=== PATIENT | female | born 1985 | race Caucasian/White ===

== ENCOUNTER 2022-06-21 01:52 | Emergency (ER) | payer SELFPAY ==
--- NOTE | 2022-06-21 02:05 | EDPHYS ---
Physician Documentation [facility] Name: Teodora Mas Age: 36 yrs Sex: Female : 1985 Arrival Date: 06/21/2022 Time: 01:54 Bed 5 Private MD: AMY Physician Fam Jensen HPI: 06/21 03:15 This 36 yrs old Female presents to ER via Stretcher with complaints of Fall Injury - kdr left lower leg deformity. 03:15 [place] and [place]. Her leg may have gotten kdr caught as she went down. She had acute onset of pain in her right knee. She was not able to bear weight afterwards. She is otherwise without other injury. Patient has a protein S deficiency which requires her to take Eliquis on a regular basis. She has a history of multiple blood clots in her lungs and elsewhere. She has had multiple surgeries for removal of those clots.. Onset: The symptoms/episode began/occurred suddenly, just prior to arrival. Severity of symptoms: At their worst the symptoms were severe incapacitating in the emergency department the symptoms are unchanged. The patient has not experienced similar symptoms in the past. The patient has not recently seen a physician. Historical: - Allergies: 04:08 No Known Allergies; as6 - Home Meds: 01:59 Eliquis oral [Active]; aa9 - PMHx: 04:08 Myocardial infarction; protein s deficiency; as6 - Social history:: Smoking status: Patient reports the use of cigarette tobacco products, smokes one-half pack cigarettes per day. - Immunization history: Last tetanus immunization: unknown. ROS: 03:15 Constitutional: Negative for fever, chills, and weight loss, Eyes: Negative for injury, kdr pain, redness, and discharge, Neck: Negative for injury, pain, and swelling, Cardiovascular: Negative for chest pain, palpitations, and edema, Respiratory: Negative for shortness of breath, cough, wheezing, and pleuritic chest pain, Abdomen/GI: Negative for abdominal pain, nausea, vomiting, diarrhea, and constipation, Back: Negative for injury and pain, : Negative for injury, bleeding, discharge, and swelling, Skin: Negative for injury, rash, and discoloration, Neuro: Negative for headache, weakness, numbness, tingling, and seizure activity. Psych: Negative for depression, anxiety, suicide ideation, homicidal ideation, and hallucinations, Allergy/Immunology: Negative for hives, rash, and allergies, Endocrine: Negative for neck swelling, polydipsia, polyuria, polyphagia, and marked weight changes, Hematologic/Lymphatic: Negative for swollen nodes, abnormal bleeding, and unusual bruising. 03:15 MS/extremity: Positive for injury or acute deformity, decreased range of motion, deformity, pain, swelling, tenderness, warmth, of the lateral aspect of right knee, lateral aspect of right calf, posterior aspect of right knee, right calf, medial aspect of right knee, medial aspect of right calf, right knee and right rosario, Negative for puncture. Exam: 03:15 Constitutional: This is a well developed, well nourished patient who is awake, alert, kdr and in no acute distress. Head/Face: Normocephalic, atraumatic. Eyes: Pupils equal round and reactive to light, extra-ocular motions intact. Lids and lashes normal. Conjunctiva and sclera are non-icteric and not injected. Cornea within normal limits. Periorbital areas with no swelling, redness, or edema. Neck: Trachea midline, no thyromegaly or masses palpated, and no cervical lymphadenopathy. Supple, full range of motion without nuchal rigidity, or vertebral point tenderness. No Meningismus. Chest/axilla: Normal chest wall appearance and motion. Nontender with no deformity. No lesions are appreciated. Cardiovascular: Regular rate and rhythm with a normal S1 and S2. No gallops, murmurs, or rubs. Normal PMI, no JVD. No pulse deficits. Respiratory: Lungs have equal breath sounds bilaterally, clear to auscultation and percussion. No rales, rhonchi or wheezes noted. No increased work of breathing, no retractions or nasal flaring. Abdomen/GI: Soft, non-tender, with normal bowel sounds. No distension or tympany. No guarding or rebound. No evidence of tenderness throughout. Back: No spinal tenderness. No costovertebral tenderness. Full range of motion. Skin: Warm, dry with normal turgor. Normal color with no rashes, no lesions, and no evidence of cellulitis. Neuro: Awake and alert, GCS 15, oriented to person, place, time, and situation. Cranial nerves II-XII grossly intact. Motor strength 5/5 in all extremities. Sensory grossly intact. Cerebellar exam normal. Normal gait. Psych: Awake, alert, with orientation to person, place and time. Behavior, mood, and affect are within normal limits. 03:15 Musculoskeletal/extremity: Extremities: all appear grossly normal, with no appreciated pain with palpation, ROM: limited active range of motion, limited passive range of motion, in the right leg, Circulation is intact in all extremities. Sensation intact. Weight bearing: is unable to bear weight. Vital Signs: 01:56 BP 137 / 97; Pulse 92; Resp 20 S; Pulse Ox 100% on R/A; Pain 10/10; aa9 02:40 BP 124 / 79; Pulse 96; Resp 13 S; Pulse Ox 99% on R/A; as6 03:33 BP 129 / 79; Pulse 106; Resp 20; Temp 98.7; Pulse Ox 100% on R/A; Weight 79.38 kg; jj7 Height 5 ft. 5 in. (165.10 cm); 04:03 BP 117 / 72; Pulse 103; Resp 18 S; Pulse Ox 100% on 2 lpm NC; as6 04:32 BP 112 / 89; Pulse 97; Resp 18; Pulse Ox 100% on R/A; as6 09:19 BP 117 / 76; Pulse 86; Resp 16; Pulse Ox 100% on R/A; vg1 03:33 Body Mass Index 29.12 (79.38 kg, 165.10 cm) j7 Carmine Coma Score: 02:08 Eye Response: spontaneous(4). Verbal Response: oriented(5). Motor Response: obeys as6 commands(6). Total: 15. Trauma Score (Adult): 02:08 Eye Response: spontaneous(1); Verbal Response: oriented(1); Motor Response: obeys as6 commands(2); Systolic BP: > 89 mm Hg(4); Respiratory Rate: 10 to 29 per min(4); [place] Score: 15; Trauma Score: 12 Procedures: 03:15 Splinting: Splint applied to right leg using Orthoglass splint, applied by myself. kdr Examined by me, post splint application: neurovascular intact, 2+ distal pulses palpable, brisk capillary refill noted, Patient tolerated well. MDM: 02:05 Patient medically screened. kdr 05:11 Data reviewed: vital signs, nurses notes, lab test result(s), radiologic studies. kdr Counseling: I had a detailed discussion with the patient and/or guardian regarding: the historical points, exam findings, and any diagnostic results supporting the discharge/admit diagnosis, lab results, radiology results, the need to transfer to another facility. 06/21 01:56 Order name: CBC with Diff kdr 06/21 01:56 Order name: Chem 7 kdr 06/21 01:56 Order name: PT-INR kdr 06/21 01:56 Order name: Femur Right XRAY kdr 06/21 01:56 Order name: Tib Fib Right XRAY kdr 06/21 01:59 Order name: SARS RAPID mw2 06/21 01:56 Order name: Knee Right 3 View XRAY kdr 06/21 04:25 Order name: Knee Right Wo Cont EDMS 06/21 01:56 Order name: Splint - Long Leg: Posterior w/ Stirrup; Complete Time: 04:06 kdr Administered Medications: 02:15 Drug: Dilaudid (HYDROmorphone) 2 mg Route: IVP; Site: right antecubital; jj7 08:26 Follow up: Response: Pain is unchanged, physician notified ap3 02:23 Drug: Zofran (Ondansetron) 4 mg Route: IVP; Site: right antecubital; jj7 08:26 Follow up: Response: No adverse reaction ap3 03:20 Drug: Dilaudid (HYDROmorphone) 1 mg Route: IVP; Site: right antecubital; as6 08:26 Follow up: Response: Pain is unchanged, physician notified ap3 03:45 Drug: Midazolam 4 mg Route: IVP; Site: right antecubital; as6 08:26 Follow up: Response: Pain is unchanged, physician notified ap3 06:17 Drug: Dilaudid (HYDROmorphone) 1 mg Route: IVP; Site: right antecubital; as6 08:26 Follow up: Response: Pain is unchanged, physician notified ap3 07:45 Drug: Dilaudid (HYDROmorphone) 1 mg Route: IVP; Site: right antecubital; ap3 08:52 Drug: Dilaudid (HYDROmorphone) 1 mg Route: IVP; Site: right antecubital; vg1 Disposition Summary: 06/21/22 02:05 Transfer Ordered Reason: Higher level of care kdr Condition: Fair kdr Problem: new kdr Symptoms: have improved kdr Transfer Location: Other Acute Care Facility(06/21/22 06:19) Accepting Physician: Dr. Castellon [facility](06/21/22 09:21) vg1 Diagnosis - Tibial plateau fracture -closed kdr Forms: - Medication Reconciliation Form kdr - SBAR form kdr Signatures: Dispatcher [employer] EDMS Rosa Rivero RN RN Jaylan Durand MD MD kdr Lois Stephen RN RN ap3 Cierra Cosme RN RN vg1 Zach Constantino RN RN as6 Jennifer Curtis RN RN aa9 Reji Rhodes RN RN jj7 Corrections: (The following items were deleted from the chart) 04:09 01:59 Allergies: Unable to obtain; aa9 as6 04:09 01:59 PMHx: Unable to Obtain; aa9 as6 04:09 01:59 PSHx: Unable to Obtain; aa9 as6 05:11 02:05 [place] kdr kdr 06:19 02:05 [facility] kdr 06:19 05:11 [facility] 06:19 Dr. Castellon, [facility] mw vg1
--- NOTE | 2022-06-21 02:05 | ER ---
Nurse's Notes [facility] Name: Teodora Mas Age: 36 yrs Sex: Female : 1985 Arrival Date: 06/21/2022 Time: 01:54 Bed 5 Private MD: Diagnosis: Tibial plateau fracture -closed Presentation: 06/21 01:56 Chief complaint: Patient states: [place] and I tripped and fell. My aa9 left lower leg is deformed and it hurts so bad. Initial Sepsis Screen: Does the patient meet any 2 criteria? No. Patient's initial sepsis screen is negative. Does the patient have a suspected source of infection? No. Patient's initial sepsis screen is negative. Risk Assessment: Do you want to hurt yourself or someone else? Patient reports no desire to harm self or others. Onset of symptoms was June 21, 2022. 01:56 Method Of Arrival: Stretcher aa9 01:56 Acuity: ANDRE 2 aa9 02:04 Care prior to arrival: None. Mechanism of Injury: Fall from standing position. Trauma as6 event details: Injury occurred in the [facility], Injury occurred: beach. 02:09 Coronavirus screen: At this time, the client does not indicate any symptoms associated as6 with coronavirus-19. Ebola Screen: No symptoms or risks identified at this time. Triage Assessment: 02:00 General: Appears distressed, uncomfortable, Behavior is anxious, crying. Pain: aa9 Complains of pain in left leg Pain currently is 10 out of 10 on a pain scale. Cardiovascular:. Musculoskeletal: Bony deformity noted of lateral aspect of left calf, left calf, medial aspect of left calf and left rosario. Trauma Activation: Alert Physician: ED Physician; Name: Kizzy; Notified At: 01:55; Arrived At: Physician: General Surgeon; Name: ; Notified At: 01:55; Arrived At: Physician: Radiology; Name: ; Notified At: 01:55; Arrived At: Physician: Respiratory; Name: ; Notified At: 01:55; Arrived At: Physician: Lab; Name: ; Notified At: 01:55; Arrived At: Historical: - Allergies: 04:08 No Known Allergies; as6 - Home Meds: 01:59 Eliquis oral [Active]; aa9 - PMHx: 04:08 Myocardial infarction; protein s deficiency; as6 - Social history:: Smoking status: Patient reports the use of cigarette tobacco products, smokes one-half pack cigarettes per day. - Immunization history: Last tetanus immunization: unknown. Screenin:01 Abuse screen: Denies threats or abuse. Denies injuries from another. Nutritional aa9 screening: No deficits noted. Tuberculosis screening: No symptoms or risk factors identified. Fall Risk None identified. Primary Survey: 02:06 NO uncontrolled hemorrhage observed. A: The client is awake and alert. The airway is as6 patent. Breathing/Chest: Spontaneous respiratory effort, equal unlabored respirations, breath sounds clear bilaterally, regular pattern, symmetrical chest rise and fall. Circulation: No external hemorrhage present. Regular and strong central pulse, skin warm/dry/normal color. Disability Pupils are equal, round, reactive to light and accommodation. Client is alert. Exposure/Environment: All clothing and personal items were removed. Forensic evidence collection is not deemed to be indicated at this time. Items placed in patient belonging bag. A warming method has been applied: A warm blanket has been provided to the patient. 04:06 Reassessment Alertness and Airway: Awake and alert. The airway is patent. Breathing: as6 Spontaneous respiratory effort, equal unlabored respirations, breath sounds clear bilaterally, regular pattern with symmetrical chest rise and fall. Circulation: No external hemorrhage noted. Regular and strong central pulse, skin warm/dry/normal color. Disability: Pupils Pupils are equal, round, reactive to light and accomodation. Alert. Secondary Survey: 02:09 HEENT: No deficits noted. Gastrointestinal: No deficits noted. : No deficits noted. as6 Musculoskeletal: Bony deformity noted of right leg Swelling present in right leg. Assessment: 02:05 General: Appears uncomfortable, Behavior is cooperative. Pain: Complains of pain in as6 left rosario and medial aspect of left calf and left calf and lateral aspect of left calf and left leg. Neuro: Level of Consciousness is awake, alert. Respiratory: Respiratory effort is even, unlabored. Musculoskeletal: Bony deformity noted of right leg Swelling present in right leg. 08:47 Reassessment: Patient appears in no apparent distress at this time. Patient and/or vg1 family updated on plan of care and expected duration. Pain level reassessed. Patient is alert, oriented x 3, equal unlabored respirations, skin warm/dry/pink. c/o Right leg pain 05/18. 08:50 Reassessment: received VO from Dr Jensen to administer Dilaudid 1 mg IVP x1. vg1 Vital Signs: 01:56 BP 137 / 97; Pulse 92; Resp 20 S; Pulse Ox 100% on R/A; Pain 10/10; aa9 02:40 BP 124 / 79; Pulse 96; Resp 13 S; Pulse Ox 99% on R/A; as6 03:33 BP 129 / 79; Pulse 106; Resp 20; Temp 98.7; Pulse Ox 100% on R/A; Weight 79.38 kg; jj7 Height 5 ft. 5 in. (165.10 cm); 04:03 BP 117 / 72; Pulse 103; Resp 18 S; Pulse Ox 100% on 2 lpm NC; as6 04:32 BP 112 / 89; Pulse 97; Resp 18; Pulse Ox 100% on R/A; as6 09:19 BP 117 / 76; Pulse 86; Resp 16; Pulse Ox 100% on R/A; vg1 03:33 Body Mass Index 29.12 (79.38 kg, 165.10 cm) jj7 Kerby Coma Score: 02:08 Eye Response: spontaneous(4). Verbal Response: oriented(5). Motor Response: obeys as6 commands(6). Total: 15. Trauma Score (Adult): 02:08 Eye Response: spontaneous(1); Verbal Response: oriented(1); Motor Response: obeys as6 commands(2); Systolic BP: > 89 mm Hg(4); Respiratory Rate: 10 to 29 per min(4); Kerby Score: 15; Trauma Score: 12 ED Course: 01:54 Patient arrived in ED. mw2 01:54 Jaylan Durand MD is Attending Physician. kdr 01:58 Triage completed. aa9 02:02 Zach Constantino, GINNY is Primary Nurse. as6 02:04 Inserted saline lock: 18 gauge in right antecubital area, using aseptic technique. as6 Blood collected. Patient maintains SpO2 saturation greater than 95% on room air. Thermoregulation: warm blanket given to patient. 02:09 Arm band placed on. as6 02:09 Placed in gown. Bed in low position. Call light in reach. Side rails up X2. Adult w/ as6 patient. Client placed on continuous cardiac and pulse oximetry monitoring. NIBP monitoring applied. Warm blanket given. 02:17 Patient transferred, IV remains in place. as6 02:35 attempted to initiate a transfer with [facility]. on hold no mw2 answer hung up at [id number]. 02:45 Femur Right XRAY In Process Unspecified. EDMS 02:45 Tib Fib Right XRAY In Process Unspecified. EDMS 02:45 Knee Right 3 View XRAY In Process Unspecified. EDMS 03:09 intiated a transfer with [facility]. Usha in the Transfer Center mw2 answered at [phone]. 03:23 Initiated a transfer with Ariel from [facility]. [facility] denied due to capacity. mw2 04:00 Babar wrap to left leg Orthoglass splint: Posterior long leg splint applied on right leg. as6 stirrup splint applied on right leg. 04:06 [facility] denied to capacity. Trying [facility]. mw2 04:25 Knee Right Wo Cont In Process Unspecified. EDMS 04:48 intiated a transfer with Nancy Rich from [facility] Transfer Center. mw2 05:[address] Durand with the Doctor from [facility]. mw2 05:12 administrative approval given by Yoselyn Louie/ patient has been accepted to [address] to the ER/ Dr. Castellon accepted the patient in transfer/report to be called to [phone]. 05:41 [facility] ETA after 6am. mw2 07:32 Attending Physician role handed off by Jaylan Durand MD jeremiah 07:32 Fam Jensen MD is Attending Physician. jeremiah 08:10 Primary Nurse role handed off by Zach Constantino RN bd 09:19 No provider procedures requiring assistance completed. Patient transferred, IV remains vg1 in place. Administered Medications: 02:15 Drug: Dilaudid (HYDROmorphone) 2 mg Route: IVP; Site: right antecubital; jj7 08:26 Follow up: Response: Pain is unchanged, physician notified ap3 02:23 Drug: Zofran (Ondansetron) 4 mg Route: IVP; Site: right antecubital; jj7 08:26 Follow up: Response: No adverse reaction ap3 03:20 Drug: Dilaudid (HYDROmorphone) 1 mg Route: IVP; Site: right antecubital; as6 08:26 Follow up: Response: Pain is unchanged, physician notified ap3 03:45 Drug: Midazolam 4 mg Route: IVP; Site: right antecubital; as6 08:26 Follow up: Response: Pain is unchanged, physician notified ap3 06:17 Drug: Dilaudid (HYDROmorphone) 1 mg Route: IVP; Site: right antecubital; as6 08:26 Follow up: Response: Pain is unchanged, physician notified ap3 07:45 Drug: Dilaudid (HYDROmorphone) 1 mg Route: IVP; Site: right antecubital; ap3 08:52 Drug: Dilaudid (HYDROmorphone) 1 mg Route: IVP; Site: right antecubital; vg1 Medication: 04:07 VIS not applicable for this client. as6 Intake: 02:08 PO: 0ml; Total: 0ml. as6 Outcome: 02:05 ER care complete, transfer ordered by . kdr 09:19 Transferred by ground EMS vg1 09:19 Condition: good 09:19 Instructed on the need for transfer. 09:20 waiting for acceptance and ground transportationPatient's length of stay extended due vg1 to 09:21 Patient left the ED. vg1 Signatures: Dispatcher [employer] EDMS Clarita Sarmiento Corey, MD MD cha Rittger, Kevin, MD MD kdr Prokisch, Amanda RN RN ap3 Mena Walters mw2 Cierra Cosme RN RN vg1 Zahc Constantino RN GINNY as6 Jennifer Curtis RN RN aa9 Reji Rhodes RN RN jj7 Corrections: (The following items were deleted from the chart) 03:42 02:35 attempted to initiate a transfer with [facility]. on hold mw2 no answer mw2 04:09 01:59 Allergies: Unable to obtain; aa9 as6 04:09 01:59 PMHx: Unable to Obtain; aa9 as6 04:09 01:59 PSHx: Unable to Obtain; aa9 as6
[2022-06-21 02:12] LABS: Protime INR 1.37
[2022-06-21 02:13] LABS: Absolute Lymphocytes (CBC) 1.9 K/uL (0.7-4.9); Hematocrit 32.6 % (36.0-45.0); Lymphocytes % 16.9 % (15.3-44.8); MCV 78.8 fL (80-100); MPV 7.2 fL (7.6-11.3); RBC Red Blood Cell Count 4.13 M/uL (3.86-4.86)
[2022-06-21] MEDS ORDERED: HYDROMORPHONE HCL 1 MG/ML INJ ONE ×5 (02:13→09:01)
[2022-06-21] MEDS ORDERED: ONDANSETRON 4 MG/2 ML VIAL ONE (02:14)
[2022-06-21 02:22] LABS: SARS-CoV-2 Antigen Rapid Res Negative (Negative)
[2022-06-21] MEDS ORDERED: MIDAZOLAM HCL 2 MG/2 ML INJ ONE (03:42)
[2022-06-21 09:49] VITALS: TEMP 98.7; O2SAT 100
[2022-06-21 10:10] VITALS: BP 117/76
--- NOTE | 2022-06-21 16:57 | RAD REPORT ---
EXAM DESCRIPTION: RAD - Tib Fib Right - 06/21/2022 2:44 am CLINICAL HISTORY: 36 years, Female, Pain COMPARISON: None FINDINGS: 2 X-ray views of the right tibia and fibula (frontal lateral views) were performed. There is a acute oblique fractures along the proximal aspect of the right tibia and fibula with no si gnificant angulation/or diastases. No gross articular or soft tissue abnormality is identified. T here are no gross intraosseous lesions. No periosteal reaction were seen. IMPRESSION: Acute oblique fractures of the proximal right tibia and fibula. Electronically signed by: Joshua Hester MD 06/21/2022 3:23 AM CDT Due to temporary technical issues with the PACS/Fluency reporting system, reports are being signed by the in house radiologists without review as a courtesy to insure prompt reporting. The interpreting radiologist is fully responsible for the content of the report.
--- NOTE | 2022-06-21 16:59 | RAD REPORT ---
EXAM DESCRIPTION: RAD - Knee Right 3 View - 06/21/2022 2:44 am CLINICAL HISTORY: 36 years, Female, PAIN COMPARISON: None FINDINGS: 2 X-ray views of the right tibia and fibula (frontal and lateral views) were performed. There is a oblique fracture along the proximal aspect of the tibia with extension into the tibial tyron teau and linear intra-articular extension/component. There are no gross intraosseous lesions. There is a small suprapatellar joint effusion. There is no periostitis. IMPRESSION: Nondisplaced proximal tibial fracture with intra-articular extension and small joint eff usion. Electronically signed by: Joshua Hester MD 06/21/2022 3:24 AM CDT Due to temporary technical issues with the PACS/Fluency reporting system, reports are being signed by the in house radiologists without review as a courtesy to insure prompt reporting. The interpreting radiologist is fully responsible for the content of the report.
--- NOTE | 2022-06-21 17:00 | RAD REPORT ---
EXAM DESCRIPTION: RAD - Femur Right - 06/21/2022 2:43 am CLINICAL HISTORY: 36 years, Female, Pain Femur Right COMPARISON: None. FINDINGS: 2 X-ray views of the right femur were performed. There is no acute fracture or dislocation. There is no focal soft tissue swelling. Limited evaluation of the knee and hip joints demonstrate no gross abnormalities. The bony pelvis is grossly normal in appearance. IMPRESSION: Unremarkable exam of the right femur. Electronically signed by: Joshua Hester MD 06/21/2022 3:22 AM CDT Due to temporary technical issues with the PACS/Fluency reporting system, reports are being signed by the in house radiologists without review as a courtesy to insure prompt reporting. The interpreting radiologist is fully responsible for the content of the report.
--- NOTE | 2022-06-21 17:03 | RAD REPORT ---
EXAM DESCRIPTION: CT - Knee Right Wo Cont - 06/21/2022 6:46 am CLINICAL HISTORY: 36 years Female FALL INJURY TECHNIQUE: Axial CT imaging of the right knee was performed without intravenous contrast. Sagittal and coronal reconstructed images were then performed. The CT study is performed according to ALARA ( as low as reasonably achievable) or ALARA/IMAGE GENTLY, with automatic adjustment of mA and/or kV acc ording to patient size. Performed on: 06/21/2022 at 4:18 AM COMPARISON: Plain x-rays of the right knee performed on 06/21/2022 at 2:23 AM FINDINGS: Bones: There is a comminuted mildly displaced, obliquely oriented fracture through the pro ximal tibial diaphysis which extends to the medial tibial plateau which is not depressed or displaced . There is also a comminuted depressed fracture through the lateral tibial plateau. There is also a c omminuted mildly displaced fracture through the proximal fibular diaphysis without definite intra-art icular extension. The distal femur is grossly intact. The patella is intact. No significant degenerat ziggy or arthritic changes are noted. No focal pathologic lytic or sclerotic bone lesions are identifie d. Bone mineralization is normal. Soft tissues: There is diffuse soft tissue swelling surrounding the proximal right lower leg with inf iltration of the superficial and deep subcutaneous fat particularly along the anteromedial aspect of the right knee. There may be strain of the medial collateral ligament. There is a moderate suprapatel lar joint effusion and there is a fat fluid level consistent with lipohemarthrosis. There is also a s mall amount of fluid posterior to the right knee There is a punctate lucency posterior to the femor al notch which may represent fat or air. This is too small to adequately characterize. IMPRESSION: 1. Comminuted mildly displaced, obliquely oriented fracture through the proximal tibia l diaphysis which extends to the medial tibial plateau which is not depressed or displaced. 2. Comminuted depressed fracture through the lateral tibial plateau. 3. Comminuted mildly displaced fracture through the proximal fibular diaphysis without definite int ra-articular extension. 4. Diffuse soft tissue swelling surrounding the proximal right lower leg with infiltration of the s uperficial and deep subcutaneous fat particularly along the anteromedial aspect of the right knee. Th ere may be strain of the medial collateral ligament. 5. Moderate suprapatellar joint effusion with a fat fluid level consistent with lipohemarthrosis. 6. Punctate lucency posterior to the femoral notch which may represent fat or air. This is too smal l to adequately characterize. Electronically signed by: Preeti Burkett DO 06/21/2022 5:42 AM CDT Due to temporary technical issues with the PACS/Fluency reporting system, reports are being signed by the in house radiologists without review as a courtesy to insure prompt reporting. The interpreting radiologist is fully responsible for the content of the report.
== END 2022-06-21 09:21 ==
LOC: ER 01:52
PROC: 2W3LX1Z Immobilization of Right Lower Extremity using Splint (ICD-10-PCS; principal; 2022-06-21)
DX: S82.141A Displaced bicondylar fracture of right tibia, initial encounter for closed fracture (principal); F17.210 Nicotine dependence, cigarettes, uncomplicated; D68.59 Other primary thrombophilia; Z79.01 Long term (current) use of anticoagulants
CPT/HCPCS: 36415; 73700; 80048; 85025; 85610; 87811; 96374; 96375; 99285; J1170; J2250; J2405

== ENCOUNTER 2022-12-01 20:23 | Emergency (ER) | payer SELFPAY ==
--- OUTSIDE RECORDS SUMMARY | 2022-12-01 20:27 | XMS REPORT | Continuity of Care Document ---
:1985 Author Organization [facility] t Address [address] [place] [address] Care Team Providers Name Role Phone Brian Britt Attending Clinician Unavailable Brian Britt Admitting Clinician Unavailable Payers Payer Name Policy Type Policy Number Effective Date Expiration Date S ource Problems This patient has no known problems. Allergies, Adverse Reactions, Alerts Allergy Allergy Status Severity Reaction(s) Onset Inactive Treating Comm ents Source Name Type Date Date Clinician cycloben [place] [facility] zaprine 06-29 Clear 00:00: [facility] tramadol [place] [facility] A 06-22 Clear 00:00: [facility] tramadol [place] [facility] A 06-21 Clear 00:00: [facility] MUSCLE [place] [facility] 06-21 Clear 00:00: [address] Medications This patient has no known medications. Procedures Procedure Date / Time Performed Performing Clinician Rolando gresham [id number] 2022-06-29 00:00:00 ANDREW TEE [facility] [id number] 2022-06-29 00:00:00 ANDREW RANDAL [facility] [id number] 2022-06-22 00:00:00 ANDREW TEE [facility] [id number] 2022-06-22 00:00:00 ANDREW [facility] [id number] 2022-06-22 00:00:00 ANDREW TEE [facility] [id number] 2022-06-22 00:00:00 ANDREW TEE [facility] Encounters Start End Encounter Admission Attending Care Care Encounter Source Date/Time Date/Time Type Type Clinicians Facility Department ID 2022-06-21 2022-07-01 Inpatient ADRIÁN Nair [facility].Earnest [id number] [facility] 11:27:00 16:44:00 Brian Cha [facility] Results Test Description Test Time Test Comments Results Result Comments Source BASIC METABOLIC PANEL 2022-06-30 09:23:00 Test Item Value Reference Range Interpretation Comme nts SODIUM (test code = NA) 140 mEq/L 134-147 N POTASSIUM (test code = K) 4.0 mEq/L 3.4-5.0 N CHLORIDE (test code = CL) 106 mEq/L 100-108 N CARBON DIOXIDE (test code = CO2) 26 mEq/l 21-33 N ANION GAP (test code = GAP) 12 0-20 N GLUCOSE (test code = GLU) 91 mg/dL 70-110 N BLOOD UREA NITROGEN (test code = 7 mg/dL 7-18 N BUN) GLOMERULAR FILTRATION RATE (test 93.6 105-110 L Units of measure = ml/min/1.73 code = GFR) m2 CREATININE (test code = CREAT) 0.7 mg/dL 0.6-1.3 N CALCIUM (test code = CA) 8.4 mg/dL 8.0-10.5 N CBC W/AUTO [id number] 07:26:00 Test Item Value Reference Range Interpretation Comments WHITE BLOOD CELL (test code = 7.8 x10 3/uL 4.5-11.0 N WBC) RED BLOOD CELL (test code = 2.92 x10 6/uL 3.54-5.02 L RBC) HEMOGLOBIN (test code = HGB) 8.0 g/dL 11.0-15.0 L HEMATOCRIT (test code = HCT) 25.6 % 33.0-45.0 L MEAN CELL VOLUME (test code = 87.7 fL 81.0-99.0 MCV) MEAN CELL HGB (test code = MCH) 27.4 pg 27.0-33.0 N MEAN CELL HGB CONCETRATION 31.3 g/dL 33.0-37.0 L (test code = MCHC) RED CELL DISTRIBUTION WIDTH CV 18.4 % 11.5-14.5 H (test code = RDW) RED CELL DISTRIBUTION WIDTH SD 53.1 fL 37.0-54.0 N (test code = RDW-SD) PLATELET COUNT (test code = 369 x10 3/uL 150-400 N PLT) MEAN PLATELET VOLUME (test code 8.8 fL 7.0-9.0 N = MPV) NEUTROPHIL % (test code = NT%) 69.2 % 56.0-77.0 N IMMATURE GRANULOCYTE % (test 1.9 % 0.0-2.0 N code = IG%) LYMPHOCYTE % (test code = LY%) 20.3 % 14.0-32.0 N MONOCYTE % (test code = MO%) 8.2 % 4.8-9.0 N EOSINOPHIL % (test code = EO%) 0.1 % 0.3-3.7 L BASOPHIL % (test code = BA%) 0.3 % 0.0-2.0 N NUCLEATED RBC % (test code = 0.0 % 0-0 N NRBC%) NEUTROPHIL # (test code = NT#) 5.40 x10 3/uL 2.0-7.6 N IMMATURE GRANULOCYTE # (test 0.15 x10 3/uL 0.00-0.03 H code = IG#) LYMPHOCYTE # (test code = LY#) 1.58 x10 3/uL 1.0-3.8 N MONOCYTE # (test code = MO#) 0.64 x10 3/uL 0.1-0.8 N EOSINOPHIL # (test code = EO#) 0.01 x10 3/uL 0.0-0.2 N BASOPHIL # (test code = BA#) 0.02 x10 3/uL 0.0-0.2 N NUCLEATED RBC # (test code = 0.00 x10 3/uL 0.0-0.1 N NRBC#) MANUAL DIFF REQUIRED (test code NO = MDIFF) THROMBOPLASTIN TIME [id number] 12:07:00 Test Item Value Reference Range Interpretation Comments THROMBOPLASTIN TIME 38.5 Seconds 25.0-39.5 Therape utic Range: PARTIAL (test code = 50.4 - 88.3 Seconds PTT) Effective 01/22/2019 THROMBOPLASTIN TIME [id number] 04:47:00 Test Item Value Reference Range Interpretation Comments THROMBOPLASTIN TIME 88.0 Seconds 25.0-39.5 H Therape utic Range: PARTIAL (test code = 50.4 - 88.3 Seconds PTT) Effective 01/22/2019 - XR FLUOROSCOPY 0-60 [id number] 00:00:00 [facility] 1985 Sex: F FAX: Brian Britt DO [phone] [place]: St: ADM FAX: Jonathan Copeland [facility] [phone] Name: MALIK SANTANA [facility] : 1985 Age/S: 36/F [address] [place] [address] Unit #: [id number] Loc: G.[address] [place] [address]Yapr: Jonathan Glover [facility] Acct: [id number] Dis Date: Status: ADM IN PHONE #: [phone] Exam Date: 06/29/2022 1026 FAX #: [phone] Reason: RIGHT PROXIMAL TIBIA FRACTURE EXAMS: CPT CODE: [id number] XR FLUOROSCOPY 0-60 MIN 54792 PROCEDURE INFORMATION: Exam: FL Fluoroscopy, Up to 1 Hour Physician Time; Radiologist Not Present For Fluoroscopy Exam date and time: 06/29/2022 7:08 AM Age: 36 years old Clinical indication: Device placement; Patient HX: Orif RT tibia; Additional info: Right proximaltibia fracture TECHNIQUE: Imaging protocol: Fluoroscopy , up to 1 hour physician or other qualifiedw[facility]umed[facility] attendant time. This radiologist did not supervise this procedure. [facility]. Report for radiation dosage reporting and documentation only. Other technique: Radiologist was not present during this procedure. COMPARISON: No relevant prior studies available. RADIATION DOSE METRICS: Fluoroscopy time (seconds): seconds= 113.4 Number of fluoro spot images: images= 19 Reference air kerma (POP): 7.16 mGy FINDINGS: Procedural imaging: Fluoroscopic assistance was provided. Radiologist was not present during the procedure. Intraoperative review of these images was performed by the operating physician. Please refer to the procedure report for further details. Notes: Fluoroscopy supervised by facility personnel. See also separate procedure report. IMPRESSION: Fluoroscopy dosage documentation. See also separate procedure notes. at 1053 Reported and signed by: Elijah Santiago M.D. CC: Brian Britt DO; Jonathan Dejesus [facility] Adalberto Technologist: RT Sharan(Cris) Trnscrd Date/Time/By: 06/29/2022 (8674) : By: [email or web address] Orig Print D/T: S: 06/29/2022 (6519) PAGE 1 Signed Report- XR TIBIA/FIBULA 2 V [id number] 00:00:00 [facility] : 1985 Sex: F FAX: Brian Britt [phone] [place]: St: [facility] FAX: Mariana AdalbertoJonathan Anjelica [facility] [phone] Name: MALIK SANTANA [facility] : 1985 Age/S: 36/F [address] [place] [address] Unit #: [id number] Loc: G.[address] [place] [address]Kbak: Jonathan Glover Anjelica [facility] Acct: [id number] Dis Date: Status: ADM IN PHONE #: [phone] Exam Date: 06/29/2022 1530 FAX #: [phone] Reason: Postop EXAMS: CPT CODE: [id number] XR TIBIA/FIBULA 2V RT [id number] PROCEDURE INFORMATION: Exam: XR Right Tibia and Fibula Exam date and time: 06/29/2022 3:08 PM Age: 36 years old Clinical indication: Other: Postop TECHNIQUE: Imaging protocol: Radiologic exam of the Right tibia and fibula. Views: 2 views. AP and Lateral Other technique: AP and cross-table lateral views of the right leg were obtained. COMPARISON: 1. DX XR TIBIA/FIBULA 2 V RT 06/21/2022 1:56AM 2. CT LOWER EXTRM W/O C RT 06/21/2022 4:16 AM FINDINGS: Limitations: Bandage material and brace material external of the patient. Bones/joints: There has been ORIF comminuted fracture of the proximal tibia utilizing medial and lateral plates and multiple screws. Alignment and position are near anatomical. Residual lucencies related to external fixation device in the mid and distal tibial diaphysis. Oblique fracture of the proximal fibular diaphysis redemonstrated in near anatomic alignment and position. Ankle joint is grossly maintained. Postoperative changes at the level of knee with joint effusion present. The visualized distal femur and patella are intact. Soft tissues: Postoperative changesin regional soft tissues with mottled gas. No unanticipated radiopaque foreign material. Notes: Further interpretation may be made by the operating physician. IMPRESSION: Post ORIF comminuted fracture p roximal tibia. at 1549 Reported and signed by: Umberto Smith M.D. CC: Brian Britt DO; Jonathan Dejesus [facility] Adalberto Technologist: RT Martha(Cris) Trnscrd Date/Time/By: 06/29/2022 (6132) : By: Jennifer Orig Print D/T: S: 06/29/2022 (6439) PAGE 1 Signed Report- XR KNEE 1 OR 2 V [id number] 00:00:00 [facility] 1985 Sex: F FAX: Brian Britt DO [phone] [place]: St: ADM FAX: Jonathan Copeland [facility] [phone] Name: MALIK SANTANA [facility] : 1985 Age/S: 36/F [address] [place] [address] Unit #: [id number] Loc: G.[address] [place] [address] Phys: Jonathan Glover [facility] Acct: [id number] Dis Date: Status: ADM IN PHONE #: [phone] Exam D ate: 06/29/2022 1530 FAX #: [phone] Reason: Postop EXAMS: CPT CODE: [id number] XR KNEE 1 OR 2 VRT [id number] PROCEDURE INFORMATION: Exam: XR Right Knee Exam date and time: 06/29/2022 3:08 PM Age: 36 years old Clinical indication: Other: Postop TECHNIQUE: Imaging protocol: Radiologic exam of the Rightknee. Views: 1 or 2 views. AP and Lateral Other technique: AP and cross-table lateral views were obtained. COMPARISON: 1. CT LOWER EXTRM W/O C RT 06/21/2022 4:16 AM 2. Current right leg radiographs FINDINGS: Bones/joints: There has been interval ORIF comminuted fracture proximal tibia utilizing medialand lateral plates and multiple screws. Alignment and position near anatomical. Residual mild irregul arity cortical surface lateral tibial plateau. The knee is otherwise grossly maintained. Associated joint effusion. Oblique fracture of the proximal fibular diaphysis partially imaged, grossly stable. Soft tissues: There are postoperative changes in regional soft tissues with mottled gas. No unanticipa anali radiopaque foreign material. Notes: Further interpretation may be made by the operating physician. IMPRESSION: Post up ORIF proximal tibial fracture. at 1551 Reported and signed by: Umberto Smith M.D. CC: Brian Britt DO; Jonathan Dejesus [facility] Adalberto Technologist: Adama Espinoza RT(R) Trnscrd Date/Time/By: 06/29/2022 (917) : By: Jennifer Orig Print D/T: S: 06/29/2022 (9709) PAGE 1 Signed ReportTHROMBOPLASTIN TIME [id number] 01:48:00 Test Item Value Reference Range Interpretation Comments THROMBOPLASTIN TIME 62.1 Seconds 25.0-39.5 H Therape utic Range: PARTIAL (test code = 50.4 - 88.3 Seconds PTT) Effective 01/22/2019 CBC W/AUTO [id number] 01:39:00 Test Item Value Reference Range Interpretation Comments WHITE BLOOD CELL (test code = 6.0 x10 3/uL 4.5-11.0 N WBC) RED BLOOD CELL (test code = 3.14 x10 6/uL 3.54-5.02 L RBC) HEMOGLOBIN (test code = HGB) 8.4 g/dL 11.0-15.0 L HEMATOCRIT (test code = HCT) 26.6 % 33.0-45.0 L MEAN CELL VOLUME (test code = 84.7 fL 81.0-99.0 N MCV) MEAN CELL HGB (test code = MCH) 26.8 pg 27.0-33.0 L MEAN CELL HGB CONCETRATION 31.6 g/dL 33.0-37.0 L (test code = MCHC) RED CELL DISTRIBUTION WIDTH CV 16.7 % 11.5-14.5 H (test code = RDW) RED CELL DISTRIBUTION WIDTH SD 46.0 fL 37.0-54.0 N (test code = RDW-SD) PLATELET COUNT (test code = 349 x10 3/uL 150-400 N PLT) MEAN PLATELET VOLUME (test code 8.9 fL 7.0-9.0 N = MPV) NEUTROPHIL % (test code = NT%) 62.7 % 56.0-77.0 N IMMATURE GRANULOCYTE % (test 1.8 % 0.0-2.0 N code = IG%) LYMPHOCYTE % (test code = LY%) 25.7 % 14.0-32.0 N MONOCYTE % (test code = MO%) 6.8 % 4.8-9.0 N EOSINOPHIL % (test code = EO%) 2.8 % 0.3-3.7 N BASOPHIL % (test code = BA%) 0.2 % 0.0-2.0 N NUCLEATED RBC % (test code = 0.0 % 0-0 N NRBC%) NEUTROPHIL # (test code = NT#) 3.77 x10 3/uL 2.0-7.6 N IMMATURE GRANULOCYTE # (test 0.11 x10 3/uL 0.00-0.03 H code = IG#) LYMPHOCYTE # (test code = LY#) 1.55 x10 3/uL 1.0-3.8 N MONOCYTE # (test code = MO#) 0.41 x10 3/uL 0.1-0.8 N EOSINOPHIL # (test code = EO#) 0.17 x10 3/uL 0.0-0.2 N BASOPHIL # (test code = BA#) 0.01 x10 3/uL 0.0-0.2 N NUCLEATED RBC # (test code = 0.00 x10 3/uL 0.0-0.1 N NRBC#) MANUAL DIFF REQUIRED (test code NO = MDIFF) COMMENTS: Daily while on HeparinTHROMBOPLASTIN TIME [id number] 18:54:00 Test Item Value Reference Range Interpretation Comments THROMBOPLASTIN TIME 80.3 Seconds 25.0-39.5 H Therape utic Range: PARTIAL (test code = 50.4 - 88.3 Seconds PTT) Effective 01/22/2019 THROMBOPLASTIN TIME [id number] 17:31:00 Test Item Value Reference Range Interpretation Comments THROMBOPLASTIN TIME 37.8 Seconds 25.0-39.5 Therape utic Range: PARTIAL (test code = 50.4 - 88.3 Seconds PTT) Effective 01/22/2019 THROMBOPLASTIN TIME [id number] 10:16:00 Test Item Value Reference Range Interpretation Comments THROMBOPLASTIN TIME 87.3 Seconds 25.0-39.5 H Therape utic Range: PARTIAL (test code = 50.4 - 88.3 Seconds PTT) Effective 01/22/2019 THROMBOPLASTIN TIME [id number] 02:16:00 Test Item Value Reference Range Interpretation Comments THROMBOPLASTIN TIME 57.9 Seconds 25.0-39.5 H Therap eutic PARTIAL (test code = Range: 50.4 - 88.3 PTT) Seconds Effective 01/22/2019 CBC W/AUTO [id number] 02:06:00 Test Item Value Reference Range Interpretation Comments WHITE BLOOD CELL (test code = 7.1 x10 3/uL 4.5-11.0 N WBC) RED BLOOD CELL (test code = 3.08 x10 6/uL 3.54-5.02 L RBC) HEMOGLOBIN (test code = HGB) 8.3 g/dL 11.0-15.0 L HEMATOCRIT (test code = HCT) 25.9 % 33.0-45.0 L MEAN CELL VOLUME (test code = 84.1 fL 81.0-99.0 N MCV) MEAN CELL HGB (test code = MCH) 26.9 pg 27.0-33.0 L MEAN CELL HGB CONCETRATION 32.0 g/dL 33.0-37.0 L (test code = MCHC) RED CELL DISTRIBUTION WIDTH CV 15.7 % 11.5-14.5 H (test code = RDW) RED CELL DISTRIBUTION WIDTH SD 43.6 fL 37.0-54.0 N (test code = RDW-SD) PLATELET COUNT (test code = 325 x10 3/uL 150-400 N PLT) MEAN PLATELET VOLUME (test code 8.9 fL 7.0-9.0 N = MPV) NEUTROPHIL % (test code = NT%) 62.5 % 56.0-77.0 N IMMATURE GRANULOCYTE % (test 1.8 % 0.0-2.0 N code = IG%) LYMPHOCYTE % (test code = LY%) 24.4 % 14.0-32.0 N MONOCYTE % (test code = MO%) 8.3 % 4.8-9.0 N EOSINOPHIL % (test code = EO%) 2.7 % 0.3-3.7 N BASOPHIL % (test code = BA%) 0.3 % 0.0-2.0 N NUCLEATED RBC % (test code = 0.0 % 0-0 N NRBC%) NEUTROPHIL # (test code = NT#) 4.47 x10 3/uL 2.0-7.6 N IMMATURE GRANULOCYTE # (test 0.13 x10 3/uL 0.00-0.03 H code = IG#) LYMPHOCYTE # (test code = LY#) 1.74 x10 3/uL 1.0-3.8 N MONOCYTE # (test code = MO#) 0.59 x10 3/uL 0.1-0.8 N EOSINOPHIL # (test code = EO#) 0.19 x10 3/uL 0.0-0.2 N BASOPHIL # (test code = BA#) 0.02 x10 3/uL 0.0-0.2 N NUCLEATED RBC # (test code = 0.00 x10 3/uL 0.0-0.1 N NRBC#) MANUAL DIFF REQUIRED (test code NO = MDIFF) COMMENTS: Daily while on HeparinTHROMBOPLASTIN TIME [id number] 16:09:00 Test Item Value Reference Range Interpretation Comments THROMBOPLASTIN TIME 76.0 Seconds 25.0-39.5 H Therape utic Range: PARTIAL (test code = 50.4 - 88.3 Seconds PTT) Effective 01/22/2019 COMMENTS: REDRAWTHROMBOPLASTIN TIME [id number] 15:01:00 Test Item Value Reference Range Interpretation Comments THROMBOPLASTIN TIME 41.6 Seconds 25.0-39.5 H Therape utic Range: PARTIAL (test code = 50.4 - 88.3 Seconds PTT) Effective 01/22/2019 CBC W/AUTO [id number] 07:31:00 Test Item Value Reference Range Interpretation Comments WHITE BLOOD CELL (test code = 7.2 x10 3/uL 4.5-11.0 N WBC) RED BLOOD CELL (test code = 3.42 x10 6/uL 3.54-5.02 L RBC) HEMOGLOBIN (test code = HGB) 9.0 g/dL 11.0-15.0 L HEMATOCRIT (test code = HCT) 28.5 % 33.0-45.0 L MEAN CELL VOLUME (test code = 83.3 fL 81.0-99.0 N MCV) MEAN CELL HGB (test code = MCH) 26.3 pg 27.0-33.0 L MEAN CELL HGB CONCETRATION 31.6 g/dL 33.0-37.0 L (test code = MCHC) RED CELL DISTRIBUTION WIDTH CV 14.6 % 11.5-14.5 H (test code = RDW) RED CELL DISTRIBUTION WIDTH SD 42.7 fL 37.0-54.0 N (test code = RDW-SD) PLATELET COUNT (test code = 330 x10 3/uL 150-400 N PLT) MEAN PLATELET VOLUME (test code 9.2 fL 7.0-9.0 H = MPV) NEUTROPHIL % (test code = NT%) 66.8 % 56.0-77.0 N IMMATURE GRANULOCYTE % (test 1.9 % 0.0-2.0 N code = IG%) LYMPHOCYTE % (test code = LY%) 21.6 % 14.0-32.0 N MONOCYTE % (test code = MO%) 6.1 % 4.8-9.0 N EOSINOPHIL % (test code = EO%) 3.2 % 0.3-3.7 N BASOPHIL % (test code = BA%) 0.4 % 0.0-2.0 N NUCLEATED RBC % (test code = 0.3 % 0-0 H NRBC%) NEUTROPHIL # (test code = NT#) 4.79 x10 3/uL 2.0-7.6 N IMMATURE GRANULOCYTE # (test 0.14 x10 3/uL 0.00-0.03 H code = IG#) LYMPHOCYTE # (test code = LY#) 1.55 x10 3/uL 1.0-3.8 N MONOCYTE # (test code = MO#) 0.44 x10 3/uL 0.1-0.8 N EOSINOPHIL # (test code = EO#) 0.23 x10 3/uL 0.0-0.2 H BASOPHIL # (test code = BA#) 0.03 x10 3/uL 0.0-0.2 N NUCLEATED RBC # (test code = 0.02 x10 3/uL 0.0-0.1 N NRBC#) MANUAL DIFF REQUIRED (test code NO = MDIFF) COMMENTS: Daily while on HeparinTHROMBOPLASTIN TIME [id number] 06:58:00 Test Item Value Reference Range Interpretation Comments THROMBOPLASTIN TIME 57.5 Seconds 25.0-39.5 H Therape utic Range: PARTIAL (test code = 50.4 - 88.3 Seconds PTT) Effective 01/22/2019 THROMBOPLASTIN TIME [id number] 17:24:00 Test Item Value Reference Range Interpretation Comments THROMBOPLASTIN TIME 62.3 Seconds 25.0-39.5 H Therape utic Range: PARTIAL (test code = 50.4 - 88.3 Seconds PTT) Effective 01/22/2019 THROMBOPLASTIN TIME [id number] 10:36:00 Test Item Value Reference Range Interpretation Comments THROMBOPLASTIN TIME 62.4 Seconds 25.0-39.5 H Therape utic Range: PARTIAL (test code = 50.4 - 88.3 Seconds PTT) Effective 01/22/2019 THROMBOPLASTIN TIME [id number] 02:22:00 Test Item Value Reference Range Interpretation Comments THROMBOPLASTIN TIME 112.9 Seconds 25.0-39.5 H Therap eutic PARTIAL (test code = Range: 50.4 - 88.3 PTT) Seconds Effective 01/22/2019 CBC W/AUTO [id number] 02:04:00 Test Item Value Reference Range Interpretation Comments WHITE BLOOD CELL (test code = 9.7 x10 3/uL 4.5-11.0 N WBC) RED BLOOD CELL (test code = 2.67 x10 6/uL 3.54-5.02 L RBC) HEMOGLOBIN (test code = HGB) 6.8 g/dL 11.0-15.0 L HEMATOCRIT (test code = HCT) 22.1 % 33.0-45.0 L MEAN CELL VOLUME (test code = 82.8 fL 81.0-99.0 N MCV) MEAN CELL HGB (test code = MCH) 25.5 pg 27.0-33.0 L MEAN CELL HGB CONCETRATION 30.8 g/dL 33.0-37.0 L (test code = MCHC) RED CELL DISTRIBUTION WIDTH CV 15.0 % 11.5-14.5 H (test code = RDW) RED CELL DISTRIBUTION WIDTH SD 44.9 fL 37.0-54.0 N (test code = RDW-SD) PLATELET COUNT (test code = 339 x10 3/uL 150-400 N PLT) MEAN PLATELET VOLUME (test code 9.0 fL 7.0-9.0 N = MPV) NEUTROPHIL % (test code = NT%) 65.9 % 56.0-77.0 N IMMATURE GRANULOCYTE % (test 0.7 % 0.0-2.0 N code = IG%) LYMPHOCYTE % (test code = LY%) 26.2 % 14.0-32.0 N MONOCYTE % (test code = MO%) 5.9 % 4.8-9.0 N EOSINOPHIL % (test code = EO%) 1.1 % 0.3-3.7 N BASOPHIL % (test code = BA%) 0.2 % 0.0-2.0 N NUCLEATED RBC % (test code = 0.0 % 0-0 N NRBC%) NEUTROPHIL # (test code = NT#) 6.36 x10 3/uL 2.0-7.6 N IMMATURE GRANULOCYTE # (test 0.07 x10 3/uL 0.00-0.03 H code = IG#) LYMPHOCYTE # (test code = LY#) 2.53 x10 3/uL 1.0-3.8 N MONOCYTE # (test code = MO#) 0.57 x10 3/uL 0.1-0.8 N EOSINOPHIL # (test code = EO#) 0.11 x10 3/uL 0.0-0.2 N BASOPHIL # (test code = BA#) 0.02 x10 3/uL 0.0-0.2 N NUCLEATED RBC # (test code = 0.00 x10 3/uL 0.0-0.1 N NRBC#) MANUAL DIFF REQUIRED (test code NO = MDIFF) COMMENTS: Daily while on HeparinTHROMBOPLASTIN TIME [id number] 18:54:00 Test Item Value Reference Range Interpretation Comments THROMBOPLASTIN TIME 43.3 Seconds 25.0-39.5 H Therape utic Range: PARTIAL (test code = 50.4 - 88.3 Seconds PTT) Effective 01/22/2019 PROTEIN ELECTROPHORESIS [id number] 17:08:00 Test Item Value Reference Range Interpretation Comments TOTAL PROTEIN 6.0 g/dL 6.0-8.5 (test code = PROTE) ALBUMIN (test 3.3 g/dL 2.9-4.4 code = ALBE) TVDBD-8-IUBUGFTU 0.3 g/dL 0.0-0.4 (test code = A1G) MLBTR-0-CWBDZJKK 0.8 g/dL 0.4-1.0 (test code = A2G) BETA GLOBULIN 0.7 g/dL 0.7-1.3 (test code = BG) GAMMA GLOBULIN 1.0 g/dL 0.4-1.8 (test code = GG) M-SPIKE,SERUM Not Observed g/dL Not Observed (test code = MSPIKES) GLOBULIN ELECT 2.7 g/dL 2.2-3.9 (test code = GLOBE) ALBUMIN/GLOBULIN 1.2 0.7-1.7 RATIO (test code = AGE) PROT.ELECTROPH.IN See_Comment The SPE pa ttern TERPRETATION appears (test code = unremarkable. ELEINT) Evidence ofmonoclonal pr otein is not apparent.Perfor med At: HD [facility] [address] [place], [place] [id number] Ramón Elizabeth MD Ph:[phone] rform ed At: DA [facility] [address] [place], [place] [id number] gwen LANDRY MD Ph:[phone] [Automated mess age] The system [employer] generated this result transmit anali reference range : (). The reference r natacha was not used to interpret this result as normal/abnormal . LACTIC DEHYDROGENASE(LDH)2022-06-24 17:08:00 Test Item Value Reference Range Interpretation Comments LACTIC DEHYDROGENASE(LDH) (test 277 IUnits/L 84-246 H code = LDH) TOTAL IRON BINDING [id number] 17:08:00 Test Item Value Reference Range Interpretation Comments SERUM IRON (test code = IRON) 14 mcg/dL 35-150 L TOTAL IRON BINDING CAPACITY (test 331 mcg/dL 260-445 N code = TIBC) UIBC (test code = UIBC) 317 mcg/dL IRON SATURATION (test code = 4.2 % 14-34 L FESAT) VITAMIN [id number] 17:08:00 Test Item Value Reference Range Interpretation Comments VITAMIN B12 (test code = VITB12) 426 pg/mL 193-986 N FOLIC [id number] 17:08:00 Test Item Value Reference Range Interpretation Comments FOLIC ACID (test code = FOL) 23.4 ng/mL 3.1-17.5 H [id number] 17:08:00 Test Item Value Reference Range Interpretation Comments FERRITIN (test code = DEVIN) 16.9 ng/mL 11.0-306.8 N HGB [id number] 16:39:00 Test Item Value Reference Range Interpretation Comments HEMOGLOBIN (test code = HGB) 7.4 g/dL 11.0-15.0 L HEMATOCRIT (test code = HCT) 23.8 % 33.0-45.0 L THROMBOPLASTIN TIME [id number] 09:33:00 Test Item Value Reference Range Interpretation Comments THROMBOPLASTIN TIME 70.7 Seconds 25.0-39.5 H Therape utic Range: PARTIAL (test code = 50.4 - 88.3 Seconds PTT) Effective 01/22/2019 THROMBOPLASTIN TIME [id number] 01:48:00 Test Item Value Reference Range Interpretation Comments THROMBOPLASTIN TIME 49.6 Seconds 25.0-39.5 H Therape utic Range: PARTIAL (test code = 50.4 - 88.3 Seconds PTT) Effective 01/22/2019 CBC W/AUTO [id number] 01:38:00 Test Item Value Reference Range Interpretation Comments WHITE BLOOD CELL (test code = 8.6 x10 3/uL 4.5-11.0 N WBC) RED BLOOD CELL (test code = 2.72 x10 6/uL 3.54-5.02 L RBC) HEMOGLOBIN (test code = HGB) 7.0 g/dL 11.0-15.0 L HEMATOCRIT (test code = HCT) 22.2 % 33.0-45.0 L MEAN CELL VOLUME (test code = 81.6 fL 81.0-99.0 N MCV) MEAN CELL HGB (test code = MCH) 25.7 pg 27.0-33.0 L MEAN CELL HGB CONCETRATION 31.5 g/dL 33.0-37.0 L (test code = MCHC) RED CELL DISTRIBUTION WIDTH CV 14.6 % 11.5-14.5 H (test code = RDW) RED CELL DISTRIBUTION WIDTH SD 42.7 fL 37.0-54.0 N (test code = RDW-SD) PLATELET COUNT (test code = 300 x10 3/uL 150-400 N PLT) MEAN PLATELET VOLUME (test code 9.2 fL 7.0-9.0 H = MPV) NEUTROPHIL % (test code = NT%) 60.3 % 56.0-77.0 N IMMATURE GRANULOCYTE % (test 0.9 % 0.0-2.0 N code = IG%) LYMPHOCYTE % (test code = LY%) 32.5 % 14.0-32.0 H MONOCYTE % (test code = MO%) 5.8 % 4.8-9.0 N EOSINOPHIL % (test code = EO%) 0.3 % 0.3-3.7 N BASOPHIL % (test code = BA%) 0.2 % 0.0-2.0 N NUCLEATED RBC % (test code = 0.0 % 0-0 N NRBC%) NEUTROPHIL # (test code = NT#) 5.18 x10 3/uL 2.0-7.6 N IMMATURE GRANULOCYTE # (test 0.08 x10 3/uL 0.00-0.03 H code = IG#) LYMPHOCYTE # (test code = LY#) 2.80 x10 3/uL 1.0-3.8 N MONOCYTE # (test code = MO#) 0.50 x10 3/uL 0.1-0.8 N EOSINOPHIL # (test code = EO#) 0.03 x10 3/uL 0.0-0.2 N BASOPHIL # (test code = BA#) 0.02 x10 3/uL 0.0-0.2 N NUCLEATED RBC # (test code = 0.00 x10 3/uL 0.0-0.1 N NRBC#) MANUAL DIFF REQUIRED (test code NO = MDIFF) COMMENTS: Daily while on HeparinTHROMBOPLASTIN TIME [id number] 18:02:00 Test Item Value Reference Range Interpretation Comments THROMBOPLASTIN TIME 116.7 Seconds 25.0-39.5 H Therap eutic PARTIAL (test code = Range: 50.4 - 88.3 PTT) Seconds Effective 01/22/2019 [id number] 14:11:00 Test Item Value Reference Range Interpretation Comments HAPTOGLOBIN (test code 129 mg/dL 33-278 Perfo rmed At: DA = HAPT) [facility] [address] [place], [place] [id number] h CN Ph:[phone] THROMBOPLASTIN TIME [id number] 11:12:00 Test Item Value Reference Range Interpretation Comments THROMBOPLASTIN TIME 97.5 Seconds 25.0-39.5 H Therape utic Range: PARTIAL (test code = 50.4 - 88.3 Seconds PTT) Effective 01/22/2019 THROMBOPLASTIN TIME [id number] 03:49:00 Test Item Value Reference Range Interpretation Comments THROMBOPLASTIN TIME 39.0 Seconds 25.0-39.5 Therape utic Range: PARTIAL (test code = 50.4 - 88.3 Seconds PTT) Effective 01/22/2019 CBC W/AUTO [id number] 03:46:00 Test Item Value Reference Range Interpretation Comments WHITE BLOOD CELL (test code = 12.9 x10 3/uL 4.5-11.0 H WBC) RED BLOOD CELL (test code = 3.05 x10 6/uL 3.54-5.02 L RBC) HEMOGLOBIN (test code = HGB) 7.8 g/dL 11.0-15.0 L HEMATOCRIT (test code = HCT) 24.9 % 33.0-45.0 L MEAN CELL VOLUME (test code = 81.6 fL 81.0-99.0 N MCV) MEAN CELL HGB (test code = 25.6 pg 27.0-33.0 L MCH) MEAN CELL HGB CONCETRATION 31.3 g/dL 33.0-37.0 L (test code = MCHC) RED CELL DISTRIBUTION WIDTH CV 14.0 % 11.5-14.5 N (test code = RDW) RED CELL DISTRIBUTION WIDTH SD 41.7 fL 37.0-54.0 N (test code = RDW-SD) PLATELET COUNT (test code = 282 x10 3/uL 150-400 N PLT) MEAN PLATELET VOLUME (test 9.4 fL 7.0-9.0 H code = MPV) NEUTROPHIL % (test code = NT%) 87.4 % 56.0-77.0 H IMMATURE GRANULOCYTE % (test 0.4 % 0.0-2.0 N code = IG%) LYMPHOCYTE % (test code = LY%) 6.8 % 14.0-32.0 L MONOCYTE % (test code = MO%) 5.4 % 4.8-9.0 N EOSINOPHIL % (test code = EO%) 0.0 % 0.3-3.7 L BASOPHIL % (test code = BA%) 0.0 % 0.0-2.0 N NUCLEATED RBC % (test code = 0.0 % 0-0 N NRBC%) NEUTROPHIL # (test code = NT#) 11.31 x10 3/uL 2.0-7.6 H IMMATURE GRANULOCYTE # (test 0.05 x10 3/uL 0.00-0.03 H code = IG#) LYMPHOCYTE # (test code = LY#) 0.88 x10 3/uL 1.0-3.8 L MONOCYTE # (test code = MO#) 0.70 x10 3/uL 0.1-0.8 N EOSINOPHIL # (test code = EO#) 0.00 x10 3/uL 0.0-0.2 N BASOPHIL # (test code = BA#) 0.00 x10 3/uL 0.0-0.2 N NUCLEATED RBC # (test code = 0.00 x10 3/uL 0.0-0.1 N NRBC#) MANUAL DIFF REQUIRED (test NO code = MDIFF) COMMENTS: Daily while on HeparinTHROMBOPLASTIN TIME [id number] 21:22:00 Test Item Value Reference Range Interpretation Comments THROMBOPLASTIN TIME 65.2 Seconds 25.0-39.5 H Therape utic Range: PARTIAL (test code = 50.4 - 88.3 Seconds PTT) Effective 01/22/2019 THROMBOPLASTIN TIME [id number] 13:31:00 Test Item Value Reference Range Interpretation Comments THROMBOPLASTIN TIME 95.9 Seconds 25.0-39.5 H Therape utic Range: PARTIAL (test code = 50.4 - 88.3 Seconds PTT) Effective 01/22/2019 HCG SERUM [id number] 08:07:00 Test Item Value Reference Range Interpretation Comments HCG SERUM QUAL (test code = SERUM NEGATIVE NEGATIVE HCGQL) CBC W/AUTO [id number] 06:31:00 Test Item Value Reference Range Interpretation Comments WHITE BLOOD CELL (test code = 7.6 x10 3/uL 4.5-11.0 N WBC) RED BLOOD CELL (test code = 3.12 x10 6/uL 3.54-5.02 L RBC) HEMOGLOBIN (test code = HGB) 8.0 g/dL 11.0-15.0 L HEMATOCRIT (test code = HCT) 25.4 % 33.0-45.0 L MEAN CELL VOLUME (test code = 81.4 fL 81.0-99.0 N MCV) MEAN CELL HGB (test code = MCH) 25.6 pg 27.0-33.0 L MEAN CELL HGB CONCETRATION 31.5 g/dL 33.0-37.0 L (test code = MCHC) RED CELL DISTRIBUTION WIDTH CV 14.2 % 11.5-14.5 N (test code = RDW) RED CELL DISTRIBUTION WIDTH SD 42.3 fL 37.0-54.0 N (test code = RDW-SD) PLATELET COUNT (test code = 281 x10 3/uL 150-400 N PLT) MEAN PLATELET VOLUME (test code 9.6 fL 7.0-9.0 H = MPV) NEUTROPHIL % (test code = NT%) 63.7 % 56.0-77.0 N IMMATURE GRANULOCYTE % (test 0.4 % 0.0-2.0 N code = IG%) LYMPHOCYTE % (test code = LY%) 27.6 % 14.0-32.0 N MONOCYTE % (test code = MO%) 7.6 % 4.8-9.0 N EOSINOPHIL % (test code = EO%) 0.4 % 0.3-3.7 N BASOPHIL % (test code = BA%) 0.3 % 0.0-2.0 N NUCLEATED RBC % (test code = 0.0 % 0-0 N NRBC%) NEUTROPHIL # (test code = NT#) 4.84 x10 3/uL 2.0-7.6 N IMMATURE GRANULOCYTE # (test 0.03 x10 3/uL 0.00-0.03 N code = IG#) LYMPHOCYTE # (test code = LY#) 2.10 x10 3/uL 1.0-3.8 N MONOCYTE # (test code = MO#) 0.58 x10 3/uL 0.1-0.8 N EOSINOPHIL # (test code = EO#) 0.03 x10 3/uL 0.0-0.2 N BASOPHIL # (test code = BA#) 0.02 x10 3/uL 0.0-0.2 N NUCLEATED RBC # (test code = 0.00 x10 3/uL 0.0-0.1 N NRBC#) MANUAL DIFF REQUIRED (test code NO = MDIFF) COMMENTS: Daily while on HeparinRETIC COUNT (AUTOMATED)2022-06-22 06:20:00 Test Item Value Reference Range Interpretation Comments RETIC COUNT (AUTOMATED) (test code = 1.8 % 0.3-2.3 N RETICA) THROMBOPLASTIN TIME [id number] 04:17:00 Test Item Value Reference Range Interpretation Comments THROMBOPLASTIN TIME 158.2 Seconds 25.0-39.5 H Therap eutic PARTIAL (test code = Range: 50.4 - 88.3 PTT) Seconds Effective 01/22/2019 COMMENTS: DRAW PTT 6 HOURS AFTER INITIATION OF HEPARIN- XR FLUOROSCOPY 0-60 MIN 2022-06-22 00:00:00 [facility] 1985 Sex: F FAX: Brian Britt DO [phone] [place]: St: ADM FAX: Jonathan Copeland [facility] [phone] Name: MAXMALIK [facility] : 1985 Age/S: 36/F [address] [place] [address] Unit #: [id number] Loc: HEN[place]K Braden [address] Phys: Jonathan Glover [facility] Acct: [id number] Dis Date: Status: ADM IN PHONE #: [phone] Exam Date: 06/22/2022 1144 FAX #: [phone] Reason: LEFT TIBIA/FIBULA FRACTURE EXAMS: CPT CODE: [id number] XR FLUOROSCOPY 0-60 MIN 78464 PROCEDURE INFORMATION: Exam: FL Fluoroscopy, Up to 1 Hour PhysicianTime; Radiologist Not Present For Fluoroscopy Exam date and time: 06/22/2022 11:09 AM Age: 36 years old Clinical indication: Device placement; Additional info: Left tibia/fibula fracture TECHNIQUE: Imaging protocol: Fluoroscopy , up to 1 hour physician or other qualified health home care attendant time.This radiologist did not supervise this procedure. Exam supervised by facility personnel. Report forradiation dosage reporting and documentation only. COMPARISON: No relevant prior studies available. RADIATION DOSE METRICS: Fluoroscopy time (seconds): seconds= 13.8s Number of fluoro spot images: images= 9 Reference air kerma (POP): 0.97 mGy FINDINGS: Procedural imaging: Fluoroscopic images were obtained during open repair internal fixation left tibia fibular fractures. Notes: Fluoroscopy supervisedby facility personnel. See also separate procedure report. IMPRESSION: Fluoroscopy dosage documentation. See also separate procedure notes. at 1206 Reported and signed by: Kimberly Santiago M.D. CC: Brian Britt DO; Jonathan Dejesus [facility] Adalberto Technologist: RT Sharan(Cris) Trnvaishnavi Date/Time/By: 06/22/2022 (7289) : By: [email or web address] Orig Print D/T: S: 06/22/2022 (0802) PAGE 1 Signed ReportPROTHROMBIN [id number] 12:17:00 Test Item Value Reference Range Interpretation Comments PROTHROMBIN TIME 14.4 SECONDS 9.3-12.9 H PATIENT (test code = PTP) INTERNATIONAL NORMAL 1.3 0.8-1.2 H TARGET INR BY RATIO (test code = INDICATIO N Indication INR) INR1. Prophylax is of venous thrombos is 2.0 - 3.0 (orthoped ic surgery), Proph ylaxis of venous throm bosis (other than hig h-risk surgery), Treat ment of Deep Vein Thrombosis/Pulm onary Embolism, Preve ntion of systemic emb olism - Tissue heart va lves, Acute Myocardia l Infarction (to prevent systemic emboli sm), Valvular heart disease, Atrial Fibrillation, Bileaflet mecha nical valve in aortic position.2. Mec hanical prosthetic valv es (high risk), 2. 5 - 3.5 Presence of Lup us Anticoagulant o r Antiphospholipi d Antibodies, Pre vention of systemic emb olism - Acute Myocardia l Infarction (to prevent recurrent infar ct). COMMENTS: IF NOT ALREADY DONE WITHIN THE LAST 24 HOURSTHROMBOPLASTIN TIME [id number] 12:17:00 Test Item Value Reference Range Interpretation Comments THROMBOPLASTIN TIME 32.7 Seconds 25.0-39.5 N Therape utic Range: PARTIAL (test code = 50.4 - 88.3 Seconds PTT) Effective 01/22/2019 COMMENTS: IF NOT ALREADY DONE WITHIN THE LAST 24 HOURSBASIC METABOLIC PANEL 2022-06-21 12:03:00 Test Item Value Reference Range Interpretation Comments SODIUM (test code = NA) 137 mEq/L 134-147 N POTASSIUM (test code = 3.9 mEq/L 3.4-5.0 N K) CHLORIDE (test code = 103 mEq/L 100-108 N CL) CARBON DIOXIDE (test 26 mEq/l 21-33 N code = CO2) ANION GAP (test code = 12 0-20 N GAP) GLUCOSE (test code = 95 mg/dL 70-110 N GLU) BLOOD UREA NITROGEN 14 mg/dL 7-18 N (test code = BUN) GLOMERULAR FILTRATION 70.1 105-110 L Units of measure = RATE (test code = GFR) ml/mi n/1.73 m2 CREATININE (test code = 0.9 mg/dL 0.6-1.3 N CREAT) CALCIUM (test code = 8.5 mg/dL 8.0-10.5 N CA) [id number] 12:03:00 Test Item Value Reference Range Interpretation Comments ALCOHOL (test < 3.0 mg/dL <10 N Ethyl Alcohol code = ALC) Interpretation: 100 mg/dL - Legally Intox icated 300-400 mg/dL - Severely Intoxicated &gt ;400 mg/dL - Potentially L ethalThe pharmacological response to blood alcoho l levels mayvary from in dividual to individual. Signs of intoxicationcan be observed at lev els of 50-100 mg/dL. R esults are for Medical pur poses only, and not f or Legal orEmployment ev aluation purposes. CBC W/AUTO [id number] 11:20:00 Test Item Value Reference Range Interpretation Comments WHITE BLOOD CELL (test code = 10.3 x10 3/uL 4.5-11.0 N WBC) RED BLOOD CELL (test code = 3.61 x10 6/uL 3.54-5.02 N RBC) HEMOGLOBIN (test code = HGB) 9.6 g/dL 11.0-15.0 L HEMATOCRIT (test code = HCT) 29.8 % 33.0-45.0 L MEAN CELL VOLUME (test code = 82.5 fL 81.0-99.0 N MCV) MEAN CELL HGB (test code = MCH) 26.6 pg 27.0-33.0 L MEAN CELL HGB CONCETRATION 32.2 g/dL 33.0-37.0 L (test code = MCHC) RED CELL DISTRIBUTION WIDTH CV 14.3 % 11.5-14.5 N (test code = RDW) RED CELL DISTRIBUTION WIDTH SD 42.6 fL 37.0-54.0 N (test code = RDW-SD) PLATELET COUNT (test code = 351 x10 3/uL 150-400 N PLT) MEAN PLATELET VOLUME (test code 9.7 fL 7.0-9.0 H = MPV) NEUTROPHIL % (test code = NT%) 80.2 % 56.0-77.0 H IMMATURE GRANULOCYTE % (test 0.3 % 0.0-2.0 N code = IG%) LYMPHOCYTE % (test code = LY%) 12.5 % 14.0-32.0 L MONOCYTE % (test code = MO%) 6.8 % 4.8-9.0 N EOSINOPHIL % (test code = EO%) 0.1 % 0.3-3.7 L BASOPHIL % (test code = BA%) 0.1 % 0.0-2.0 N NUCLEATED RBC % (test code = 0.0 % 0-0 N NRBC%) NEUTROPHIL # (test code = NT#) 8.22 x10 3/uL 2.0-7.6 H IMMATURE GRANULOCYTE # (test 0.03 x10 3/uL 0.00-0.03 N code = IG#) LYMPHOCYTE # (test code = LY#) 1.28 x10 3/uL 1.0-3.8 N MONOCYTE # (test code = MO#) 0.70 x10 3/uL 0.1-0.8 N EOSINOPHIL # (test code = EO#) 0.01 x10 3/uL 0.0-0.2 N BASOPHIL # (test code = BA#) 0.01 x10 3/uL 0.0-0.2 N NUCLEATED RBC # (test code = 0.00 x10 3/uL 0.0-0.1 N NRBC#) MANUAL DIFF REQUIRED (test code NO = MDIFF)
[2022-12-01 21:14] LABS: Absolute Lymphocytes (CBC) 2.7 K/uL (0.7-4.9); Hematocrit 39.3 % (36.0-45.0); Lymphocytes % 27.9 % (15.3-44.8); MCV 88.3 fL (80-100); MPV 7.4 fL (7.6-11.3); RBC Red Blood Cell Count 4.45 M/uL (3.86-4.86)
[2022-12-01 21:16] LABS: Protime INR 1.06
[2022-12-01 21:32] LABS: Blood Morphology Comment NOT SEEN (NOT SEEN); Platelet Estimate ADEQ; White Blood Cell Scan OK (OK)
[2022-12-01 21:34] LABS: Urine Blood Trace-intact (Negative); Urine Glucose Negative (Negative); Urine Protein Negative (Negative)
[2022-12-01 21:43] LABS: ALT/SGPT 77 U/L (13-56); AST/SGOT 48 U/L (15-37); Albumin 3.7 g/dL (3.4-5.0); Alkaline Phosphatase 102 U/L (45-117); BUN Blood Urea Nitrogen 16 mg/dL (7-18); Bicarbonate 23 mmol/L (21-32); Bilirubin Direct < 0.1 mg/dL (0-0.2); Bilirubin Total 0.3 mg/dL (0.2-1.0); Glomerular Filtration Rate 72 ml/min (=/>90); Glucose Level 111 mg/dL (74-106); Magnesium 2.2 mg/dL (1.6-2.4); NT PRO-BNP 33 pg/mL (<125); Protein, Total 7.7 g/dL (6.4-8.2); Sodium Level 134 mmol/L (136-145); Troponin High Sensitivity < 3.0 pg/mL (<58.9)
[2022-12-01] MEDS ORDERED: ASPIRIN 81 MG CHEWABLE TABLET ONE (21:46)
--- NOTE | 2022-12-01 21:49 | RAD REPORT ---
EXAM DESCRIPTION: RAD - Chest Single View - 12/01/2022 9:25 pm CLINICAL HISTORY: CHEST PAIN COMPARISON: No comparisonsNo comparisons FINDINGS: Lines: None. Lungs: No evidence of edema or pneumonia. Pleural: No significant pleural effusions or pneumothorax. Cardiac: The heart size is within normal limits. Mediastinum: Within normal limits. Bones: No acute fractures. Other: None IMPRESSION: No acute cardiopulmonary disease.
[2022-12-01 21:53] LABS: Barbiturates NEGATIVE (NEGATIVE); Benzodiazepines NEGATIVE (NEGATIVE); Cocaine NEGATIVE (NEGATIVE); METHAMPHETAM NEGATIVE (NEGATIVE); Methadone NEGATIVE (NEGATIVE); Opiates POSITIVE (NEGATIVE); Phencyclidine NEGATIVE (NEGATIVE); THC Cannibis NEGATIVE (NEGATIVE)
[2022-12-01] MEDS ORDERED: LORazepam 2 MG/ML VIAL ONE (22:00)
--- NOTE | 2022-12-02 01:38 | EDPHYS ---
Physician Documentation [facility] Name: Teodora Mas Age: 37 yrs Sex: Female : 1985 Arrival Date: 12/01/2022 Time: 20:24 Bed 18 Private MD: ED Physician Jefry Lal HPI: 12/01 20:55 This 37 yrs old Female presents to ER via Ambulatory with complaints of Chest Pain. cp 20:55 The patient or guardian reports chest pain that is located primarily in the anterior cp chest wall, left. 20:55 The pain does not radiate. Associated signs and symptoms: Pertinent positives: cp shortness of breath, Pertinent negatives: abdominal pain, diaphoresis, dizziness, lower extremity pain, lower extremity swelling, recent travel, syncope. The chest pain is described as a pressure. Duration: The patient or guardian reports a single episode, that is still ongoing, and unchanged. Patient presents to ED with c/o left side chest pain that started this evening while having dinner. 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 - Social history:: Smoking status: Patient reports the use of cigarette tobacco products, smokes one-half pack cigarettes per day, Reported history of juuling and/or vaping. ROS: 20:58 Constitutional: Negative for body aches, chills, fever, poor PO intake. cp 20:58 Cardiovascular: Positive for chest pain, Negative for edema, palpitations. cp 20:58 Respiratory: Negative for cough, shortness of breath, wheezing. 20:58 Eyes: Negative for injury, pain, redness, and discharge. cp 20:58 ENT: Negative for drainage from ear(s), ear pain, sore throat, difficulty swallowing, cp difficulty handling secretions. 20:58 Abdomen/GI: Negative for abdominal pain, nausea, vomiting, and diarrhea. 20:58 Back: Negative for pain at rest, pain with movement, radiated pain. 20:58 Skin: Negative for cellulitis, rash. 20:58 Neuro: Negative for altered mental status, dizziness, headache, weakness. 20:58 All other systems are negative. Exam: 20:54 ECG was reviewed by the Attending Physician. cp 21:00 Constitutional: The patient appears in no acute distress, alert, awake, cp non-diaphoretic, non-toxic, well developed, well nourished, anxious. 21:00 Head/Face: Normocephalic, atraumatic. cp 21:00 Eyes: Periorbital structures: appear normal, Pupils: equal, round, and reactive to cp light and accomodation, Extraocular movements: intact throughout, Conjunctiva: normal, no exudate, no injection, Sclera: no appreciated abnormality, Lids and lashes: appear normal, bilaterally. 21:00 ENT: External ear(s): are unremarkable, Nose: is normal, Mouth: Lips: moist, Oral cp mucosa: pink and intact, moist, Posterior pharynx: is normal, airway is patent, no erythema, no exudate. 21:00 Neck: ROM/movement: is normal, is supple, without pain, no range of motions limitations. 21:00 Chest/axilla: Inspection: normal. 21:00 Cardiovascular: Rate: normal, Rhythm: regular, Edema: is not appreciated, JVD: is not appreciated. 21:00 Respiratory: the patient does not display signs of respiratory distress, Respirations: normal, no use of accessory muscles, no retractions, labored breathing, is not present, Breath sounds: are clear throughout, no decreased breath sounds, no stridor, no wheezing. 21:00 Abdomen/GI: Inspection: abdomen appears normal, Palpation: abdomen is soft and non-tender, in all quadrants. 21:00 Back: pain, is absent, ROM is normal. 21:00 Neuro: Orientation: to person, place \T\ time. Mentation: is normal, Cerebellar function: is grossly normal, Motor: moves all fours, strength is normal, Sensation: is normal. Vital Signs: 11/30 20:43 BP 124 / 91; Pulse 87; Resp 16 S; Pulse Ox 98% on R/A; ha1 12/01 20:37 BP 145 / 86; Pulse 97; Resp 18; Temp 98.7; Pulse Ox 100% ; Weight 74.84 kg; Height 5 tw5 ft. 5 in. (165.10 cm); Pain 7/10; 21:40 BP 111 / 75; Pulse 86; Resp 18 S; Pulse Ox 98% on R/A; ha1 22:15 BP 112 / 75; Pulse 82; Resp 18 S; Pulse Ox 98% on R/A; ha1 22:40 BP 113 / 68; Pulse 89; Resp 16 S; Pulse Ox 99% on R/A; ha1 23:40 BP 107 / 73; Pulse 84; Resp 18 S; Pulse Ox 98% on R/A; ha1 12/02 00:40 BP 100 / 63; Pulse 84; Resp 15 S; Pulse Ox 98% on R/A; ha1 01:30 BP 104 / 64; Pulse 86; Resp 18 S; Pulse Ox 99% on R/A; ha1 12/01 20:37 Body Mass Index 27.46 (74.84 kg, 165.10 cm) tw5 MDM: 12/01 20:46 Patient medically screened. cp 21:00 Differential diagnosis: acute myocardial infarction, acute pericarditis, anxiety, cp costochondritis, pleurisy, pneumonia, pneumothorax, pulmonary embolus, stable angina, thoracic aortic disection, unstable angina. 12/02 01:37 Data reviewed: vital signs, nurses notes, lab test result(s), EKG, radiologic studies, cp plain films. 01:37 Consideration of Admission/Observation Escalation of care including cp admission/observation considered. I considered the following discharge prescriptions or medication management in the emergency department Medications were administered in the Emergency Department. See MAR. Test considered but Not performed: CT: chest. 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 Response to treatment: the patient's symptoms have markedly improved after treatment, and as a result, I will discharge patient. Special discussion: Based on the patient's history, exam, and Dx evaluation, there is no indication for emergent intervention or inpatient Tx. It is understood by the patient/guardian that if the Sx's persist or worsen they need to return immediately for re-evaluation. 12/01 20:48 Order name: Basic Metabolic Panel cp 12/01 20:48 Order name: CBC with Diff cp 12/01 20:48 Order name: LFT's cp 12/01 20:48 Order name: Magnesium cp 12/01 20:48 Order name: NT PRO-BNP cp 12/01 20:48 Order name: PT-INR cp 12/01 20:48 Order name: Troponin HS cp 12/01 20:48 Order name: UDS cp 12/01 21:15 Order name: CBC with Automated Diff; Complete Time: 22:13 EDMS 12/01 22:13 Interpretation: Normal except: MPV 7.4. cp 12/01 21:16 Order name: Protime (+INR); Complete Time: 22:13 EDMS 12/01 21:33 Order name: CBC Smear Scan; Complete Time: 22:13 EDMS 12/01 21:34 Order name: Urine Dipstick-Ancillary; Complete Time: 22:13 EDMS 12/01 22:14 Interpretation: Normal except: UBLD Trace-intact. cp 12/01 21:44 Order name: Basic Metabolic Panel; Complete Time: 22:13 EDMS 12/01 22:14 Interpretation: Normal except: NA 134; GLUC 111; GFR 72. cp 12/01 21:44 Order name: Liver (Hepatic) Function; Complete Time: 22:13 EDMS 12/01 22:14 Interpretation: Normal except: AST 48; ALT 77; GLOB 4.0; A/G 0.9. cp 12/01 20:48 Order name: XRAY Chest (1 view) cp 12/01 20:48 Order name: EKG; Complete Time: 20:48 cp 12/01 20:48 Order name: Cardiac monitoring; Complete Time: 21:38 cp 12/01 20:48 Order name: EKG - Nurse/Tech; Complete Time: 21:10 cp 12/01 20:48 Order name: IV Saline Lock; Complete Time: 21:38 cp 12/01 20:48 Order name: Labs collected and sent; Complete Time: 21:10 cp 12/01 20:48 Order name: O2 Per Protocol; Complete Time: 21:38 cp 12/01 21:44 Order name: Troponin High Sensitivity; Complete Time: 22:13 EDMS 12/01 22:30 Interpretation: Troponin HS < 3.0; Reviewed. cp 12/01 21:44 Order name: NT PRO-BNP; Complete Time: 22:13 EDNH 12/01 21:44 Order name: Magnesium; Complete Time: 22:13 EDNH 12/01 21:49 Order name: RAD; Complete Time: 22:13 EDNH 12/01 21:53 Order name: Urine Drug Screen; Complete Time: 22:13 EDNH 12/01 22:14 Interpretation: OPI POSITIVE; Reviewed. cp 12/02 00:19 Order name: Urine --Ancillary (enter results); Complete Time: 01:22 12/02 00:22 Order name: Troponin High Sensitivity; Complete Time: 01:22 cp 12/01 20:48 Order name: O2 Sat Monitoring; Complete Time: 21:38 cp 12/01 20:48 Order name: Urine Test (obtain specimen); Complete Time: 22:00 cp 12/01 20:48 Order name: Urine Dipstick-Ancillary (obtain specimen); Complete Time: 22:00 cp EC/23 20:54 Rate is 98 beats/min. Rhythm is regular. [place] interval is normal. QRS interval is normal. cp QT interval is normal. T waves are Inverted in lead aVR. Interpreted by me. Reviewed by me. Administered Medications: 21:49 Drug: Aspirin Chewable Tablet 324 mg Route: PO; ha1 22:15 Follow up: Response: No adverse reaction ha1 22:00 Drug: Ativan (LORazepam) 0.5 mg Route: IVP; Site: right forearm; ha1 22:15 Follow up: Response: No adverse reaction; Anxiety decreased; RASS: Alert and Calm (0) ha1 Disposition Summary: 12/02/22 01:38 Discharge Ordered Location: Home cp Problem: new cp Symptoms: have improved cp Condition: Stable cp Diagnosis - Chest pain, unspecified cp Followup: cp - With: Bowen White MD - When: 2 - 3 days - Reason: Recheck today's complaints Discharge Instructions: - Discharge Summary Sheet cp - Nonspecific Chest Pain, Adult cp - Aspirin and Your Heart cp - Managing Stress, Adult cp - Managing Anxiety, Adult cp Forms: - Medication Reconciliation Form cp - Thank You Letter cp - Antibiotic Education cp - Prescription Opioid Use cp Addendum: 12/04/2022 07:42 Co-signature as Attending Physician, Jefry Lal MD I reviewed the patient's care r n provided by the Advanced Practice Provider and agree with the diagnosis and treatment plan. Signatures: Dispatcher [employer] Jefry Leon MD MD rn Page, Corey, PA PA cp Wood, Tiffany tw5 Neyda Montoya RN RN ha1 Corrections: (The following items were deleted from the chart) 12/02 00:24 12/01 00:54 ECG was reviewed by the Attending Physician. cp cp 12/02 00:12/01 00:54 Rate is 98 beats/min. Rhythm is regular. [place] interval is normal. QRS cp interval is normal. QT interval is normal. T waves are Inverted in lead aVR. Interpreted by me. Reviewed by me. cp
--- NOTE | 2022-12-02 01:38 | ER ---
Nurse's Notes [facility] Name: Teodora Mas Age: 37 yrs Sex: Female : 1985 Arrival Date: 12/01/2022 Time: 20:24 Bed 18 Private MD: Diagnosis: Chest pain, unspecified Presentation: 12/01 20:37 Chief complaint: Patient states: "I had an appointment with psycologist today and it tw5 brought up a lot of emotional stuff. I am also prescribed morphine and hydrocodone and I usually take less than prescribed but today I took the amount I am suppose to take, but then I started to feel even more tightness in my chest. I think I am having a heart attack. I have had one before.". Coronavirus screen: Vaccine status: Patient reports being unvaccinated. Ebola Screen: Patient negative for fever greater than or equal to 101.5 degrees Fahrenheit, and additional compatible Ebola Virus Disease symptoms Patient denies exposure to infectious person. Patient denies travel to an Ebola-affected area in the 21 days before illness onset. Initial Sepsis Screen: Does the patient meet any 2 criteria? No. Patient's initial sepsis screen is negative. Does the patient have a suspected source of infection? No. Patient's initial sepsis screen is negative. Risk Assessment: Do you want to hurt yourself or someone else? Patient reports no desire to harm self or others. Onset of symptoms was December 01, 2022 at 19:30. 20:37 Method Of Arrival: Ambulatory tw5 20:37 Acuity: ANDRE 3 tw5 Triage Assessment: 20:39 General: Appears uncomfortable, Behavior is anxious. Pain: Pain currently is 7 out of tw5 10 on a pain scale. Cardiovascular: Capillary refill < 3 seconds is brisk in bilateral fingers. 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 - Social history:: Smoking status: Patient reports the use of cigarette tobacco products, smokes one-half pack cigarettes per day, Reported history of juuling and/or vaping. Screenin:40 Abuse screen: Denies threats or abuse. Denies injuries from another. ha1 20:43 Nutritional screening: No deficits noted. Tuberculosis screening: No symptoms or risk ha1 factors identified. 20:43 [facility] ED Fall Risk Assessment (Adult) History of falling in the last 3 months, ha1 including since admission No falls in past 3 months (0 pts) Confusion or Disorientation No (0 pts) Intoxicated or Sedated No (0 pts) Impaired Gait No (0 pts) Mobility Assist Device Used No (0 pt) Altered Elimination No (0 pt) Score/Fall Risk Level 0 - 2 = Low Risk Oriented to surroundings, Maintained a safe environment, Educated pt \\T\\ family on fall prevention, incl call for assistance when getting out of bed. Assessment: 20:43 General: Appears uncomfortable, Behavior is cooperative. Pain: Complains of pain in ha1 left shoulder and mid epigastric Pain does not radiate. Pain currently is 9 out of 10 on a pain scale. Pain began suddenly. Neuro: Level of Consciousness is awake, alert, obeys commands, Oriented to person, place, time, situation. Cardiovascular: Heart tones S1 S2 present Capillary refill < 3 seconds Patient's skin is warm and dry. Rhythm is sinus rhythm. Cardiovascular: Reports chest pressure. Respiratory: Airway is patent Respiratory effort is even, unlabored, Respiratory pattern is regular, symmetrical. GI: No signs and/or symptoms were reported involving the gastrointestinal system. Abdomen is flat, non-distended. : Urine is clear. EENT: No signs and/or symptoms were reported regarding the EENT system. Musculoskeletal: Circulation, motion, and sensation intact. 21:40 Reassessment: Patient and/or family updated on plan of care and expected duration. Pain ha1 level reassessed. Patient is alert, oriented x 3, equal unlabored respirations, skin warm/dry/pink. 22:44 Reassessment: Patient and/or family updated on plan of care and expected duration. Pain ha1 level reassessed. Patient is alert, oriented x 3, equal unlabored respirations, skin warm/dry/pink. Patient states feeling better. Patient states symptoms have improved. 23:43 Reassessment: Patient and/or family updated on plan of care and expected duration. Pain ha1 level reassessed. Patient is alert, oriented x 3, equal unlabored respirations, skin warm/dry/pink. Patient states feeling better. Patient states symptoms have improved. 12/02 00:40 Reassessment: Patient and/or family updated on plan of care and expected duration. Pain ha1 level reassessed. Patient is alert, oriented x 3, equal unlabored respirations, skin warm/dry/pink. awaiting on lab results Patient states feeling better. Patient states symptoms have improved. 01:25 Reassessment: Patient and/or family updated on plan of care and expected duration. Pain ha1 level reassessed. Patient is alert, oriented x 3, equal unlabored respirations, skin warm/dry/pink. care provider in the room. Vital Signs: 11/30 20:43 BP 124 / 91; Pulse 87; Resp 16 S; Pulse Ox 98% on R/A; ha1 12/01 20:37 BP 145 / 86; Pulse 97; Resp 18; Temp 98.7; Pulse Ox 100% ; Weight 74.84 kg; Height 5 tw5 ft. 5 in. (165.10 cm); Pain 7/10; 21:40 BP 111 / 75; Pulse 86; Resp 18 S; Pulse Ox 98% on R/A; ha1 22:15 BP 112 / 75; Pulse 82; Resp 18 S; Pulse Ox 98% on R/A; ha1 22:40 BP 113 / 68; Pulse 89; Resp 16 S; Pulse Ox 99% on R/A; ha1 23:40 BP 107 / 73; Pulse 84; Resp 18 S; Pulse Ox 98% on R/A; ha1 12/02 00:40 BP 100 / 63; Pulse 84; Resp 15 S; Pulse Ox 98% on R/A; ha1 01:30 BP 104 / 64; Pulse 86; Resp 18 S; Pulse Ox 99% on R/A; ha1 12/01 20:37 Body Mass Index 27.46 (74.84 kg, 165.10 cm) tw5 ED Course: 12/01 20:24 Patient arrived in ED. jj6 20:30 Fam Ortiz PA is PHCP. cp 20:30 Jefry Lal MD is Attending Physician. cp 20:39 Triage completed. tw5 20:39 Arm band placed on. tw5 20:43 Patient has correct armband on for positive identification. Placed in gown. Bed in low ha1 position. Call light in reach. Side rails up X 1. 20:43 Client placed on continuous cardiac and pulse oximetry monitoring. NIBP monitoring ha1 applied. 20:43 Patient maintains SpO2 saturation greater than 95% on room air. ha1 21:10 Basic Metabolic Panel Sent. bc6 21:10 CBC with Diff Sent. bc6 21:10 LFT's Sent. bc6 21:10 Magnesium Sent. bc6 21:10 NT PRO-BNP Sent. bc6 21:10 PT-INR Sent. bc6 21:10 Troponin HS Sent. bc6 21:10 Missed attempt(s): 20 gauge in right antecubital area. bc6 21:20 Neyda Montoya, RN is Primary Nurse. ha1 21:38 Inserted saline lock: 20 gauge in right forearm, using aseptic technique. ha1 12/02 01:37 Bowen White MD is Referral Physician. cp 01:51 No provider procedures requiring assistance completed. IV discontinued, intact, ha1 bleeding controlled, No redness/swelling at site. Pressure dressing applied. Administered Medications: 12/01 21:49 Drug: Aspirin Chewable Tablet 324 mg Route: PO; ha1 22:15 Follow up: Response: No adverse reaction ha1 22:00 Drug: Ativan (LORazepam) 0.5 mg Route: IVP; Site: right forearm; ha1 22:15 Follow up: Response: No adverse reaction; Anxiety decreased; RASS: Alert and Calm (0) ha1 Medication: 12/02 01:55 VIS not applicable for this client. ha1 Outcome: 01:38 Discharge ordered by MD. cp 01:52 Discharged to home via wheelchair, with family. ha1 01:52 Condition: stable 01:52 Instructed on discharge instructions, follow up and referral plans. Demonstrated understanding of instructions, follow-up care. 01:58 Patient left the ED. ha1 Signatures: Fam Ortiz PA PA cp Wood, Tiffany tw5 Hillary Berrios jj6 Neyda Montoya, RN RN ha1 [address] 6
[2022-12-02 02:38] VITALS: TEMP 98.7
[2022-12-02 02:58] VITALS: BP 104/64; O2SAT 99
--- NOTE | 2022-12-02 13:20 | EKG ---
Test Date: 2022-12-01 Test Time: 20:49:52 [place] Guide: JULES MEASUREMENT RESULTS: Intervals: Rate: 98 OK: 158 QRSD: 82 QT: 352 QTc: 449 [place]: P: 50 OK: 158 QRS: 17 T: 36 INTERPRETIVE STATEMENTS: Normal sinus rhythm Cannot rule out Anterior infarct, age undetermined Abnormal ECG No previous ECG available for comparison Electronically Signed On 12-02-22 13:18:11 CLIENT RELATIONS ASSOCIATE by Bowen White
== END 2022-12-02 01:58 | disposition home or self-care (01) ==
LOC: ER 20:23
DX: R07.89 Other chest pain (principal); I25.2 Old myocardial infarction; F17.210 Nicotine dependence, cigarettes, uncomplicated; Z79.01 Long term (current) use of anticoagulants
CPT/HCPCS: 36415; 71045; 80048; 80076; 80307; 81003; 81025; 83735; 83880; 84484; 85025; 85610; 93005; 96374; 99285

== ENCOUNTER 2023-02-23 20:24 | Emergency (ER) | payer OTHER ==
--- OUTSIDE RECORDS SUMMARY | 2023-02-23 20:29 | XMS REPORT | Continuity of Care Document ---
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 rachel disease Disease 00:00: Practic 00 e Hypercoagu Hypercoagu Problem Active [facility]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[facility] lability lability 3- Family state State 00:00: Practic 00 e 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 Edema 00:00: Practic 00 e Allergies, Adverse Reactions, Alerts Allergy Allergy Status Severity Reaction(s) Onset Inactive Treating Comm ents Source Name Type Date Date Clinician cycloben DA Active [place] [facility] zaprine 9- Clear 00:00: Constantino 00 [facility] tramadol DA Active [place] [facility] A 9-14 Clear 00:00: Constantino 00 [facility] tramadol DA Active [place] [facility] A 06-21 Clear 00:00: [facility] MUSCLE DA Active [place] [facility] 06-21 Clear 00:00: Constantino [facility] Social History Smoking Status Start Date Stop Date Source Current Every Day Smoker [facility] Medications Ordered Filled Start Stop Current Ordering Indication Dosage Frequency Signature Comments Components Source Medication Medication Date Date Medication? Clinician (SIG) Name Name acetaminoph acetaminoph No acetaminop [facility] en 300 en 300 hen 300 [facility] mg-codeine mg-codeine mg-codeine Practic 60 mg 60 mg 60 mg e tablet TAKE tablet TAKE tablet ONE (1) ONE (1) TAKE ONE TABLET(S) TABLET(S) (1) BY MOUTH BY MOUTH TABLET(S) THREE TIMES THREE TIMES BY MOUTH A DAY A DAY THREE NEEDED FOR NEEDED FOR TIMES A CHEST PAIN. CHEST PAIN. DAY NEEDED FOR CHEST PAIN. Eliquis 5 Eliquis 5 No 1 BID Eliquis 5 [facility] mg tablet mg tablet mg tablet Family Take 1 Take 1 Take 1 Practic tablet tablet tablet e twice a day twice a day twice a by oral by oral day by route. route. oral route. gabapentin gabapentin No gabapentin [facility] 300 mg 300 mg 300 mg [facility] capsule capsule capsule Practi c TAKE ONE TAKE ONE TAKE ONE e (1) (1) (1) CAPSULE(S) CAPSULE(S) CAPSULE(S) BY MOUTH BY MOUTH BY MOUTH TWICE A TWICE A TWICE A DAY. DAY. DAY. meloxicam meloxicam No meloxicam [facility] 15 mg 15 mg 15 mg Family tablet TAKE tablet TAKE tablet Practic ONE (1) ONE (1) TAKE ONE e TABLET(S) TABLET(S) (1) BY MOUTH BY MOUTH TABLET(S) ONCE A DAY. ONCE A DAY. BY MOUTH ONCE A DAY. methocarbam methocarbam No methocarba [facility] ol 750 mg ol 750 mg mol 750 mg Family tablet TAKE tablet TAKE tablet Practic ONE (1) ONE (1) TAKE ONE e TABLET(S) TABLET(S) (1) BY MOUTH BY MOUTH TABLET(S) EVERY EIGHT EVERY EIGHT BY MOUTH HOURS HOURS EVERY NEEDED. NEEDED. EIGHT HOURS NEEDED. morphine ER morphine ER No morphine [facility] 15 mg 15 mg ER 15 mg Family tablet,exte tablet,exte tablet,ext Practic nded nded ended e release release release TAKE ONE TAKE ONE TAKE ONE (1) (1) (1) TABLET(S) TABLET(S) TABLET(S) BY MOUTH BY MOUTH BY MOUTH EVERY EVERY EVERY TWELVE TWELVE TWELVE HOURS HOURS HOURS NEEDED FOR NEEDED FOR NEEDED FOR PAIN. PAIN. PAIN. naloxone 4 naloxone 4 No naloxone 4 [place] mg/actuatio mg/actuatio mg/actuati Family n nasal n nasal on nasal Pract ic spray SPRAY spray SPRAY spray e 0.1 0.1 SPRAY 0.1 MILLILITER MILLILITER MILLILITER (4 MG) IN 1 (4 MG) IN 1 (4 MG) IN NOSTRIL BY NOSTRIL BY 1 NOSTRIL INTRANASAL INTRANASAL BY ROUTE; FEBRUARY ROUTE; FEBRUARY INTRANASAL REPEAT DOSE REPEAT DOSE ROUTE; FEBRUARY EVERY 2-3 EVERY 2-3 REPEAT MINUTES MINUTES DOSE EVERY NEEDED, NEEDED, 2-3 ALTERNATING ALTERNATING MINUTES NOSTRILS NOSTRILS NEEDED, WITH EACH D WITH EACH D ALTERNATIN G NOSTRILS WITH EACH D oxycodone 5 oxycodone 5 No oxycodone [place] mg tablet mg tablet 5 mg Famil y TAKE ONE TAKE ONE tablet Pract ic (1) (1) TAKE ONE e TABLET(S) TABLET(S) (1) BY MOUTH BY MOUTH TABLET(S) EVERY SIX EVERY SIX BY MOUTH TO EIGHT TO EIGHT EVERY SIX HOURS HOURS TO EIGHT NEEDED FOR NEEDED FOR HOURS BREAKTHROUG BREAKTHROUG NEEDED FOR H PAIN. H PAIN. BREAKTHROU GH PAIN. sulfamethox sulfamethox No sulfametho [facility] azole 800 azole 800 xazole 800 Family mg-trimetho mg-trimetho mg-trimeth Practic prim 160 mg prim 160 mg oprim 160 e tablet TAKE tablet TAKE mg tablet ONE (1) ONE (1) TAKE ONE TABLET(S) TABLET(S) (1) BY MOUTH BY MOUTH TABLET(S) TWICE A TWICE A BY MOUTH DAY. DAY. TWICE A DAY. trazodone trazodone No trazodone [facility] 50 mg 50 mg 50 mg Family tablet TAKE tablet TAKE tablet Practic ONE (1) OR ONE (1) OR TAKE ONE e TWO (2) TWO (2) (1) OR TWO TABLET(S) TABLET(S) (2) BY MOUTH BY MOUTH TABLET(S) EVERY NIGHT EVERY NIGHT BY MOUTH NEEDED NEEDED EVERY FOR FOR NIGHT INSOMNIA. INSOMNIA. NEEDED FOR INSOMNIA. Vital Signs Vital Name Observation Time Observation Value Comments Source BP Diastolic 2023-01-04 00:00:00 79 mm[Hg] [facility] Height 2023-01-04 00:00:00 65 [in_i] [facility] BMI (Body Mass 2023-01-04 00:00:00 28 kg/m2 [facility] Index) Practice BP Systolic 2023-01-04 00:00:00 116 mm[Hg] [facility] Body Weight 2023-01-04 00:00:00 168 [lb_av] [facility] Procedures Procedure Date / Time Performed Performing Clinician Sour e [id number] 2022-06-29 00:00:00 ANDREW [facility] [id number] 2022-06-29 00:00:00 [facility] [id number] 2022-06-22 00:00:00 [facility] [id number] 2022-06-22 00:00:00 [facility] [id number] 2022-06-22 00:00:00 [facility] [id number] 2022-06-22 00:00:00 [facility] Plan of Care Planned Activity Planned Date Details Comments Source Diagnostic Test 2023-01-04 CMP, serum or [facility] Fam kyle Pending 00:00:00 plasma [code = Practice CMP, serum or plasma] Diagnostic Test 2023-01-04 CBC w/ auto diff [facility] Pending 00:00:00 [code = CBC w/ Practice auto diff] Diagnostic Test 2023-01-04 lipid panel, serum [facility] Pending 00:00:00 [code = lipid Practice panel, serum] Diagnostic Test 2023-01-04 vitamin D, [facility] Fami ly Pending 00:00:00 25-hydroxy, total, Practice serum [code = vitamin D, 25-hydroxy, total, serum] Diagnostic Test 2023-01-04 TSH, serum or [facility] Fam kyle Pending 00:00:00 plasma [code = Practice TSH, serum or plasma] Diagnostic Test 2023-01-04 T4, free, serum [facility] amil Pending 00:00:00 [code = T4, free, Practice serum] Diagnostic Test 2023-01-04 PT/PTT, plasma [facility] Nadia ramos Pending 00:00:00 [code = PT/PTT, Practice plasma] Encounters Start End Encounter Admission Attending Care Care Encounter Source Date/Time Date/Time Type Type Clinicians Facility Department ID 2023-02-23 Outpatient ED [facility] [id number] [place] 13:07:44 [id number] [facility] 2023-01-31 Outpatient ED [facility] [id number] [place] 11:43:39 [id number] [facility] 2023-01-19 Outpatient ED [facility] [id number] [place] 10:13:31 [id number] [facility] 2023-01-18 Outpatient ED [facility] [id number] [place] 15:24:43 [id number] [facility] 2023-03-09 2023-03-09 Outpatient [facility] [id number] [place] 14:00:00 14:00:[address] [facility] 2023-01-11 2023-01-11 Outpatient VFP VFP [id number] [facility] 00:00:00 00:00:00 [id number] Family Practic e 2023-01-04 2023-01-04 Outpatient VFP VFP [id number] [facility] 00:00:00 00:00:00 [id number] Family Practic e 2023-01-04 2023-01-04 Outpatient VFP VFP [id number] -[id number] [facility] 00:00:00 00:00:00 [id number] Family Practic e 2023-01-04 2023-01-04 Tirso Elmer VFP [place] - [id number] [facility] 00:00:00 00:00:00 [facility] Preet gu[facility] MD: [address] , [address] [address], [place] [address] , Ph. 2023-01-03 2023-01-03 Outpatient VFP VFP [id number] [facility] 00:00:00 00:00:00 [id number] Family Practic e 2022-06-21 2022-07-01 Inpatient EM Balwinder, [facility] [id number] [facility] 11:27:00 16:44:[address] Results Test Description Test Time Test Comments Results Result Comments Source Free T4 and TSH panel - Serum or Plasma 2023-01-06 00:00:00 Test Item Value Reference Range Interpretation Comme nts Thyrotropin [Units/volume] in Serum or Plasma by 2.350 uIU/mL 0.450 -4.500 Detection limit <= 0.005 mIU/L (test code = 54031-7) Thyroxine (T4) free [Mass/volume] in Serum or Plasma 1.26 NG/dL 0 .82-1.77 (test code = 3024-7) [facility] 2000 [facility] - Serum or Plasma 2023-01-06 00:00:00 Test Item Value Reference Range Interpretation Comments Glucose [Mass/volume] in Serum comment or Plasma (test code = 2345-7) Urea nitrogen [Mass/volume] in 13 mg/dL 6-20 Serum or Plasma (test code = 3094-0) Creatinine [Mass/volume] in 0.80 mg/dL 0.57-1.00 Serum or Plasma (test code = 2160-0) Glomerular filtration 96 mL/min/1.73 >59 rate/1.73 sq M.predicted [Volume Rate/Area] in Serum, Plasma or Blood by Creatinine-based formula (CKD-EPI 2020) (test code = 51402-5) Urea nitrogen/Creatinine [Mass 16 9-23 Ratio] in Serum or Plasma (test code = 3097-3) Sodium [Moles/volume] in Serum 140 mmol/L 134-144 or Plasma (test code = 2951-2) Potassium [Moles/volume] in comment Serum or Plasma (test code = 2823-3) Chloride [Moles/volume] in 99 mmol/L 96-106 Serum or Plasma (test code = 2075-0) Carbon dioxide, total 19 mmol/L 20-29 L [Moles/volume] in Serum or Plasma (test code = 2027-9) Calcium [Mass/volume] in Serum 9.5 mg/dL 8.7-10.2 or Plasma (test code = 91398-3) Protein [Mass/volume] in Serum 6.9 g/dL 6.0-8.5 or Plasma (test code = 2885-2) Albumin [Mass/volume] in Serum 4.6 g/dL 3.8-4.8 or Plasma (test code = 1751-7) Globulin [Mass/volume] in 2.3 g/dL 1.5-4.5 Serum by calculation (test code = 87645-1) Albumin/Globulin [Mass Ratio] 2.0 1.2-2.2 in Serum or Plasma (test code = 1759-0) Bilirubin.total [Mass/volume] <0.2 0.0-1.2 in Serum or Plasma (test code = 1975-2) Alkaline phosphatase 97 IU/L 44-121 [Enzymatic activity/volume] in Serum or Plasma (test code = 6768-6) Aspartate aminotransferase 31 IU/L 0-40 [Enzymatic activity/volume] in Serum or Plasma (test code = 1920-8) Alanine aminotransferase 41 IU/L 0-32 H [Enzymatic activity/volume] in Serum or Plasma (test code = 1742-6) [facility] 1996 panel - Serum or [id number] 00:00:00 Test Item Value Reference Range Interpretation Comments Cholesterol [Mass/volume] in Serum 151 mg/dL 100-199 or Plasma (test code = 2093-3) Triglyceride [Mass/volume] in Serum 120 mg/dL 0-149 or Plasma (test code = 2571-8) Cholesterol in HDL [Mass/volume] in 47 mg/dL >39 Serum or Plasma (test code = 2085-9) Cholesterol in VLDL [Mass/volume] 22 mg/dL 5-40 in Serum or Plasma by calculation (test code = 42794-8) Cholesterol in LDL [Mass/volume] in 82 mg/dL 0-99 Serum or Plasma by calculation (test code = 96933-3) [facility] HospitalAyzsowmb57-Zesnpaqmhzxbav D3+25-Hydroxyvitamin D2 [Mass/volume] in Serum or [id number] 00:00:00 Test Item Value Reference Range Interpretation Comments 25-Hydroxyvitamin 33.9 NG/mL 30.0-100.0 D3+25-Hydroxyvitamin D2 [Mass/volume] in Serum or Plasma (test code = 71930-7) [facility] Auto Differential panel - [id number] 00:00:00 Test Item Value Reference Range Interpretation Comments Leukocytes [#/volume] in Blood 7.7 x10e3/uL 3.4-10.8 by Automated count (test code = 6690-2) Erythrocytes [#/volume] in 4.45 x10e6/uL 3.77-5.28 Blood by Automated count (test code = 789-8) Hemoglobin [Mass/volume] in 12.8 g/dL 11.1-15.9 Blood (test code = 718-7) Hematocrit [Volume Fraction] of 38.7 % 34.0-46.6 Blood by Automated count (test code = 4544-3) Erythrocyte mean corpuscular 87 fL 79-97 volume [Entitic volume] by Automated count (test code = 787-2) Erythrocyte mean corpuscular 28.8 pg 26.6-33.0 hemoglobin [Entitic mass] by Automated count (test code = 785-6) Erythrocyte mean corpuscular 33.1 g/dL 31.5-35.7 hemoglobin concentration [Mass/volume] by Automated count (test code = 786-4) Erythrocyte distribution width 11.8 % 11.7-15.4 [Ratio] by Automated count (test code = 788-0) Platelets [#/volume] in Blood 338 x10e3/uL 150-450 by Automated count (test code = 777-3) Neutrophils/100 leukocytes in 58 % not estab. Blood by Automated count (test code = 770-8) Lymphocytes/100 leukocytes in 31 % not estab. Blood by Automated count (test code = 736-9) Monocytes/100 leukocytes in 5 % not estab. Blood by Automated count (test code = 5905-5) Eosinophils/100 leukocytes in 6 % not estab. Blood by Automated count (test code = 713-8) Basophils/100 leukocytes in 0 % not estab. Blood by Automated count (test code = 706-2) Neutrophils [#/volume] in Blood 4.5 x10e3/uL 1.4-7.0 by Automated count (test code = 751-8) Lymphocytes [#/volume] in Blood 2.4 x10e3/uL 0.7-3.1 by Automated count (test code = 731-0) Monocytes [#/volume] in Blood 0.4 x10e3/uL 0.1-0.9 by Automated count (test code = 742-7) Eosinophils [#/volume] in Blood 0.4 x10e3/uL 0.0-0.4 by Automated count (test code = 711-2) Basophils [#/volume] in Blood 0.0 x10e3/uL 0.0-0.2 by Automated count (test code = 704-7) Immature granulocytes/100 0 % not estab. leukocytes in Blood by Automated count (test code = 77987-1) Immature granulocytes 0.0 x10e3/uL 0.0-0.1 [#/volume] in Blood by Automated count (test code = 79729-6) [facility] and aP[facility] panel - Platelet poor plasma by Coagulation [id number] 00:00:00 Test Item Value Reference Range Interpretation Comments INR in Platelet poor plasma by 1.0 0.9-1.2 Coagulation assay (test code = 6301-6) Prothrombin time (PT) (test code = 10.0 sec 9.1-12.0 5902-2) aPTT in Platelet poor plasma by 27 sec 24-33 Coagulation assay (test code = 46147-4) [facility] Hospital[facility]IC METABOLIC [id number] 09:23:00 Test Item Value Reference Range Interpretation Comments SODIUM (test code = NA) 140 mEq/L 134-147 N POTASSIUM (test code = 4.0 mEq/L 3.4-5.0 N K) CHLORIDE (test code = 106 mEq/L 100-108 N CL) CARBON DIOXIDE (test 26 mEq/l 21-33 N code = CO2) ANION GAP (test code = 12 0-20 N GAP) GLUCOSE (test code = 91 mg/dL 70-110 N GLU) BLOOD UREA NITROGEN 7 mg/dL 7-18 N (test code = BUN) GLOMERULAR FILTRATION 93.6 105-110 L Units of measure = RATE (test code = GFR) ml/mi n/1.73 m2 CREATININE (test code = 0.7 mg/dL 0.6-1.3 N CREAT) CALCIUM (test code = 8.4 mg/dL 8.0-10.5 N CA) CBC W/AUTO [id number] 07:26:00 Test Item Value Reference Range Interpretation [...] (test code NO = MDIFF) THROMBOPLASTIN TIME [id number] 12:07:00 Test Item Value Reference Range Interpretation Comments THROMBOPLASTIN TIME 38.5 Seconds 25.0-39.5 Therape utic Range: PARTIAL (test code = 50.4 - 88.3 Seconds PTT) Effective 01/22/2019 THROMBOPLASTIN TIME [id number] 04:47:00 Test Item Value Reference Range Interpretation Comments THROMBOPLASTIN TIME 88.0 Seconds 25.0-39.5 H Therape utic Range: PARTIAL (test code = 50.4 - 88.3 Seconds PTT) Effective 01/22/2019 - XR FLUOROSCOPY 0-60 [id number] 00:00:00 [facility] : 1985 Sex: F FAX: Brian Britt DO [phone] [place]: St: ADM FAX: Jonathan Copeland [facility] [phone] Name: PRAFUL SANTANAHA [facility] : 1985 Age/S: 36/F [address] [place] [address] Unit #: [id number] Loc: G.653 [place] [address] Phys: Jonathan Glover [facility] Acct: [id number] Dis Date: Status: ADM IN PHONE #: [phone] Exam Date: 06/29/2022 1026 FAX #: [phone] Reason: RIGHT PROXIMAL TIBIA FRACTURE EXAMS: CPT CODE: [id number] XR FLUOROSCOPY 0-60 MIN 37183 PROCEDURE INFORMATION: Exam: FL Fluoroscopy, Up to 1 Hour Physician Time; Radiologist Not Present For Fluoroscopy Exam date and time: 06/29/2022 7:08 AM Age: 36 yearsold Clinical indication: Device placement; Patient HX: Orif RT tibia; Additional info: Right proximal tibia fracture TECHNIQUE: Imaging protocol: Fluoroscopy , up to 1 hour physician or other qualified[facility] caregiver time. This radiologist did not supervise this procedure. Exam supervised by facility personnel. Report for radiation dosage reporting and [...] signed by: Elijah Santiago M.D. CC: Brian Dejesus [facility] Adalberto Technologist: RT Tsang (R) Trnscrd Date/Time/By: 06/29/2022 (8757) : By: [email or web address] Orig Print D/T: S: 06/29/2022 (6232) PAGE 1 Signed Report- XR TIBIA/FIBULA 2 V [id number] 00:00:00 [facility] SE[facility]US [facility]ORD[facility]: TEODORA SANTANA : 1985 Sex: F FAX: Brian Britt DO [phone] [place]: St: [facility] FAX: Jonathan Copeland [facility] [phone] Name: TEODORA SANTANA [facility] Seamus Constantino : 1985 Age/S: 36/F [address] [place] [address] Unit #: [id number] Loc: G.[address] [place] [address] Phys: Jonathan Glover [facility] Acct: [id number] Dis Date: Status: ADM IN PHONE #: [phone] Exam Date: 06/29/2022 1530 FAX #: [phone] Reason: Postop EXAMS: CPT CODE: [id number] XR TIBIA/FIBULA 2V [place] [address] PROCEDURE INFORMATION: Exam: XR Right Tibia and Fibula Exam date and time: 06/29/2022 3:08PM Age: 36 years old Clinical indication: Other: Postop TECHNIQUE: Imaging protocol: Radiologic examof the Right tibia and fibula. Views: 2 views. AP and Lateral Other technique: AP and cross-table lateral views of the right leg were obtained. COMPARISON: 1. DX XR TIBIA/FIBULA 2 V RT 06/21/2022 1:[address] LOWER EXTRM W/O C RT [...] and patella are intact. Soft tissues: Postoperative changes inregional soft tissues with mottled gas. No unanticipated radiopaque foreign material. Notes: Furtherinterpretation may be made by the operating physician. IMPRESSION: Post ORIF comminuted fracture pro ximal tibia. at 6361 Reported and signed by: Umberto Smith M.D. CC: Brian Britt DO; Jonathan Dejesus [facility] Adalberto Technologist: RT Martha(Cris) Trnscrd Date/Time/By: 06/29/2022 (7178) : By: [email or web address] Orig Print D/T: S: 06/29/2022 (6137) PAGE 1 Signed Report- XR KNEE 1 OR 2 V [id number] 00:00:00 [facility] : 1985 Sex: F FAX: Brian Britt DO [phone] [place]: St: ADM FAX: Jonathan Copeland [facility] [phone] Name: TEODORA SANTANA [facility] : 1985 Age/S: 36/F [address] [place] [address] Unit #: [id number] Loc: G.653 [place] [address] Phys: AdalbertoJonathan Anjelica [facility] Acct: [id number] Dis Date: Status: ADM IN PHONE #: [phone] Exam Da te: 06/29/2022 1530 FAX #: [phone] Reason: Postop EXAMS: CPT CODE: [id number] XR KNEE 1 OR 2 [place] [address] PROCEDURE INFORMATION: Exam: XR Right Knee Exam date and time: 06/29/2022 3:08 PM Age: 36 years old Clinical indication: Other: Postop TECHNIQUE: Imaging protocol: Radiologic exam of the Right knee. Views: 1 or 2 views. AP and Lateral Other technique: AP and cross-table lateral views were obtained. COMPARISON: 1. CT LOWER EXTRM W/O C RT 06/21/2022 4:16 AM 2. Current right leg radiographs FINDINGS: Bones/joints: There has been interval ORIF comminuted fracture proximal tibia utilizing medial and lateral plates and multiple screws. Alignment and position near anatomical. Residual mild irregularity cortical surface lateral tibial plateau. The knee is otherwise grossly maintained. Associated joint effusion. Oblique fracture of the proximal fibular diaphysis partially imaged, grossly stable. Soft tissues: There are postoperative changes in regional soft tissues with mottled gas. No unanticipate d radiopaque foreign material. Notes: Further interpretation may be made by the operating physician.IMPRESSION: Post up ORIF proximal tibial fracture. at 1551 Reported and signed by: Umberto Smith M.D. CC: Brian Britt DO; Jonathan Dejesus [facility] Adalberto Technologist: Adama Espinoza RT(R) Trnscrd Date/Time/By: 06/29/2022 (6779) : By: Jennifer Orig Print D/T: S: 06/29/2022 (1330) PAGE 1 Signed ReportTHROMBOPLASTIN TIME [id number] 01:48:00 Test Item Value Reference Range Interpretation Comments THROMBOPLASTIN TIME 62.1 Seconds 25.0-39.5 H Therape utic Range: PARTIAL (test code = 50.4 - 88.3 Seconds PTT) Effective 01/22/2019 CBC W/AUTO [id number] 01:39:00 Test Item Value Reference Range Interpretation [...] MDIFF) COMMENTS: Daily while on HeparinTHROMBOPLASTIN TIME [id number] 18:54:00 Test Item Value Reference Range Interpretation Comments THROMBOPLASTIN TIME 80.3 Seconds 25.0-39.5 H Therape utic Range: PARTIAL (test code = 50.4 - 88.3 Seconds PTT) Effective 01/22/2019 THROMBOPLASTIN TIME [id number] 17:31:00 Test Item Value Reference Range Interpretation Comments THROMBOPLASTIN TIME 37.8 Seconds 25.0-39.5 Therape utic Range: PARTIAL (test code = 50.4 - 88.3 Seconds PTT) Effective 01/22/2019 THROMBOPLASTIN TIME [id number] 10:16:00 Test Item Value Reference Range Interpretation Comments THROMBOPLASTIN TIME 87.3 Seconds 25.0-39.5 H Therape utic Range: PARTIAL (test code = 50.4 - 88.3 Seconds PTT) Effective 01/22/2019 THROMBOPLASTIN TIME [id number] 02:16:00 Test Item Value Reference Range Interpretation Comments THROMBOPLASTIN TIME 57.9 Seconds 25.0-39.5 H Therape utic Range: PARTIAL (test code = 50.4 - 88.3 Seconds PTT) Effective 01/22/2019 CBC W/AUTO [id number] 02:06:00 Test Item Value Reference Range Interpretation [...] MDIFF) COMMENTS: Daily while on HeparinTHROMBOPLASTIN TIME [id number] 16:09:00 Test Item Value Reference Range Interpretation Comments THROMBOPLASTIN TIME 76.0 Seconds 25.0-39.5 H Therape utic Range: PARTIAL (test code = 50.4 - 88.3 Seconds PTT) Effective 01/22/2019 COMMENTS: REDRAWTHROMBOPLASTIN TIME [id number] 15:01:00 Test Item Value Reference Range Interpretation Comments THROMBOPLASTIN TIME 41.6 Seconds 25.0-39.5 H Therape utic Range: PARTIAL (test code = 50.4 - 88.3 Seconds PTT) Effective 01/22/2019 CBC W/AUTO [id number] 07:31:00 Test Item Value Reference Range Interpretation [...] MDIFF) COMMENTS: Daily while on HeparinTHROMBOPLASTIN TIME [id number] 06:58:00 Test Item Value Reference Range Interpretation Comments THROMBOPLASTIN TIME 57.5 Seconds 25.0-39.5 H Therape utic Range: PARTIAL (test code = 50.4 - 88.3 Seconds PTT) Effective 01/22/2019 THROMBOPLASTIN TIME [id number] 17:24:00 Test Item Value Reference Range Interpretation Comments THROMBOPLASTIN TIME 62.3 Seconds 25.0-39.5 H Therape utic Range: PARTIAL (test code = 50.4 - 88.3 Seconds PTT) Effective 01/22/2019 THROMBOPLASTIN TIME [id number] 10:36:00 Test Item Value Reference Range Interpretation Comments THROMBOPLASTIN TIME 62.4 Seconds 25.0-39.5 H Therape utic Range: PARTIAL (test code = 50.4 - 88.3 Seconds PTT) Effective 01/22/2019 THROMBOPLASTIN TIME [id number] 02:22:00 Test Item Value Reference Range Interpretation Comments THROMBOPLASTIN TIME 112.9 Seconds 25.0-39.5 H Therap eutic PARTIAL (test code = Range: 50.4 - 88.3 PTT) Seconds Effective 01/22/2019 CBC W/AUTO [id number] 02:04:00 Test Item Value Reference Range Interpretation [...] MDIFF) COMMENTS: Daily while on HeparinTHROMBOPLASTIN TIME [id number] 18:54:00 Test Item Value Reference Range Interpretation Comments THROMBOPLASTIN TIME 43.3 Seconds 25.0-39.5 H Therape utic Range: PARTIAL (test code = 50.4 - 88.3 Seconds PTT) Effective 01/22/2019 PROTEIN ELECTROPHORESIS [id number] 17:08:00 Test Item Value Reference Range Interpretation Comments TOTAL PROTEIN 6.0 g/dL 6.0-8.5 (test code = PROTE) ALBUMIN (test 3.3 g/dL 2.9-4.4 code = ALBE) [id number] 0.3 g/dL 0.0-0.4 (test code = A1G) [id number] 0.8 g/dL 0.4-1.0 (test code = A2G) [...] is not apparent.Perfor med At: HD [facility] [address] [place], [place] [id number] Ramón Elizabeth MD Ph:[phone] rform ed At: DA [facility] [id number] [place], [place] [id number] gwen LANDRY MD Ph:[phone] [Automated mess age] The system Refresh Body generated this result transmit anali reference range : (). The reference r natacha was not used to interpret this result as normal/abnormal . LACTIC DEHYDROGENASE(LDH)2022-06-24 17:08:00 Test Item Value Reference Range Interpretation Comments LACTIC DEHYDROGENASE(LDH) (test 277 IUnits/L 84-246 H code = LDH) TOTAL IRON BINDING [id number] 17:08:00 Test Item Value Reference Range Interpretation Comments SERUM IRON (test code = IRON) 14 mcg/dL 35-150 L TOTAL IRON BINDING CAPACITY (test 331 mcg/dL 260-445 N code = TIBC) UIBC (test code = UIBC) 317 mcg/dL IRON SATURATION (test code = 4.2 % 14-34 L FESAT) VITAMIN [id number] 17:08:00 Test Item Value Reference Range Interpretation Comments VITAMIN B12 (test code = VITB12) 426 pg/mL 193-986 N FOLIC [id number] 17:08:00 Test Item Value Reference Range Interpretation Comments FOLIC ACID (test code = FOL) 23.4 ng/mL 3.1-17.5 H [id number] 17:08:00 Test Item Value Reference Range Interpretation Comments FERRITIN (test code = DEVIN) 16.9 ng/mL 11.0-306.8 N HGB [id number] 16:39:00 Test Item Value Reference Range Interpretation Comments HEMOGLOBIN (test code = HGB) 7.4 g/dL 11.0-15.0 L HEMATOCRIT (test code = HCT) 23.8 % 33.0-45.0 L THROMBOPLASTIN TIME [id number] 09:33:00 Test Item Value Reference Range Interpretation Comments THROMBOPLASTIN TIME 70.7 Seconds 25.0-39.5 H Therape utic Range: PARTIAL (test code = 50.4 - 88.3 Seconds PTT) Effective 01/22/2019 THROMBOPLASTIN TIME [id number] 01:48:00 Test Item Value Reference Range Interpretation Comments THROMBOPLASTIN TIME 49.6 Seconds 25.0-39.5 H Therape utic Range: PARTIAL (test code = 50.4 - 88.3 Seconds PTT) Effective 01/22/2019 CBC W/AUTO [id number] 01:38:00 Test Item Value Reference Range Interpretation [...] MDIFF) COMMENTS: Daily while on HeparinTHROMBOPLASTIN TIME [id number] 18:02:00 Test Item Value Reference Range Interpretation Comments THROMBOPLASTIN TIME 116.7 Seconds 25.0-39.5 H Therap eutic PARTIAL (test code = Range: 50.4 - 88.3 PTT) Seconds Effective 01/22/2019 [id number] 14:11:00 Test Item Value Reference Range Interpretation Comments HAPTOGLOBIN (test code 129 mg/dL 33-278 Perfo rmed At: DA = HAPT) [facility] [address] [place], [place] [id number] h GRIS GONZALEZ Ph:[phone] THROMBOPLASTIN TIME [id number] 11:12:00 Test Item Value Reference Range Interpretation Comments THROMBOPLASTIN TIME 97.5 Seconds 25.0-39.5 H Therape utic Range: PARTIAL (test code = 50.4 - 88.3 Seconds PTT) Effective 01/22/2019 THROMBOPLASTIN TIME [id number] 03:49:00 Test Item Value Reference Range Interpretation Comments THROMBOPLASTIN TIME 39.0 Seconds 25.0-39.5 Therape utic Range: PARTIAL (test code = 50.4 - 88.3 Seconds PTT) Effective 01/22/2019 CBC W/AUTO [id number] 03:46:00 Test Item Value Reference Range Interpretation [...] MDIFF) COMMENTS: Daily while on HeparinTHROMBOPLASTIN TIME [id number] 21:22:00 Test Item Value Reference Range Interpretation Comments THROMBOPLASTIN TIME 65.2 Seconds 25.0-39.5 H Therape utic Range: PARTIAL (test code = 50.4 - 88.3 Seconds PTT) Effective 01/22/2019 THROMBOPLASTIN TIME [id number] 13:31:00 Test Item Value Reference Range Interpretation Comments THROMBOPLASTIN TIME 95.9 Seconds 25.0-39.5 H Therape utic Range: PARTIAL (test code = 50.4 - 88.3 Seconds PTT) Effective 01/22/2019 HCG SERUM [id number] 08:07:00 Test Item Value Reference Range Interpretation Comments HCG SERUM QUAL (test code = SERUM NEGATIVE NEGATIVE HCGQL) CBC W/AUTO [id number] 06:31:00 Test Item Value Reference Range Interpretation [...] 1.8 % 0.3-2.3 N RETICA) THROMBOPLASTIN TIME [id number] 04:17:00 Test Item Value Reference Range Interpretation Comments THROMBOPLASTIN TIME 158.2 Seconds 25.0-39.5 H Therap eutic PARTIAL (test code = Range: 50.4 - 88.3 PTT) Seconds Effective 01/22/2019 COMMENTS: DRAW PTT 6 HOURS AFTER INITIATION OF HEPARIN- XR FLUOROSCOPY 0-60 MIN 2022-06-22 00:00:00 [facility] : 1985 Sex: F FAX: Brian Britt DO [phone] Varina: St: ADM FAX: Jonathan Copeland [facility] [phone] Name: TEODORA SANTANA [facility] : 1985 Age/S: 36/F [address] [place] [address] Bl Unit #: [id number] Loc: HENRIK Br[place] [address] Phys: Jonathan Glover [facility] Acct: [id number] Dis Date: Status: ADM IN PHONE #: [phone] Exam Date: 06/22/2022 1144 FAX #: [phone] Reason: LEFT TIBIA/FIBULA FRACTURE EXAMS: CPT CODE: [id number] XR FLUOROSCOPY 0-60 MIN 00429 PROCEDURE INFORMATION: Exam: FL Fluoroscopy, Up to 1 Hour Physician Time; Radiologist Not Present For Fluoroscopy Exam date and time: 06/22/2022 11:09 AM Age: 36 years old Clinical indication: Device placement; Additional info: Left tibia/fibula fracture TECHNIQUE: Imaging protocol: Fluoroscopy , up to 1 hour physician or other qualified health cna caregiver time.This radiologist did not supervise this procedure. Exam supervised by facility personnel. Report forradiation dosage reporting and documentation only. COMPARISON: No relevant prior studies available.RADIATION DOSE METRICS: Fluoroscopy time (seconds): seconds= 13.8s Number of fluoro spot images: images= 9 Reference air kerma (POP): 0.97 mGy FINDINGS: Procedural imaging: Fluoroscopic images were obtained during open repair internal fixation left tibia fibular fractures. Notes: Fluoroscopy supervised by facility personnel. See also separate procedure report. IMPRESSION: Fluoroscopy dosage documentation. See also separate procedure notes. Electronically Signed by Derik Santiago on06/22/2022 at 1206 Reported and signed by: Kimberly Santiago M.D. CC: Brian Britt DO; Sherri [facility] Adalberto Technologist: RT Sharan(Cris) Trnscrd Date/Time/By: 06/22/2022 (0169) : By: [email or web address] Orig Print D/T: S: 06/22/2022 (6451) PAGE 1 Signed ReportTHROMBOPLASTIN TIME [id number] 12:17:00 Test Item Value Reference Range Interpretation Comments THROMBOPLASTIN TIME 32.7 Seconds 25.0-39.5 N Therape utic Range: PARTIAL (test code = 50.4 - 88.3 Seconds PTT) Effective 01/22/2019 COMMENTS: IF NOT ALREADY DONE WITHIN THE LAST 24 HOURSPROTHROMBIN [id number] 12:17:00 Test Item Value Reference Range Interpretation [...] code = 8.5 mg/dL 8.0-10.5 N CA) [id number] 12:03:00 Test Item Value Reference Range Interpretation [...] Legal orEmployment ev aluation purposes. CBC W/AUTO [id number] 11:20:00 Test Item Value Reference Range Interpretation [...] DIFF REQUIRED (test code NO = MDIFF) Notes Date/Time Note Provider Source 2022-07-01 16:45:00-00:00 [id number] [place] [address] PATIENT NAME: TEODORA SANTANA ADMIT DATE: 06/21/22 ACCOUNT NO: [id number] ROOM NO: G.653 AGE: 36 REPORT TYPE: OPERATIVE REPORT SEX: F ADMITTING PHYSICIAN:Brian Britt DO ATTENDING PHYSICIAN:Brian Britt DO OPERATION DATE: 06/29/2022 DATE OF OPERATION: 06/29/2022. PREOPERATIVE DIAGNOSES: 1. Right closed proximal tibia fracture (S82.101 A). 2. Right closed proximal fibula fracture (S82.40 1A). POSTOPERATIVE DIAGNOSES: 1. Right closed proximal tibia fracture (S82.101 A). 2. Right closed proximal fibula fracture (S82.40 1A). PROCEDURES: 1. Right bicondylar tibial plateau ORIF (33322). 2. Removal of right knee spanning external fixat ion (22895). FINDINGS: Consistent with above diagnoses. SURGEON: Jonathan Glover MD, PhD. BUSINESS INTELLIGENCE DIRECTOR: Guy Donahue. ANESTHESIA: General. ESTIMATED BLOOD LOSS: 200 mL. INTRAVENOUS FLUIDS: Please see anesthesia record s. TOURNIQUET TIME: 115 minutes. SPECIMENS REMOVED: None. IMPLANTS PLACED: Mcmanus and Nephew direct medial tibial plateau plate with associated locking and nonlo cking screws, Mcmanus and Nephew direct anterolateral tibial plateau plate with associated locking and nonlocking screws. COMPLICATIONS: None. INDICATIONS FOR PROCEDURE: This is a 36-year-old that fell [place]. Previously, I had nolberto sed reduced her proximal tibia and fibula fractures and placed a knee spanning external fixation dev ice on 06/22/2022. Once swelling had resolved to a s atisfactory amount, we discussed nonoperative versus operative management for her tibial plat eau fractures. Nonoperative management PATIENT NAME: TEODORA SANTANA 8 could involve remaining in the external fixation device. However, given the displacement of her fracture, this could result in deformity, pain, malunion, and functional issues. Opera tive fixation would involve removal of the external fixation device and open red uction with internal fixation of the tibial plateau fracture. This would involve a more anatomic red uction with stable hardware. It would allow for earlier mobilization. However, it would expose to the risks of surgery, which include pa in, bleeding, infection, nonunion/malunion, need for repeat surgery, damage to surrounding st ructures, risks of anesthesia, DVT/PE, up to and including . The patient a greed to proceed. Informed consent was obtained. All questions were answered. PROCEDURE IN DETAIL: The patient was identified in the preoperative holding area. The right lower extremity was pema ed appropriately. The patient was then brought back to the operatin g room and placed supine on a radiolucent operating room table after undergoing general anesthesia. The right hip was bumped to internally rotate it and bon e foam was used underneath. A tourniquet was placed on the right proximal thigh. The right lower ext remity was prepped and draped in the usual sterile fashion . The external fixation device was prepped into the field. The patient received Ancef perioperativel y for antibiotics. A formal timeout was conducted prior to incision. The tourniquet was then raised to 300 mmHg. I first started with a medial approach. I marked out my incision on the posteromedial aspect of the right proximal tibia . I then incised sharply through skin using a 15 blade. I then dissected through subcutaneous tissue using electrocautery. I identified the medial fa scia and incised sharply through it using a knife off of the posteromedia l border of the tibia. I made sure to identify the pes anserinus tendons and k ept them intact. I readily identified a fracture fragment that was just dis ruth to the pes insertion. I anatomically reduced it using a pointed reductio n clamp. I held this in place with K-wires. I then applied a direct medial tib ial plateau plate. I inserted cortical screws distally followed by locking scr ews proximally. Once I had stable fixation of the medial column with anatom ic reduction, I continued to work in the medial column. Prior to application of my medial plate, I did insert two 3.5 mm lag screws by technique across or just distal to the medial tibial plateau. This was because on the CT scan, I noted a coronal fracture line that I want to remain nondisplaced. Once the screws were measured for and inserted, that had excellent purchase. With the lag screws under the medial tibial plateau as well as the medial tibial plat eau plate intact, I turned my attention laterally. I marked out a curv ilinear incision centered over Gerdy's tubercle, running just lateral to the ti bial crest distally. I incised sharply through skin using a #10 claude de. I then dissected the subcutaneous tissues using electrocautery. I identified the fascia and crea anali full-thickness flaps anteriorly and posteriorly directly off Gerdy's tubercle. This identified the lateral wall fracture. I also identified a signi ficant anterolateral depression. I raised this up to the appropriate level and held it in place using K-wires. I then back filled the vo id using cancellous allograft chips. I impacted these in place using a tamp. I then closed the wall fragment and held this in place with K-wires. I then applied my an terolateral tibial plateau plate. I inserted cortical screws distally and l ocking screws proximally. I also inserted some locking screws in the metaphy seal region. I then inserted further locking screws on the medial plate in th e metaphyseal region as well. At this point, I removed the external fixation d evice using Betadine over all the components. I checked my reduction. I felt t hat I had an anatomic reduction with stable hardwa re. At this point, the procedure was near complete. I released the tourniquet at 115 minutes. I coa gulated any bleeders using PATIENT NAME: TEODORA SANTANA 8 electrocautery. I placed 1 gram of vancomycin in the wound. I then closed the fascia using #1 Vicryl on both sides, ensuring a watertight fascial closure, followed by a deep dermal closure using 2-0 Vicr yl and skin closed using 3-0 nylon. I also closed the percutaneous holes that are used for screws distally on the lateral plate as well as for the percutaneous holes used for the medial plateau lag screws. I then washed and dried the leg and applied sterile dressings using island dressings. I then placed an Oneal wrap around the leg and put the patient in a knee immobilizer. T he patient was awoken from anesthesia, extubated, and taken to the postoperative recove ry area. All counts were correct. There were no complications. I was pres ent for the entirety of the procedure. POSTOPERATIVE PLAN: The patient will be nonweigh tbearing on the right lower extremity. We will exchange her knee immobilizer for a hinged knee brace. She will have range of motion as tolerated, although she will be nonweightbearing for at least the next 6 weeks. She will receive Ancef for 24 hours postoperatively. She will be on DVT prophylaxis for the next 4 weeks. I will see her in the hospital on p ostop day #1. I will also see her in clinic in 2 to 3 weeks for wound check and suture remov al. We will get postoperative imaging. Dictated By: Flavia Kirby WT: OP:AZALIA/ANDREW/ROBBY Conf#: [id number]/DID#: [id number] Authenticated by Jonathan Glover MD,PhD On 07/02 08:37:33 PM at 0837 PATIENT NAME: TEODORA SANTANA [birth year] 2022-07-01 12:07:00-00:00 [facility] ([facility]) Discharge Summary REPORT#:[id number] REPORT STATUS: Signed DATE:07/01/22 TIME: 1207 PATIENT: TEODORA SANTANA UNIT #: [id number] ROOM/BED: [place] [address] : [birth year] AGE: 36 SEX: F ATTEND: Scott Britt DO ADM AUTHOR: Ian Castro PA * ALL edits or amendments must be made on the [employer]/computer document * Ian Castro 07/01/22 1207: PCP PCP Discharge to: home General Information Date of admission: Observation Start Date: Date of admission: 06/21/22 Discharge date: 07/01/22 Discharge diagnosis: Tibal Plat Fx Hospital course: Hospital course to date: 06/21: Patient has extensive chronic pain history we have consulted pain management for closer management. Given patient's complex history we have also added a hematology oncology consult related to h er clotting deficiencies and began a heparin drip for DVT prophylaxis as we discontinue the Eliquis and await further recommendations from hematology. Dr. Headley with orthopedics planning for surgery or Friday 06/22: RLE ex-fix placed (Dr. Glover). Definitive repair likely next week, approx. Saturday 06/23: No acute events overnight. Pain controlled , tolerating PO intake. On Heparin gtt. Waiting for definitive repair. 06/24: Bleeding controlled, Pain controlled. Nicolle tor H H 06/25: Repeat H H today drops below 7 with OR planning mid next week in the soft H H over the last 24-48. We will transfuse 1 uni t PRBCs 06/26: Stable H H aftre transfusion 06/27: No events, await estimated surgery date of thursday 06/28: No acute events overnight. [facility] [place] plans to take patient to the OR for right tib-fib jing ling on 06/29. Ex-Fix in place bilateral ankles with no signs of local infection. Patient has no colby tional complaints. Tertiary trauma survey conducted with no additional findi ngs noted. 06/29: No acute events overnight. Plan for ORIF o f the lower right extremity with removal of Ex-Fix today for [facility] [place]. We will plan to resume Eliquis and DC heparin drip once [facility] [place] approves of oral anticoagulant. 06/30: No acute events overni ght. ORIF of the lower right extremity with removal of Ex-Fix completed on 06/29. Eliquis resumed on 06/29 with heparin discontinued. No bleeding events noted. Patient reports moder ate pain to the right lower extremity postop. We will reevaluate pain medica tion regimen. PT/OT pending. 07/01: No acute events overnight. Patient okay to DC home today. Patient can DC with crutches and patient ad vised she is ordered a walker for home use. Patient was advised she can contact our office for a mobility note/excuse for court. F/U with ortho outpatient. Free Text A P: Mechanism: Trip and Fall Injuries: Tibal Plat Fx Active Problems: Pain Protein S deficiency Resolved Problems: Incidental findings: Chronic Medical Problems: Protein S deficency (o n Eliquis), IA, Blood clots, Depression, Anxiety, PTSD, T hrombectomy, Wrist sx, Pre-cancer ovarian, + smoking , social alcohol, Cocaine Hx, Meth Hx DVT prophylaxis: SCDs, Heparin gtt GI prophylaxis: diet Lines/Quezada/ETT: PIV Consultants: Ortho, [facility] Pain, Luz Hematology, Dana Procedures: 06/22: RLE ex-fix (Adalberto) Plan: Tibal Plat Fx * Ortho following * Splinted PULMONOLOGY PHYSICIAN * Multimodal Pain control with IV and PO narcotic and non-narcotic medications * pain management following * Tertiary trauma survey completed * Elevate * PT/OT eval/treat, NWB RLE * plan for definitive repair likely monday History of Protein S deficency * Hematology following * on Heparin gtt Anemia * Post Operative and in correlation to the Hepar in requirements * Repeat H H now * Transfuse for less than 7 Diet: Regular Labs: AM PT/OT recs: eval/treat, NWB RLE DME: recs pending Code status: Full code Medical Decision Making: In the event the patient is incapacitated and not able to make their own medical decisions, the y have elected Shahriar, contact number [phone], to make medical decisions f or them. Dispo: Admit; will continue to monitor f or ICU needs or any further changes to level of care Anticipated Date of Discharge/Trauma Clearance: TBD Med Rec PCP PCP: PCP: No Primary or Family Physician Med Rec Discharge meds: Continue taking these medications: GABAPENTIN (NEURONTIN) 400 MG CAP 400 MILLIGRAM ORAL THREE TIMES A DAY. Comments: TAKE ONE (1) CAPSULE(S) BY MOUTH TWICE A DAY.; #60 - SIG Obtained From [facility] traZODone (DESYREL) 100 MG TAB 100 MILLIGRAM ORAL BEDTIME. Comments: TAKE ONE (1) TABLET(S) BY MOUTH AT BEDTIME.; #3 0 - SIG Obtained From [facility] ACETAMINOPHEN/CODEINE (TYLENOL WITH CODEINE #4 3 00/60 MG) 300 MG-60 MG TAB 1 TABLET ORAL EVERY 4 HOURS NEEDED. as neede d for ACUTE PAIN Comments: TAKE ONE TABLET BY MOUTH THREE TIMES DAILY N EEDED FOR CHEST PAIN; #90 - SIG Obtained From [facility] APIXABAN (ELIQUIS) 5 MG TAB 5 MILLIGRAM ORAL TWICE DAILY. Objective VS/I O Last Documented: Result Date Time Pulse Ox 92 07/01 0410 B/P 103/66 07/01 0410 B/P Mean 78.2 07/01 0410 O2 Delivery Room air 07/01 0410 Temp 98.2 07/01 0410 Pulse 76 07/01 0410 Resp 15 07/01 0410 O2 Flow Rate 2 06/22 1230 PATIENT WEIGHT: Weight (lb): 199 Weight (oz): 15.35 Weight (kg): 90.265 Results Results: vital signs reviewed, vital signs stabl e, current med profile rev'd Free Text Obj Notes Free Text Obj Notes: Free Text Obj Notes: Constitutional: GCS 15, patient awake, alert, no acute distress, HR, BP, O2 saturation reviewed in records Eyes: pupils equal, round, reactive to light, EO IA HENT: normal cephalic, atraumatic, no facial ten derness or crepitus, normal external inspection of ears/nose, no septal emile grisel Neck: trachea midline, no crepitus, thyroid with out mass CV: regular rate, rhythm, bi lateral radial pulses 2+, no cyanosis, no edema, no pulsatile abdominal mass Respiratory: lungs clear bilaterally, respiratio ns even and unlabored, no tenderness to palpation, normal inspection of ch est, no crepitus Abdomen: soft, non-tender, non-distended, no mas ses, no hernia noted : pelvis stable Musculoskeletal: -Left upper extremity without focal tenderness, without deformity, with ROM intact -Right upper extremity without focal tenderness, without deformity, with ROM intact -Left lower extremity without focal tenderness, without deformity, with ROM intact -Right lower extremity with ONEAL wrap and surgical dressing in place CDI, ortho hinging brace in place, NV intact distally Skin: skin warm to palpation. Psychiatric: normal mood and affect, memory inta ct Neurologic: face symmetrical. Bilateral upper an d lower extremity sensation intact Discharge Instructions PCP PCP: PCP: No Primary or Family Physician )( Discharge to: Home/Self Care Discharge Instructions Additional Discharge Routines: PCP Follow-Up, At tending Follow-Up, Tissue Packer Follow-Up, Equipment/Supplies )( Diet: Resume Home Diet/Feeds )( Activity: Crutches/Walker, Do not Sub merge Incision, Light Duty, No Sports/ Activities, No Strenuous Act ivity, No Swimming, No Weight Bearing Right, Shower Only, Walk, IS OOB most of the day Activity per PT/OT recs Bowel regimen of choice Pain meds per pain management recommendat ions )( Equipment/supplies: Crutches, Walker )( Notify PCP of these S/S: Chest Pain, Increased redness, Increased swelling, Increased tenderness/pain, M oderate/large bleeding, Numbness, Pus-like discharge , Red line from wound, Shortness of breath, Temp . 101 or greater Follow-up Appointments PCP follow up: PCP: No Primary or Family Physician PCP follow up timeframe: In 1-2 weeks Special instructions: R tibia fibula fracture s/p ORIF Attending Physician: Attending Physician: Brian Britt DO Special instructions: call for appointment as needed Consulting provider 1: Provider 1: Jonathan Glover [facility] Specialty: Orthopaedic Surgery Consult follow up timeframe: In 1-2 weeks Special instructions: call for appointment Consulting provider 2: Provider 2: Shiv Cheema NP Specialty: Pain Medicine Special instructions: call for appointment as needed for pain manageme nt Quality: Discharge Advanced Care Plan 65 or Older Discussed with: patient Current Medications Current medication review: I attest that the foregoing medication list in t he medical record is true, accurate, and complete to the best of my knowled ge. Awe,Timothy 07/07/22 0008: Attestations Physician Attestation Agree w/findings plan: I was present with CATINA Newton during the history and examination. I discussed the case and agree with the findings and plan as documented in Ian Castro's note. Labs reviewed. Pertinent imaging personally revi renetta. Discussed plan with other members of the [facility] are team. Electronically Signed by Ian Castro on 0 07/01/22 at 1214 Electronically Signed by Timothy Rizzo MD on 07/07 at 0009 RPT #:[id number] END OF REPORT 2022-07-01 08:08:00-00:00 [facility] Pain Management Progress Note REPORT#:[id number] REPORT STATUS: Signed DATE:07/01/22 TIME: 08 PATIENT: TEODORA SANTANA UNIT #: [id number] ROOM/BED: [place] [id number] : 83 AGE: 36 SEX: F ATTEND: Scott Britt DO ADM AUTHOR: Shiv Cheema OUTSIDE SALES INSPECTOR * ALL edits or amendments must be made on the [employer]/computer document * Shiv Cheema 07/01/22 0808: Subjective Chief complaint: Patient seen and examined. Chart/MAR reviewed. Patient was seen with Dr. Gaspar. She is doing well . Patient being seen for Acute pain due to trauma, acute postoperative pain, Idiopathic neuropathy Patient is still requiring medications to help w ith managing current problems. Patient is requiring IV narcotics to help manage breakthrough pain No fever/chills, chest pain, orthopnea, nausea/v omiting, pruritus, or hallucinations. 14 point ROS undertaken unremarkable except as n oted Objective General VS/I O: Vital Signs Date Temp Pulse Resp B/P B/P Mean Pulse Ox FiO2 06/30-07/01 98.2-100.8 76-93 15-18 103-125/66-7 3 78.2-90 92-98 Last Documented: Result Date Time Pulse Ox 92 07/01 0410 B/P 103/66 09/23 0410 B/P Mean 78.2 07/01 410 O2 Delivery Room air 07/01 410 Temp 98.2 07/01 0410 Pulse 76 07/01 0410 Resp 15 07/01 410 O2 Flow Rate 2 06/22 1230 PATIENT WEIGHT: Weight (lb): 199 Weight (oz): 15.35 Weight (kg): 90.265 Medications: Active Meds + DC'd Last 24 Hrs Hydromorphone HCl (DILAUDID) 0.5 MG Q4H PRN PRN IV Oxycodone HCl (ROXICODONE) 15 MG Q4H PRN PRN PO Apixaban (ELIQUIS 5MG TABLET) 5 MG BID PO Sodium Chloride (SODIUM CHLORIDE 0.9%) 1,000 ML .[id number] IV Sodium Chloride (SODIUM CHLORIDE 0.9%) 1,000 ML .[id number] IV Gabapentin (NEURONTIN) 400 MG Q8H PO Morphine Sulfate (MS CONTIN) 15 MG Q8HR PO Ferric Sodium Gluconate Complex (FERRLECIT) 125 MG DAILY IV (DC) Sodium Chloride (SODIUM CHLORIDE 0.9%) 100 ML Pantoprazole (PROTONIX) 40 MG DAILY@0600 PO Ibuprofen (IBUPROFEN) 400 MG Q8HR PO Trazodone HCl (DESYREL) 100 MG BEDTIME PRN PRN P O Polyethylene Glycol (MIRALAX) 17 GM DAILY PO Ondansetron HCl (ZOFRAN) 4 MG Q4H PRN PRN IV Physical Exam General appearance: alert, awake, oriented, ment al status normal Head/eyes: atraumatic, EOMI, normocephalic, norm al conjunctiva/sclera, PERRLA ENT: normal nose Cardiovascular: regular rate rhythm Respiratory: symmetric expansion Abdomen: soft, non-tender, no distention , active bowel sounds in all quadrant. Extremities: moves all, no e anirudh, RLE uniplanar ex-fix. Decreased ROM right leg Neuro/CONTRACT MANAGER: no motor deficits, no sensory deficit s, CNII-XII grossly intact Skin: dry, normal turgor Lymphatics: no lymphadenopathy Psychiatry: normal affect Results Results: no new labs Diagnosis, Assessment Plan Free text A P: A/P: Patient is a 36 year old female who presents wit h right tib-fib fracture Acute pain due to trauma, acute postoper ative pain, s/p right bilateral tibial plateau ORIF and removal of spanning fixator. -Status post right tib-fib fracture -06/22/2022-closed reduction of right proximal ti therese and fibula fracture. Application of uniplanar external fixator -DC oxycontin 20mg BID 06/27 -DC Percocet 10/325 1 tablet p.o. every 4 hours as needed pain scale 4 10 (06/30 ) -DC Morphine 4 mg IV every 4 hours as needed pain scale 7 out of 10, second line therapy -Dilaudid 0.5mg IV every 4 hours as needed pain scale 7-10 (06/30) -Oxycodone 15mg every 4 hours as needed pain sca le 4-10(06/30) -MS Contin 15mg every 8 hours 06/27 -Motrin 400 mg p.o. every 8 hours (Protonix 40 mg p.o. daily for GI prophylaxis) -manageable Idiopathic neuropathy -Gabapentin 400 mg p.o. every 8 hours 06/27 -manageable Disposition: Send MS Contin 15mg Q12H and Oxycodone 15mg Q6H 7 day supply to [facility] in [place] Past Medical History: Venous thrombus on, protein S deficiency, chronic neck and back pain, right tib-fib fracture Past Surgical History: 06/22/2022-closed reductio n of right proximal tibia and fibula fracture. Application of uniplanar cable tender al fixator, 06/29 bilateral tibial plateau ORIF and removal of spanning fixa tor. Family History: Noncontributory Social History: Positive for alcohol use Allergies: Tramadol Patient has failed conservative medical therapy. Patient will require monitoring while utilize na rcotic medications for any adverse effects, and will adjust as needed Plan of care discussed with patient and nurse All diagnostics of last 24 hours been reviewed. Risks versus benefits of opioid medications were reviewed to include, but not limited to respiratory depression, accid ental overdose, altered mental status, sudden , constipation which could result in bowel obstruction, seizures, withdrawal, dependency addiction, risk for falls . Case discussed with Dr Gaspar whom agrees. Thank you for the consultation. [place] MEDIA RELATIONS MANAGER: Total Prescriptions 14 Total Private Pay 0 Total Prescribers 2 Total Pharmacies 4 05/26/2022 04/28/2022 2 ACET AMINOPHEN-COD #4 TABLET 90.00 30 Ga Hol [id number] [facility] ( 9762) 1 27.00 MME Comm Ins [place] 04/28/2022 04/28/2022 1 ACET AMINOPHEN-COD #4 TABLET 90.00 30 Ga Hol [id number] Heb ( 0275) 0 27.00 MME Comm Ins [place] 04/15/2022 04/14/2022 1 ACET AMINOPHEN-COD #4 TABLET 30.00 10 Ga Hol [id number] Uni (9378) 0 27.00 MME Other [place] 03/18/2022 11/19/2021 1 ACET AMINOPHEN-COD #4 TABLET 90.00 30 Ga Hol [id number] Uni (9378) 1 27.00 MME Other [place] 02/18/2022 11/19/2021 1 ACET AMINOPHEN-COD #4 TABLET 90.00 30 Ga Hol [id number] Uni (9378) 0 27.00 MME Other [place] 01/21/2022 11/19/2021 1 ACET AMINOPHEN-COD #4 TABLET 90.00 30 Ga Hol [id number] Uni (9378) 1 27.00 MME Other [place] 12/24/2021 11/19/2021 1 ACET AMINOPHEN-COD #4 TABLET 90.00 30 Ga Hol [id number] Uni (9378) 0 27.00 [place]ME Other [place] 12/15/2021 12/15/2021 1 PREGABALIN 75 MG CAPSULE 30.00 15 Swe [id number] H e ( 0193) 0 1.00 LME Comm Ins [place] 11/26/2021 11/19/2021 1 ACET AMINOPHEN-COD #4 TABLET 90.00 30 Ga Hol [id number] Hen (7709) 0 27.00 MME Comm Ins [place] 10/29/2021 10/27/2021 1 ACET AMINOPHEN-COD #4 TABLET 90.00 30 Ga Hol [id number] Uni (9378) 0 27.00 MME Other [place] 10/01/2021 09/23/2021 1 ACET AMINOPHEN-COD #4 TABLET 90.00 30 Ga Hol [id number] Uni (9378) 0 27.00 MME Other [place] 09/04/2021 09/01/2021 1 ACET AMINOPHEN-COD #3 TABLET 90.00 30 Ga Hol [id number] Hen (7709) 0 13.50 MME Comm Ins [id number] [phone] [place] [address] [facility] [phone] [place] [address] - [facility] [address] [phone] [place] [address] - [facility] [phone] [place] [address] Tam Gaspar 07/03/22 0941: Attestations Physician Attestation Agree w/findings plan: The patient was seen and examined by Shiv sosa. I personally saw the patient and developed the care plan, which was c ontinued by the mid-level provider. She has relatively high MME requiremen ts at the moment for pain control. Will look for opportunities to wean. at 1105 Electronically Signed by Tam Gaspar MD on 2 at 1000 RPT #:[id number] END OF REPORT 2022-06-30 18:07:00-00:00 [facility] Emile/Oncology Progress Note REPORT#:[id number] REPORT STATUS: Signed DATE:06/30/22 TIME: 1806 PATIENT: TEODORA SANTANA UNIT #: [id number] ROOM/BED: [place] [id number] : 83 AGE: 36 SEX: F ATTEND: Scott Britt DO ADM AUTHOR: Adrian Cortez MD * ALL edits or amendments must be made on the [employer]/computer document * Subjective Chief Complaint: Feeling better today. Sitting up in recliner jeremiah ir. Objective Physical Exam VS: Vital Signs Date Temp Pulse Resp B/P B/P Mean Pulse Ox FiO 2 06/29-06/30 36.9-37.3 80-100 18 102-128/65-77 7 8.5-92.2 94-98 Last Documented: Result Date Time Pulse Ox 94 06/30 1723 B/P 104/67 06/30 1723 B/P Mean 79.5 06/30 1723 O2 Delivery Room air 06/30 1723 Temp 37.3 09/22 1723 Pulse 93 06/30 1723 Resp 18 06/30 1723 O2 Flow Rate 2 06/22 1230 General appearance: alert, awake HEENT: atraumatic, normocephalic Neck: full range of motion, non-tender, supple/n o meningismus, no JVD, no lymphadenopathy Cardiovascular: regular rate and rhythm Respiratory: clear to auscultation Abdomen: non-tender, normal bowel sounds , soft, no distention, no guarding, no mass/organomegaly, no rebound Extremities: moves all, normal capillary refill, no edema Musculoskeletal: full range of motion, normal in spection Neuro/CONTRACT MANAGER: alert, oriented X 3 Results Findings/Data: Laboratory Tests 06/30/22 05: [Embedded Image Not Available] Laboratory Tests 06/30 540 Chemistry Sodium (134 - 147 mEq/L) 140 Potassium (3.4 - 5.0 mEq/L) 4.0 Chloride (100 - 108 mEq/L) 106 Carbon Dioxide (21 - 33 mEq/l) 26 Anion Gap (0 - 20) 12 BUN (7 - 18 mg/dL) 7 Creatinine (0.6 - 1.3 mg/dL) 0.7 Glomerular Filtr Rate (105 - 110) 93.6 L Glucose (70 - 110 mg/dL) 91 Calcium (8.0 - 10.5 mg/dL) 8.4 Laboratory Tests 06/30 05 Hematology WBC (4.5 - 11.0 x10 3/uL) 7.8 RBC (3.54 - 5.02 x10 6/uL) 2.92 L Hgb (11.0 - 15.0 g/dL) 8.0 L Hct (33.0 - 45.0 %) 25.6 L MCV (81.0 - 99.0 fL) 87.7 MCH (27.0 - 33.0 pg) 27.4 MCHC (33.0 - 37.0 g/dL) 31.3 L RDW (11.5 - 14.5 %) 18.4 H Plt Count (150 - 400 x10 3/uL) 369 MPV (7.0 - 9.0 fL) 8.8 Neut % (Auto) (56.0 - 77.0 %) 69.2 Lymph % (Auto) (14.0 - 32.0 %) 20.3 [place] % (Auto) (4.8 - 9.0 %) 8.2 Eos % (Auto) (0.3 - 3.7 %) 0.1 L Baso % (Auto) (0.0 - 2.0 %) 0.3 Neut # (Auto) (2.0 - 7.6 x10 3/uL) 5.40 Lymph # (Auto) (1.0 - 3.8 x10 3/uL) 1.58 [place] # (Auto) (0.1 - 0.8 x10 3/uL) 0.64 Eos # (Auto) (0.0 - 0.2 x10 3/uL) 0.01 Baso # (Auto) (0.0 - 0.2 x10 3/uL) 0.02 Abs Immat Gran (auto) (0.00 - 0.03 x10 3/uL) 0. 15 H Add Manual Diff NO Immature Gran % (0.0 - 2.0 %) 1.9 Nucleated RBC % (0 - 0 %) 0.0 Nucleated RBCs # (Man) (0.0 - 0.1 x10 3/uL) 0.0 0 Radiology data: Current Medications Sig/Maricruz Start time Last Medication Dose Route Stop Time Status Admin Hydromorphone HCl 0.5 MG Q4H PRN PRN 06/30 0700 AC 06/30 IV 07/08 1100 1130 Oxycodone HCl 15 MG Q4H PRN PRN 06/30 0700 AC 0 06/30 PO 07/08 1000 1729 Sodium Chloride 10 ML .STK-MED ONE 06/29 2122 D C 06/29 IV 213 Apixaban 5 MG BID 06/29 2100 AC 06/30 PO 07/29 205 0839 Cefazolin Sodium 2 GM Q8HR 06/29 1400 DC 06/29 IV 06/29 2201 2135 Sodium Chloride 1,000 ML .[id number] 06/29 1030 AC 06/30 IV 07/29 1029 0044 Cefazolin Sodium 2 GM PREOP ONCALL 06/29 0500 D C IV 06/29 2359 Sodium Chloride 1,000 ML .[id number] 06/29 0000 AC 06/30 IV 07/28 1759 1730 Gabapentin 400 MG Q8H 06/27 1700 AC 06/30 PO 07/21 2059 1729 Morphine Sulfate 15 MG Q8HR 06/27 1400 AC 06/30 PO 07/27 1300 1420 Ferric Sodium 125 MG DAILY 06/23 0900 DC 06/30 Gluconate Complex IV 06/30 0959 0843 Sodium Chloride 100 ML Pantoprazole 40 MG DAILY@0600 06/23 0600 AC PO 07/23 0559 0528 Ibuprofen 400 MG Q8HR 06/22 2200 AC 06/30 PO 07/22 2159 1420 Morphine Sulfate 4 MG Q4H PRN PRN 06/22 1845 DC 06/30 IV 08/06 1300 0342 Oxycodone/ 2 TAB Q4H PRN PRN 06/22 1845 DC 06/10 2 Acetaminophen PO 08/06 1300 0004 Trazodone HCl 100 MG BEDTIME PRN PRN 06/22 1800 AC 06/28 PO 07/22 175 202 Polyethylene Glycol 17 GM DAILY 06/22 0900 AC 0 06/30 PO 07/22 0859 0839 Ondansetron HCl 4 MG Q4H PRN PRN 06/21 1130 AC 06/30 IV 07/21 1129 1129 Results: labs reviewed, vital signs stable Diagnosis, Assessment Plan Free Text DxA P Notes Free Text DxA P Notes: ASSESSMENT: * Trauma status post fall resulting in a right t ibial plateau fracture. 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 Patient had been on anticoagulation with Eliquis . * Normocytic, hypochromic anemia, associ ated with iron deficiency with patient having history of heavy menstrual cycles for the past few years. PLAN: * Recovering from surgery. * Status post closed reducti on and uniplanar external fixation, right bicondylar tibial plateau ORIF and emoval of right knee-spa nning external fixationby orthopedic surgery. * Now started on Eliquis. * Status post parenteral iron with Ferrlecit, 05/16 infusions. * Monitor CBC. * I will continue to follow. Electronically Signed by Adrian Coretz MD on at 1810 RPT #:[id number] END OF REPORT 2022-06-30 14:59:00-00:00 [facility] Orthopaedic Progress Note REPORT#:[id number] REPORT STATUS: Signed DATE:06/30/22 TIME: 1459 PATIENT: TEODORA SANTANA UNIT #: [id number] ROOM/BED: [place] [id number] : 83 AGE: 36 SEX: F ATTEND: Scott Britt DO ADM AUTHOR: Jonathan Glover [facility] * ALL edits or amendments must be made on the [employer]/computer document * Subjective HPI: No acute complaints. Moderate pain around the ri ght knee. Denies any fevers, chills, nausea, vomiting. No significant drainag e from the wound. Objective VS: Last Documented: Result Date Time Pulse Ox 98 06/30 1343 B/P 107/72 06/30 1343 B/P Mean 83.4 06/30 1343 O2 Delivery Room air 06/30 1343 Temp 37.0 06/30 1343 Pulse 93 06/30 1343 Resp 18 06/30 1343 O2 Flow Rate 2 06/22 1230 PATIENT WEIGHT: Weight (lb): 199 Weight (oz): 15.35 Weight (kg): 90.265 Results Findings/data: Laboratory Tests 06/30 0540 Chemistry Sodium (134 - 147 mEq/L) 140 Potassium (3.4 - 5.0 mEq/L) 4.0 Chloride (100 - 108 mEq/L) 106 Carbon Dioxide (21 - 33 mEq/l) 26 Anion Gap (0 - 20) 12 BUN (7 - 18 mg/dL) 7 Creatinine (0.6 - 1.3 mg/dL) 0.7 Glomerular Filtr Rate (105 - 110) 93.6 L Glucose (70 - 110 mg/dL) 91 Calcium (8.0 - 10.5 mg/dL) 8.4 Laboratory Tests 06/30 0540 Hematology WBC (4.5 - 11.0 x10 3/uL) 7.8 RBC (3.54 - 5.02 x10 6/uL) 2.92 L Hgb (11.0 - 15.0 g/dL) 8.0 L Hct (33.0 - 45.0 %) 25.6 L MCV (81.0 - 99.0 fL) 87.7 MCH (27.0 - 33.0 pg) 27.4 MCHC (33.0 - 37.0 g/dL) 31.3 L RDW (11.5 - 14.5 %) 18.4 H Plt Count (150 - 400 x10 3/uL) 369 MPV (7.0 - 9.0 fL) 8.8 Neut % (Auto) (56.0 - 77.0 %) 69.2 Lymph % (Auto) (14.0 - 32.0 %) 20.3 [place] % (Auto) (4.8 - 9.0 %) 8.2 Eos % (Auto) (0.3 - 3.7 %) 0.1 L Baso % (Auto) (0.0 - 2.0 %) 0.3 Neut # (Auto) (2.0 - 7.6 x10 3/uL) 5.40 Lymph # (Auto) (1.0 - 3.8 x10 3/uL) 1.58 [place] # (Auto) (0.1 - 0.8 x10 3/uL) 0.64 Eos # (Auto) (0.0 - 0.2 x10 3/uL) 0.01 Baso # (Auto) (0.0 - 0.2 x10 3/uL) 0.02 Abs Immat Gran (auto) (0.00 - 0.03 x10 3/uL) 0. 15 H Add Manual Diff NO Immature Gran % (0.0 - 2.0 %) 1.9 Nucleated RBC % (0 - 0 %) 0.0 Nucleated RBCs # (Man) (0.0 - 0.1 x10 3/uL) 0.0 0 Radiology data: Recent Impressions: RADIOLOGY - XR KNEE 1 OR 2 V RT 06/29 1530 Report Impression - Status: SIGNED Entered: 06/29/2022 1552 IMPRESSION: Post up ORIF proximal tibial fracture. Impression By: Jennifer Smith M.D. RADIOLOGY - XR TIBIA/FIBULA 2 V RT 06/29 1530 Report Impression - Status: SIGNED Entered: 06/29/2022 1549 IMPRESSION: Post ORIF comminuted fracture proximal tibia. Impression By: Jennifer Smith M.D. X-ray interpretation: I reviewed postoperative x-rays of the right kne e and right tibia and fibula. Hardware is in good alignment. Fracture reduction is well-maintained. No acute complications. Free Text Obj Notes Free Text Obj Notes: The patient is alert and oriented All 4 extremities are warm and well-perfused The patient is taking bilateral equal breath eff orts No petechiae, rashes, or adenopathy Right lower extremity: Dressings are clean, dry, and intact Hinged knee brace is in place with range of nuha on as tolerated Patient is mildly tender palpation around the in cisions There is 3/5 motor strength in TA/GS/EHL/FHL Sensation is intact to light touch in the S/S/SP /DP/T distribution There is a 2+ DP pulse Diagnosis, Assessment Plan Free text A P: Teodora Santana is a 36-year-old female with a histo ry of Protein S deficiency on Eliquis transferred to [facility] for evaluation and treatment of displaced closed right proximal tibia and fibula fractures . She is status post closed reduction of a proxima l right tibia and fibula fracture with knee spanning external fixation on 06/22/2022, right bicondylar tibial plateau ORIF with removal of external fix ation 06/29/2022. -Surgery: No further surgery planned. -Weight bearing status: Nonw eightbearing right lower extremity in a telescoping hinged knee brace with range of motion as tolera anali -Antibiotics: Ancef x 24 hours postoperatively -Diet: Regular diet -Labs: CBC/BMP/coags -Tranfuse as needed; would recommend a threshold Hb of 8.0 -DVT prophylaxis: Hold heparin drip, and resume her home Eliquis on POD 2 -Multimodal pain control -Imaging: XR right knee, XR right tib/fib review ed -Dressings: Oneal wrap with the above-ment ioned brace. This may be reinforced or changed as necessary. -PT/OT -Dispo pending pain control, PT/OT, imaging, bra ce, labs at 1501 RPT #:[id number] END OF REPORT 2022-06-30 13:21:00-00:00 [facility] [place] ([facility]) Trauma Progress Note REPORT#:[id number] REPORT STATUS: Signed DATE:06/30/22 TIME: 1321 PATIENT: TEODORA SANTANA UNIT #: [id number] ROOM/BED: [place] [id number] : 83 AGE: 36 SEX: F ATTEND: Sapna Britt DO ADM AUTHOR: Ian Castro * ALL edits or amendments must be made on the [employer]/computer document * Ian Castro 06/30/22 1321: Subjective Chief complaint: RLE pain, fracture s/p fall HPI: No acute events overnight. O RIF of the lower right extremity with removal of Ex -Fix completed on 06/29. Eliquis resumed on 06/29 with heparin discontinued. No bleeding events noted. Patient reports moderate pain to the right lower extremity postop. We will reevaluate pain medica tion regimen. PT/OT pending. Review of Systems Constitutional: Denies: fever. Musculoskeletal: Extremity pain: Reports: right lower. Denies: left upper, left lower, right upper, bilateral. Extremity swelling: Reports: right lower. Denies: left upper, left lower, right upper, bilateral. Other musculoskeletal: Denies: lumbar pain, neck pain, thoracic pain, other. Heme: Denies: bleeding, bruising. Free Text ROS Notes Free Text ROS Notes: Review of systems: As above; otherwise, negativ e to include neurologic, eyes, ENT, CV, respiratory, GI, musculoskeletal, , skin, psychiatric, emile tologic, and allergy. Objective Physical Exam VS/I O: Vital Signs: Date Time Temp Pulse Resp B/P B/P Pulse O2 O2 F low FiO2 Mean Ox Delivery Rate 06/30 0749 98.4 85 18 102/67 78.5 95 Room air 06/30 0340 18 06/30 0334 99.0 89 117/75 89.2 94 06/29 2305 98.6 80 18 128/65 86 98 06/29 1948 98.6 100 18 122/77 92.2 97 06/29 1645 98.2 86 20 110/72 84.6 95 24 hour I O ending at 0700: 06/30 0700 06/29 1900 Intake Total 400 480 Output Total 520 Balance -120 480 Intake, Oral 400 480 Output, Urine 520 PATIENT WEIGHT: Weight (lb): 199 Weight (oz): 15.35 Weight (kg): 90.265 Medications: Active Meds + DC'd Last 24 Hrs Hydromorphone HCl (DILAUDID) 0.5 MG Q4H PRN PRN IV Oxycodone HCl (ROXICODONE) 15 MG Q4H PRN PRN PO Sodium Chloride (SODIUM CHLORIDE) 10 ML .STK-MED ONE IV (DC) Apixaban (ELIQUIS 5MG TABLET) 5 MG BID PO Cefazolin Sodium (KEFZOL OR ANCEF) 2 GM Q8HR IV (DC) Sterile Water (WATER FOR INJECTION) 20 ML .STK-M ED ONE IV (DC) Sodium Chloride (SODIUM CHLORIDE 0.9%) 1,000 ML .[id number] IV Fentanyl Citrate (SUBLIMAZE) 100 MCG PACU Q10MI N PRN PRN IV (DC) Fentanyl Citrate (SUBLIMAZE) 50 MCG PACU Q10MIN PRN PRN IV (DC) Hydralazine HCl (APRESOLINE) 5 MG PACU Q10MIN HI N PRN IV (DC) Hydrocodone Bitart/Acetaminophen (NORCO 5/325) 1 TAB PACU ONCE PO (DC) Hydromorphone HCl (DILAUDID) 1 MG PACU Q10MIN HI N PRN IV (DC) Hydromorphone HCl (DILAUDID) 0.5 MG PACU Q5MIN P RN PRN IV (DC) Insulin Human Lispro (HUMALOG) 0 PACU ONCE PRN S UBQ (DC) Labetalol HCl (LABETALOL HCL) 5 MG PACU Q10MIN P RN PRN IV (DC) Meperidine HCl (DEMEROL 50MG/ML) 12.5 MG PACU ON CE PRN IV (DC) Morphine Sulfate (morphine SULFATE) 2 MG PACU Q1 0MIN PRN PRN IV (DC) Ondansetron HCl (ZOFRAN) 4 MG PACU ONCE PRN IV ( DC) Promethazine HCl (PHENERGAN) 25 MG PACU ONCE PRN PO (DC) Ropivacaine (NAROPIN 0.5% 150 MG/30mL) 150 MG DIR PRN LOCAL (DC) Cefazolin Sodium (KEFZOL OR ANCEF) 2 GM PREOP MEDICAL ASSEMBLY IV (DC) Sodium Chloride (SODIUM CHLORIDE 0.9%) 1,000 ML .[id number] IV Gabapentin (NEURONTIN) 400 MG Q8H PO Morphine Sulfate (MS CONTIN) 15 MG Q8HR PO Ferric Sodium Gluconate Complex (FERRLECIT) 125 MG DAILY IV (DC) Sodium Chloride (SODIUM CHLORIDE 0.9%) 100 ML Pantoprazole (PROTONIX) 40 MG DAILY@0600 PO Ibuprofen (IBUPROFEN) 400 MG Q8HR PO Morphine Sulfate (morphine SULFATE) 4 MG Q4H PRN PRN IV (DC) Oxycodone/Acetaminophen (PERCOCET 5/325MG TAB) 2 TAB Q4H PRN PRN PO (DC) Trazodone HCl (DESYREL) 100 MG BEDTIME PRN PRN P O Polyethylene Glycol (MIRALAX) 17 GM DAILY PO Heparin Sodium (HEPARIN 5000 UNITS/ML) 0 ASDIR P RN IV (DC) Heparin Sodium (Porcine) (HEPARIN 25,000 UNITS/ 1/2NS 500ML) 500 ML ASDIR IV (DC) Ondansetron HCl (ZOFRAN) 4 MG Q4H PRN PRN IV Results Findings/Data: Laboratory Tests 06/30 0540 Chemistry Sodium (134 - 147 mEq/L) 140 Potassium (3.4 - 5.0 mEq/L) 4.0 Chloride (100 - 108 mEq/L) 106 Carbon Dioxide (21 - 33 mEq/l) 26 Anion Gap (0 - 20) 12 BUN (7 - 18 mg/dL) 7 Creatinine (0.6 - 1.3 mg/dL) 0.7 Glomerular Filtr Rate (105 - 110) 93.6 L Glucose (70 - 110 mg/dL) 91 Calcium (8.0 - 10.5 mg/dL) 8.4 Laboratory Tests 06/30 0540 Hematology WBC (4.5 - 11.0 x10 3/uL) 7.8 RBC (3.54 - 5.02 x10 6/uL) 2.92 L Hgb (11.0 - 15.0 g/dL) 8.0 L Hct (33.0 - 45.0 %) 25.6 L MCV (81.0 - 99.0 fL) 87.7 MCH (27.0 - 33.0 pg) 27.4 MCHC (33.0 - 37.0 g/dL) 31.3 L RDW (11.5 - 14.5 %) 18.4 H Plt Count (150 - 400 x10 3/uL) 369 MPV (7.0 - 9.0 fL) 8.8 Neut % (Auto) (56.0 - 77.0 %) 69.2 Lymph % (Auto) (14.0 - 32.0 %) 20.3 [place] % (Auto) (4.8 - 9.0 %) 8.2 Eos % (Auto) (0.3 - 3.7 %) 0.1 L Baso % (Auto) (0.0 - 2.0 %) 0.3 Neut # (Auto) (2.0 - 7.6 x10 3/uL) 5.40 Lymph # (Auto) (1.0 - 3.8 x10 3/uL) 1.58 [place] # (Auto) (0.1 - 0.8 x10 3/uL) 0.64 Eos # (Auto) (0.0 - 0.2 x10 3/uL) 0.01 Baso # (Auto) (0.0 - 0.2 x10 3/uL) 0.02 Abs Immat Gran (auto) (0.00 - 0.03 x10 3/uL) 0. 15 H Add Manual Diff NO Immature Gran % (0.0 - 2.0 %) 1.9 Nucleated RBC % (0 - 0 %) 0.0 Nucleated RBCs # (Man) (0.0 - 0.1 x10 3/uL) 0.0 0 Radiology data: Recent Impressions: RADIOLOGY - XR KNEE 1 OR 2 V RT 06/29 1530 Report Impression - Status: SIGNED Entered: 06/29/2022 1552 IMPRESSION: Post up ORIF proximal tibial fracture. Impression By: Jennifer Smith M.D. RADIOLOGY - XR TIBIA/FIBULA 2 V RT 06/29 1530 Report Impression - Status: SIGNED Entered: 06/29/2022 1549 IMPRESSION: Post ORIF comminuted fracture proximal tibia. Impression By: Jennifer Smith M.D. Results: labs reviewed, vital signs reviewed, vi ruth signs stable, x-ray personally reviewed, current med profile rev'd Free Text Obj Notes Free Text Obj Notes: Constitutional: GCS 15, patient awake, alert, no acute distress, HR, BP, O2 saturation reviewed in records Eyes: pupils equal, round, reactive to light, EO IA HENT: normal cephalic, atraumatic, no facial ten derness or crepitus, normal external inspection of ears/nose, no septal emile grisel Neck: trachea midline, no crepitus, thyroid with out mass CV: regular rate, rhythm, bi lateral radial pulses 2+, no cyanosis, no edema, no pulsatile abdominal mass Respiratory: lungs clear bilaterally, respiratio ns even and unlabored, no tenderness to palpation, normal inspection of ch est, no crepitus Abdomen: soft, non-tender, non-distended, no mas ses, no hernia noted : pelvis stable Musculoskeletal: -Left upper extremity without focal tenderness, without deformity, with ROM intact -Right upper extremity without focal tenderness, without deformity, with ROM intact -Left lower extremity without focal tenderness, without deformity, with ROM intact -Right lower extremity with ONEAL wrap and surgica l dressing in place CDI, NV intact distally Skin: skin warm to palpation. Psychiatric: normal mood and affect, memory inta ct Neurologic: face symmetrical. Bilateral upper an d lower extremity sensation intact Diagnosis, Assessment Plan Hospital course to date: 06/21: Patient has extensive chronic pain history we have consulted pain management for closer management. Given patient's complex history we have also added a hematology oncology consult related to h er clotting deficiencies and began a heparin drip for DVT prophylaxis as we discontinue the Eliquis and await further recommendations from hematology. Dr. Headley with orthopedics planning for surgery or Friday 06/22: RLE ex-fix placed (Dr. Glover). Definitive repair likely next week, approx. Saturday 06/23: No acute events overnight. Pain controlled , tolerating PO intake. On Heparin gtt. Waiting for definitive repair. 06/24: Bleeding controlled, Pain controlled. Nicolle tor H H 06/25: Repeat H H today drops below 7 with OR planning mid next week in the soft H H over the last 24-48. We will transfuse 1 uni t PRBCs 06/26: Stable H H aftre transfusion 06/27: No events, await estimated surgery date of thursday 06/28: No acute events overnight. [facility] [place] plans to take patient to the OR for right tib-fib jing ling on 06/29. Ex-Fix in place bilateral ankles with no signs of local infection. Patient has no colby tional complaints. Tertiary trauma survey conducted with no additional findi ngs noted. 06/29: No acute events overnight. Plan for ORIF o f the lower right extremity with removal of Ex-Fix today for [facility] [place]. We will plan to resume Eliquis and DC heparin drip once [facility] [place] approves of oral anticoagulant. 06/30: No acute events overni ght. ORIF of the lower right extremity with removal of Ex-Fix completed on 06/29. Eliquis resumed on 06/29 with heparin discontinued. No bleeding events noted. Patient reports moder ate pain to the right lower extremity postop. We will reevaluate pain medica tion regimen. PT/OT pending. Free Text A P: Mechanism: Trip and Fall Injuries: Tibal Plat Fx Active Problems: Pain Protein S deficiency Resolved Problems: Incidental findings: Chronic Medical Problems: Protein S deficency (o n Eliquis), IA, Blood clots, Depression, Anxiety, PTSD, T hrombectomy, Wrist sx, Pre-cancer ovarian, + smoking , social alcohol, Cocaine Hx, Meth Hx DVT prophylaxis: SCDs, Heparin gtt GI prophylaxis: diet Lines/[place]/ETT: PIV Consultants: Ortho, Low Pain, Luz Hematology, Dana Procedures: 06/22: RLE ex-fix (Adalberto) Plan: Tibal Plat Fx * Ortho following * Splinted PULMONOLOGY PHYSICIAN * Multimodal Pain control with IV and PO narcotic and non-narcotic medications * pain management following * Tertiary trauma survey completed * Elevate * PT/OT eval/treat, FRANCOIS EWING * plan for definitive repair likely monday History of Protein S deficency * Hematology following * on Heparin gtt Anemia * Post Operative and in correlation to the Hepar in requirements * Repeat H H now * Transfuse for less than 7 Diet: Regular Labs: AM PT/OT recs: eval/treatFRANCOIS DME: recs pending Code status: Full code Medical Decision Making: In the event the patient is incapacitated and not able to make their own medical decisions, the y have elected Shahriar, contact number [phone], to make medical decisions f or them. Dispo: Admit; will continue to monitor f or ICU needs or any further changes to level of care Anticipated Date of Discharge/Trauma Clearance: TBD Quality: Trauma Gen Surg Advanced Care Plan 65 or Older Discussed with: patient Current Medications Current medication review: I attest that the foregoing medication list in t he medical record is true, accurate, and complete to the best of my knowled ge. VTE Prophylaxis - General VTE prophylaxis initiated: yes (Heparin gtt) Timothy Rizzo 07/07/22 0001: Attestations Physician Attestation Agree w/findings plan: I was present with CATINA Newton during the history and examination. I discussed the case and agree with the findings and plan as documented in Ian Castro's note. Labs reviewed. Pertinent imaging personally revi ewjabari. Discussed plan with other members of the [facility] are team. Electronically Signed by Ian Castro on 0 06/30/22 at 1325 Electronically Signed by iTmothy Rizzo MD on 07/07 at 0007 RPT #:[id number] END OF REPORT 2022-06-30 07:36:00-00:00 [facility]) Pain Management Progress Note REPORT#:[id number] REPORT STATUS: Signed DATE:06/30/22 TIME: 735 PATIENT: TEODORA SANTANA UNIT #: [id number] ROOM/BED: [place] [address] : 83 AGE: 36 SEX: F ATTEND: Scott Britt DO ADM AUTHOR: Shiv Cheema OUTSIDE SALES INSPECTOR * ALL edits or amendments must be made on the [employer]/computer document * Shiv Cheema 06/30/22 0736: Subjective Chief complaint: Patient seen and examined. Chart/MAR reviewed. Patient is s/p right bilateral tibial plateau OR IF and removal of spanning fixator. Pain is worse. Will adjust medication. Patient being seen for Acute pain due to trauma, acute postoperative pain, Idiopathic neuropathy Patient is still requiring medications to help w ith managing current problems. Patient is requiring IV narcotics to help manage breakthrough pain No fever/chills, chest pain, orthopnea, nausea/v omiting, pruritus, or hallucinations. 14 point ROS undertaken unremarkable except as n oted Objective General VS/I O: Vital Signs Date Temp Pulse Resp B/P B/P Mean Pulse Ox FiO2 06/29-06/30 97.6-99.0 71-100 - 110-133/65-77 84.6-92.2 90-100 Last Documented: Result Date Time Resp 18 06/30 0340 Pulse Ox 94 06/30 0334 B/P 117/75 06/30 0334 B/P Mean 89.2 06/30 0334 Temp 99.0 06/30 0334 Pulse 89 06/30 0334 O2 Delivery Room air 06/29 1045 O2 Flow Rate 2 06/22 1230 24 hour I O ending at 0700: 06/30 0700 06/29 1900 Intake Total 400 480 Output Total 520 Balance -120 480 Intake, Oral 400 480 Output, Urine 520 PATIENT WEIGHT: Weight (lb): 199 Weight (oz): 15.35 Weight (kg): 90.265 Medications: Active Meds + DC'd Last 24 Hrs Hydromorphone HCl (DILAUDID) 0.5 MG Q4H PRN PRN IV Oxycodone HCl (ROXICODONE) 15 MG Q4H PRN PRN PO Sodium Chloride (SODIUM CHLORIDE) 10 ML .STK-ME D ONE IV (DC) Apixaban (ELIQUIS 5MG TABLET) 5 MG BID PO Cefazolin Sodium (KEFZOL OR ANCEF) 2 GM Q8HR IV (DC) Sterile Water (WATER FOR INJECTION) 20 ML .STK-M ED ONE IV (DC) Sodium Chloride (SODIUM CHLORIDE 0.9%) 1,000 ML .[id number] IV Vancomycin HCl (VANCOMYCIN HCL) 0 .STK-MED ONE . ROUTE (DC) Rocuronium [place]hton (ZEMURON) 0 .STK-MED ONE IV ( DC) Fentanyl Citrate (SUBLIMAZE) 100 MCG PACU Q10MIN PRN PRN IV (DC) Fentanyl Citrate (SUBLIMAZE) 50 MCG PACU Q10MIN PRN PRN IV (DC) Hydralazine HCl (APRESOLINE) 5 MG PACU Q10MIN HI N PRN IV (DC) Hydrocodone Bitart/Acetaminophen (NORCO 5/325) 1 TAB PACU ONCE PO (DC) Hydromorphone HCl (DILAUDID) 1 MG PACU Q10MIN HI N PRN IV (DC) Hydromorphone HCl (DILAUDID) 0.5 MG PACU Q5MIN P RN PRN IV (DC) Insulin Human Lispro (HUMALOG) 0 PACU ONCE PRN S UBQ (DC) Labetalol HCl (LABETALOL HCL) 5 MG PACU Q10MIN P RN PRN IV (DC) Meperidine HCl (DEMEROL 50MG/ML) 12.5 MG PACU ON CE PRN IV (DC) Morphine Sulfate (morphine SULFATE) 2 MG PACU Q1 0MIN PRN PRN IV (DC) Ondansetron HCl (ZOFRAN) 4 MG PACU ONCE PRN IV ( DC) Promethazine HCl (PHENERGAN) 25 MG PACU ONCE PRN PO (DC) Ropivacaine (NAROPIN 0.5% 150 MG/30mL) 150 MG DIR PRN LOCAL (DC) Cefazolin Sodium (KEFZOL OR ANCEF) 2 GM PREOP MEDICAL ASSEMBLY IV (DC) Sodium Chloride (SODIUM CHLORIDE 0.9%) 1,000 ML .[id number] IV Gabapentin (NEURONTIN) 400 MG Q8H PO Morphine Sulfate (MS CONTIN) 15 MG Q8HR PO Ferric Sodium Gluconate Complex (FERRLECIT) 125 MG DAILY IV Sodium Chloride (SODIUM CHLORIDE 0.9%) 100 ML Pantoprazole (PROTONIX) 40 MG DAILY@0600 PO Ibuprofen (IBUPROFEN) 400 MG Q8HR PO Morphine Sulfate (morphine SULFATE) 4 MG Q4H PRN PRN IV (DC) Oxycodone/Acetaminophen (PERCOCET 5/325MG TAB) 2 TAB Q4H PRN PRN PO (DC) Trazodone HCl (DESYREL) 100 MG BEDTIME PRN PRN P O Polyethylene Glycol (MIRALAX) 17 GM DAILY PO Heparin Sodium (HEPARIN 5000 UNITS/ML) 0 ASDIR P RN IV (DC) Heparin Sodium (Porcine) (HEPARIN 25,000 UNITS/ 1/2NS 500ML) 500 ML ASDIR IV (DC) Ondansetron HCl (ZOFRAN) 4 MG Q4H PRN PRN IV Physical Exam General appearance: alert, awake, oriented, conv ersational Head/eyes: atraumatic, EOMI, normocephalic, norm al conjunctiva/sclera, PERRLA ENT: normal nose Cardiovascular: regular rate rhythm Respiratory: symmetric expansion Abdomen: soft, non-tender, no distention , active bowel sounds in all quadrant. Extremities: moves all, no e anirudh, RLE uniplanar ex-fix. Decreased ROM right leg Neuro/CONTRACT MANAGER: no motor deficits, no sensory deficit s, CNII-XII grossly intact Skin: dry, no abscess Lymphatics: no lymphadenopathy Psychiatry: normal affect Results Findings/data: Laboratory Tests: 06/30 06/29 0540 1145 Coagulation PTT ([place]) (25.0 - 39.5 Seconds) 38.5 Hematology WBC (4.5 - 11.0 x10 3/uL) 7.8 RBC (3.54 - 5.02 x10 6/uL) 2.92 L Hgb (11.0 - 15.0 g/dL) 8.0 L Hct (33.0 - 45.0 %) 25.6 L MCV (81.0 - 99.0 fL) 87.7 MCH (27.0 - 33.0 pg) 27.4 MCHC (33.0 - 37.0 g/dL) 31.3 L RDW (11.5 - 14.5 %) 18.4 H Plt Count (150 - 400 x10 3/uL) 369 MPV (7.0 - 9.0 fL) 8.8 Neut % (Auto) (56.0 - 77.0 %) 69.2 Lymph % (Auto) (14.0 - 32.0 %) 20.3 [place] % (Auto) (4.8 - 9.0 %) 8.2 Eos % (Auto) (0.3 - 3.7 %) 0.1 L Baso % (Auto) (0.0 - 2.0 %) 0.3 Neut # (Auto) (2.0 - 7.6 x10 3/uL) 5.40 Lymph # (Auto) (1.0 - 3.8 x10 3/uL) 1.58 [place] # (Auto) (0.1 - 0.8 x10 3/uL) 0.64 Eos # (Auto) (0.0 - 0.2 x10 3/uL) 0.01 Baso # (Auto) (0.0 - 0.2 x10 3/uL) 0.02 Abs Immat Gran (auto) (0.00 - 0.03 x10 3/uL) 0. 15 H Add Manual Diff NO Immature Gran % (0.0 - 2.0 %) 1.9 Nucleated RBC % (0 - 0 %) 0.0 Nucleated RBCs # (Man) (0.0 - 0.1 x10 3/uL) 0.0 0 Recent Impressions: RADIOLOGY - XR FLUOROSCOPY 0-60 MIN 06/29 1026 Report Impression - Status: SIGNED Entered: 06/29/2022 1053 IMPRESSION: Fluoroscopy dosage documentation. See also separ ate procedure notes. Impression By: [email or web address] - Elijah Santiago M.D. RADIOLOGY - XR KNEE 1 OR 2 V RT 06/29 1530 Report Impression - Status: SIGNED Entered: 06/29/2022 1552 IMPRESSION: Post up ORIF proximal tibial fracture. Impression By: Jennifer Smith M.D. RADIOLOGY - XR TIBIA/FIBULA 2 V RT 06/29 1530 Report Impression - Status: SIGNED Entered: 06/29/2022 1549 IMPRESSION: Post ORIF comminuted fracture proximal tibia. Impression By: Jennifer Smith M.D. Diagnosis, Assessment Plan Free text A P: A/P: Patient is a 36 year old female who presents wit h right tib-fib fracture Acute pain due to trauma, acute postoperative pa in -Status post right tib-fib fracture -06/22/2022-closed reduction of right proximal ti therese and fibula fracture. Application of uniplanar external fixator -DC oxycontin 20mg BID 06/27 -DC Percocet 10/325 1 tablet p.o. every 4 hours as needed pain scale 4 10 (06/30 ) -DC Morphine 4 mg IV every 4 hours as needed pain scale 7 out of 10, second line therapy -Start Dilaudid 0.5mg IV every 4 hours as needed pain scale 7-10 (06/30) -Start Oxycodone 15mg every 4 hours as needed pa in scale 4-10(06/30) -MS Contin 15mg every 8 hours 06/27 -Motrin 400 mg p.o. every 8 hours (Protonix 40 mg p.o. daily for GI prophylaxis) -manageable Idiopathic neuropathy -Gabapentin 400 mg p.o. every 8 hours 06/27 -manageable Disposition: Past Medical History: Venous thrombus on, protein S deficiency, chronic neck and back pain, right tib-fib fracture Past Surgical History: 06/22/2022-closed reductio n of right proximal tibia and fibula fracture. Application of uniplanar cable tender al fixator Family History: Noncontributory Social History: Positive for alcohol use Allergies: Tramadol Patient has failed conservative medical therapy. Patient will require monitoring while utilize na rcotic medications for any adverse effects, and will adjust as needed Plan of care discussed with patient and nurse All diagnostics of last 24 hours been reviewed. Risks versus benefits of opioid medications were reviewed to include, but not limited to respiratory depression, accid ental overdose, altered mental status, sudden , constipation which could result in bowel obstruction, seizures, withdrawal, dependency addiction, risk for falls . Case discussed with Dr Gaspar whom agrees. Thank you for the consultation. [place] MEDIA RELATIONS MANAGER: Total Prescriptions 14 Total Private Pay 0 Total Prescribers 2 Total Pharmacies 4 05/26/2022 04/28/2022 2 ACET AMINOPHEN-COD #4 TABLET 90.00 30 Ga Hol [id number] [facility] ( 0135) 1 27.00 MME Comm Ins [place] 04/28/2022 04/28/2022 1 ACET AMINOPHEN-COD #4 TABLET 90.00 30 Ga Hol [id number] [facility] ( 0575) 0 27.00 [place]ME Comm Ins [place] 04/15/2022 04/14/2022 1 ACET AMINOPHEN-COD #4 TABLET 30.00 10 Ga Hol [id number] [facility] (9378) 0 27.00 MME Other [place] 03/18/2022 11/19/2021 1 ACET AMINOPHEN-COD #4 TABLET 90.00 30 Ga Hol [id number] [facility] (9378) 1 27.00 MME Other [place] 02/18/2022 11/19/2021 1 ACET AMINOPHEN-COD #4 TABLET 90.00 30 Ga Hol [id number] [facility] (9378) 0 27.00 MME Other [place] 01/21/2022 11/19/2021 1 ACET AMINOPHEN-COD #4 TABLET 90.00 30 Ga Hol [id number] [facility] (9378) 1 27.00 [place]ME Other [place] 12/24/2021 11/19/2021 1 ACET AMINOPHEN-COD #4 TABLET 90.00 30 Ga Hol [id number] [facility] (9378) 0 27.00 [place]ME Other [place] 12/15/2021 12/15/2021 1 PREGABALIN 75 MG CAPSULE 30.00 15 Ja Swe [id number] H e ( 0193) 0 1.00 LME Comm Ins [place] 11/26/2021 11/19/2021 1 ACET AMINOPHEN-COD #4 TABLET 90.00 30 Ga Hol [id number] [facility] (7709) 0 27.00 MME Comm Ins [place] 10/29/2021 10/27/2021 1 ACET AMINOPHEN-COD #4 TABLET 90.00 30 Ga Hol [id number] [facility] (9378) 0 27.00 MME Other [place] 10/01/2021 09/23/2021 1 ACET AMINOPHEN-COD #4 TABLET 90.00 30 Ga Hol [id number] [facility] (9378) 0 27.00 MME Other [place] 09/04/2021 09/01/2021 1 ACET AMINOPHEN-COD #3 TABLET 90.00 30 Ga Hol [id number] [facility] (7709) 0 13.50 MME Comm Ins [id number] [phone] [address] [place] [id number] [id number] [phone]) [phone] [facility] [address] - [facility] [address] [phone]) [address] [place] [address] - [facility][id number] [phone] [address] [place] [address] Tam Gaspar 07/01/22 1653: Attestations Physician Attestation Agree w/findings plan: The patient was seen and exa mined by Shiv Cheema. I personally developed the care plan, which was continued by the mid-level provider. I was immediately available. at 1019 Electronically Signed by Tam Gaspar MD on 2 at 1705 RPT #:[id number] END OF REPORT 2022-06-29 16:38:00-00:00 [facility] ([facility]) Trauma Progress Note REPORT#:[id number] REPORT STATUS: Signed DATE:06/29/22 TIME: 163 PATIENT: TEODORA SANTANA UNIT #: [id number] ROOM/BED: G653-1 : 83 AGE: 36 SEX: F ATTEND: Scott Britt DO ADM AUTHOR: Ian Castro * ALL edits or amendments must be made on the [employer]/computer document * Ian Castro 06/29/22 1638: Subjective Chief complaint: RLE pain, fracture s/p fall HPI: No acute events overnight. Plan for ORIF of the lower right extremity with removal of Ex-Fix today for orthopedic s urgery. We will plan to resume Eliquis and DC heparin drip once orthopedic surgery appr oves of oral anticoagulant. Review of Systems Musculoskeletal: Extremity pain: Reports: right lower. Heme: Denies: bleeding, bruising. Free Text ROS Notes Free Text ROS Notes: Review of systems: As above; otherwise, negativ e to include neurologic, eyes, ENT, CV, respiratory, GI, musculoskeletal, , skin, psychiatric, emile tologic, and allergy. Objective Physical Exam VS/I O: Vital Signs: Date Time Temp Pulse Resp B/P B/P Pulse O2 O2 F low FiO2 Mean Ox Delivery Rate 06/29 1124 88 20 120/77 91.3 95 06/29 1045 97.8 74 15 126/71 100 Room air 06/29 1040 77 14 124/69 100 06/29 1035 80 13 133/72 90 06/29 1030 83 20 123/69 100 06/29 1025 71 12 127/67 100 06/29 1020 77 17 125/76 98 06/29 1015 97.6 76 19 128/76 100 Room air 06/29 0637 98.3 76 18 124/68 98 Room air 06/29 0339 98.2 81 18 125/70 88.6 94 06/28 2318 98.8 80 20 116/73 87.1 96 24 hour I O ending at 0700: 06/29 0700 06/28 1900 Intake Total Output Total 1100 Balance -1100 Output, Urine 1100 PATIENT WEIGHT: Weight (lb): 199 Weight (oz): 15.35 Weight (kg): 90.265 Medications: Active Meds + DC'd Last 24 Hrs Cefazolin Sodium (KEFZOL OR ANCEF) 2 GM Q8HR IV Sterile Water (WATER FOR INJECTION) 20 ML .STK-M ED ONE IV (DC) Sodium Chloride (SODIUM CHLORIDE 0.9%) 1,000 ML .[id number] IV Vancomycin HCl (VANCOMYCIN HCL) 0 .STK-MED ONE . ROUTE (DC) Rocuronium [place] (ZEMURON) 0 .STK-MED ONE IV ( DC) Fentanyl Citrate (SUBLIMAZE) 100 MCG PACU Q10MIN PRN PRN IV Fentanyl Citrate (SUBLIMAZE) 50 MCG PACU Q10MIN PRN PRN IV Hydralazine HCl (APRESOLINE) 5 MG PACU Q10MIN HI N PRN IV Hydrocodone Bitart/Acetaminophen (NORCO 5/325) 1 TAB PACU ONCE PO (CKD) Hydromorphone HCl (DILAUDID) 1 MG PACU Q10MIN HI N PRN IV Hydromorphone HCl (DILAUDID) 0.5 MG PACU Q5MIN P RN PRN IV Insulin Human Lispro (HUMALOG) 0 PACU ONCE PRN S UBQ Labetalol HCl (LABETALOL HCL) 5 MG PACU Q10MIN P RN PRN IV Meperidine HCl (DEMEROL 50MG/ML) 12.5 MG PACU ON CE PRN IV Morphine Sulfate (morphine SULFATE) 2 MG PACU Q1 0MIN PRN PRN IV Ondansetron HCl (ZOFRAN) 4 MG PACU ONCE PRN IV Promethazine HCl (PHENERGAN) 25 MG PACU ONCE PRN PO Ropivacaine (NAROPIN 0.5% 150 MG/30mL) 150 MG DIR PRN LOCAL Cefazolin Sodium (KEFZOL OR ANCEF) 0 .STK-MED ON E .ROUTE (DC) Dexamethasone Sodium Phosphate (DECADRON) 0 .STK -MED ONE .ROUTE (DC) Fentanyl Citrate (SUBLIMAZE) 0 .STK-MED ONE .ROU TE (DC) Ketorolac Tromethamine (TORADOL 30 MG) 0 .STK-ME D ONE .ROUTE (DC) Lidocaine HCl (XYLOCAINE) 0 .STK-MED ONE .ROUTE (DC) Midazolam HCl (VERSED) 0 .STK-MED ONE .ROUTE (DC ) Ondansetron HCl (ZOFRAN) 0 .STK-MED ONE .ROUTE ( DC) Propofol (DIPRIVAN 200MG/20ML INJECTION) 20 ML . STK-MED ONE IV (DC) Rocuronium [place] (ZEMURON) 0 .STK-MED ONE IV ( DC) Cefazolin Sodium (KEFZOL OR ANCEF) 2 GM PREOP MEDICAL ASSEMBLY IV (CKD) Sodium Chloride (SODIUM CHLORIDE 0.9%) 1,000 ML .[id number] IV Gabapentin (NEURONTIN) 400 MG Q8H PO Morphine Sulfate (MS CONTIN) 15 MG Q8HR PO Ferric Sodium Gluconate Complex (FERRLECIT) 125 MG DAILY IV Sodium Chloride (SODIUM CHLORIDE 0.9%) 100 ML Pantoprazole (PROTONIX) 40 MG DAILY@0600 PO Ibuprofen (IBUPROFEN) 400 MG Q8HR PO Morphine Sulfate (morphine SULFATE) 4 MG Q4H PRN PRN IV Oxycodone/Acetaminophen (PERCOCET 5/325MG TAB) 2 TAB Q4H PRN PRN PO Trazodone HCl (DESYREL) 100 MG BEDTIME PRN PRN P O Polyethylene Glycol (MIRALAX) 17 GM DAILY PO Heparin Sodium (HEPARIN 5000 UNITS/ML) 0 ASDIR P RN IV Heparin Sodium (Porcine) (HEPARIN 25,000 UNITS/ 1/2NS 500ML) 500 ML ASDIR IV (CKD) Ondansetron HCl (ZOFRAN) 4 MG Q4H PRN PRN IV Results Findings/Data: Laboratory Tests 06/29 06/29 1145 0322 Coagulation PTT ([place]) (25.0 - 39.5 Seconds) 38.5 88.0 H Radiology data: Recent Impressions: RADIOLOGY - XR FLUOROSCOPY 0-60 MIN 06/29 1026 Report Impression - Status: SIGNED Entered: 06/29/2022 1053 IMPRESSION: Fluoroscopy dosage documentation. See also separ ate procedure notes. Impression By: [email or web address] - Elijah Santiago M.D. RADIOLOGY - XR KNEE 1 OR 2 V RT 06/29 1530 Report Impression - Status: SIGNED Entered: 06/29/2022 1552 IMPRESSION: Post up ORIF proximal tibial fracture. Impression By: Jennifer Smith M.D. RADIOLOGY - XR TIBIA/FIBULA 2 V RT 06/29 1530 Report Impression - Status: SIGNED Entered: 06/29/2022 1549 IMPRESSION: Post ORIF comminuted fracture proximal tibia. Impression By: Jennifer Smith M.D. Results: labs reviewed, vital signs reviewed, vi ruth signs stable, x-ray personally reviewed, current med profile rev'd Free Text Obj Notes Free Text Obj Notes: Constitutional: GCS 15, patient awake, alert, no acute distress, HR, BP, O2 saturation reviewed in records Eyes: pupils equal, round, reactive to light, EO IA HENT: normal cephalic, atraumatic, no facial ten derness or crepitus, normal external inspection of ears/nose, no septal emile grisel Neck: trachea midline, no crepitus, thyroid with out mass CV: regular rate, rhythm, bi lateral radial pulses 2+, no cyanosis, no edema, no pulsatile abdominal mass Respiratory: lungs clear bilaterally, respiratio ns even and unlabored, no tenderness to palpation, normal inspection of ch est, no crepitus Abdomen: soft, non-tender, non-distended, no mas ses, no hernia noted : pelvis stable Musculoskeletal: -Left upper extremity without focal tenderness, without deformity, with ROM intact -Right upper extremity without focal tenderness, without deformity, with ROM intact -Left lower extremity without focal tenderness, without deformity, with ROM intact -Right lower extremity with ONEAL wrap and ex-fix, some pin site shadowing noted, area marked, NV intact distally Skin: skin warm to palpation. Psychiatric: normal mood and affect, memory inta ct Neurologic: face symmetrical. Bilateral upper an d lower extremity sensation intact Diagnosis, Assessment Plan Hospital course to date: 06/21: Patient has extensive chronic pain history we have consulted pain management for closer management. Given patient's complex history we have also added a hematology oncology consult related to h er clotting deficiencies and began a heparin drip for DVT prophylaxis as we discontinue the Eliquis and await further recommendations from hematology. Dr. Headley with orthopedics planning for surgery or Friday 06/22: RLE ex-fix placed (Dr. Glover). Definitive repair likely next week, approx. Saturday 06/23: No acute events overnight. Pain controlled , tolerating PO intake. On Heparin gtt. Waiting for definitive repair. 06/24: Bleeding controlled, Pain controlled. Nicolle tor H H 06/25: Repeat H H today drops below 7 with OR planning mid next week in the soft H H over the last 24-48. We will transfuse 1 uni t PRBCs 06/26: Stable H H aftre transfusion 06/27: No events, await estimated surgery date of thursday 06/28: No acute events overnight. [facility] plans to take patient to the OR for right tib-fib jing ling on 06/29. Ex-Fix in place bilateral ankles with no signs of local infection. Patient has no colby tional complaints. Tertiary trauma survey conducted with no additional findi ngs noted. 06/29: No acute events overnight. Plan for ORIF o f the lower right extremity with removal of Ex-Fix today for orthopedic [place]. We will plan to resume Eliquis and DC heparin drip once orthopedic surg [place] approves of oral anticoagulant. Free Text A P: Mechanism: Trip and Fall Injuries: Tibal Plat Fx Active Problems: Pain Protein S deficiency Resolved Problems: Incidental findings: Chronic Medical Problems: Protein S deficency (o n Eliquis), IA, Blood clots, Depression, Anxiety, PTSD, T hrombectomy, Wrist sx, Pre-cancer ovarian, + smoking , social alcohol, Cocaine Hx, Meth Hx DVT prophylaxis: SCDs, Heparin gtt GI prophylaxis: diet Lines/Quezdaa/ETT: PIV Consultants: Ortho, [facility], [facility], Dana Procedures: 06/22: RLE ex-fix (Adalberto) Plan: Tibal Plat Fx * Ortho following * Splinted PULMONOLOGY PHYSICIAN * Multimodal Pain control with IV and PO narcotic and non-narcotic medications * pain management following * Tertiary trauma survey completed * Elevate * PT/OT eval/treat, NWB RLE * plan for definitive repair likely monday History of Protein S deficency * Hematology following * on Heparin gtt Anemia * Post Operative and in correlation to the Hepar in requirements * Repeat H H now * Transfuse for less than 7 Diet: Regular Labs: AM PT/OT recs: eval/treat, NWB RLE DME: recs pending Code status: Full code Medical Decision Making: In the event the patient is incapacitated and not able to make their own medical decisions, the y have elected Shahriar, contact number [phone], to make medical decisions f or them. Dispo: Admit; will continue to monitor f or ICU needs or any further changes to level of care Anticipated Date of Discharge/Trauma Clearance: TBD Quality: Trauma Gen Surg Advanced Care Plan 65 or Older Discussed with: patient Current Medications Current medication review: I attest that the foregoing medication list in t he medical record is true, accurate, and complete to the best of my knowled ge. VTE Prophylaxis - General VTE prophylaxis initiated: yes (Heparin gtt) Timothy Rizzo 07/06/22 2355: Attestations Physician Attestation Agree w/findings plan: I was present with CATINA Newton during the history and examination. I discussed the case and agree with the findings and plan as documented in Ian Castro's note. Labs reviewed. Pertinent imaging personally revi ewed. Discussed plan with other members of the [facility] are team. Electronically Signed by Ian Castro on 0 06/29/22 at 1641 Electronically Signed by Timothy Rizzo MD on 07/07 at 0000 RPT #:[id number] END OF REPORT 2022-06-29 13:01:00-00:00 [facility]L [facility] ([facility]) Emile/Oncology Progress Note REPORT#:[id number] REPORT STATUS: Signed DATE:06/29/22 TIME: 1301 PATIENT: TEODORA SANTANA UNIT #: [id number] ROOM/BED: [place] [address] : 83 AGE: 36 SEX: F ATTEND: Scott Britt DO ADM AUTHOR: Adrian Cortez MD * ALL edits or amendments must be made on the el Destination [employer]/computer document * Subjective Chief Complaint: Complains of pain in right l eg. Status post right bicondylar tibial plateau ORIF and removal of right knee-spanning external fixa tion Objective Physical Exam VS: Vital Signs Date Temp Pulse Resp B/P B/P Mean Pulse Ox FiO2 06/28-06/29 36.4-37.1 71-88 12- 116-133/67-77 87.1-91.3 90-100 Last Documented: Result Date Time Pulse Ox 95 06/29 1124 B/P 120/77 06/29 1124 B/P Mean 91.3 06/29 1124 Pulse 88 06/29 1124 Resp 20 06/29 1124 O2 Delivery Room air 06/29 1045 Temp 36.6 06/29 1045 O2 Flow Rate 2 06/22 1230 General appearance: alert, awake HEENT: atraumatic, normocephalic Neck: full range of motion, non-tender, supple/n o meningismus, no JVD, no lymphadenopathy Cardiovascular: regular rate and rhythm Respiratory: clear to auscultation Abdomen: non-tender, normal bowel sounds , soft, no distention, no guarding, no mass/organomegaly, no rebound Extremities: moves all, normal capillary refill, no edema Musculoskeletal: full range of motion, normal in spection Neuro/CONTRACT MANAGER: alert, oriented X 3 Results Findings/Data: Laboratory Tests 06/29 06/29 1145 0322 Coagulation PTT (Latah) (25.0 - 39.5 Seconds) 38.5 88.0 H Radiology data: Current Medications Sig/Maricruz Start time Last Medication Dose Route Stop Time Status Admin Cefazolin Sodium 2 GM Q8HR 06/29 1400 AC IV 06/29 2201 Sodium Chloride 1,000 ML .[id number] 06/29 1030 AC IV 07/29 1029 Vancomycin HCl 0 .STK-MED ONE 06/29 09 DC .ROUTE Rocuronium Ashton 0 .STK-MED ONE 06/29 0912 DC IV Fentanyl Citrate 100 MCG PACU Q10MIN PRN PRN 0745 AC 06/29 IV 06/29 1732 1026 Fentanyl Citrate 50 MCG PACU Q10MIN PRN PRN 06/10 1 0745 AC IV 06/29 1732 Hydralazine HCl 5 MG PACU Q10MIN PRN PRN 06/29 0 745 AC IV 06/29 1732 Hydrocodone Bitart/ 1 TAB PACU ONCE 06/29 0745 C KD Acetaminophen PO 06/29 1732 Hydromorphone HCl 1 MG PACU Q10MIN PRN PRN 06/29 0745 AC 06/29 IV 06/29 1732 1036 Hydromorphone HCl 0.5 MG PACU Q5MIN PRN PRN 06/10 1 0745 AC IV 06/29 1732 Insulin Human Lispro 0 PACU ONCE PRN 06/29 0745 AC SUBQ 06/29 1732 Labetalol HCl 5 MG PACU Q10MIN PRN PRN 06/29 074 5 AC IV 06/29 1732 Meperidine HCl 12.5 MG PACU ONCE PRN 06/29 0745 AC IV 06/29 1732 Morphine Sulfate 2 MG PACU Q10MIN PRN PRN 06/29 0745 AC IV 06/29 1732 Ondansetron HCl 4 MG PACU ONCE PRN 06/29 0745 AC 06/29 IV 06/29 1732 1026 Promethazine HCl 25 MG PACU ONCE PRN 06/29 0745 AC PO 06/29 1732 Ropivacaine 150 MG ASDIR PRN 06/29 0745 AC LOCAL 06/29 1732 Cefazolin Sodium 0 .STK-MED ONE 06/29 0656 DC .ROUTE Dexamethasone Sodium 0 .STK-MED ONE 06/29 0615 D C Phosphate .ROUTE Fentanyl Citrate 0 .STK-MED ONE 06/29 615 DC .ROUTE Ketorolac 0 .STK-MED ONE 06/29 615 DC Tromethamine .ROUTE Lidocaine HCl 0 .STK-MED ONE 06/29 615 DC .ROUTE Midazolam HCl 0 .STK-MED ONE 06/29 615 DC .ROUTE Ondansetron HCl 0 .STK-MED ONE 06/29 615 DC .ROUTE Propofol 20 ML .STK-MED ONE 06/29 615 DC IV Rocuronium [place]hton 0 .STK-MED ONE 06/29 615 DC IV Cefazolin Sodium 2 GM PREOP ONCALL 06/29 0500 CK D IV 06/29 2359 Sodium Chloride 1,000 ML .[id number] 06/29 0000 AC 06/28 IV 07/28 1759 2309 Gabapentin 400 MG Q8H 06/27 1700 AC 06/29 PO 07/21 2059 1128 Morphine Sulfate 15 MG Q8HR 06/27 1400 AC 06/29 PO 10/19 1300 0512 Ferric Sodium 125 MG DAILY 06/23 09 AC 06/28 Gluconate Complex IV 06/30 0959 0953 Sodium Chloride 100 ML Pantoprazole 40 MG DAILY@0600 06/23 0600 AC PO 07/23 0559 0511 Ibuprofen 400 MG Q8HR 06/22 2200 AC 06/29 PO 07/22 2159 0511 Morphine Sulfate 4 MG Q4H PRN PRN 06/22 1845 AC 06/29 IV 08/06 1300 1124 Oxycodone/ 2 TAB Q4H PRN PRN 06/22 1845 AC 06/29 Acetaminophen PO 08/06 1300 1136 Trazodone HCl 100 MG BEDTIME PRN PRN 06/22 1800 AC 06/28 PO 07/22 1752028 Polyethylene Glycol 17 GM DAILY 06/22 09 AC PO 07/22 0859 1257 Heparin Sodium 0 ASDIR PRN 06/21 1145 AC 06/27 IV 07/21 1144 0327 Heparin Sodium 500 ML ASDIR 06/21 1145 CKD 06/29 (Porcine) IV 07/21 1144 1227 Ondansetron HCl 4 MG Q4H PRN PRN 06/21 1130 AC IV 07/21 1129 Recent Impressions: RADIOLOGY - XR FLUOROSCOPY 0-60 MIN 06/29 1026 Report Impression - Status: SIGNED Entered: 06/29/2022 1053 IMPRESSION: Fluoroscopy dosage documentation. See also separ ate procedure notes. Impression By: [email or web address] - Elijah Santiago M.D. Results: labs reviewed, vital signs stable Diagnosis, Assessment Plan Free Text DxA P Notes Free Text DxA P Notes: ASSESSMENT: * Trauma status post fall resulting in a right t ibial plateau fracture. 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 Patient had been on anticoagulation with Eliquis . * Normocytic, hypochromic anemia, associ ated with iron deficiency with patient having history of heavy menstrual cycles for the past few years. PLAN: * Continue with IV heparin for anticoagulation f or thromboembolic prophylaxis especially with patient having right lower extre mity fracture and needing multiple surgeries. * Status post closed reducti on and uniplanar external fixation, right bicondylar tibial plateau ORIF and emoval of right knee-spa nning external fixationby orthopedic surgery. * Continue with IV heparin, can convert to oral anticoagulant such as Eliquis once that she is done with all her orthopedic pr ocedures. * Continue with parenteral iron with Ferrlecit, 7/8 infusions. * Monitor CBC. * I will continue to follow. Electronically Signed by Adrian Cortez MD on at 1304 RPT #:[id number] END OF REPORT 2022-06-29 10:22:00-00:00 [facility] ([facility]) Orthopaedic Progress Note REPORT#:[id number] REPORT STATUS: Signed DATE:06/29/22 TIME: 1022 PATIENT: TEODORA SANTANA UNIT #: [id number] ROOM/BED: [place] [id number] : 83 AGE: 36 SEX: F ATTEND: Scott Britt DO ADM AUTHOR: Jonathan Glover [facility] * ALL edits or amendments must be made on the [employer]/computer document * Diagnosis, Assessment Plan Free text A P: Teodora Santana is a 36-year-old female with a histo ry of Protein S deficiency on Eliquis transferred to [facility] for evaluation and treatment of displaced closed right proximal tibia and fibula fractures . She is status post closed reduction of a proxima l right tibia and fibula fracture with knee spanning external fixation on 06/22/2022, right bicondylar tibial plateau ORIF with removal of external fix ation 06/29/2022. -Surgery: No further surgery planned. -Weight bearing status: Nonweightbearing right l ower extremity in a knee immobilizer. This needs to b e exchanged for a telescoping knee brace with ROM as tolerated prior to discharge. Please contact [facility] for brace. -Antibiotics: Ancef x 24 hours postoperatively -Diet: Okay to eat -Labs: CBC/BMP/coags -Tranfuse as needed; would recommend a threshold Hb of 8.0 -DVT prophylaxis: OK to start on heparin gtt, although would prefer to instead just resume her home Eliquis on POD 2 -Multimodal pain control -Imaging: XR right knee, XR right tib/fib ordere d -Dressings: Oneal wrap with the above-ment ioned brace. This may be reinforced or changed as necessary. -PT/OT -Dispo pending pain control, PT/OT, imaging, bra ce at 1025 RPT #:[id number] END OF REPORT 2022-06-29 10:16:00-00:00 [facility] ([facility]) Brief Op Note REPORT#:[id number] REPORT STATUS: Signed DATE:06/29/22 TIME: 1016 PATIENT: TEODORA SANTANA UNIT #: [id number] ROOM/BED: [place] [id number] : 83 AGE: 36 SEX: F ATTEND: Scott Britt DO ADM AUTHOR: Jonathan Glover [facility] * ALL edits or amendments must be made on the [employer] document * Op/Inv Proc Note - Brief Pre-procedure diagnosis: Right bicondylar tibial plateau fracture Post-procedure diagnosis: same as pre procedure dx Procedures performed: 1. Right bicondylar tibial plateau ORIF 2. Removal of right knee-spanning external fixat ion Primary Surgeon: Jonathan Glover MD PhD Grain Blender(s): Guy Donahue Findings: Consistent with above diagnosis Complications: none Estimated blood loss in ml's: 50 cc Specimens removed/altered: none Wound class: clean Disposition: return to floor at 1018 RPT #:[id number] END OF REPORT 2022-06-29 08:24:00-00:00 [facility] ([facility]) Pain Management Progress Note REPORT#:[id number] REPORT STATUS: Signed DATE:06/29/22 TIME: 823 PATIENT: TEODORA SANTANA UNIT #: [id number] ROOM/BED: [place] [id number] : 83 AGE: 36 SEX: F ATTEND: Scott Britt DO ADM AUTHOR: Shiv Cheema NP * ALL edits or amendments must be made on the el [employer]ronic/computer document * Sihv Cheema 06/29/22 0824: Subjective Chief complaint: Patient seen and examined. Chart/MAR reviewed. Patient is going for surgery today. Pain is tole rable. Patient being seen for Acute pain due to trauma, acute postoperative pain, Idiopathic neuropathy Patient is still requiring medications to help w ith managing current problems. Patient is requiring IV narcotics to help manage breakthrough pain No fever/chills, chest pain, orthopnea, nausea/v omiting, pruritus, or hallucinations. 14 point ROS undertaken unremarkable except as n oted Objective General VS/I O: Vital Signs Date Temp Pulse Resp B/P B/P Mean Pulse Ox FiO2 06/28-06/29 98.2-98.8 76-87 18- 116-125/68-75 87.1-89.8 94-98 Last Documented: Result Date Time Pulse Ox 98 06/29 0637 B/P 124/68 06/29 0637 O2 Delivery Room air 06/29 0637 Temp 98.3 06/29 0637 Pulse 76 06/29 0637 Resp 18 06/29 0637 B/P Mean 88.6 06/29 0339 O2 Flow Rate 2 06/22 1230 PATIENT WEIGHT: Weight (lb): 199 Weight (oz): 15.35 Weight (kg): 90.265 Medications: Active Meds + DC'd Last 24 Hrs Fentanyl Citrate (SUBLIMAZE) 100 MCG PACU Q10MIN PRN PRN IV Fentanyl Citrate (SUBLIMAZE) 50 MCG PACU Q10MIN PRN PRN IV Hydralazine HCl (APRESOLINE) 5 MG PACU Q10MIN HI N PRN IV Hydrocodone Bitart/Acetaminophen (NORCO 5/325) 1 TAB PACU ONCE PO (CKD) Hydromorphone HCl (DILAUDID) 1 MG PACU Q10MIN HI N PRN IV Hydromorphone HCl (DILAUDID) 0.5 MG PACU Q5MIN P RN PRN IV Insulin Human Lispro (HUMALOG) 0 PACU ONCE PRN S UBQ Labetalol HCl (LABETALOL HCL) 5 MG PACU Q10MIN P RN PRN IV Meperidine HCl (DEMEROL 50MG/ML) 12.5 MG PACU ON CE PRN IV Morphine Sulfate (morphine SULFATE) 2 MG PACU Q1 0MIN PRN PRN IV Ondansetron HCl (ZOFRAN) 4 MG PACU ONCE PRN IV Promethazine HCl (PHENERGAN) 25 MG PACU ONCE PRN PO Ropivacaine (NAROPIN 0.5% 150 MG/30mL) 150 MG DIR PRN LOCAL Cefazolin Sodium (KEFZOL OR ANCEF) 0 .STK-MED ON E .ROUTE (DC) Dexamethasone Sodium Phosphate (DECADRON) 0 .STK -MED ONE .ROUTE (DC) Fentanyl Citrate (SUBLIMAZE) 0 .STK-MED ONE .ROU TE (DC) Ketorolac Tromethamine (TORADOL 30 MG) 0 .STK-ME D ONE .ROUTE (DC) Lidocaine HCl (XYLOCAINE) 0 .STK-MED ONE .ROUTE (DC) Midazolam HCl (VERSED) 0 .STK-MED ONE .ROUTE (DC ) Ondansetron HCl (ZOFRAN) 0 .STK-MED ONE .ROUTE ( DC) Propofol (DIPRIVAN 200MG/20ML INJECTION) 20 ML . STK-MED ONE IV (DC) Rocuronium Ashton (ZEMURON) 0 .STK-MED ONE IV ( DC) Cefazolin Sodium (KEFZOL OR ANCEF) 2 GM PREOP MEDICAL ASSEMBLY IV (CKD) Sodium Chloride (SODIUM CHLORIDE 0.9%) 1,000 ML .[id number] IV Gabapentin (NEURONTIN) 400 MG Q8H PO Morphine Sulfate (MS CONTIN) 15 MG Q8HR PO Ferric Sodium Gluconate Complex (FERRLECIT) 125 MG DAILY IV Sodium Chloride (SODIUM CHLORIDE 0.9%) 100 ML Pantoprazole (PROTONIX) 40 MG DAILY@0600 PO Ibuprofen (IBUPROFEN) 400 MG Q8HR PO Morphine Sulfate (morphine SULFATE) 4 MG Q4H PRN PRN IV Oxycodone/Acetaminophen (PERCOCET 5/325MG TAB) 2 TAB Q4H PRN PRN PO Trazodone HCl (DESYREL) 100 MG BEDTIME PRN PRN P O Polyethylene Glycol (MIRALAX) 17 GM DAILY PO Heparin Sodium (HEPARIN 5000 UNITS/ML) 0 ASDIR P RN IV Heparin Sodium (Porcine) (HEPARIN 25,000 UNITS/ 1/2NS 500ML) 500 ML ASDIR IV (CKD) Ondansetron HCl (ZOFRAN) 4 MG Q4H PRN PRN IV Physical Exam General appearance: alert, awake, oriented, plea dale Head/eyes: atraumatic, EOMI, normocephalic, norm al conjunctiva/sclera, PERRLA ENT: normal nose Cardiovascular: regular rate rhythm Respiratory: symmetric expansion Abdomen: soft, non-tender, no distention , active bowel sounds in all quadrant. Extremities: moves all, no e anirudh, RLE uniplanar ex-fix. Decreased ROM right leg Neuro/CONTRACT MANAGER: no motor deficits, no sensory deficit s, CNII-XII grossly intact Skin: dry, no rash Lymphatics: no lymphadenopathy Psychiatry: normal affect Results Findings/data: Laboratory Tests: 06/29 032 Coagulation PTT ([place]h) (25.0 - 39.5 Seconds) 88.0 H Diagnosis, Assessment Plan Free text A P: A/P: Patient is a 36 year old female who presents wit h right tib-fib fracture Acute pain due to trauma, acute postoperative pa in -Status post right tib-fib fracture -06/22/2022-closed reduction of right proximal ti therese and fibula fracture. Application of uniplanar external fixator -DC oxycontin 20mg BID 06/27 -Percocet 10/325 1 tablet p.o. every 4 hours as needed pain scale 4 10 -Start MS Contin 15mg every 8 hours 06/27 -Morphine 4 mg IV every 4 hours as needed pain s dheeraj 7 out of 10, second line therapy -Motrin 400 mg p.o. every 8 hours (Protonix 40 mg p.o. daily for GI prophylaxis) -manageable Idiopathic neuropathy -Incr Gabapentin 400 mg p.o. every 8 hours 06/27 -manageable Disposition: Past Medical History: Venous thrombus on, protein S deficiency, chronic neck and back pain, right tib-fib fracture Past Surgical History: 06/22/2022-closed reductio n of right proximal tibia and fibula fracture. Application of uniplanar cable tender al fixator Family History: Noncontributory Social History: Positive for alcohol use Allergies: Tramadol Patient has failed conservative medical therapy. Patient will require monitoring while utilize na rcotic medications for any adverse effects, and will adjust as needed Plan of care discussed with patient and nurse All diagnostics of last 24 hours been reviewed. Risks versus benefits of opioid medications were reviewed to include, but not limited to respiratory depression, accid ental overdose, altered mental status, sudden , constipation which could result in bowel obstruction, seizures, withdrawal, dependency addiction, risk for falls . Case discussed with Dr Gaspar whom agrees. Thank you for the consultation. [place] MEDIA RELATIONS MANAGER: Total Prescriptions 14 Total Private Pay 0 Total Prescribers 2 Total Pharmacies 4 05/26/2022 04/28/2022 2 ACET AMINOPHEN-COD #4 TABLET 90.00 30 [place] Hol [id number] Heb ( 5115) 1 27.00 MME Comm Ins [place] 04/28/2022 04/28/2022 1 ACET AMINOPHEN-COD #4 TABLET 90.00 30 Ga Hol [id number] Heb ( 5115) 0 27.00 MME Comm Ins [place] 04/15/2022 04/14/2022 1 ACET AMINOPHEN-COD #4 TABLET 30.00 10 Ga Hol [id number] Uni (9378) 0 27.00 MME Other [place] 03/18/2022 11/19/2021 1 ACET AMINOPHEN-COD #4 TABLET 90.00 30 Ga Hol [id number] Uni (9378) 1 27.00 MME Other [place] 02/18/2022 11/19/2021 1 ACET AMINOPHEN-COD #4 TABLET 90.00 30 Ga Hol [id number] Uni (9378) 0 27.00 MME Other [place] 01/21/2022 11/19/2021 1 ACET AMINOPHEN-COD #4 TABLET 90.00 30 Ga Hol [id number] Uni (9378) 1 27.00 MME Other [place] 12/24/2021 11/19/2021 1 ACET AMINOPHEN-COD #4 TABLET 90.00 30 Ga Hol [id number] Uni (9378) 0 27.00 [place]ME Other [place] 12/15/2021 12/15/2021 1 PREGABALIN 75 MG CAPSULE 30.00 15 [facility] [id number] H e ( 2633) 0 1.00 LME Comm Ins [place] 11/26/2021 11/19/2021 1 ACET AMINOPHEN-COD #4 TABLET 90.00 30 Ga Hol [id number] Hen (4778) 0 27.00 MME Comm Ins [place] 10/29/2021 10/27/2021 1 ACET AMINOPHEN-COD #4 TABLET 90.00 30 Ga Hol [id number] Uni (9378) 0 27.00 MME Other [place] 10/01/2021 09/23/2021 1 ACET AMINOPHEN-COD #4 TABLET 90.00 30 Ga Hol [id number] Uni (9578) 0 27.00 MME Other [place] 09/04/2021 09/01/2021 1 ACET AMINOPHEN-COD #3 TABLET 90.00 30 Ga Hol [id number] Hen (6569) 0 13.50 MME Comm Ins [place] [id number] [phone]) [address] [place] [address] [facility] [phone]) [address] [place] [address] - [facility] [address] [phone]) [phone] [place] [address] - [facility] [phone] [address] [place] [address] Tam Gaspar 07/01/22 0922: Attestations Physician Attestation Agree w/findings plan: The patient was seen and exa mined by Shiv Cheema. I personally developed the care plan, which was continued by the mid-level provider. I was immediately available. at 1003 Electronically Signed by Tam Gaspar MD on 2 at 4225 RPT #:[id number] END OF REPORT 2022-06-28 18:25:00-00:00 [facility]) Emile/Oncology Progress Note REPORT#:[id number] REPORT STATUS: Signed DATE:06/28/22 TIME: 1824 PATIENT: TEODORA SANTANA UNIT #: [id number] ROOM/BED: [place] [id number] : 83 AGE: 36 SEX: F ATTEND: Scott Britt DO ADM AUTHOR: Adrian Cortez MD * ALL edits or amendments must be made on the [employer]/computer document * Subjective Chief Complaint: Complains of pain in right leg. Objective Physical Exam VS: Vital Signs Date Temp Pulse Resp B/P B/P Mean Pulse Ox FiO2 06/27-06/28 36.5-37.2 79-96 15-18 101-120/64-75 0.0-89.8 94-99 Last Documented: Result Date Time Pulse Ox 95 06/28 1148 B/P 119/75 06/28 1148 B/P Mean 89.8 06/28 1148 O2 Delivery Room air 06/28 1148 Temp 36.8 06/28 1148 Pulse 87 06/28 1148 Resp 18 06/28 1148 O2 Flow Rate 2 06/22 1230 General appearance: alert, awake HEENT: atraumatic, normocephalic Neck: full range of motion, non-tender, supple/n o meningismus, no JVD, no lymphadenopathy Cardiovascular: regular rate and rhythm Respiratory: clear to auscultation Abdomen: non-tender, normal bowel sounds , soft, no distention, no guarding, no mass/organomegaly, no rebound Extremities: moves all, normal capillary refill, no edema Musculoskeletal: full range of motion, normal in spection Neuro/CONTRACT MANAGER: alert, oriented X 3 Results Findings/Data: Laboratory Tests 06/28/22129: [Embedded Image Not Available] Laboratory Tests 06/28 1829 Coagulation PTT (Latah) (25.0 - 39.5 Seconds) 62.1 H 80.3 H Laboratory Tests 06/28 130 Hematology WBC (4.5 - 11.0 x10 3/uL) 6.0 RBC (3.54 - 5.02 x10 6/uL) 3.14 L Hgb (11.0 - 15.0 g/dL) 8.4 L Hct (33.0 - 45.0 %) 26.6 L MCV (81.0 - 99.0 fL) 84.7 MCH (27.0 - 33.0 pg) 26.8 L MCHC (33.0 - 37.0 g/dL) 31.6 L RDW (11.5 - 14.5 %) 16.7 H Plt Count (150 - 400 x10 3/uL) 349 MPV (7.0 - 9.0 fL) 8.9 Neut % (Auto) (56.0 - 77.0 %) 62.7 Lymph % (Auto) (14.0 - 32.0 %) 25.7 [place] % (Auto) (4.8 - 9.0 %) 6.8 Eos % (Auto) (0.3 - 3.7 %) 2.8 Baso % (Auto) (0.0 - 2.0 %) 0.2 Neut # (Auto) (2.0 - 7.6 x10 3/uL) 3.77 Lymph # (Auto) (1.0 - 3.8 x10 3/uL) 1.55 [place] # (Auto) (0.1 - 0.8 x10 3/uL) 0.41 Eos # (Auto) (0.0 - 0.2 x10 3/uL) 0.17 Baso # (Auto) (0.0 - 0.2 x10 3/uL) 0.01 Abs Immat Gran (auto) (0.00 - 0.03 x10 3/uL) 0. 11 H Add Manual Diff NO Immature Gran % (0.0 - 2.0 %) 1.8 Nucleated RBC % (0 - 0 %) 0.0 Nucleated RBCs # (Man) (0.0 - 0.1 x10 3/uL) 0.0 0 Radiology data: Current Medications Sig/Maricruz Start time Last Medication Dose Route Stop Time Status Admin Cefazolin Sodium 2 GM PREOP ONCALL 06/29 0500 C KD IV 06/29 2359 Sodium Chloride 1,000 ML .[id number] 06/29 0000 AC IV 07/28 1759 Glycopyrrolate 0 .STK-MED ONE 06/28 0648 DC .ROUTE Dexamethasone Sodium 0 .STK-MED ONE 06/28 646 DC Phosphate .ROUTE Lidocaine HCl 0 .STK-MED ONE 06/28 646 DC .ROUTE Ondansetron HCl 0 .STK-MED ONE 06/28 646 DC .ROUTE Phenylephrine HCl 0 .STK-MED ONE 06/28 646 DC I-OZIEL Rocuronium [place]hton 0 .STK-MED ONE 06/28 646 DC IV Succinylcholine 0 .STK-MED ONE 06/28 646 DC Chloride IV Midazolam HCl 0 .STK-MED ONE 06/28 0645 DC .ROUTE Propofol 0 .STK-MED ONE 06/28 645 DC IV Fentanyl Citrate 0 .STK-MED ONE 06/28 0644 DC .ROUTE Gabapentin 400 MG Q8H 06/27 1700 AC 06/28 PO 07/21 2059 1758 Morphine Sulfate 15 MG Q8HR 06/27 1400 AC 06/28 PO 07/27 1300 1313 Ferric Sodium 125 MG DAILY 06/23 0900 AC 06/28 Gluconate Complex IV 06/30 0959 0953 Sodium Chloride 100 ML Pantoprazole 40 MG DAILY@0600 06/23 0600 AC PO 07/23 0559 0525 Ibuprofen 400 MG Q8HR 06/22 2200 AC 06/28 PO 07/22 2159 1312 Morphine Sulfate 4 MG Q4H PRN PRN 06/22 1845 AC 06/28 IV 08/06 1300 1759 Oxycodone/ 2 TAB Q4H PRN PRN 06/22 1845 AC 06/10 0 Acetaminophen PO 08/06 1300 1550 Trazodone HCl 100 MG BEDTIME PRN PRN 06/22 1800 AC 06/22 PO 07/22 1759 2223 Polyethylene Glycol 17 GM DAILY 06/22 0900 AC 06/28 PO 07/22 0859 0818 Heparin Sodium 0 ASDIR PRN 06/21 1145 AC 06/27 IV 07/21 1144 0327 Heparin Sodium 500 ML ASDIR 06/21 1145 CKD 06/09 9 (Porcine) IV 07/21 1144 1108 Ondansetron HCl 4 MG Q4H PRN PRN 06/21 1130 AC IV 07/21 1129 Results: labs reviewed, vital signs stable Diagnosis, Assessment Plan Free Text DxA P Notes Free Text DxA P Notes: ASSESSMENT: * Trauma status post fall resulting in a right t ibial plateau fracture. 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 Patient had been on anticoagulation with Eliquis . * Normocytic, hypochromic anemia, associ ated with iron deficiency with patient having history of heavy menstrual cycles for the past few years. PLAN: * Continue with IV heparin for anticoagulation f or thromboembolic prophylaxis especially with patient having right lower extre mity fracture and needing multiple surgeries. * Status post closed reduction and uniplanar ext ernal fixation by orthopedic surgery. * Plans for more definitive internal fixation on 06/30/2022. * Continue with IV heparin which can certainly b e held prior to surgery and resumed afterwards. Once patient is done with more definitive surgery, she can be converted to oral anticoagulant, Eliquis. * Continue with parenteral iron with Ferrlecit, 6/8 infusions. * Hemoglobin remains low but stable. * I will continue to follow. Electronically Signed by Adrian Cortez MD on at 1826 RPT #:[id number] END OF REPORT 2022-06-28 14:24:00-00:00 [facility] ([facility]) Trauma Progress Note REPORT#:[id number] REPORT STATUS: Signed DATE:06/28/22 TIME: 1423 PATIENT: TEODORA SANTANA UNIT #: [id number] ROOM/BED: [place] [address] : 83 AGE: 36 SEX: F ATTEND: Sapna Britt DO ADM AUTHOR: Ian Castro * ALL edits or amendments must be made on the [employer] document * See Addendum Ian Castro 06/28/22 1424: Subjective Chief complaint: RLE pain, fracture s/p fall HPI: No acute events overnight. P atient reports her pain is slightly improved today. Review of Systems Musculoskeletal: Extremity pain: Reports: right lower. Extremity swelling: Reports: right lower. Free Text ROS Notes Free Text ROS Notes: Review of systems: As above; otherwise, negativ e to include neurologic, eyes, ENT, CV, respiratory, GI, musculoskeletal, , skin, psychiatric, emile tologic, and allergy. Objective Physical Exam VS/I O: Vital Signs: Date Time Temp Pulse Resp B/P B/P Pulse O2 O2 F low FiO2 Mean Ox Delivery Rate 06/28 1148 98.2 87 18 119/75 89.8 95 Room air 06/28 0803 98.4 89 18 115/72 86.1 94 Room air 06/28 0411 97.7 79 15 101/68 78.8 99 Room air 06/27 2344 98.4 90 16 102/64 0.0 94 Room air 06/27 1945 99.0 96 16 120/72 87.8 94 Room air 06/27 1621 98.4 83 18 109/72 83.9 96 Room air PATIENT WEIGHT: Weight (lb): 199 Weight (oz): 15.35 Weight (kg): 90.265 Medications: Active Meds + DC'd Last 24 Hrs Glycopyrrolate (GLYCOPYRROLATE) 0 .STK-MED ONE . ROUTE (DC) Dexamethasone Sodium Phosphate (DECADRON) 0 .STK -MED ONE .ROUTE (DC) Lidocaine HCl (XYLOCAINE) 0 .STK-MED ONE .ROUTE (DC) Ondansetron HCl (ZOFRAN) 0 .STK-MED ONE .ROUTE ( DC) Phenylephrine HCl (MARIZA-SYNEPHRINE 1000MCG/NS 10M L INJ) 0 .STK-MED ONE I- OZIEL (DC) Rocuronium [place] (ZEMURON) 0 .STK-MED ONE IV ( DC) Succinylcholine Chloride (QUELICIN FLIPTOP) 0 .S TK-MED ONE IV (DC) Midazolam HCl (VERSED) 0 .STK-MED ONE .ROUTE (DC ) Propofol (DIPRIVAN 200MG/20ML INJECTION) 0 .STK- MED ONE IV (DC) Fentanyl Citrate (SUBLIMAZE) 0 .STK-MED ONE .ROU TE (DC) Gabapentin (NEURONTIN) 400 MG Q8H PO Morphine Sulfate (MS CONTIN) 15 MG Q8HR PO Ferric Sodium Gluconate Complex (FERRLECIT) 125 MG DAILY IV Sodium Chloride (SODIUM CHLORIDE 0.9%) 100 ML Pantoprazole (PROTONIX) 40 MG DAILY@0600 PO Ibuprofen (IBUPROFEN) 400 MG Q8HR PO Morphine Sulfate (morphine SULFATE) 4 MG Q4H PRN PRN IV Oxycodone/Acetaminophen (PERCOCET 5/325MG TAB) 2 TAB Q4H PRN PRN PO Trazodone HCl (DESYREL) 100 MG BEDTIME PRN PRN P O Polyethylene Glycol (MIRALAX) 17 GM DAILY PO Heparin Sodium (HEPARIN 5000 UNITS/ML) 0 ASDIR P RN IV Heparin Sodium (Porcine) (HEPARIN 25,000 UNITS/ 1/2NS 500ML) 500 ML ASDIR IV (CKD) Ondansetron HCl (ZOFRAN) 4 MG Q4H PRN PRN IV Results Findings/Data: Laboratory Tests 06/28 1829 1712 Coagulation PTT ([place]) (25.0 - 39.5 Seconds) 62.1 H 80.3 H 37.8 Laboratory Tests 06/28 130 Hematology WBC (4.5 - 11.0 x10 3/uL) 6.0 RBC (3.54 - 5.02 x10 6/uL) 3.14 L Hgb (11.0 - 15.0 g/dL) 8.4 L Hct (33.0 - 45.0 %) 26.6 L MCV (81.0 - 99.0 fL) 84.7 MCH (27.0 - 33.0 pg) 26.8 L MCHC (33.0 - 37.0 g/dL) 31.6 L RDW (11.5 - 14.5 %) 16.7 H Plt Count (150 - 400 x10 3/uL) 349 MPV (7.0 - 9.0 fL) 8.9 Neut % (Auto) (56.0 - 77.0 %) 62.7 Lymph % (Auto) (14.0 - 32.0 %) 25.7 [place] % (Auto) (4.8 - 9.0 %) 6.8 Eos % (Auto) (0.3 - 3.7 %) 2.8 Baso % (Auto) (0.0 - 2.0 %) 0.2 Neut # (Auto) (2.0 - 7.6 x10 3/uL) 3.77 Lymph # (Auto) (1.0 - 3.8 x10 3/uL) 1.55 [place] # (Auto) (0.1 - 0.8 x10 3/uL) 0.41 Eos # (Auto) (0.0 - 0.2 x10 3/uL) 0.17 Baso # (Auto) (0.0 - 0.2 x10 3/uL) 0.01 Abs Immat Gran (auto) (0.00 - 0.03 x10 3/uL) 0. 11 H Add Manual Diff NO Immature Gran % (0.0 - 2.0 %) 1.8 Nucleated RBC % (0 - 0 %) 0.0 Nucleated RBCs # (Man) (0.0 - 0.1 x10 3/uL) 0.0 0 Results: labs reviewed, vital signs reviewed, vi ruth signs stable, current med profile rev'd Free Text Obj Notes Free Text Obj Notes: Constitutional: GCS 15, patient awake, alert, no acute distress, HR, BP, O2 saturation reviewed in records Eyes: pupils equal, round, reactive to light, EO IA HENT: normal cephalic, atraumatic, no facial ten derness or crepitus, normal external inspection of ears/nose, no septal emile grisel Neck: trachea midline, no crepitus, thyroid with out mass CV: regular rate, rhythm, bi lateral radial pulses 2+, no cyanosis, no edema, no pulsatile abdominal mass Respiratory: lungs clear bilaterally, respiratio ns even and unlabored, no tenderness to palpation, normal inspection of ch est, no crepitus Abdomen: soft, non-tender, non-distended, no mas ses, no hernia noted : pelvis stable Musculoskeletal: -Left upper extremity without focal tenderness, without deformity, with ROM intact -Right upper extremity without focal tenderness, without deformity, with ROM intact -Left lower extremity without focal tenderness, without deformity, with ROM intact -Right lower extremity with ONEAL wrap and ex-fix, some pin site shadowing noted, area marked, NV intact distally Skin: skin warm to palpation. Psychiatric: normal mood and affect, memory inta ct Neurologic: face symmetrical. Bilateral upper an d lower extremity sensation intact Diagnosis, Assessment Plan Hospital course to date: 06/21: Patient has extensive chronic pain history we have consulted pain management for closer management. Given patient's complex history we have also added a hematology oncology consult related to h er clotting deficiencies and began a heparin drip for DVT prophylaxis as we discontinue the Eliquis and await further recommendations from hematology. Dr. Headley with orthopedics planning for surgery or Friday 06/22: RLE ex-fix placed (Dr. Glover). Definitive repair likely next week, approx. Saturday 06/23: No acute events overnight. Pain controlled , tolerating PO intake. On Heparin gtt. Waiting for definitive repair. 06/24: Bleeding controlled, Pain controlled. Nicolle tor H H 06/25: Repeat H H today drops below 7 with OR planning mid next week in the soft H H over the last 24-48. We will transfuse 1 uni t PRBCs 06/26: Stable H H aftre transfusion 06/27: No events, await estimated surgery date of thursday 06/28: No acute events overnight. Orthopedic surg [place] plans to take patient to the OR for right tib-fib jing ling on 06/29. Ex-Fix in place bilateral ankles with no signs of local infection. Patient has no colby tional complaints. Tertiary trauma survey conducted with no additional findi ngs noted. Free Text A P: Mechanism: Trip and Fall Injuries: Tibal Plat Fx Active Problems: Pain Protein S deficiency Resolved Problems: Incidental findings: Chronic Medical Problems: Protein S deficency (o n Eliquis), IA, Blood clots, Depression, Anxiety, PTSD, T hrombectomy, Wrist sx, Pre-cancer ovarian, + smoking , social alcohol, Cocaine Hx, Meth Hx DVT prophylaxis: SCDs, Heparin gtt GI prophylaxis: diet Lines/[place]/ETT: PIV Consultants: Ortho, [facility], [facility], [facility] Procedures: 06/22: RLE ex-fix (Adalberto) Plan: Tibal Plat Fx * Ortho following * Splinted PULMONOLOGY PHYSICIAN * Multimodal Pain control with IV and PO narcotic and non-narcotic medications * pain management following * Tertiary trauma survey completed * Elevate * PT/OT eval/treat, NWB RLE * plan for definitive repair likely monday History of Protein S deficency * Hematology following * on Heparin gtt Anemia * Post Operative and in correlation to the Hepar in requirements * Repeat H H now * Transfuse for less than 7 Diet: Regular Labs: AM PT/OT recs: eval/treat, NWB RLE DME: recs pending Code status: Full code Medical Decision Making: In the event the patient is incapacitated and not able to make their own medical decisions, the y have elected Shahriar, contact number [phone], to make medical decisions f or them. Dispo: Admit; will continue to monitor f or ICU needs or any further changes to level of care Anticipated Date of Discharge/Trauma Clearance: TBD Quality: Trauma Gen Surg Advanced Care Plan 65 or Older Discussed with: patient Current Medications Current medication review: I attest that the foregoing medication list in t he medical record is true, accurate, and complete to the best of my knowled ge. VTE Prophylaxis - General VTE prophylaxis initiated: yes (Heparin gtt) Maximilian Stover 06/28/22 1803: Attestations Attestation needed: supervising physician Physician Attestation Agree w/findings plan: I interviewed and examined the patient with the DAPHNEY. Agree with the findings and plan as documented by Ian Castro PA-C. Maximilian Stover MD Attending Surgeon Trauma Surgery Electronically Signed by Ian Castro on 0 06/28/22 at 1426 at 1803 Addendum 1: 06/28/22 142 by Ian Castro Plan: 06/28 -no acute events overni ght. Orthopedic surgery plans to OR on 06/29 for Ex- Fix removal and definitive repair of the right l ower extremity fractures. Continue heparin drip until postop and consider resuming oral anticoagulant based on recommendations from hematology. Electronically Signed by Ian Castro on 0 06/28/22 at 1429 RPT #:[id number] END OF REPORT 2022-06-28 09:54:00-00:00 [facility] ([facility]) Pain Management Progress Note REPORT#:[id number] REPORT STATUS: Signed DATE:06/28/22 TIME: 953 PATIENT: TEODORA SANTANA UNIT #: [id number] ROOM/BED: [place] [id number] : 83 AGE: 36 SEX: F ATTEND: Scott Britt DO ADM AUTHOR: Shiv Cheema OUTSIDE SALES INSPECTOR * ALL edits or amendments must be made on the [employer]/computer document * Shiv Cheema 06/28/22 0954: Subjective Chief complaint: Patient seen and examined. Chart/MAR reviewed. Patient states that the pain is doing well this morning. Slept well. No side effects noted. Patient being seen for Acute pain due to trauma, acute postoperative pain, Idiopathic neuropathy Patient is still requiring medications to help w ith managing current problems. Patient is requiring IV narcotics to help manage breakthrough pain No fever/chills, chest pain, orthopnea, nausea/v omiting, pruritus, or hallucinations. 14 point ROS undertaken unremarkable except as n oted Objective General VS/I O: Vital Signs Date Temp Pulse Resp B/P B/P Mean Pulse Ox FiO2 06/27-06/28 97.7-99.0 79-96 15-18 101-120/64-72 0.0-87.8 94-99 Last Documented: Result Date Time Pulse Ox 94 09/20 0803 B/P 115/72 09/20 08 B/P Mean 86.1 06/28 08 O2 Delivery Room air 06/28 803 Temp 98.4 06/28 08 Pulse 89 06/28 803 Resp 18 06/28 803 O2 Flow Rate 2 06/22 1230 PATIENT WEIGHT: Weight (lb): 199 Weight (oz): 15.35 Weight (kg): 90.265 Medications: Active Meds + DC'd Last 24 Hrs Glycopyrrolate (GLYCOPYRROLATE) 0 .STK-MED ONE . ROUTE (DC) Dexamethasone Sodium Phosphate (DECADRON) 0 .STK -MED ONE .ROUTE (DC) Lidocaine HCl (XYLOCAINE) 0 .STK-MED ONE .ROUTE (DC) Ondansetron HCl (ZOFRAN) 0 .STK-MED ONE .ROUTE ( DC) Phenylephrine HCl (MARIZA-SYNEPHRINE 1000MCG/NS 10M L INJ) 0 .STK-MED ONE I- OZIEL (DC) Rocuronium [place] (ZEMURON) 0 .STK-MED ONE IV ( DC) Succinylcholine Chloride (QUELICIN FLIPTOP) 0 .S TK-MED ONE IV (DC) Midazolam HCl (VERSED) 0 .STK-MED ONE .ROUTE (DC ) Propofol (DIPRIVAN 200MG/20ML INJECTION) 0 .STK- MED ONE IV (DC) Fentanyl Citrate (SUBLIMAZE) 0 .STK-MED ONE .ROU TE (DC) Gabapentin (NEURONTIN) 400 MG Q8H PO Morphine Sulfate (MS CONTIN) 15 MG Q8HR PO Oxycodone HCl (OxyCONTIN) 20 MG Q12HR PO (DC) Ferric Sodium Gluconate Complex (FERRLECIT) 125 MG DAILY IV Sodium Chloride (SODIUM CHLORIDE 0.9%) 100 ML Pantoprazole (PROTONIX) 40 MG DAILY@0600 PO Ibuprofen (IBUPROFEN) 400 MG Q8HR PO Morphine Sulfate (morphine SULFATE) 4 MG Q4H PRN PRN IV Oxycodone/Acetaminophen (PERCOCET 5/325MG TAB) 2 TAB Q4H PRN PRN PO Trazodone HCl (DESYREL) 100 MG BEDTIME PRN PRN P O Polyethylene Glycol (MIRALAX) 17 GM DAILY PO Gabapentin (NEURONTIN) 300 MG BID PO (DC) Heparin Sodium (HEPARIN 5000 UNITS/ML) 0 ASDIR P RN IV Heparin Sodium (Porcine) (HEPARIN 25,000 UNITS/ 1/2NS 500ML) 500 ML ASDIR IV (CKD) Ondansetron HCl (ZOFRAN) 4 MG Q4H PRN PRN IV Physical Exam General appearance: alert, awake, oriented, no a cute distress Head/eyes: atraumatic, EOMI, normocephalic, norm al conjunctiva/sclera, PERRLA ENT: normal nose Cardiovascular: regular rate rhythm Respiratory: symmetric expansion Abdomen: soft, non-tender, no distention , active bowel sounds in all quadrant. Extremities: moves all, no e anirudh, RLE uniplanar ex-fix. Decreased ROM right leg Neuro/CONTRACT MANAGER: no motor deficits, no sensory deficit s, CNII-XII grossly intact Skin: dry, intact, normal color Lymphatics: no lymphadenopathy Psychiatry: normal affect Results Findings/data: Laboratory Tests: 06/28 06/27 06/27 0130 1829 1712 Coagulation PTT (Marissa) (25.0 - 39.5 Seconds) 62.1 H 80.3 H 37.8 Hematology WBC (4.5 - 11.0 x10 3/uL) 6.0 RBC (3.54 - 5.02 x10 6/uL) 3.14 L Hgb (11.0 - 15.0 g/dL) 8.4 L Hct (33.0 - 45.0 %) 26.6 L MCV (81.0 - 99.0 fL) 84.7 MCH (27.0 - 33.0 pg) 26.8 L MCHC (33.0 - 37.0 g/dL) 31.6 L RDW (11.5 - 14.5 %) 16.7 H Plt Count (150 - 400 x10 3/uL) 349 MPV (7.0 - 9.0 fL) 8.9 Neut % (Auto) (56.0 - 77.0 %) 62.7 Lymph % (Auto) (14.0 - 32.0 %) 25.7 [place] % (Auto) (4.8 - 9.0 %) 6.8 Eos % (Auto) (0.3 - 3.7 %) 2.8 Baso % (Auto) (0.0 - 2.0 %) 0.2 Neut # (Auto) (2.0 - 7.6 x10 3/uL) 3.77 Lymph # (Auto) (1.0 - 3.8 x10 3/uL) 1.55 [place] # (Auto) (0.1 - 0.8 x10 3/uL) 0.41 Eos # (Auto) (0.0 - 0.2 x10 3/uL) 0.17 Baso # (Auto) (0.0 - 0.2 x10 3/uL) 0.01 Abs Immat Gran (auto) (0.00 - 0.03 x10 3/uL) 0. 11 H Add Manual Diff NO Immature Gran % (0.0 - 2.0 %) 1.8 Nucleated RBC % (0 - 0 %) 0.0 Nucleated RBCs # (Man) (0.0 - 0.1 x10 3/uL) 0.0 0 Diagnosis, Assessment Plan Free text A P: A/P: Patient is a 36 year old female who presents wit h right tib-fib fracture Acute pain due to trauma, acute postoperative pa in -Status post right tib-fib fracture -06/22/2022-closed reduction of right proximal ti therese and fibula fracture. Application of uniplanar external fixator -DC oxycontin 20mg BID 06/27 -Percocet 10/325 1 tablet p.o. every 4 hours as needed pain scale 4 10 -Start MS Contin 15mg every 8 hours 06/27 -Morphine 4 mg IV every 4 hours as needed pain s dheeraj 7 out of 10, second line therapy -Motrin 400 mg p.o. every 8 hours (Protonix 40 mg p.o. daily for GI prophylaxis) -manageable Idiopathic neuropathy -Incr Gabapentin 400 mg p.o. every 8 hours 06/27 -manageable Disposition: Past Medical History: Venous thrombus on, protein S deficiency, chronic neck and back pain, right tib-fib fracture Past Surgical History: 06/22/2022-closed reductio n of right proximal tibia and fibula fracture. Application of uniplanar cable tender al fixator Family History: Noncontributory Social History: Positive for alcohol use Allergies: Tramadol Patient has failed conservative medical therapy. Patient will require monitoring while utilize na rcotic medications for any adverse effects, and will adjust as needed Plan of care discussed with patient and nurse All diagnostics of last 24 hours been reviewed. Risks versus benefits of opioid medications were reviewed to include, but not limited to respiratory depression, accid ental overdose, altered mental status, sudden , constipation which could result in bowel obstruction, seizures, withdrawal, dependency addiction, risk for falls . Case discussed with Dr Gaspar whom agrees. Thank you for the consultation. [place] MEDIA RELATIONS MANAGER: Total Prescriptions 14 Total Private Pay 0 Total Prescribers 2 Total Pharmacies 4 05/26/2022 04/28/2022 2 ACET AMINOPHEN-COD #4 TABLET 90.00 30 Ga Hol [id number] Heb ( 5115) 1 27.00 MME Comm Ins [place] 04/28/2022 04/28/2022 1 ACET AMINOPHEN-COD #4 TABLET 90.00 30 Ga Hol [id number] Heb ( 5115) 0 27.00 MME Comm Ins [place] 04/15/2022 04/14/2022 1 ACET AMINOPHEN-COD #4 TABLET 30.00 10 Ga Hol [id number] Uni (9378) 0 27.00 MME Other [place] 03/18/2022 11/19/2021 1 ACET AMINOPHEN-COD #4 TABLET 90.00 30 Ga Hol [id number] Uni (9378) 1 27.00 MME Other [place] 02/18/2022 11/19/2021 1 ACET AMINOPHEN-COD #4 TABLET 90.00 30 Ga Hol [id number] Uni (9378) 0 27.00 MME Other [place] 01/21/2022 11/19/2021 1 ACET AMINOPHEN-COD #4 TABLET 90.00 30 Ga Hol [id number] Uni (9378) 1 27.00 MME Other [place] 12/24/2021 11/19/2021 1 ACET AMINOPHEN-COD #4 TABLET 90.00 30 Ga Hol [id number] Uni (9378) 0 27.00 [place]ME Other [place] 12/15/2021 12/15/2021 1 PREGABALIN 75 MG CAPSULE 30.00 15 Ja Swe [id number] H e ( 5343) 0 1.00 LME Comm Ins [place] 11/26/2021 11/19/2021 1 ACET AMINOPHEN-COD #4 TABLET 90.00 30 Ga Hol [id number] Hen (0939) 0 27.00 MME Comm Ins [place] 10/29/2021 10/27/2021 1 ACET AMINOPHEN-COD #4 TABLET 90.00 30 Ga Hol [id number] Uni (9378) 0 27.00 MME Other [place] 10/01/2021 09/23/2021 1 ACET AMINOPHEN-COD #4 TABLET 90.00 30 Ga Hol [id number] Uni (9378) 0 27.00 MME Other [place] 09/04/2021 09/01/2021 1 ACET AMINOPHEN-COD #3 TABLET 90.00 30 Ga Hol [id number] Hen (7439) 0 13.50 MME Comm Ins [place] [facility] ([id number]) [address] [place] [address] [facility] ([phone]) [address] [place] [address] - [facility] [address] ([phone]) [address] [place] [address] - [facility] ([id number]) [address] [place] [address] Tam Gaspar 06/29/22 1810: Attestations Physician Attestation Agree w/findings plan: The patient was seen and exa mined by Shiv Cheema. I personally developed the care plan, which was continued by the mid-level provider. I was immediately available. at 1135 Electronically Signed by Tam Gaspar MD on 2 at 1822 RPT #:[id number] END OF REPORT 2022-06-27 18:29:00-00:00 [facility] ([facility]) Emile/Oncology Progress Note REPORT#:[id number] REPORT STATUS: Signed DATE:06/27/22 TIME: 1828 PATIENT: TEODORA SANTANA UNIT #: [id number] ROOM/BED: [place] [id number] : 83 AGE: 36 SEX: F ATTEND: Scott Britt DO ADM AUTHOR: Adrian Cortez MD * ALL edits or amendments must be made on the el Destination [employer]/computer document * Subjective Chief Complaint: Complains of pain in right leg. Objective Physical Exam VS: Vital Signs Date Temp Pulse Resp B/P B/P Mean Pulse Ox FiO2 06/26-06/27 36.6-37.0 73-88 14-18 107-114/68-74 81.8-86.6 94-96 Last Documented: Result Date Time Pulse Ox 96 06/27 1621 B/P 109/72 06/27 1621 B/P Mean 83.9 06/27 1621 O2 Delivery Room air 06/27 162 Temp 36.9 06/27 1621 Pulse 83 06/27 1621 Resp 18 06/27 1621 O2 Flow Rate 2 06/22 1230 General appearance: alert, awake HEENT: atraumatic, normocephalic Neck: full range of motion, non-tender, supple/n o meningismus, no JVD, no lymphadenopathy Cardiovascular: regular rate and rhythm Respiratory: clear to auscultation Abdomen: non-tender, normal bowel sounds , soft, no distention, no guarding, no mass/organomegaly, no rebound Extremities: moves all, normal capillary refill, no edema Musculoskeletal: full range of motion, normal in spection Neuro/CONTRACT MANAGER: alert, oriented X 3 Results Findings/Data: Laboratory Tests 06/27/22 0155: [Embedded Image Not Available] Laboratory Tests 06/27 06/27 06/27 1712 0935 0155 Coagulation PTT ([place]) (25.0 - 39.5 Seconds) 37.8 87.3 H 57 .9 H Laboratory Tests 06/27 155 Hematology WBC (4.5 - 11.0 x10 3/uL) 7.1 RBC (3.54 - 5.02 x10 6/uL) 3.08 L Hgb (11.0 - 15.0 g/dL) 8.3 L Hct (33.0 - 45.0 %) 25.9 L MCV (81.0 - 99.0 fL) 84.1 MCH (27.0 - 33.0 pg) 26.9 L MCHC (33.0 - 37.0 g/dL) 32.0 L RDW (11.5 - 14.5 %) 15.7 H Plt Count (150 - 400 x10 3/uL) 325 MPV (7.0 - 9.0 fL) 8.9 Neut % (Auto) (56.0 - 77.0 %) 62.5 Lymph % (Auto) (14.0 - 32.0 %) 24.4 [place] % (Auto) (4.8 - 9.0 %) 8.3 Eos % (Auto) (0.3 - 3.7 %) 2.7 Baso % (Auto) (0.0 - 2.0 %) 0.3 Neut # (Auto) (2.0 - 7.6 x10 3/uL) 4.47 Lymph # (Auto) (1.0 - 3.8 x10 3/uL) 1.74 [place] # (Auto) (0.1 - 0.8 x10 3/uL) 0.59 Eos # (Auto) (0.0 - 0.2 x10 3/uL) 0.19 Baso # (Auto) (0.0 - 0.2 x10 3/uL) 0.02 Abs Immat Gran (auto) (0.00 - 0.03 x10 3/uL) 0. 13 H Add Manual Diff NO Immature Gran % (0.0 - 2.0 %) 1.8 Nucleated RBC % (0 - 0 %) 0.0 Nucleated RBCs # (Man) (0.0 - 0.1 x10 3/uL) 0.0 0 Radiology data: Current Medications Sig/Maricruz Start time Last Medication Dose Route Stop Time Status Admin Gabapentin 400 MG Q8H 06/27 1700 AC 06/27 PO 07/21 2059 170 Morphine Sulfate 15 MG Q8HR 06/27 1400 AC 06/09 9 PO 07/27 1300 1414 Oxycodone HCl 20 MG Q12HR 06/23 1045 DC 06/27 PO 07/28 Ferric Sodium 125 MG DAILY 06/23 09 AC 06/27 Gluconate Complex IV 06/30 0959 0926 Sodium Chloride 100 ML Pantoprazole 40 MG DAILY@0600 06/23 0600 AC PO 07/23 0559 0533 Ibuprofen 400 MG Q8HR 06/22 2200 AC 06/27 PO 07/22 215 1413 Morphine Sulfate 4 MG Q4H PRN PRN 06/22 1845 AC 06/27 IV 08/06 1300 1108 Oxycodone/ 2 TAB Q4H PRN PRN 06/22 1845 AC 06/09 9 Acetaminophen PO 08/06 1300 0534 Trazodone HCl 100 MG BEDTIME PRN PRN 06/22 1800 AC 06/22 PO 07/22 1759 2223 Polyethylene Glycol 17 GM DAILY 06/22 0900 AC 0 06/27 PO 07/22 0859 0925 Gabapentin 300 MG BID 06/21 2100 DC 06/27 PO 07/21 2059 09 Heparin Sodium 0 ASDIR PRN 06/21 1145 AC 06/27 IV 07/21 1144 0327 Heparin Sodium 500 ML ASDIR 06/21 1145 CKD (Porcine) IV 07/21 1144 1108 Ondansetron HCl 4 MG Q4H PRN PRN 06/21 1130 AC IV 07/21 1129 Results: labs reviewed, vital signs stable Diagnosis, Assessment Plan Free Text DxA P Notes Free Text DxA P Notes: ASSESSMENT: * Trauma status post fall resulting in a right t ibial plateau fracture. 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 Patient had been on anticoagulation with Eliquis . * Normocytic, hypochromic anemia, associ ated with iron deficiency with patient having history of heavy menstrual cycles for the past few years. PLAN: * Continue with IV heparin for anticoagulation f or thromboembolic prophylaxis especially with patient having right lower extre mity fracture and needing multiple surgeries. * Status post closed reduction and uniplanar ext ernal fixation by orthopedic surgery. * Plans for more definitive internal fixation on 06/30/2022. * Continue with IV heparin which can certainly b e held prior to surgery and resumed afterwards. Once patient is done with more definitive surgery, she can be converted to oral anticoagulant, Eliquis. * Continue with parenteral iron with Ferrlecit, 5/8 infusions. * Monitor CBC. * I will continue to follow. Electronically Signed by Adrian Cortez MD on at 1831 RPT #:[id number] END OF REPORT 2022-06-27 10:21:00-00:00 [facility] Trauma Progress Note REPORT#:[id number] REPORT STATUS: Signed DATE:06/27/22 TIME: 1021 PATIENT: TEODORA SANTANA UNIT #: [id number] ROOM/BED: [place] [id number] : 83 AGE: 36 SEX: F ATTEND: Scott Britt DO ADM AUTHOR: Dustin Peralta * ALL edits or amendments must be made on the [employer]/computer document * KathrynDustin 06/27/22 1021: Subjective Chief complaint: RLE pain, fracture s/p fall HPI: Pain controleld, good spirits today - no issues Review of Systems Constitutional: Denies: fever. Respiratory: Denies: SOB. Cardiovascular: Denies: chest pain. All systems rev neg: except as marked Objective Physical Exam VS/I O: Vital Signs: Date Time Temp Pulse Resp B/P B/P Pulse O2 O2 F low FiO2 Mean Ox Delivery Rate 06/27 0839 36.8 73 18 110/70 83.6 96 Room air 06/27 0441 36.6 73 14 111/74 86.6 95 Room air 06/26 2307 37.0 80 14 111/70 84.0 95 Room air 06/26 2016 36.9 85 15 107/69 81.8 95 Room air 06/26 1711 37.1 90 18 102/66 77.8 94 Room air 06/26 1144 37.5 92 18 108/69 82.0 94 Room air PATIENT WEIGHT: Weight (lb): 199 Weight (oz): 15.35 Weight (kg): 90.265 Medications: Active Meds + DC'd Last 24 Hrs Oxycodone HCl (OxyCONTIN) 20 MG Q12HR PO Ferric Sodium Gluconate Complex (FERRLECIT) 125 MG DAILY IV Sodium Chloride (SODIUM CHLORIDE 0.9%) 100 ML Pantoprazole (PROTONIX) 40 MG DAILY@0600 PO Ibuprofen (IBUPROFEN) 400 MG Q8HR PO Morphine Sulfate (morphine SULFATE) 4 MG Q4H PRN PRN IV Oxycodone/Acetaminophen (PERCOCET 5/325MG TAB) 2 TAB Q4H PRN PRN PO Trazodone HCl (DESYREL) 100 MG BEDTIME PRN PRN P O Polyethylene Glycol (MIRALAX) 17 GM DAILY PO Gabapentin (NEURONTIN) 300 MG BID PO Heparin Sodium (HEPARIN 5000 UNITS/ML) 0 ASDIR P RN IV Heparin Sodium (Porcine) (HEPARIN 25,000 UNITS/ 1/2NS 500ML) 500 ML ASDIR IV (CKD) Ondansetron HCl (ZOFRAN) 4 MG Q4H PRN PRN IV Results Findings/Data: Laboratory Tests 06/27 06/27 06/26 06/26 0935 0155 1537 1434 Coagulation PTT (Marissa) (25.0 - 39.5 Seconds) 87.3 H 57.9 H 76.0 H 41.6 H Laboratory Tests 06/27 0155 Hematology WBC (4.5 - 11.0 x10 3/uL) 7.1 RBC (3.54 - 5.02 x10 6/uL) 3.08 L Hgb (11.0 - 15.0 g/dL) 8.3 L Hct (33.0 - 45.0 %) 25.9 L MCV (81.0 - 99.0 fL) 84.1 MCH (27.0 - 33.0 pg) 26.9 L MCHC (33.0 - 37.0 g/dL) 32.0 L RDW (11.5 - 14.5 %) 15.7 H Plt Count (150 - 400 x10 3/uL) 325 MPV (7.0 - 9.0 fL) 8.9 Neut % (Auto) (56.0 - 77.0 %) 62.5 Lymph % (Auto) (14.0 - 32.0 %) 24.4 [place] % (Auto) (4.8 - 9.0 %) 8.3 Eos % (Auto) (0.3 - 3.7 %) 2.7 Baso % (Auto) (0.0 - 2.0 %) 0.3 Neut # (Auto) (2.0 - 7.6 x10 3/uL) 4.47 Lymph # (Auto) (1.0 - 3.8 x10 3/uL) 1.74 [place] # (Auto) (0.1 - 0.8 x10 3/uL) 0.59 Eos # (Auto) (0.0 - 0.2 x10 3/uL) 0.19 Baso # (Auto) (0.0 - 0.2 x10 3/uL) 0.02 Abs Immat Gran (auto) (0.00 - 0.03 x10 3/uL) 0. 13 H Add Manual Diff NO Immature Gran % (0.0 - 2.0 %) 1.8 Nucleated RBC % (0 - 0 %) 0.0 Nucleated RBCs # (Man) (0.0 - 0.1 x10 3/uL) 0. 00 Results: labs reviewed, vital signs reviewed, vi ruth signs stable, current med profile rev'd Free Text Obj Notes Free Text Obj Notes: Constitutional: GCS 15, patient awake, alert, no acute distress, HR, BP, O2 saturation reviewed in records Eyes: pupils equal, round, reactive to light, EO IA HENT: normal cephalic, atraumatic, no facial ten derness or crepitus, normal external inspection of ears/nose, no septal emile grisel Neck: trachea midline, no crepitus, thyroid with out mass CV: regular rate, rhythm, bi lateral radial pulses 2+, no cyanosis, no edema, no pulsatile abdominal mass Respiratory: lungs clear bilaterally, respiratio ns even and unlabored, no tenderness to palpation, normal inspection of ch est, no crepitus Abdomen: soft, non-tender, non-distended, no mas ses, no hernia noted : normal external genitalia, pelvis stable Lymph nodes: no cervical or supraclavicular mass es noted Musculoskeletal: -Left upper extremity without focal tenderness, without deformity, with ROM intact -Right upper extremity without focal tenderness, without deformity, with ROM intact -Left lower extremity without focal tenderness, without deformity, with ROM intact -Right lower extremity with ONEAL wrap and ex-fix, some pin site shadowing noted, area marked, NV intact distally -no cervical spine tenderness with full ROM -no thoracic/lumbar spine tenderness or step-off Skin: skin warm to palpation. Psychiatric: normal mood and affect, memory inta ct Neurologic: face symmetrical. Bilateral upper an d lower extremity sensation intact Diagnosis, Assessment Plan Hospital course to date: 06/21: Patient has extensive chronic pain history we have consulted pain management for closer management. Given patient's complex history we have also added a hematology oncology consult related to h er clotting deficiencies and began a heparin drip for DVT prophylaxis as we discontinue the Eliquis and await further recommendations from hematology. Dr. Headley with orthopedics planning for surgery or Friday 06/22: RLE ex-fix placed (Dr. Glover). Definitive repair likely next week, approx. Saturday 06/23: No acute events overnight. Pain controlled , tolerating PO intake. On Heparin gtt. Waiting for definitive repair. 06/24: Bleeding controlled, Pain controlled. Nicolle tor H H 06/25: Repeat H H today drops below 7 with OR planning mid next week in the soft H H over the last 24-48. We will transfuse 1 uni t PRBCs 06/26: Stable H H aftre transfusion 06/27: No events, await estimated surgery date of monday Free Text A P: Mechanism: Trip and Fall Injuries: Tibal Plat Fx Active Problems: Pain Protein S deficiency Resolved Problems: Incidental findings: Chronic Medical Problems: Protein S deficency (o n Eliquis), IA, Blood clots, Depression, Anxiety, PTSD, T hrombectomy, Wrist sx, Pre-cancer ovarian, + smoking , social alcohol, Cocaine Hx, Meth Hx DVT prophylaxis: SCDs, Heparin gtt GI prophylaxis: diet Lines/Quezada/ETT: PIV Consultants: Ortho, Low Pain, Luz Hematology, Dana Procedures: 06/22: RLE ex-fix (Adalberto) Plan: Tibal Plat Fx * Ortho following * Splinted PULMONOLOGY PHYSICIAN * Multimodal Pain control with IV and PO narcotic and non-narcotic medications * pain management following * Tertiary trauma survey completed * Elevate * PT/OT eval/treat, NWB RLE * plan for definitive repair next week (likely w ) History of Protein S deficency * Hematology following * on Heparin gtt Anemia * Post Operative and in correlation to the Hepar in requirements * Repeat H H now * Transfuse for less than 7 Diet: Regular Labs: AM PT/OT recs: eval/treat, NWB RLE DME: recs pending Code status: Full code Medical Decision Making: In the event the patient is incapacitated and not able to make their own medical decisions, the y have elected Shahriar, contact number [phone], to make medical decisions f or them. Dispo: Admit; will continue to monitor f or ICU needs or any further changes to level of care Anticipated Date of Discharge/Trauma Clearance: TBD Quality: Trauma Gen Surg Advanced Care Plan 65 or Older Discussed with: patient Current Medications Current medication review: I attest that the foregoing medication list in t he medical record is true, accurate, and complete to the best of my knowled ge. VTE Prophylaxis - General VTE prophylaxis initiated: yes (Heparin gtt) Maximilian Stover 06/27/22 1306: Attestations Attestation needed: supervising physician Physician Attestation Agree w/findings plan: I interviewed and examined the patient with the DAPHNEY. Agree with the findings and plan as documented by Dustin Peralta NP. Maximilian Stover MD Attending Surgeon Trauma Surgery at 1022 at 1647 RPT #:[id number] END OF REPORT 2022-06-27 09:50:00-00:00 [facility] ([facility]) Pain Management Progress Note REPORT#:[id number] REPORT STATUS: Signed DATE:06/27/22 TIME: 949 PATIENT: TEODORA SANTANA UNIT #: [id number] ROOM/BED: [place] [id number] : 83 AGE: 36 SEX: F ATTEND: Scott Britt DO ADM AUTHOR: Shiv Cheema OUTSIDE SALES INSPECTOR * ALL edits or amendments must be made on the [employer]/computer document * Shiv Cheema 06/27/22 0950: Subjective Chief complaint: Patient seen and examined. Chart/MAR reviewed. Patient states that the pain and sensation in the lower leg is more noticeable. Discussed medications adjustments to a regimen t hat is more affordable upon discharge. She is pending another surgery. Patient being seen for Acute pain due to trauma, acute postoperative pain, Idiopathic neuropathy Patient is still requiring medications to help w ith managing current problems. Patient is requiring IV narcotics to help manage breakthrough pain No fever/chills, chest pain, orthopnea, nausea/v omiting, pruritus, or hallucinations. 14 point ROS undertaken unremarkable except as n oted Objective General VS/I O: Vital Signs Date Temp Pulse Resp B/P B/P Mean Pulse Ox FiO2 06/26-06/27 97.9-99.5 73-92 - 102-111/66-74 77.8-86.6 94-96 Last Documented: Result Date Time Pulse Ox 96 06/27 0839 B/P 110/70 06/27 0839 B/P Mean 83.6 06/27 0839 O2 Delivery Room air 06/27 0839 Temp 98.2 06/27 0839 Pulse 73 06/27 0839 Resp 18 06/27 0839 O2 Flow Rate 2 06/22 1230 PATIENT WEIGHT: Weight (lb): 199 Weight (oz): 15.35 Weight (kg): 90.265 Medications: Active Meds + DC'd Last 24 Hrs Oxycodone HCl (OxyCONTIN) 20 MG Q12HR PO Ferric Sodium Gluconate Complex (FERRLECIT) 125 MG DAILY IV Sodium Chloride (SODIUM CHLORIDE 0.9%) 100 ML Pantoprazole (PROTONIX) 40 MG DAILY@0600 PO Ibuprofen (IBUPROFEN) 400 MG Q8HR PO Morphine Sulfate (morphine SULFATE) 4 MG Q4H PRN PRN IV Oxycodone/Acetaminophen (PERCOCET 5/325MG TAB) 2 TAB Q4H PRN PRN PO Trazodone HCl (DESYREL) 100 MG BEDTIME PRN PRN P O Polyethylene Glycol (MIRALAX) 17 GM DAILY PO Gabapentin (NEURONTIN) 300 MG BID PO Heparin Sodium (HEPARIN 5000 UNITS/ML) 0 ASDIR P RN IV Heparin Sodium (Porcine) (HEPARIN 25,000 UNITS/ 1/2NS 500ML) 500 ML ASDIR IV (CKD) Ondansetron HCl (ZOFRAN) 4 MG Q4H PRN PRN IV Physical Exam General appearance: alert, awake, oriented, no r espiratory distress Head/eyes: atraumatic, EOMI, normocephalic, norm al conjunctiva/sclera, PERRLA ENT: normal nose Cardiovascular: regular rate rhythm Respiratory: symmetric expansion Abdomen: soft, non-tender, no distention , active bowel sounds in all quadrant. Extremities: moves all, no e anirudh, RLE uniplanar ex-fix. Decreased ROM right leg Neuro/CONTRACT MANAGER: no motor deficits, no sensory deficit s, CNII-XII grossly intact Skin: dry Lymphatics: no lymphadenopathy Psychiatry: normal affect Results Findings/data: Laboratory Tests: 06/27 06/26 06/26 0155 1537 1434 Coagulation PTT ([place]) (25.0 - 39.5 Seconds) 57.9 H 76.0 H 41.6 H Hematology WBC (4.5 - 11.0 x10 3/uL) 7.1 RBC (3.54 - 5.02 x10 6/uL) 3.08 L Hgb (11.0 - 15.0 g/dL) 8.3 L Hct (33.0 - 45.0 %) 25.9 L MCV (81.0 - 99.0 fL) 84.1 MCH (27.0 - 33.0 pg) 26.9 L MCHC (33.0 - 37.0 g/dL) 32.0 L RDW (11.5 - 14.5 %) 15.7 H Plt Count (150 - 400 x10 3/uL) 325 MPV (7.0 - 9.0 fL) 8.9 Neut % (Auto) (56.0 - 77.0 %) 62.5 Lymph % (Auto) (14.0 - 32.0 %) 24.4 [place] % (Auto) (4.8 - 9.0 %) 8.3 Eos % (Auto) (0.3 - 3.7 %) 2.7 Baso % (Auto) (0.0 - 2.0 %) 0.3 Neut # (Auto) (2.0 - 7.6 x10 3/uL) 4.47 Lymph # (Auto) (1.0 - 3.8 x10 3/uL) 1.74 [place] # (Auto) (0.1 - 0.8 x10 3/uL) 0.59 Eos # (Auto) (0.0 - 0.2 x10 3/uL) 0.19 Baso # (Auto) (0.0 - 0.2 x10 3/uL) 0.02 Abs Immat Gran (auto) (0.00 - 0.03 x10 3/uL) 0. 13 H Add Manual Diff NO Immature Gran % (0.0 - 2.0 %) 1.8 Nucleated RBC % (0 - 0 %) 0.0 Nucleated RBCs # (Man) (0.0 - 0.1 x10 3/uL) 0.0 0 Diagnosis, Assessment Plan Free text A P: A/P: Patient is a 36 year old female who presents wit h right tib-fib fracture Acute pain due to trauma, acute postoperative pa in -Status post right tib-fib fracture -06/22/2022-closed reduction of right proximal ti therese and fibula fracture. Application of uniplanar external fixator -DC oxycontin 20mg BID 06/27 -Percocet 10/325 1 tablet p.o. every 4 hours as needed pain scale 4 10 -Start MS Contin 15mg every 8 hours 06/27 -Morphine 4 mg IV every 4 hours as needed pain s dheeraj 7 out of 10, second line therapy -Motrin 400 mg p.o. every 8 hours (Protonix 40 mg p.o. daily for GI prophylaxis) -manageable Idiopathic neuropathy -Incr Gabapentin 400 mg p.o. every 8 hours 06/27 -manageable Disposition: Past Medical History: Venous thrombus on, protein S deficiency, chronic neck and back pain, right tib-fib fracture Past Surgical History: 06/22/2022-closed reductio n of right proximal tibia and fibula fracture. Application of uniplanar cable tender al fixator Family History: Noncontributory Social History: Positive for alcohol use Allergies: Tramadol Patient has failed conservative medical therapy. Patient will require monitoring while utilize na rcotic medications for any adverse effects, and will adjust as needed Plan of care discussed with patient and nurse All diagnostics of last 24 hours been reviewed. Risks versus benefits of opioid medications were reviewed to include, but not limited to respiratory depression, accid ental overdose, altered mental status, sudden , constipation which could result in bowel obstruction, seizures, withdrawal, dependency addiction, risk for falls . Case discussed with Dr Gaspar whom agrees. Thank you for the consultation. [place] MEDIA RELATIONS MANAGER: Total Prescriptions 14 Total Private Pay 0 Total Prescribers 2 Total Pharmacies 4 05/26/2022 04/28/2022 2 ACET AMINOPHEN-COD #4 TABLET 90.00 30 Ga Hol [id number] [facility] ( 9412) 1 27.00 MME Comm Ins [place] 04/28/2022 04/28/2022 1 ACET AMINOPHEN-COD #4 TABLET 90.00 30 Ga Hol [id number] [facility] ( 3595) 0 27.00 MME Comm Ins [place] 04/15/2022 04/14/2022 1 ACET AMINOPHEN-COD #4 TABLET 30.00 10 Ga Hol [id number] [facility] (9378) 0 27.00 MME Other [place] 03/18/2022 11/19/2021 1 ACET AMINOPHEN-COD #4 TABLET 90.00 30 Ga Hol [id number] [facility] (9378) 1 27.00 MME Other [place] 02/18/2022 11/19/2021 1 ACET AMINOPHEN-COD #4 TABLET 90.00 30 Ga Hol [id number] [facility] (9378) 0 27.00 MME Other [place] 01/21/2022 11/19/2021 1 ACET AMINOPHEN-COD #4 TABLET 90.00 30 Ga Hol [id number] [facility] (9378) 1 27.00 MME Other [place] 12/24/2021 11/19/2021 1 ACET AMINOPHEN-COD #4 TABLET 90.00 30 Ga Hol [id number] [facility] (9378) 0 27.00 MME Other [place] 12/15/2021 12/15/2021 1 PREGABALIN 75 MG CAPSULE 30.00 15 Ja Swe [id number] H e ( 0193) 0 1.00 LME Comm Ins [place] 11/26/2021 11/19/2021 1 ACET AMINOPHEN-COD #4 TABLET 90.00 30 Ga Hol [id number] [facility] (7709) 0 27.00 MME Comm Ins [place] 10/29/2021 10/27/2021 1 ACET AMINOPHEN-COD #4 TABLET 90.00 30 Ga Hol [id number] [facility] (9378) 0 27.00 MME Other [place] 10/01/2021 09/23/2021 1 ACET AMINOPHEN-COD #4 TABLET 90.00 30 Ga Hol [id number] [facility] (9378) 0 27.00 MME Other [place] 09/04/2021 09/01/2021 1 ACET AMINOPHEN-COD #3 TABLET 90.00 30 Ga Hol [id number] [facility] (7709) 0 13.50 MME Comm Ins [facility] #578 [phone] [address] [place] [id number] [facility] [phone] [facility] [place] [address] - [facility] [address] [phone] [place] [address] - [facility] #[phone] [address] [place] [address] Tam Gaspar 06/28/22 1612: Attestations Physician Attestation Agree w/findings plan: The patient was seen and exa mined by Shiv Cheema. I personally developed the care plan, which was continued by the mid-level provider. I was immediately available. at 1226 Electronically Signed by Tam Gaspar MD on 2 at 1627 RPT #:[id number] END OF REPORT 2022-06-27 08:05:00-00:00 [facility] ([facility] Orthopaedic Progress Note REPORT#:[id number] REPORT STATUS: Signed DATE:06/27/22 TIME: 804 PATIENT: TEODORA SANTANA UNIT #: [id number] ROOM/BED: [place] [id number] : 83 AGE: 36 SEX: F ATTEND: Scott Britt DO ADM AUTHOR: Jonathan Glover [facility] * ALL edits or amendments must be made on the [employer] document * Subjective HPI: Patient resting comfortably in bed. Denies fevers, chills, nausea, or vomiting. Complains of pain (4/10) in right lower extremit y at fracture site. Objective VS: Last Documented: Result Date Time Pulse Ox 95 06/27 441 B/P 111/74 06/27 441 B/P Mean 86.6 06/27 441 O2 Delivery Room air 06/27 441 Temp 36.6 06/27 441 Pulse 73 06/27 044 Resp 14 06/27 441 O2 Flow Rate 2 06/22 1230 PATIENT WEIGHT: Weight (lb): 199 Weight (oz): 15.35 Weight (kg): 90.265 Results Findings/data: Laboratory Tests 06/27 06/26 06/26 0155 1537 1434 Coagulation PTT (Marissa) (25.0 - 39.5 Seconds) 57.9 H 76.0 H 41.6 H Laboratory Tests 06/27 155 Hematology WBC (4.5 - 11.0 x10 3/uL) 7.1 RBC (3.54 - 5.02 x10 6/uL) 3.08 L Hgb (11.0 - 15.0 g/dL) 8.3 L Hct (33.0 - 45.0 %) 25.9 L MCV (81.0 - 99.0 fL) 84.1 MCH (27.0 - 33.0 pg) 26.9 L MCHC (33.0 - 37.0 g/dL) 32.0 L RDW (11.5 - 14.5 %) 15.7 H Plt Count (150 - 400 x10 3/uL) 325 MPV (7.0 - 9.0 fL) 8.9 Neut % (Auto) (56.0 - 77.0 %) 62.5 Lymph % (Auto) (14.0 - 32.0 %) 24.4 [place] % (Auto) (4.8 - 9.0 %) 8.3 Eos % (Auto) (0.3 - 3.7 %) 2.7 Baso % (Auto) (0.0 - 2.0 %) 0.3 Neut # (Auto) (2.0 - 7.6 x10 3/uL) 4.47 Lymph # (Auto) (1.0 - 3.8 x10 3/uL) 1.74 [place] # (Auto) (0.1 - 0.8 x10 3/uL) 0.59 Eos # (Auto) (0.0 - 0.2 x10 3/uL) 0.19 Baso # (Auto) (0.0 - 0.2 x10 3/uL) 0.02 Abs Immat Gran (auto) (0.00 - 0.03 x10 3/uL) 0. 13 H Add Manual Diff NO Immature Gran % (0.0 - 2.0 %) 1.8 Nucleated RBC % (0 - 0 %) 0.0 Nucleated RBCs # (Man) (0.0 - 0.1 x10 3/uL) 0.0 0 Free Text Obj Notes Free Text Obj Notes: The patient is alert and oriented. All 4 extremities are warm and well-perfused. The patient is taking bilateral equal breath eff orts. No petechiae, rashes, or adenopathy. Right lower extremity: Oneal wrap with long leg posterior splint as well as knee spanning external fixation; pin sites are angela n and dry with a small amount of dried blood around the pins distally. Compartments are easily compressible; edema has significantly improved since last Monday There is 4-/5 motor strength in EHL/FHL. Sensation is intact to light touch in the S/S/SP /DP/T distribution. Toes are warm and well-perfused with brisk capil marlee refill. Homans' sign is negative Diagnosis, Assessment Plan Free text A P: Teodora Santana is a 36-year-old female with a histo ry of Protein S deficiency on transferred to [facility] for evaluation and treatment of displaced closed right proximal tibia and fibula fractures . She is status post closed reduction of a proxima l right tibia and fibula fracture with knee spanning external fixation on 06/22/2022. -Surgery: Plan is for removal of the external fi xation device and definitive internal fixation on 06/30/2022. The patient shou ld be kept inpatient during this time for monitoring of the soft tissues, wh ich currently are amenable to surgery on Monday -Weight bearing status: Nonweightbearing right lower extremity in the external fixator with a long-leg posterior splint -Antibiotics: Ancef x 24 hours postoperatively ( completed) -Diet: Okay to eat -Labs: CBC/BMP/coags -Tranfuse as needed; would recommend a threshold Hb of 8.0 -DVT prophylaxis: Currently on a heparin drip -Plan to stop the heparin dr ip on-call to the OR, then restarted afterwards. May transition back to NOAC on POD 2 (Monday). -Multimodal pain control -Imaging: No new imaging at this time -Dressings: Oneal wrap with th e above-mentioned splint. This may be reinforced as necessary. -PT/OT -Dispo pending second stage surgery at 0808 RPT #:[id number] END OF REPORT 2022-06-26 14:23:00-00:00 [facility] ([facility]) Trauma Progress Note REPORT#:[id number] REPORT STATUS: Signed DATE:06/26/22 TIME: 1422 PATIENT: TEODORA SANTANA UNIT #: [id number] [place]ED: [facility] : 83 AGE: 36 SEX: F ATTEND: Scott Britt DO ADM AUTHOR: Dustin Peralta * ALL edits or amendments must be made on the el [employer]ination [employer]/computer document * Dustin Peralta 06/26/22 1423: Subjective Chief complaint: RLE pain, fracture s/p fall HPI: No events reproted Review of Systems Constitutional: Denies: fever. Respiratory: Denies: SOB. Cardiovascular: Denies: chest pain. All systems rev neg: except as marked Objective Physical Exam VS/I O: Vital Signs: Date Time Temp Pulse Resp B/P B/P Pulse O2 O2 F low FiO2 Mean Ox Delivery Rate 06/26 1144 37.5 92 18 108/69 82.0 94 Room air 06/26 0727 37.1 86 18 104/67 79.6 94 Room air 06/26 0410 36.8 82 15 116/76 89.1 97 Room air 06/25 2319 37.1 88 15 111/71 83.9 94 Room air 06/25 2022 37.2 114 15 127/77 93.7 100 Room air 06/25 1601 36.8 84 18 107/73 84.2 93 Room air 24 hour I O ending at 0700: 06/26 0700 06/25 1900 Intake Total 650 500 Output Total Balance 650 500 Intake, IV 300 500 Intake, 350 Packed Cells PATIENT WEIGHT: Weight (lb): 199 Weight (oz): 15.35 Weight (kg): 90.265 Medications: Active Meds + DC'd Last 24 Hrs Oxycodone HCl (OxyCONTIN) 20 MG Q12HR PO Ferric Sodium Gluconate Complex (FERRLECIT) 125 MG DAILY IV Sodium Chloride (SODIUM CHLORIDE 0.9%) 100 ML Pantoprazole (PROTONIX) 40 MG DAILY@0600 PO Ibuprofen (IBUPROFEN) 400 MG Q8HR PO Morphine Sulfate (morphine SULFATE) 4 MG Q4H PRN PRN IV Oxycodone/Acetaminophen (PERCOCET 5/325MG TAB) 2 TAB Q4H PRN PRN PO Trazodone HCl (DESYREL) 100 MG BEDTIME PRN PRN P O Polyethylene Glycol (MIRALAX) 17 GM DAILY PO Gabapentin (NEURONTIN) 300 MG BID PO Heparin Sodium (HEPARIN 5000 UNITS/ML) 0 ASDIR P RN IV Heparin Sodium (Porcine) (HEPARIN 25,000 UNITS/ 1/2NS 500ML) 500 ML ASDIR IV (CKD) Ondansetron HCl (ZOFRAN) 4 MG Q4H PRN PRN IV Results Findings/Data: Laboratory Tests 06/26 06/25 0613 1700 Coagulation PTT ([place]) (25.0 - 39.5 Seconds) 57.5 H 62.3 H Laboratory Tests 06/26 0613 Hematology WBC (4.5 - 11.0 x10 3/uL) 7.2 RBC (3.54 - 5.02 x10 6/uL) 3.42 L Hgb (11.0 - 15.0 g/dL) 9.0 L Hct (33.0 - 45.0 %) 28.5 L MCV (81.0 - 99.0 fL) 83.3 MCH (27.0 - 33.0 pg) 26.3 L MCHC (33.0 - 37.0 g/dL) 31.6 L RDW (11.5 - 14.5 %) 14.6 H Plt Count (150 - 400 x10 3/uL) 330 MPV (7.0 - 9.0 fL) 9.2 H Neut % (Auto) (56.0 - 77.0 %) 66.8 Lymph % (Auto) (14.0 - 32.0 %) 21.6 [place] % (Auto) (4.8 - 9.0 %) 6.1 Eos % (Auto) (0.3 - 3.7 %) 3.2 Baso % (Auto) (0.0 - 2.0 %) 0.4 Neut # (Auto) (2.0 - 7.6 x10 3/uL) 4.79 Lymph # (Auto) (1.0 - 3.8 x10 3/uL) 1.55 [place] # (Auto) (0.1 - 0.8 x10 3/uL) 0.44 Eos # (Auto) (0.0 - 0.2 x10 3/uL) 0.23 H Baso # (Auto) (0.0 - 0.2 x10 3/uL) 0.03 Abs Immat Gran (auto) (0.00 - 0.03 x10 3/uL) 0. 14 H Add Manual Diff NO Immature Gran % (0.0 - 2.0 %) 1.9 Nucleated RBC % (0 - 0 %) 0.3 H Nucleated RBCs # (Man) (0.0 - 0.1 x10 3/uL) 0.0 2 Results: no new labs, vital signs reviewed, lang l signs stable, current med profile rev'd Free Text Obj Notes Free Text Obj Notes: Constitutional: GCS 15, patient awake, alert, no acute distress, HR, BP, O2 saturation reviewed in records Eyes: pupils equal, round, reactive to light, EO IA HENT: normal cephalic, atraumatic, no facial ten derness or crepitus, normal external inspection of ears/nose, no septal emile grisel Neck: trachea midline, no crepitus, thyroid with out mass CV: regular rate, rhythm, bi lateral radial pulses 2+, no cyanosis, no edema, no pulsatile abdominal mass Respiratory: lungs clear bilaterally, respiratio ns even and unlabored, no tenderness to palpation, normal inspection of ch est, no crepitus Abdomen: soft, non-tender, non-distended, no mas ses, no hernia noted : normal external genitalia, pelvis stable Lymph nodes: no cervical or supraclavicular mass es noted Musculoskeletal: -Left upper extremity without focal tenderness, without deformity, with ROM intact -Right upper extremity without focal tenderness, without deformity, with ROM intact -Left lower extremity without focal tenderness, without deformity, with ROM intact -Right lower extremity with ONEAL wrap and ex-fix, some pin site shadowing noted, area marked, NV intact distally -no cervical spine tenderness with full ROM -no thoracic/lumbar spine tenderness or step-off Skin: skin warm to palpation. Psychiatric: normal mood and affect, memory inta ct Neurologic: face symmetrical. Bilateral upper an d lower extremity sensation intact Diagnosis, Assessment Plan Hospital course to date: 06/21: Patient has extensive chronic pain history we have consulted pain management for closer management. Given patient's complex history we have also added a hematology oncology consult related to h er clotting deficiencies and began a heparin drip for DVT prophylaxis as we discontinue the Eliquis and await further recommendations from hematology. Dr. Headley with orthopedics planning for surgery or Friday 06/22: RLE ex-fix placed (Dr. Glover). Definitive repair likely next week, approx. Saturday 06/23: No acute events overnight. Pain controlled , tolerating PO intake. On Heparin gtt. Waiting for definitive repair. 06/24: Bleeding controlled, Pain controlled. Nicolle tor H H 06/25: Repeat H H today drops below 7 with OR planning mid next week in the soft H H over the last 24-48. We will transfuse 1 uni t PRBCs 06/26: Stable H H aftre transfusion Free Text A P: Mechanism: Trip and Fall Injuries: Tibal Plat Fx Active Problems: Pain Protein S deficiency Resolved Problems: Incidental findings: Chronic Medical Problems: Protein S deficency (o n Eliquis), IA, Blood clots, Depression, Anxiety, PTSD, T hrombectomy, Wrist sx, Pre-cancer ovarian, + smoking , social alcohol, Cocaine Hx, Meth Hx DVT prophylaxis: SCDs, Heparin gtt GI prophylaxis: diet Lines/Quezada/ETT: PIV Consultants: Ortho, Low Pain, [facility], Dana Procedures: 06/22: RLE ex-fix (Adalberto) Plan: Tibal Plat Fx * Ortho following * Splinted PULMONOLOGY PHYSICIAN * Multimodal Pain control with IV and PO narcotic and non-narcotic medications * pain management following * Tertiary trauma survey completed * Elevate * PT/OT eval/treat, NWB RLE * plan for definitive repair next week (likely ) History of Protein S deficency * Hematology following * on Heparin gtt Anemia * Post Operative and in correlation to the Hepar in requirements * Repeat H H now * Transfuse for less than 7 Diet: Regular Labs: AM PT/OT recs: eval/treat, NWB RLE DME: recs pending Code status: Full code Medical Decision Making: In the event the patient is incapacitated and not able to make their own medical decisions, the y have elected Shahriar, contact number [phone], to make medical decisions f or them. Dispo: Admit; will continue to monitor f or ICU needs or any further changes to level of care Anticipated Date of Discharge/Trauma Clearance: TBD Quality: Trauma Gen Surg Advanced Care Plan 65 or Older Discussed with: patient Current Medications Current medication review: I attest that the foregoing medication list in t he medical record is true, accurate, and complete to the best of my knowled ge. VTE Prophylaxis - General VTE prophylaxis initiated: yes (Heparin gtt) Timothy Rizzo 07/06/22 6244: Attestations Physician Attestation Agree w/findings plan: I was present with Dustin Peralta NP during the h istory and examination. I discussed the case and agree with the fi ndings and plan as documented in Dustin Peralta's note. Labs reviewed. Pertinent imaging personally revi ewed. Discussed plan with other members of the [facility] are team. at 1424 Electronically Signed by Timothy Rizzo MD on 07/06 at 2341 RPT #:[id number] END OF REPORT 2022-06-25 11:02:00-00:00 [facility] ([facility]) Trauma Progress Note REPORT#:[id number] REPORT STATUS: Signed DATE:06/25/22 TIME: 1102 PATIENT: TEODORA SANTANA UNIT #: [id number] ROOM/BED: [place] [id number] : 83 AGE: 36 SEX: F ATTEND: Scott Britt DO ADM AUTHOR: Dustin Peralta * ALL edits or amendments must be made on the [employer]/computer document * Dustin Peralta 06/25/22 1102: Subjective Chief complaint: RLE pain, fracture s/p fall HPI: No events reported overnight pain very well cont rolled Review of Systems Constitutional: Denies: fever. Respiratory: Denies: SOB. Cardiovascular: Denies: chest pain. All systems rev neg: except as marked Objective Physical Exam VS/I O: Vital Signs: Date Time Temp Pulse Resp B/P B/P Pulse O2 O2 F low FiO2 Mean Ox Delivery Rate 06/25 0719 36.7 80 20 117/74 88.7 95 Room air 06/25 0421 36.8 76 16 110/68 82.2 98 Room air 06/24 2330 37.1 110 14 119/70 86.1 95 Room air 06/24 1902 37.3 95 14 122/73 89.2 97 Room air 06/24 1649 37.1 95 20 107/64 78.6 97 Room air 06/24 1153 36.8 93 18 113/71 84.9 97 Room air 24 hour I O ending at 0700: 06/25 0700 06/24 1900 Intake Total Output Total 600 Balance -600 Output, Urine 600 Patient 90.265 kg Weight PATIENT WEIGHT: Weight (lb): 199 Weight (oz): 15.35 Weight (kg): 90.265 Medications: Active Meds + DC'd Last 24 Hrs Oxycodone HCl (OxyCONTIN) 20 MG Q12HR PO Ferric Sodium Gluconate Complex (FERRLECIT) 125 MG DAILY IV Sodium Chloride (SODIUM CHLORIDE 0.9%) 100 ML Pantoprazole (PROTONIX) 40 MG DAILY@0600 PO Ibuprofen (IBUPROFEN) 400 MG Q8HR PO Morphine Sulfate (morphine SULFATE) 4 MG Q4H PRN PRN IV Oxycodone/Acetaminophen (PERCOCET 5/325MG TAB) 2 TAB Q4H PRN PRN PO Trazodone HCl (DESYREL) 100 MG BEDTIME PRN PRN P O Polyethylene Glycol (MIRALAX) 17 GM DAILY PO Gabapentin (NEURONTIN) 300 MG BID PO Heparin Sodium (HEPARIN 5000 UNITS/ML) 0 ASDIR P RN IV Heparin Sodium (Porcine) (HEPARIN 25,000 UNITS/ 1/2NS 500ML) 500 ML ASDIR IV (CKD) Ondansetron HCl (ZOFRAN) 4 MG Q4H PRN PRN IV Results Findings/Data: Laboratory Tests 06/25 06/25 06/24 1013 0155 1630 Coagulation PTT ([place]) (25.0 - 39.5 Seconds) 62.4 H 112.9 H 43.3 H Laboratory Tests 06/25 06/24 0155 1630 Hematology WBC (4.5 - 11.0 x10 3/uL) 9.7 RBC (3.54 - 5.02 x10 6/uL) 2.67 L Hgb (11.0 - 15.0 g/dL) 6.8 L 7.4 L Hct (33.0 - 45.0 %) 22.1 L 23.8 L MCV (81.0 - 99.0 fL) 82.8 MCH (27.0 - 33.0 pg) 25.5 L MCHC (33.0 - 37.0 g/dL) 30.8 L RDW (11.5 - 14.5 %) 15.0 H Plt Count (150 - 400 x10 3/uL) 339 MPV (7.0 - 9.0 fL) 9.0 Neut % (Auto) (56.0 - 77.0 %) 65.9 Lymph % (Auto) (14.0 - 32.0 %) 26.2 [place] % (Auto) (4.8 - 9.0 %) 5.9 Eos % (Auto) (0.3 - 3.7 %) 1.1 Baso % (Auto) (0.0 - 2.0 %) 0.2 Neut # (Auto) (2.0 - 7.6 x10 3/uL) 6.36 Lymph # (Auto) (1.0 - 3.8 x10 3/uL) 2.53 [place] # (Auto) (0.1 - 0.8 x10 3/uL) 0.57 Eos # (Auto) (0.0 - 0.2 x10 3/uL) 0.11 Baso # (Auto) (0.0 - 0.2 x10 3/uL) 0.02 Abs Immat Gran (auto) (0.00 - 0.03 x10 3/uL) 0. 07 H Add Manual Diff NO Immature Gran % (0.0 - 2.0 %) 0.7 Nucleated RBC % (0 - 0 %) 0.0 Nucleated RBCs # (Man) (0.0 - 0.1 x10 3/uL) 0.0 0 Results: labs reviewed, vital signs reviewed, vi ruth signs stable Free Text Obj Notes Free Text Obj Notes: Constitutional: GCS 15, patient awake, alert, no acute distress, HR, BP, O2 saturation reviewed in records Eyes: pupils equal, round, reactive to light, EO IA HENT: normal cephalic, atraumatic, no facial ten derness or crepitus, normal external inspection of ears/nose, no septal emile grisel Neck: trachea midline, no crepitus, thyroid with out mass CV: regular rate, rhythm, bi lateral radial pulses 2+, no cyanosis, no edema, no pulsatile abdominal mass Respiratory: lungs clear bilaterally, respiratio ns even and unlabored, no tenderness to palpation, normal inspection of ch est, no crepitus Abdomen: soft, non-tender, non-distended, no mas ses, no hernia noted : normal external genitalia, pelvis stable Lymph nodes: no cervical or supraclavicular mass es noted Musculoskeletal: -Left upper extremity without focal tenderness, without deformity, with ROM intact -Right upper extremity without focal tenderness, without deformity, with ROM intact -Left lower extremity without focal tenderness, without deformity, with ROM intact -Right lower extremity with ONEAL wrap and ex-fix, some pin site shadowing noted, area marked, NV intact distally -no cervical spine tenderness with full ROM -no thoracic/lumbar spine tenderness or step-off Skin: skin warm to palpation. Psychiatric: normal mood and affect, memory inta ct Neurologic: face symmetrical. Bilateral upper an d lower extremity sensation intact Diagnosis, Assessment Plan Hospital course to date: 06/21: Patient has extensive chronic pain history we have consulted pain management for closer management. Given patient's complex history we have also added a hematology oncology consult related to h er clotting deficiencies and began a heparin drip for DVT prophylaxis as we discontinue the Eliquis and await further recommendations from hematology. Dr. Headley with orthopedics planning for surgery or Friday 06/22: RLE ex-fix placed (Dr. Glover). Definitive repair likely next week, approx. Saturday 06/23: No acute events overnight. Pain controlled , tolerating PO intake. On Heparin gtt. Waiting for definitive repair. 06/24: Bleeding controlled, Pain controlled. Nicolle tor H H 06/25: Repeat H H today drops below 7 with OR planning mid next week in the soft H H over the last 24-48. We will transfuse 1 uni t PRBCs Free Text A P: Mechanism: Trip and Fall Injuries: Tibal Plat Fx Active Problems: Pain Protein S deficiency Resolved Problems: Incidental findings: Chronic Medical Problems: Protein S deficency (o n Eliquis), IA, Blood clots, Depression, Anxiety, PTSD, T hrombectomy, Wrist sx, Pre-cancer ovarian, + smoking , social alcohol, Cocaine Hx, Meth Hx DVT prophylaxis: SCDs, Heparin gtt GI prophylaxis: diet Lines/Quezada/ETT: PIV Consultants: Ortho, [facility], [facility], Dana Procedures: 06/22: RLE ex-fix (Adalberto) Plan: Tibal Plat Fx * Ortho following * Splinted PULMONOLOGY PHYSICIAN * Multimodal Pain control with IV and PO narcotic and non-narcotic medications * pain management following * Tertiary trauma survey completed * Elevate * PT/OT eval/treat, NWB RLE * plan for definitive repair next week (likely ) History of Protein S deficency * Hematology following * on Heparin gtt Anemia * Post Operative and in correlation to the Hepar in requirements * Repeat H H now * Transfuse for less than 7 Diet: Regular Labs: AM PT/OT recs: eval/treat, NWB RLE DME: recs pending Code status: Full code Medical Decision Making: In the event the patient is incapacitated and not able to make their own medical decisions, the y have elected Shahriar, contact number [phone], to make medical decisions f or them. Dispo: Admit; will continue to monitor f or ICU needs or any further changes to level of care Anticipated Date of Discharge/Trauma Clearance: TBD Quality: Trauma Gen Surg Advanced Care Plan 65 or Older Discussed with: patient Current Medications Current medication review: I attest that the foregoing medication list in t he medical record is true, accurate, and complete to the best of my knowled ge. VTE Prophylaxis - General VTE prophylaxis initiated: yes (Heparin gtt) Timothy Rizzo 07/06/22 2324: Attestations Physician Attestation Agree w/findings plan: I was present with Dustin Peralta NP during the h istory and examination. I discussed the case and agree with the fi ndings and plan as documented in Dustin Peralta's note. Labs reviewed. Pertinent imaging personally revi ewjabari. Discussed plan with other members of the [facility] are team. at 1104 Electronically Signed by Timothy Rizzo MD on 07/06 at 2328 RPT #:[id number] END OF REPORT 2022-06-24 16:30:00-00:00 [facility] ([facility]) Emile/Oncology Progress Note REPORT#:[id number] REPORT STATUS: Signed DATE:06/24/22 TIME: 1630 PATIENT: TEODORA SANTANA UNIT #: [id number] ROOM/BED: [place] [address] : 83 AGE: 36 SEX: F ATTEND: Scott Britt DO ADM AUTHOR: Adrian Cortez MD * ALL edits or amendments must be made on the el [employer]/computer document * Subjective Chief Complaint: Some pain in right leg. Objective Physical Exam VS: Vital Signs Date Temp Pulse Resp B/P B/P Mean Pulse Ox FiO2 06/23-06/24 36.8-36.9 73-93 14-18 98-113/62-71 73.6-84.9 97-98 Last Documented: Result Date Time Pulse Ox 97 06/24 1153 B/P 113/71 06/24 1153 B/P Mean 84.9 06/24 1153 O2 Delivery Room air 06/24 1153 Temp 36.8 06/24 1153 Pulse 93 06/24 1153 Resp 18 06/24 1153 O2 Flow Rate 2 06/22 1230 General appearance: alert, awake HEENT: atraumatic, normocephalic Neck: full range of motion, non-tender, supple/n o meningismus, no JVD, no lymphadenopathy Cardiovascular: regular rate and rhythm Respiratory: clear to auscultation Abdomen: non-tender, normal bowel sounds , soft, no distention, no guarding, no mass/organomegaly, no rebound Extremities: moves all, normal capillary refill, no edema Musculoskeletal: full range of motion, normal in spection Neuro/CONTRACT MANAGER: alert, oriented X 3 Results Findings/Data: Laboratory Tests 06/24/22 0130: [Embedded Image Not Available] Laboratory Tests 06/24 1722 Coagulation PTT (Marissa) (25.0 - 39.5 Seconds) 70.7 H 49.6 H 116.7 H Laboratory Tests 06/24 130 Hematology WBC (4.5 - 11.0 x10 3/uL) 8.6 RBC (3.54 - 5.02 x10 6/uL) 2.72 L Hgb (11.0 - 15.0 g/dL) 7.0 L Hct (33.0 - 45.0 %) 22.2 L MCV (81.0 - 99.0 fL) 81.6 MCH (27.0 - 33.0 pg) 25.7 L MCHC (33.0 - 37.0 g/dL) 31.5 L RDW (11.5 - 14.5 %) 14.6 H Plt Count (150 - 400 x10 3/uL) 300 MPV (7.0 - 9.0 fL) 9.2 H Neut % (Auto) (56.0 - 77.0 %) 60.3 Lymph % (Auto) (14.0 - 32.0 %) 32.5 H [place] % (Auto) (4.8 - 9.0 %) 5.8 Eos % (Auto) (0.3 - 3.7 %) 0.3 Baso % (Auto) (0.0 - 2.0 %) 0.2 Neut # (Auto) (2.0 - 7.6 x10 3/uL) 5.18 Lymph # (Auto) (1.0 - 3.8 x10 3/uL) 2.80 [place] # (Auto) (0.1 - 0.8 x10 3/uL) 0.50 Eos # (Auto) (0.0 - 0.2 x10 3/uL) 0.03 Baso # (Auto) (0.0 - 0.2 x10 3/uL) 0.02 Abs Immat Gran (auto) (0.00 - 0.03 x10 3/uL) 0. 08 H Add Manual Diff NO Immature Gran % (0.0 - 2.0 %) 0.9 Nucleated RBC % (0 - 0 %) 0.0 Nucleated RBCs # (Man) (0.0 - 0.1 x10 3/uL) 0.0 0 Radiology data: Current Medications Sig/Maricruz Start time Last Medication Dose Route Stop Time Status Admin Oxycodone HCl 20 MG Q12HR 06/23 1045 AC 06/24 PO 06/28 2059 0757 Ferric Sodium 125 MG DAILY 06/23 09 AC 06/24 Gluconate Complex IV 06/30 0959 0958 Sodium Chloride 100 ML Pantoprazole 40 MG DAILY@0600 06/23 0600 AC PO 07/23 0559 0627 Ibuprofen 400 MG Q8HR 06/22 2200 AC 06/24 PO 07/22 2159 0207 Morphine Sulfate 4 MG Q4H PRN PRN 06/22 184 AC 06/23 IV 08/06 1300 0835 Oxycodone/ 2 TAB Q4H PRN PRN 06/22 184 AC 06/09 6 Acetaminophen PO 08/06 1300 1117 Trazodone HCl 100 MG BEDTIME PRN PRN 06/22 1800 AC 06/22 PO 07/22 1759 2223 Polyethylene Glycol 17 GM DAILY 06/22 0900 AC 0 06/24 PO 07/22 0859 0757 Gabapentin 300 MG BID 06/21 2100 AC 06/24 PO 07/21 205 0757 Heparin Sodium 0 ASDIR PRN 06/21 1145 AC 06/24 IV 07/21 1144 0237 Heparin Sodium 500 ML ASDIR 06/21 1145 CKD 06/09 6 (Porcine) IV 07/21 1144 1344 Ondansetron HCl 4 MG Q4H PRN PRN 06/21 1130 AC IV 07/21 1129 Results: labs reviewed, vital signs stable Diagnosis, Assessment Plan Free Text DxA P Notes Free Text DxA P Notes: ASSESSMENT: * Trauma status post fall resulting in a right t ibial plateau fracture. 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 Patient had been on anticoagulation with Eliquis . * Normocytic, hypochromic anemia, associ ated with iron deficiency with patient having history of heavy menstrual cycles for the past few years. PLAN: * Continue with IV heparin for anticoagulation f or thromboembolic prophylaxis especially with patient having right lower extre mity fracture and needing multiple surgeries. * Status post closed reduction and uniplanar ext ernal fixation by orthopedic surgery today. * Plans for more definitive internal fixation on 06/30/2022. * Continue with IV heparin which can certainly b e held prior to surgery and resumed afterwards. Once patient is done with more definitive surgery, she can be converted to oral anticoagulant, Eliquis. * Continue with parenteral iron with For illicit , 2/8 infusions. * Monitor CBC. * I will continue to follow. Electronically Signed by Adrian Cortez MD on at 1633 RPT #:[id number] END OF REPORT 2022-06-24 10:52:00-00:00 [facility] Trauma Progress Note REPORT#:[id number] REPORT STATUS: Signed DATE:06/24/22 TIME: 1052 PATIENT: TEODORA SANTANA UNIT #: [id number] ROOM/BED: 653-1 : 83 AGE: 36 SEX: F ATTEND: Scott Britt DO ADM AUTHOR: Dustin Peralta * ALL edits or amendments must be made on the [employer]/computer document * Dustin Peralta 06/24/22 1052: Subjective Chief complaint: RLE pain, fracture s/p fall HPI: No events bleeding from pin sites controlled Review of Systems Constitutional: Denies: fever. Respiratory: Denies: SOB. Cardiovascular: Denies: chest pain. All systems rev neg: except as marked Objective Physical Exam VS/I O: Vital Signs: Date Time Temp Pulse Resp B/P B/P Pulse O2 O2 F low FiO2 Mean Ox Delivery Rate 06/24 0336 36.9 73 14 98/62 73.6 97 Room air 06/23 2331 36.8 74 14 106/66 79.6 98 Room air 06/23 1908 36.9 86 14 113/64 80.2 98 Room air 06/23 1600 36.5 78 18 95/58 70.2 98 06/23 1128 36.5 81 18 108/69 82.2 98 PATIENT WEIGHT: Weight (lb): 199 Weight (oz): 15.35 Weight (kg): 90.700 Medications: Active Meds + DC'd Last 24 Hrs Oxycodone HCl (OxyCONTIN) 20 MG Q12HR PO Ferric Sodium Gluconate Complex (FERRLECIT) 125 MG DAILY IV Sodium Chloride (SODIUM CHLORIDE 0.9%) 100 ML Pantoprazole (PROTONIX) 40 MG DAILY@0600 PO Ibuprofen (IBUPROFEN) 400 MG Q8HR PO Morphine Sulfate (morphine SULFATE) 4 MG Q4H PRN PRN IV Oxycodone/Acetaminophen (PERCOCET 5/325MG TAB) 2 TAB Q4H PRN PRN PO Trazodone HCl (DESYREL) 100 MG BEDTIME PRN PRN P O Polyethylene Glycol (MIRALAX) 17 GM DAILY PO Acetaminophen (TYLENOL EXTRA STRENGTH) 1,000 MG PREOP ONCALL PO (DC) Gabapentin (NEURONTIN) 200 MG PREOP ONCALL PO (D C) Lactated Ringer's (LACTATED RINGERS) 1,000 ML HI EOP ONCALL IV (DC) Lidocaine HCl (LIDOCAINE HCL/PF) 2 ML PREOP ONCA LL LOCAL (DC) Lidocaine HCl (LIDOCAINE HCL/PF) 2 ML PREOP ONCA LL LOCAL (DC) Sodium Chloride (SODIUM CHLORIDE 0.9%) 500 ML HI EOP ONCALL IV (DC) Sodium Chloride (SODIUM CHLORIDE 0.9%) 500 ML HI EOP ONCALL IV (DC) Sodium Chloride (SODIUM CHLORIDE 0.9%) 1,000 ML PREOP ONCALL IV (DC) Sodium Chloride (SODIUM CHLORIDE) 5 ML ASDIR PRN IV (DC) Sodium Chloride (SODIUM CHLORIDE) 10 ML ASDIR HI N IV (DC) Sodium Chloride (SODIUM CHLORIDE 0.9%) 250 ML DIR PRN IV (DC) Sodium Chloride (SODIUM CHLORIDE) 20 ML ASDIR IV (DC) Gabapentin (NEURONTIN) 300 MG BID PO Heparin Sodium (HEPARIN 5000 UNITS/ML) 0 ASDIR P RN IV Heparin Sodium (Porcine) (HEPARIN 25,000 UNITS/ 1/2NS 500ML) 500 ML ASDIR IV (CKD) Ondansetron HCl (ZOFRAN) 4 MG Q4H PRN PRN IV Results Findings/Data: Laboratory Tests 06/2415 0130 1722 Coagulation PTT (Marissa) (25.0 - 39.5 Seconds) 70.7 H 49.6 H 116.7 H Laboratory Tests 06/24 0130 Hematology WBC (4.5 - 11.0 x10 3/uL) 8.6 RBC (3.54 - 5.02 x10 6/uL) 2.72 L Hgb (11.0 - 15.0 g/dL) 7.0 L Hct (33.0 - 45.0 %) 22.2 L MCV (81.0 - 99.0 fL) 81.6 MCH (27.0 - 33.0 pg) 25.7 L MCHC (33.0 - 37.0 g/dL) 31.5 L RDW (11.5 - 14.5 %) 14.6 H Plt Count (150 - 400 x10 3/uL) 300 MPV (7.0 - 9.0 fL) 9.2 H Neut % (Auto) (56.0 - 77.0 %) 60.3 Lymph % (Auto) (14.0 - 32.0 %) 32.5 H [place] % (Auto) (4.8 - 9.0 %) 5.8 Eos % (Auto) (0.3 - 3.7 %) 0.3 Baso % (Auto) (0.0 - 2.0 %) 0.2 Neut # (Auto) (2.0 - 7.6 x10 3/uL) 5.18 Lymph # (Auto) (1.0 - 3.8 x10 3/uL) 2.80 [place] # (Auto) (0.1 - 0.8 x10 3/uL) 0.50 Eos # (Auto) (0.0 - 0.2 x10 3/uL) 0.03 Baso # (Auto) (0.0 - 0.2 x10 3/uL) 0.02 Abs Immat Gran (auto) (0.00 - 0.03 x10 3/uL) 0. 08 H Add Manual Diff NO Immature Gran % (0.0 - 2.0 %) 0.9 Nucleated RBC % (0 - 0 %) 0.0 Nucleated RBCs # (Man) (0.0 - 0.1 x10 3/uL) 0.0 0 Results: labs reviewed, vital signs reviewed, vi ruth signs stable, current med profile rev'd Free Text Obj Notes Free Text Obj Notes: Constitutional: GCS 15, patient awake, alert, no acute distress, HR, BP, O2 saturation reviewed in records Eyes: pupils equal, round, reactive to light, EO IA HENT: normal cephalic, atraumatic, no facial ten derness or crepitus, normal external inspection of ears/nose, no septal emile grisel Neck: trachea midline, no crepitus, thyroid with out mass CV: regular rate, rhythm, bi lateral radial pulses 2+, no cyanosis, no edema, no pulsatile abdominal mass Respiratory: lungs clear bilaterally, respiratio ns even and unlabored, no tenderness to palpation, normal inspection of ch est, no crepitus Abdomen: soft, non-tender, non-distended, no mas ses, no hernia noted : normal external genitalia, pelvis stable Lymph nodes: no cervical or supraclavicular mass es noted Musculoskeletal: -Left upper extremity without focal tenderness, without deformity, with ROM intact -Right upper extremity without focal tenderness, without deformity, with ROM intact -Left lower extremity without focal tenderness, without deformity, with ROM intact -Right lower extremity with ONEAL wrap and ex-fix, some pin site shadowing noted, area marked, NV intact distally -no cervical spine tenderness with full ROM -no thoracic/lumbar spine tenderness or step-off Skin: skin warm to palpation. Psychiatric: normal mood and affect, memory inta ct Neurologic: face symmetrical. Bilateral upper an d lower extremity sensation intact Diagnosis, Assessment Plan Hospital course to date: 06/21: Patient has extensive chronic pain history we have consulted pain management for closer management. Given patient's complex history we have also added a hematology oncology consult related to h er clotting deficiencies and began a heparin drip for DVT prophylaxis as we discontinue the Eliquis and await further recommendations from hematology. Dr. Headley with orthopedics planning for surgery or Friday 06/22: RLE ex-fix placed (Dr. Glover). Definitive repair likely next week, approx. Saturday 06/23: No acute events overnight. Pain controlled , tolerating PO intake. On Heparin gtt. Waiting for definitive repair. 06/24: Bleeding controlled, Pain controlled. Nicolle tor H H Free Text A P: Mechanism: Trip and Fall Injuries: Tibal Plat Fx Active Problems: Pain Protein S deficiency Resolved Problems: Incidental findings: Chronic Medical Problems: Protein S deficency (o n Eliquis), IA, Blood clots, Depression, Anxiety, PTSD, T hrombectomy, Wrist sx, Pre-cancer ovarian, + smoking , social alcohol, Cocaine Hx, Meth Hx DVT prophylaxis: SCDs, Heparin gtt GI prophylaxis: diet Lines/Quezada/ETT: PIV Consultants: OrthoRamírez, Luz HematologyDana Procedures: 06/22: RLE ex-fix (Adalberto) Plan: Tibal Plat Fx * Ortho following * Splinted PULMONOLOGY PHYSICIAN * Multimodal Pain control with IV and PO narcotic and non-narcotic medications * pain management following * Tertiary trauma survey completed * Elevate * PT/OT eval/FRANCOIS grider * plan for definitive repair next week (likely w ) History of Protein S deficency * Hematology following * on Heparin gtt Anemia * Post Operative and in correlation to the Hepar in requirements * Repeat H H now * Transfuse for less than 7 Diet: Regular Labs: AM PT/OT recs: eval/FRANCOIS grider DME: recs pending Code status: Full code Medical Decision Making: In the event the patient is incapacitated and not able to make their own medical decisions, the y have elected Shahriar, contact number [phone], to make medical decisions f or them. Dispo: Admit; will continue to monitor f or ICU needs or any further changes to level of care Anticipated Date of Discharge/Trauma Clearance: TBD Quality: Trauma Gen Surg Advanced Care Plan 65 or Older Discussed with: patient Current Medications Current medication review: I attest that the foregoing medication list in t he medical record is true, accurate, and complete to the best of my knowled ge. VTE Prophylaxis - General VTE prophylaxis initiated: yes (Heparin gtt) Timothy Rizzo 06/24/22 1551: Attestations Physician Attestation Agree w/findings plan: I was present with Dustin Peralta NP during the h istory and examination. I discussed the case and agree with the fi ndings and plan as documented in Dustin Peralta's note. Labs reviewed. Pertinent imaging personally revi renetta. Discussed plan with other members of the [facility] are team. at 1057 Electronically Signed by Timothy Rizzo MD on 06/24 at 1606 RPT #:[id number] END OF REPORT 2022-06-24 09:12:00-00:00 [facility] ([facility]) Pain Management Progress Note REPORT#:[id number] REPORT STATUS: Signed DATE:06/24/22 TIME: 911 PATIENT: TEODORA SANTANA UNIT #: [id number] ROOM/BED: [place] [id number] : 83 AGE: 36 SEX: F ATTEND: Scott Britt DO ADM AUTHOR: Sly Escobar * ALL edits or amendments must be made on the [employer]/computer document * Sly Escobar 06/24/22 0912: Subjective Chief complaint: Patient seen and examined. Chart/MAR reviewed. Patient is doing well today with recent medication changes. No urgent concerns. Patient being seen for Acute pain due to trauma, acute postoperative pain, Idiopathic neuropathy Patient is still requiring medications to help w ith managing current problems. Patient is requiring IV narcotics to help manage breakthrough pain No fever/chills, chest pain, orthopnea, nausea/v omiting, pruritus, or hallucinations. 14 point ROS undertaken unremarkable except as n oted Objective General VS/I O: Vital Signs Date Temp Pulse Resp B/P B/P Mean Pulse Ox FiO2 06/23-06/24 36.5-36.9 73-93 14-18 95-113/58-71 70.2-84.9 97-98 Last Documented: Result Date Time Pulse Ox 97 06/24 1153 B/P 113/71 06/24 1153 B/P Mean 84.9 06/24 1153 O2 Delivery Room air 06/24 1153 Temp 36.8 06/24 1153 Pulse 93 06/24 1153 Resp 18 06/24 1153 O2 Flow Rate 2 06/22 1230 PATIENT WEIGHT: Weight (lb): 199 Weight (oz): 15.35 Weight (kg): 90.265 Medications: Active Meds + DC'd Last 24 Hrs Oxycodone HCl (OxyCONTIN) 20 MG Q12HR PO Ferric Sodium Gluconate Complex (FERRLECIT) 125 MG DAILY IV Sodium Chloride (SODIUM CHLORIDE 0.9%) 100 ML Pantoprazole (PROTONIX) 40 MG DAILY@0600 PO Ibuprofen (IBUPROFEN) 400 MG Q8HR PO Morphine Sulfate (morphine SULFATE) 4 MG Q4H PRN PRN IV Oxycodone/Acetaminophen (PERCOCET 5/325MG TAB) 2 TAB Q4H PRN PRN PO Trazodone HCl (DESYREL) 100 MG BEDTIME PRN PRN P O Polyethylene Glycol (MIRALAX) 17 GM DAILY PO Acetaminophen (TYLENOL EXTRA STRENGTH) 1,000 MG PREOP ONCALL PO (DC) Gabapentin (NEURONTIN) 200 MG PREOP ONCALL PO (D C) Lactated Ringer's (LACTATED RINGERS) 1,000 ML HI EOP ONCALL IV (DC) Lidocaine HCl (LIDOCAINE HCL/PF) 2 ML PREOP ONCA LL LOCAL (DC) Lidocaine HCl (LIDOCAINE HCL/PF) 2 ML PREOP ONCA LL LOCAL (DC) Sodium Chloride (SODIUM CHLORIDE 0.9%) 500 ML HI EOP ONCALL IV (DC) Sodium Chloride (SODIUM CHLORIDE 0.9%) 500 ML HI EOP ONCALL IV (DC) Sodium Chloride (SODIUM CHLORIDE 0.9%) 1,000 ML PREOP ONCALL IV (DC) Sodium Chloride (SODIUM CHLORIDE) 5 ML ASDIR PRN IV (DC) Sodium Chloride (SODIUM CHLORIDE) 10 ML ASDIR HI N IV (DC) Sodium Chloride (SODIUM CHLORIDE 0.9%) 250 ML DIR PRN IV (DC) Sodium Chloride (SODIUM CHLORIDE) 20 ML ASDIR IV (DC) Gabapentin (NEURONTIN) 300 MG BID PO Heparin Sodium (HEPARIN 5000 UNITS/ML) 0 ASDIR P RN IV Heparin Sodium (Porcine) (HEPARIN 25,000 UNITS/ 1/2NS 500ML) 500 ML ASDIR IV (CKD) Ondansetron HCl (ZOFRAN) 4 MG Q4H PRN PRN IV Physical Exam General appearance: alert, awake, oriented, no a cute distress Head/eyes: atraumatic, EOMI, normocephalic, norm al conjunctiva/sclera, PERRLA ENT: normal nose Cardiovascular: regular rate rhythm Respiratory: symmetric expansion Abdomen: soft, non-tender, no distention , active bowel sounds in all quadrant. Extremities: moves all, no edema Neuro/CONTRACT MANAGER: no motor deficits, no sensory deficit s, CNII-XII grossly intact Lymphatics: no lymphadenopathy Psychiatry: normal affect Results Findings/data: Laboratory Tests: 06/24 06/24 06/23 0915 0130 1722 Coagulation PTT ([place]) (25.0 - 39.5 Seconds) 70.7 H 49.6 H 116.7 H Hematology WBC (4.5 - 11.0 x10 3/uL) 8.6 RBC (3.54 - 5.02 x10 6/uL) 2.72 L Hgb (11.0 - 15.0 g/dL) 7.0 L Hct (33.0 - 45.0 %) 22.2 L MCV (81.0 - 99.0 fL) 81.6 MCH (27.0 - 33.0 pg) 25.7 L MCHC (33.0 - 37.0 g/dL) 31.5 L RDW (11.5 - 14.5 %) 14.6 H Plt Count (150 - 400 x10 3/uL) 300 MPV (7.0 - 9.0 fL) 9.2 H Neut % (Auto) (56.0 - 77.0 %) 60.3 Lymph % (Auto) (14.0 - 32.0 %) 32.5 H [place] % (Auto) (4.8 - 9.0 %) 5.8 Eos % (Auto) (0.3 - 3.7 %) 0.3 Baso % (Auto) (0.0 - 2.0 %) 0.2 Neut # (Auto) (2.0 - 7.6 x10 3/uL) 5.18 Lymph # (Auto) (1.0 - 3.8 x10 3/uL) 2.80 [place] # (Auto) (0.1 - 0.8 x10 3/uL) 0.50 Eos # (Auto) (0.0 - 0.2 x10 3/uL) 0.03 Baso # (Auto) (0.0 - 0.2 x10 3/uL) 0.02 Abs Immat Gran (auto) (0.00 - 0.03 x10 3/uL) 0. 08 H Add Manual Diff NO Immature Gran % (0.0 - 2.0 %) 0.9 Nucleated RBC % (0 - 0 %) 0.0 Nucleated RBCs # (Man) (0.0 - 0.1 x10 3/uL) 0.0 0 Diagnosis, Assessment Plan Free text A P: A/P: Patient is a 36 year old female who presents wit h right tib-fib fracture Past Medical History: Venous thrombus on, protein S deficiency, chronic neck and back pain, right tib-fib fracture Past Surgical History: 06/22/2022-closed reductio n of right proximal tibia and fibula fracture. Application of uniplanar cable tender al fixator Family History: Noncontributory Social History: Positive for alcohol use Allergies: Tramadol Acute pain due to trauma, acute postoperative pa in -Status post right tib-fib fracture -06/22/2022-closed reduction of right proximal ti therese and fibula fracture. Application of uniplanar external fixator -oxycontin 20mg BID -Percocet 10/325 1 tablet p.o. every 4 hours as needed pain scale 4 10 -Morphine 4 mg IV every 4 hours as needed pain s dheeraj 7 out of 10, second line therapy -Motrin 400 mg p.o. every 8 hours (Protonix 40 mg p.o. daily for GI prophylaxis) -manageable Idiopathic neuropathy -Gabapentin 300 mg p.o. twice daily -manageable Disposition: Patient has failed conservative medical therapy. Patient will require monitoring while utilize na rcotic medications for any adverse effects, and will adjust as needed Plan of care discussed with patient and nurse All diagnostics of last 24 hours been reviewed. Risks versus benefits of opioid medications were reviewed to include, but not limited to respiratory depression, accid ental overdose, altered mental status, sudden , constipation which could result in bowel obstruction, seizures, withdrawal, dependency addiction, risk for falls . Case discussed with Dr Gaspar whom agrees. Thank you for the consultation. [place] MEDIA RELATIONS MANAGER: Total Prescriptions 14 Total Private Pay 0 Total Prescribers 2 Total Pharmacies 4 05/26/2022 04/28/2022 2 ACET AMINOPHEN-COD #4 TABLET 90.00 30 Ga Hol [id number] He[facility] ( [id number]) 1 27.00 MME Comm Ins [place] 04/28/2022 04/28/2022 1 ACET AMINOPHEN-COD #4 TABLET 90.00 30 Ga Hol [id number] He[facility] ( 5115) 0 27.00 MME Comm Ins [place] 04/15/2022 04/14/2022 1 ACET AMINOPHEN-COD #4 TABLET 30.00 10 Ga Hol [id number] Uni ([id number]) 0 27.00 MME Other [place] 03/18/2022 11/19/2021 1 ACET AMINOPHEN-COD #4 TABLET 90.00 30 Ga Hol [id number] Uni (9378) 1 27.00 MME Other [place] 02/18/2022 11/19/2021 1 ACET AMINOPHEN-COD #4 TABLET 90.00 30 Ga Hol [id number] Uni (9378) 0 27.00 MME Other [place] 01/21/2022 11/19/2021 1 ACET AMINOPHEN-COD #4 TABLET 90.00 30 Ga Hol [id number] Uni (9378) 1 27.00 MME Other [place] 12/24/2021 11/19/2021 1 ACET AMINOPHEN-COD #4 TABLET 90.00 30 Ga Hol [id number] Uni (9378) 0 27.00 [place]ME Other [place] 12/15/2021 12/15/2021 1 PREGABALIN 75 MG CAPSULE 30.00 15 Swe [id number] H e ( 6933) 0 1.00 LME Comm Ins [place] 11/26/2021 11/19/2021 1 ACET AMINOPHEN-COD #4 TABLET 90.00 30 Ga Hol [id number] Hen (6789) 0 27.00 MME Comm Ins [place] 10/29/2021 10/27/2021 1 ACET AMINOPHEN-COD #4 TABLET 90.00 30 Ga Hol [id number] Uni (9378) 0 27.00 MME Other [place] 10/01/2021 09/23/2021 1 ACET AMINOPHEN-COD #4 TABLET 90.00 30 Ga Hol [id number] Uni (9378) 0 27.00 MME Other [place] 09/04/2021 09/01/2021 1 ACET AMINOPHEN-COD #3 TABLET 90.00 30 Ga Hol [id number] Hen (7709) 0 13.50 MME Comm Ins [place] [facility] #578 ([phone]) [address] [place] [address] [facility] ([phone]) [address] [place] [address] - [facility] [address] ([phone]) [address] [place] [address] - [facility]700 [phone]) [address] [place] [address] Tam Gaspar 06/26/22 0744: Attestations Physician Attestation Agree w/findings plan: The patient was seen and exa mined by Sly Escobar. I personally developed the care plan, which was continued by the mid-level provider. I was immediately available. at 1443 Electronically Signed by Tam Gaspar MD on 2 at 0804 RPT #:[id number] END OF REPORT 2022-06-24 07:39:00-00:00 [facility] ([facility]) Orthopaedic Progress Note REPORT#:[id number] REPORT STATUS: Signed DATE:06/24/22 TIME: 0739 PATIENT: TEODORA SANTANA UNIT #: [id number] ROOM/BED: 653-1 : 83 AGE: 36 SEX: F ATTEND: Scott Britt DO ADM AUTHOR: Jonathan Glover [facility] * ALL edits or amendments must be made on the el [employer]/computer document * Subjective HPI: Patient resting comfortably in bed. Denies fevers, chills, nausea, or vomiting. Complains of pain (4/10) in right lower extremit y at fracture site. Objective VS: Last Documented: Result Date Time Pulse Ox 97 06/24 336 B/P 98/62 06/24 336 B/P Mean 73.6 06/24 336 O2 Delivery Room air 06/24 336 Temp 36.9 06/24 336 Pulse 73 06/24 033 Resp 14 06/24 336 O2 Flow Rate 2 06/22 1230 PATIENT WEIGHT: Weight (lb): 199 Weight (oz): 15.35 Weight (kg): 90.700 Results Findings/data: Laboratory Tests 06/24 1722 1045 Coagulation PTT (Marissa) (25.0 - 39.5 Seconds) 49.6 H 116.7 H 97.5 H Laboratory Tests 06/24 130 Hematology WBC (4.5 - 11.0 x10 3/uL) 8.6 RBC (3.54 - 5.02 x10 6/uL) 2.72 L Hgb (11.0 - 15.0 g/dL) 7.0 L Hct (33.0 - 45.0 %) 22.2 L MCV (81.0 - 99.0 fL) 81.6 MCH (27.0 - 33.0 pg) 25.7 L MCHC (33.0 - 37.0 g/dL) 31.5 L RDW (11.5 - 14.5 %) 14.6 H Plt Count (150 - 400 x10 3/uL) 300 MPV (7.0 - 9.0 fL) 9.2 H Neut % (Auto) (56.0 - 77.0 %) 60.3 Lymph % (Auto) (14.0 - 32.0 %) 32.5 H [place] % (Auto) (4.8 - 9.0 %) 5.8 Eos % (Auto) (0.3 - 3.7 %) 0.3 Baso % (Auto) (0.0 - 2.0 %) 0.2 Neut # (Auto) (2.0 - 7.6 x10 3/uL) 5.18 Lymph # (Auto) (1.0 - 3.8 x10 3/uL) 2.80 [place] # (Auto) (0.1 - 0.8 x10 3/uL) 0.50 Eos # (Auto) (0.0 - 0.2 x10 3/uL) 0.03 Baso # (Auto) (0.0 - 0.2 x10 3/uL) 0.02 Abs Immat Gran (auto) (0.00 - 0.03 x10 3/uL) 0. 08 H Add Manual Diff NO Immature Gran % (0.0 - 2.0 %) 0.9 Nucleated RBC % (0 - 0 %) 0.0 Nucleated RBCs # (Man) (0.0 - 0.1 x10 3/uL) 0.0 0 X-ray interpretation: No new imaging today. Free Text Obj Notes Free Text Obj Notes: The patient is alert and oriented. All 4 extremities are warm and well-perfused. The patient is taking bilateral equal breath eff orts. No petechiae, rashes, or adenopathy. Right lower extremity: Oneal wrap with long leg posterior splint as well as knee spanning external fixation; pin sites are angela n and dry with a small amount of dried blood around the pins distally. Compartments are full but easily compressible There is 3/5 motor strength in EHL/FHL. Sensation is intact to light touch in the S/S/SP /DP/T distribution. Toes are warm and well-perfused with brisk capil marlee refill. Homans' sign is negative Diagnosis, Assessment Plan Free text A P: Teodora Santana is a 36-year-old female with a histo ry of Protein S deficiency on [facility] transferred to [facility] for evaluation and treatment of displaced closed right proximal tibia and fibula fractures . She is status post closed reduction of a proxima l right tibia and fibula fracture with knee spanning external fixation on 06/22/2022. -Surgery: Plan is for removal of the external fi xation device and definitive internal fixation on 06/30/2022. The patient shou ld be kept inpatient during this time for monitoring of the soft tissues. -Weight bearing status: Nonweightbearing right lower extremity in the external fixator with a long-leg posterior splint -Antibiotics: Ancef x 24 hours postoperatively ( completed) -Diet: Okay to eat -Labs: CBC/BMP/coags -Tranfuse as needed; would recommend a threshold Hb of 8.0 -DVT prophylaxis: Currently on a heparin drip -We will need a definitive plan for her anticoag ulation prior to surgery next week. I would prefer to stop the heparin drip on-call to the OR, then restarted afterwards -Multimodal pain control -Imaging: No new imaging at this time -Dressings: Oneal wrap with th e above-mentioned splint. This may be reinforced as necessary. -PT/OT -Dispo pending second stage surgery at 0744 RPT #:[id number] END OF REPORT 2022-06-23 19:50:00-00:00 [facility] Emile/Oncology Progress Note REPORT#:[id number] REPORT STATUS: Signed DATE:06/23/22 TIME: 1949 PATIENT: TEODORA SANTANA UNIT #: [id number] ROOM/BED: [place] [address] : 83 AGE: 36 SEX: F ATTEND: Scott Britt DO ADM AUTHOR: Adrian Cortez MD * ALL edits or amendments must be made on the [employer]/computer document * Subjective Chief Complaint: Status post close reduction and uniplanar cable tender al fixation by orthopedic surgery. Denies any complaints. Objective Physical Exam VS: Vital Signs Date Temp Pulse Resp B/P B/P Mean Pulse Ox FiO2 06/22-06/23 36.5-36.9 71-88 14-18 95-113/58-69 70.2-82.2 96-99 Last Documented: Result Date Time Pulse Ox 98 06/23 1908 B/P 113/64 06/23 1908 B/P Mean 80.2 06/23 1908 O2 Delivery Room air 06/23 1908 Temp 36.9 06/23 1908 Pulse 86 06/23 1908 Resp 14 06/23 1908 O2 Flow Rate 2 06/22 1230 General appearance: alert, awake HEENT: atraumatic, normocephalic Neck: full range of motion, non-tender, supple/n o meningismus, no JVD, no lymphadenopathy Cardiovascular: regular rate and rhythm Respiratory: clear to auscultation Abdomen: non-tender, normal bowel sounds , soft, no distention, no guarding, no mass/organomegaly, no rebound Extremities: moves all, normal capillary refill, no edema Musculoskeletal: full range of motion, normal in spection Neuro/CONTRACT MANAGER: alert, oriented X 3 Results Findings/Data: Laboratory Tests 06/23/22 0330: [Embedded Image Not Available] Laboratory Tests 06/23 06/23 06/23 06/22 1722 1045 0330 2100 Coagulation PTT (Marissa) (25.0 - 39.5 Seconds) 116.7 H 97.5 H 39.0 65.2 H Laboratory Tests 06/23 0330 Hematology WBC (4.5 - 11.0 x10 3/uL) 12.9 H RBC (3.54 - 5.02 x10 6/uL) 3.05 L Hgb (11.0 - 15.0 g/dL) 7.8 L Hct (33.0 - 45.0 %) 24.9 L MCV (81.0 - 99.0 fL) 81.6 MCH (27.0 - 33.0 pg) 25.6 L MCHC (33.0 - 37.0 g/dL) 31.3 L RDW (11.5 - 14.5 %) 14.0 Plt Count (150 - 400 x10 3/uL) 282 MPV (7.0 - 9.0 fL) 9.4 H Neut % (Auto) (56.0 - 77.0 %) 87.4 H Lymph % (Auto) (14.0 - 32.0 %) 6.8 L [place] % (Auto) (4.8 - 9.0 %) 5.4 Eos % (Auto) (0.3 - 3.7 %) 0.0 L Baso % (Auto) (0.0 - 2.0 %) 0.0 Neut # (Auto) (2.0 - 7.6 x10 3/uL) 11.31 H Lymph # (Auto) (1.0 - 3.8 x10 3/uL) 0.88 L [place] # (Auto) (0.1 - 0.8 x10 3/uL) 0.70 Eos # (Auto) (0.0 - 0.2 x10 3/uL) 0.00 Baso # (Auto) (0.0 - 0.2 x10 3/uL) 0.00 Abs Immat Gran (auto) (0.00 - 0.03 x10 3/uL) 0. 05 H Add Manual Diff NO Immature Gran % (0.0 - 2.0 %) 0.4 Nucleated RBC % (0 - 0 %) 0.0 Nucleated RBCs # (Man) (0.0 - 0.1 x10 3/uL) 0.0 0 Radiology data: Current Medications Sig/Maricruz Start time Last Medication Dose Route Stop Time Status Admin Ketorolac 15 MG ONCE ONE 06/23 1045 DC 06/23 Tromethamine IV 06/23 1046 1252 Oxycodone HCl 20 MG Q12HR 06/23 1045 AC 06/23 PO 06/28 2059 1252 Ferric Sodium 125 MG DAILY 06/23 0900 AC 06/23 Gluconate Complex IV 06/30 09 1015 Sodium Chloride 100 ML Pantoprazole 40 MG DAILY@0600 06/23 0600 AC PO 07/23 0559 0603 Ibuprofen 400 MG Q8HR 06/22 2200 AC 06/23 PO 07/22 215 1323 Carboxymethylcellul- 1 DROP TID 06/22 2100 CAN ose Sodium EACH EYE 07/22 2059 Morphine Sulfate 4 MG Q4H PRN PRN 06/22 1845 AC 06/23 IV 08/06 1300 0835 Oxycodone/ 2 TAB Q4H PRN PRN 06/22 1845 AC 06/09 5 Acetaminophen PO 08/06 1300 1015 Trazodone HCl 100 MG BEDTIME PRN PRN 06/22 1800 AC 06/22 PO 07/22 1759 2223 Cefazolin Sodium 2 GM Q8H 06/22 1730 DC 06/23 IV 06/23 0131 0225 Hydralazine HCl 5 MG PACU Q10MIN PRN PRN 06/22 1200 DC IV 06/22 2151 Insulin Human Lispro 0 PACU ONCE PRN 06/22 1200 DC SUBQ 06/22 2151 Labetalol HCl 5 MG PACU Q10MIN PRN PRN 06/22 12 00 DC IV 06/22 2151 Ondansetron HCl 4 MG PACU ONCE PRN 06/22 1200 D C 06/22 IV 06/22 2151 1206 Promethazine HCl 25 MG PACU ONCE PRN 06/22 1200 DC PO 06/22 2151 Ropivacaine 150 MG ASDIR PRN 06/22 1200 DC LOCAL 06/22 2151 Polyethylene Glycol 17 GM DAILY 06/22 0900 AC 06/23 PO 07/22 0859 0836 Acetaminophen 1,000 MG PREOP ONCALL 06/22 0730 DC 06/22 PO 07/22 2359 0913 Gabapentin 200 MG PREOP ONCALL 06/22 0730 DC PO 07/22 2359 Lactated Ringer's 1,000 ML PREOP ONCALL 06/22 0 730 DC IV 07/22 2359 Lidocaine HCl 2 ML PREOP ONCALL 06/22 0730 DC LOCAL 07/22 2359 Lidocaine HCl 2 ML PREOP ONCALL 06/22 0730 DC LOCAL 07/22 2359 Sodium Chloride 500 ML PREOP ONCALL 06/22 0730 DC IV 07/22 2359 Sodium Chloride 500 ML PREOP ONCALL 06/22 0730 DC IV 07/22 2359 Sodium Chloride 1,000 ML PREOP ONCALL 06/22 073 0 DC IV 07/22 2359 Sodium Chloride 5 ML ASDIR PRN 06/22 0730 DC IV 07/22 0729 Sodium Chloride 10 ML ASDIR PRN 06/22 0730 DC IV 07/22 0729 Sodium Chloride 250 ML ASDIR PRN 06/22 0730 DC IV 07/22 0729 Cefazolin Sodium 2 GM PREOP ONCALL 06/22 0500 D C IV 06/22 2359 Sodium Chloride 20 ML ASDIR 06/21 2245 DC 06/22 IV 07/21 2244 1750 Gabapentin 300 MG BID 06/21 2100 AC 06/23 PO 07/21 2059 0836 Heparin Sodium 0 ASDIR PRN 06/21 1145 AC 06/23 IV 07/21 1144 0423 Heparin Sodium 500 ML ASDIR 06/21 1145 CKD (Porcine) IV 07/21 1144 1055 Ondansetron HCl 4 MG Q4H PRN PRN 06/21 1130 AC IV 07/21 1129 Results: labs reviewed, vital signs stable Diagnosis, Assessment Plan Free Text DxA P Notes Free Text DxA P Notes: ASSESSMENT: * Trauma status post fall resulting in a right t ibial plateau fracture. 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 Patient had been on anticoagulation with Eliquis . * Normocytic, hypochromic anemia, associ ated with iron deficiency with patient having history of heavy menstrual cycles for the past few years. PLAN: * Continue with IV heparin for anticoagulation f or thromboembolic prophylaxis especially with patient having right lower extre mity fracture and needing multiple surgeries. * Status post closed reduction and uniplanar ext ernal fixation by orthopedic surgery today. * Started on parenteral iron with Feraheme. * I will continue to follow. Electronically Signed by Adrian Cortez MD on at 1952 RPT #:[id number] END OF REPORT 2022-06-23 15:11:00-00:00 [facility] ([facility]) Pain Management Progress Note REPORT#:[id number] REPORT STATUS: Signed DATE:06/23/22 TIME: 1510 PATIENT: TEODORA SANTANA UNIT #: [id number] ROOM/BED: [place] [address] : 83 AGE: 36 SEX: F ATTEND: Scott Britt DO ADM AUTHOR: Sly Escobar * ALL edits or amendments must be made on the [employer]/computer document * Sly Escobar 06/23/221510: Subjective Chief complaint: Patient seen and examined. Chart/MAR reviewed. Patients is asking for more injectable IV medica tions. I explained her those only last about 60minutes and i would rather add a long acting medicine. She again fixates on either morp jordana IV or Dilaudid IV which she asked for by name. I will add Oxycontin 20mg BID today. Patient being seen for Acute pain due to trauma, acute postoperative pain, Idiopathic neuropathy Patient is still requiring medications to help w ith managing current problems. Patient is requiring IV narcotics to help manage breakthrough pain No fever/chills, chest pain, orthopnea, nausea/v omiting, pruritus, or hallucinations. 14 point ROS undertaken unremarkable except as n oted Objective General VS/I O: Vital Signs Date Temp Pulse Resp B/P B/P Mean Pulse Ox FiO2 06/22-06/23 36.5-36.9 71-91 14-20 102-134/66-75 77.7-93.7 94-99 Last Documented: Result Date Time Pulse Ox 98 06/23 1128 B/P 108/69 06/23 1128 B/P Mean 82.2 06/23 1128 Temp 36.5 06/23 1128 Pulse 81 06/23 1128 Resp 18 06/23 1128 O2 Delivery Room air 06/23 0434 O2 Flow Rate 2 06/22 1230 24 hour I O ending at 0700: 06/23 0700 06/22 1900 Intake Total 1250 1055.00 Output Total 900 Balance 350 1055.00 Intake, IV 200.00 Intake, Oral 1250 855 Number 0 Bowel Movements Number Voids 1 Output, Urine 900 Patient 90.7 kg Weight Weight Stated/Reported Measurement Method PATIENT WEIGHT: Weight (lb): 199 Weight (oz): 15.35 Weight (kg): 90.700 Medications: Active Meds + DC'd Last 24 Hrs Ketorolac Tromethamine (TORADOL) 15 MG ONCE ONE IV (DC) Oxycodone HCl (OxyCONTIN) 20 MG Q12HR PO Ferric Sodium Gluconate Complex (FERRLECIT) 125 MG DAILY IV Sodium Chloride (SODIUM CHLORIDE 0.9%) 100 ML Pantoprazole (PROTONIX) 40 MG DAILY@0600 PO Ibuprofen (IBUPROFEN) 400 MG Q8HR PO Carboxymethylcellulose Sodium (REFRESH TEARS) 1 DROP TID EACH EYE (CAN) Morphine Sulfate (morphine SULFATE) 4 MG Q4H PRN PRN IV Oxycodone/Acetaminophen (PERCOCET 5/325MG TAB) 2 TAB Q4H PRN PRN PO Trazodone HCl (DESYREL) 100 MG BEDTIME PRN PRN P O Cefazolin Sodium (KEFZOL OR ANCEF) 2 GM Q8H IV ( DC) Fentanyl Citrate (SUBLIMAZE) 100 MCG PACU Q10MIN PRN PRN IV (DC) Fentanyl Citrate (SUBLIMAZE) 50 MCG PACU Q10MIN PRN PRN IV (DC) Hydralazine HCl (APRESOLINE) 5 MG PACU Q10MIN HI N PRN IV (DC) Hydrocodone Bitart/Acetaminophen (NORCO 5/325) 1 TAB PACU ONCE PO (DC) Hydromorphone HCl (DILAUDID) 1 MG PACU Q10MIN HI N PRN IV (DC) Hydromorphone HCl (DILAUDID) 0.5 MG PACU Q5MIN P RN PRN IV (DC) Insulin Human Lispro (HUMALOG) 0 PACU ONCE PRN S UBQ (DC) Labetalol HCl (LABETALOL HCL) 5 MG PACU Q10MIN P RN PRN IV (DC) Meperidine HCl (DEMEROL 50MG/ML) 12.5 MG PACU ON CE PRN IV (DC) Morphine Sulfate (morphine SULFATE) 2 MG PACU Q1 0MIN PRN PRN IV (DC) Ondansetron HCl (ZOFRAN) 4 MG PACU ONCE PRN IV ( DC) Promethazine HCl (PHENERGAN) 25 MG PACU ONCE PRN PO (DC) Ropivacaine (NAROPIN 0.5% 150 MG/30mL) 150 MG DIR PRN LOCAL (DC) Polyethylene Glycol (MIRALAX) 17 GM DAILY PO Acetaminophen (TYLENOL EXTRA STRENGTH) 1,000 MG PREOP ONCALL PO (CKD) Gabapentin (NEURONTIN) 200 MG PREOP ONCALL PO (C KD) Lactated Ringer's (LACTATED RINGERS) 1,000 ML HI EOP ONCALL IV Lidocaine HCl (LIDOCAINE HCL/PF) 2 ML PREOP ONCA LL LOCAL Lidocaine HCl (LIDOCAINE HCL/PF) 2 ML PREOP ONCA LL LOCAL Sodium Chloride (SODIUM CHLORIDE 0.9%) 500 ML HI EOP ONCALL IV Sodium Chloride (SODIUM CHLORIDE 0.9%) 500 ML HI EOP ONCALL IV Sodium Chloride (SODIUM CHLORIDE 0.9%) 1,000 ML PREOP ONCALL IV Sodium Chloride (SODIUM CHLORIDE) 5 ML ASDIR PRN IV Sodium Chloride (SODIUM CHLORIDE) 10 ML ASDIR HI N IV Sodium Chloride (SODIUM CHLORIDE 0.9%) 250 ML DIR PRN IV Cefazolin Sodium (KEFZOL OR ANCEF) 2 GM PREOP MEDICAL ASSEMBLY IV (DC) Sodium Chloride (SODIUM CHLORIDE) 20 ML ASDIR IV Gabapentin (NEURONTIN) 300 MG BID PO Oxycodone HCl (ROXICODONE) 5 MG Q4H PRN PRN PO ( DC) Morphine Sulfate (morphine SULFATE) 6 MG Q4H PRN PRN IV (DC) Heparin Sodium (HEPARIN 5000 UNITS/ML) 0 ASDIR P RN IV Heparin Sodium (Porcine) (HEPARIN 25,000 UNITS/ 1/2NS 500ML) 500 ML ASDIR IV (CKD) Acetaminophen (TYLENOL EXTRA STRENGTH) 1,000 MG Q6H PO (DC) Ondansetron HCl (ZOFRAN) 4 MG Q4H PRN PRN IV Oxycodone HCl (ROXICODONE) 10 MG Q6H PRN PRN PO (DC) Physical Exam General appearance: alert, awake, oriented, no a cute distress, conversational Head/eyes: atraumatic, EOMI, normocephalic, norm al conjunctiva/sclera, PERRLA Cardiovascular: regular rate rhythm Abdomen: soft, non-tender, no distention , active bowel sounds in all quadrant. Extremities: moves all, no edema Neuro/CONTRACT MANAGER: no motor deficits, no sensory deficit s, CNII-XII grossly intact Lymphatics: no lymphadenopathy Psychiatry: normal affect Results Findings/data: Laboratory Tests: 06/23 06/23 06/22 1045 0330 2100 Coagulation PTT ([place]) (25.0 - 39.5 Seconds) 97.5 H 39.0 65 .2 H Hematology WBC (4.5 - 11.0 x10 3/uL) 12.9 H RBC (3.54 - 5.02 x10 6/uL) 3.05 L Hgb (11.0 - 15.0 g/dL) 7.8 L Hct (33.0 - 45.0 %) 24.9 L MCV (81.0 - 99.0 fL) 81.6 MCH (27.0 - 33.0 pg) 25.6 L MCHC (33.0 - 37.0 g/dL) 31.3 L RDW (11.5 - 14.5 %) 14.0 Plt Count (150 - 400 x10 3/uL) 282 MPV (7.0 - 9.0 fL) 9.4 H Neut % (Auto) (56.0 - 77.0 %) 87.4 H Lymph % (Auto) (14.0 - 32.0 %) 6.8 L [place] % (Auto) (4.8 - 9.0 %) 5.4 Eos % (Auto) (0.3 - 3.7 %) 0.0 L Baso % (Auto) (0.0 - 2.0 %) 0.0 Neut # (Auto) (2.0 - 7.6 x10 3/uL) 11.31 H Lymph # (Auto) (1.0 - 3.8 x10 3/uL) 0.88 L [place] # (Auto) (0.1 - 0.8 x10 3/uL) 0.70 Eos # (Auto) (0.0 - 0.2 x10 3/uL) 0.00 Baso # (Auto) (0.0 - 0.2 x10 3/uL) 0.00 Abs Immat Gran (auto) (0.00 - 0.03 x10 3/uL) 0. 05 H Add Manual Diff NO Immature Gran % (0.0 - 2.0 %) 0.4 Nucleated RBC % (0 - 0 %) 0.0 Nucleated RBCs # (Man) (0.0 - 0.1 x10 3/uL) 0.0 0 Diagnosis, Assessment Plan Free text A P: A/P: Patient is a 36 year old female who presents wit h right tib-fib fracture Past Medical History: Venous thrombus on, protein S deficiency, chronic neck and back pain, right tib-fib fracture Past Surgical History: 06/22/2022-closed reductio n of right proximal tibia and fibula fracture. Application of uniplanar cable tender al fixator Family History: Noncontributory Social History: Positive for alcohol use Allergies: Tramadol Acute pain due to trauma, acute postoperative pa in -Status post right tib-fib fracture -06/22/2022-closed reduction of right proximal ti therese and fibula fracture. Application of uniplanar external fixator -oxycontin 20mg BID -Percocet 10/325 1 tablet p.o. every 4 hours as needed pain scale 4 10 -Morphine 4 mg IV every 4 hours as needed pain s dheeraj 7 out of 10, second line therapy -Motrin 400 mg p.o. every 8 hours (Protonix 40 mg p.o. daily for GI prophylaxis) -manageable Idiopathic neuropathy -Gabapentin 300 mg p.o. twice daily -manageable Disposition: Patient has failed conservative medical therapy. Patient will require monitoring while utilize na rcotic medications for any adverse effects, and will adjust as needed Plan of care discussed with patient and nurse All diagnostics of last 24 hours been reviewed. Risks versus benefits of opioid medications were reviewed to include, but not limited to respiratory depression, accid ental overdose, altered mental status, sudden , constipation which could result in bowel obstruction, seizures, withdrawal, dependency addiction, risk for falls . Case discussed with Dr Gaspar whom agrees. Thank you for the consultation. [place] MEDIA RELATIONS MANAGER: Total Prescriptions 14 Total Private Pay 0 Total Prescribers 2 Total Pharmacies 4 05/26/2022 04/28/2022 2 ACET AMINOPHEN-COD #4 TABLET 90.00 30 Ga Hol [id number] [facility] ( 5115) 1 27.00 MME Comm Ins [place] 04/28/2022 04/28/2022 1 ACET AMINOPHEN-COD #4 TABLET 90.00 30 Ga Hol [id number] [facility] ( 5115) 0 27.00 MME Comm Ins [place] 04/15/2022 04/14/2022 1 ACET AMINOPHEN-COD #4 TABLET 30.00 10 Ga Hol [id number] Uni (9378) 0 27.00 MME Other [place] 03/18/2022 11/19/2021 1 ACET AMINOPHEN-COD #4 TABLET 90.00 30 Ga Hol [id number] Uni (9378) 1 27.00 MME Other [place] 02/18/2022 11/19/2021 1 ACET AMINOPHEN-COD #4 TABLET 90.00 30 Ga Hol [id number] Uni (9378) 0 27.00 MME Other [place] 01/21/2022 11/19/2021 1 ACET AMINOPHEN-COD #4 TABLET 90.00 30 Ga Hol [id number] Uni (9378) 1 27.00 MME Other [place] 12/24/2021 11/19/2021 1 ACET AMINOPHEN-COD #4 TABLET 90.00 30 Ga Hol [id number] Uni (9378) 0 27.00 MME Other [place] 12/15/2021 12/15/2021 1 PREGABALIN 75 MG CAPSULE 30.00 15 [facility] [id number] H e ( 6623) 0 1.00 LME Comm Ins [place] 11/26/2021 11/19/2021 1 ACET AMINOPHEN-COD #4 TABLET 90.00 30 Ga Hol [id number] Hen (6676) 0 27.00 MME Comm Ins [place] 10/29/2021 10/27/2021 1 ACET AMINOPHEN-COD #4 TABLET 90.00 30 Ga Hol [id number] Uni (9378) 0 27.00 MME Other [place] 10/01/2021 09/23/2021 1 ACET AMINOPHEN-COD #4 TABLET 90.00 30 Ga Hol [id number] Uni (9378) 0 27.00 MME Other [place] 09/04/2021 09/01/2021 1 ACET AMINOPHEN-COD #3 TABLET 90.00 30 Ga Hol [id number] Hen (7709) 0 13.50 MME Comm Ins [place] [facility]578 ([phone]) [address] [place] [address] [facility] ([phone]) [address] [place] [address] - [facility] [address] ([phone]) [address] [place] [address] - [facility] ([phone]) [address] [place] [address] Tam Gaspar 06/24/22 1654: Attestations Physician Attestation Agree w/findings plan: The patient was seen and exa mined by Sly Escobar. I personally developed the care plan, which was continued by the mid-level provider. I was immediately available. at 1514 Electronically Signed by Tam Gaspar MD on 2 at 1705 RPT #:[id number] END OF REPORT 2022-06-23 15:07:00-00:00 [facility] Pain Management Progress Note REPORT#:[id number] REPORT STATUS: Signed DATE:06/23/22 TIME: 150 PATIENT: TEODORA SANTANA UNIT #: [id number] ROOM/BED: [place] [id number] : 83 AGE: 36 SEX: F ATTEND: Scott Britt DO ADM AUTHOR: Sly Escobar * ALL edits or amendments must be made on the [employer]/computer document * Sly Escobar 06/23/22 1507: Subjective Chief complaint: Patient seen and examined. Chart/MAR reviewed. Patients pain is controlled today. Patient being seen for Acute pain due to trauma, acute postoperative pain, Idiopathic neuropathy Patient is still requiring medications t o help with managing current problems. Patient is requiring IV narcotics to help manage breakthrough pain No fever/chills, chest pain, orthopnea, nausea/v omiting, pruritus, or hallucinations. 14 point ROS undertaken unremarkable except as n oted Objective General VS/I O: Vital Signs Date Temp Pulse Resp B/P B/P Mean Pulse Ox FiO2 06/22-06/23 36.5-36.9 71-91 14-20 102-134/66-75 77.7-93.7 94-99 Last Documented: Result Date Time Pulse Ox 98 06/23 1128 B/P 108/69 06/23 1128 B/P Mean 82.2 06/23 1128 Temp 36.5 06/23 1128 Pulse 81 06/23 1128 Resp 18 06/23 1128 O2 Delivery Room air 06/23 0434 O2 Flow Rate 2 06/22 1230 24 hour I O ending at 0700: 06/23 0700 06/22 1900 Intake Total 1250 1055.00 Output Total 900 Balance 350 1055.00 Intake, IV 200.00 Intake, Oral 1250 855 Number 0 Bowel Movements Number Voids 1 Output, Urine 900 Patient 90.7 kg Weight Weight Stated/Reported Measurement Method PATIENT WEIGHT: Weight (lb): 199 Weight (oz): 15.35 Weight (kg): 90.700 Medications: Active Meds + DC'd Last 24 Hrs Ketorolac Tromethamine (TORADOL) 15 MG ONCE ONE IV (DC) Oxycodone HCl (OxyCONTIN) 20 MG Q12HR PO Ferric Sodium Gluconate Complex (FERRLECIT) 125 MG DAILY IV Sodium Chloride (SODIUM CHLORIDE 0.9%) 100 ML Pantoprazole (PROTONIX) 40 MG DAILY@0600 PO Ibuprofen (IBUPROFEN) 400 MG Q8HR PO Carboxymethylcellulose Sodium (REFRESH TEARS) 1 DROP TID EACH EYE (CAN) Morphine Sulfate (morphine SULFATE) 4 MG Q4H PRN PRN IV Oxycodone/Acetaminophen (PERCOCET 5/325MG TAB) 2 TAB Q4H PRN PRN PO Trazodone HCl (DESYREL) 100 MG BEDTIME PRN PRN P O Cefazolin Sodium (KEFZOL OR ANCEF) 2 GM Q8H IV ( DC) Fentanyl Citrate (SUBLIMAZE) 100 MCG PACU Q10MIN PRN PRN IV (DC) Fentanyl Citrate (SUBLIMAZE) 50 MCG PACU Q10MIN PRN PRN IV (DC) Hydralazine HCl (APRESOLINE) 5 MG PACU Q10MIN HI N PRN IV (DC) Hydrocodone Bitart/Acetaminophen (NORCO 5/325) 1 TAB PACU ONCE PO (DC) Hydromorphone HCl (DILAUDID) 1 MG PACU Q10MIN HI N PRN IV (DC) Hydromorphone HCl (DILAUDID) 0.5 MG PACU Q5MIN P RN PRN IV (DC) Insulin Human Lispro (HUMALOG) 0 PACU ONCE PRN S UBQ (DC) Labetalol HCl (LABETALOL HCL) 5 MG PACU Q10MIN P RN PRN IV (DC) Meperidine HCl (DEMEROL 50MG/ML) 12.5 MG PACU ON CE PRN IV (DC) Morphine Sulfate (morphine SULFATE) 2 MG PACU Q1 0MIN PRN PRN IV (DC) Ondansetron HCl (ZOFRAN) 4 MG PACU ONCE PRN IV ( DC) Promethazine HCl (PHENERGAN) 25 MG PACU ONCE PRN PO (DC) Ropivacaine (NAROPIN 0.5% 150 MG/30mL) 150 MG DIR PRN LOCAL (DC) Polyethylene Glycol (MIRALAX) 17 GM DAILY PO Acetaminophen (TYLENOL EXTRA STRENGTH) 1,000 MG PREOP ONCALL PO (CKD) Gabapentin (NEURONTIN) 200 MG PREOP ONCALL PO (C KD) Lactated Ringer's (LACTATED RINGERS) 1,000 ML HI EOP ONCALL IV Lidocaine HCl (LIDOCAINE HCL/PF) 2 ML PREOP ONCA LL LOCAL Lidocaine HCl (LIDOCAINE HCL/PF) 2 ML PREOP ONCA LL LOCAL Sodium Chloride (SODIUM CHLORIDE 0.9%) 500 ML HI EOP ONCALL IV Sodium Chloride (SODIUM CHLORIDE 0.9%) 500 ML HI EOP ONCALL IV Sodium Chloride (SODIUM CHLORIDE 0.9%) 1,000 ML PREOP ONCALL IV Sodium Chloride (SODIUM CHLORIDE) 5 ML ASDIR PRN IV Sodium Chloride (SODIUM CHLORIDE) 10 ML ASDIR HI N IV Sodium Chloride (SODIUM CHLORIDE 0.9%) 250 ML DIR PRN IV Cefazolin Sodium (KEFZOL OR ANCEF) 2 GM PREOP MEDICAL ASSEMBLY IV (DC) Sodium Chloride (SODIUM CHLORIDE) 20 ML ASDIR IV Gabapentin (NEURONTIN) 300 MG BID PO Oxycodone HCl (ROXICODONE) 5 MG Q4H PRN PRN PO ( DC) Morphine Sulfate (morphine SULFATE) 6 MG Q4H PRN PRN IV (DC) Heparin Sodium (HEPARIN 5000 UNITS/ML) 0 ASDIR P RN IV Heparin Sodium (Porcine) (HEPARIN 25,000 UNITS/ 1/2NS 500ML) 500 ML ASDIR IV (CKD) Acetaminophen (TYLENOL EXTRA STRENGTH) 1,000 MG Q6H PO (DC) Ondansetron HCl (ZOFRAN) 4 MG Q4H PRN PRN IV Oxycodone HCl (ROXICODONE) 10 MG Q6H PRN PRN PO (DC) Physical Exam General appearance: alert, awake, oriented, no a cute distress, conversational Head/eyes: atraumatic, EOMI, normocephalic, norm al conjunctiva/sclera, PERRLA Cardiovascular: regular rate rhythm Abdomen: soft, non-tender, no distention , active bowel sounds in all quadrant. Extremities: moves all, no edema Neuro/CONTRACT MANAGER: no motor deficits, no sensory deficit s, CNII-XII grossly intact Lymphatics: no lymphadenopathy Psychiatry: normal affect Results Findings/data: Laboratory Tests: 06/23 06/23 06/22 1045 0330 2100 Coagulation PTT ([place]) (25.0 - 39.5 Seconds) 97.5 H 39.0 6 5.2 H Hematology WBC (4.5 - 11.0 x10 3/uL) 12.9 H RBC (3.54 - 5.02 x10 6/uL) 3.05 L Hgb (11.0 - 15.0 g/dL) 7.8 L Hct (33.0 - 45.0 %) 24.9 L MCV (81.0 - 99.0 fL) 81.6 MCH (27.0 - 33.0 pg) 25.6 L MCHC (33.0 - 37.0 g/dL) 31.3 L RDW (11.5 - 14.5 %) 14.0 Plt Count (150 - 400 x10 3/uL) 282 MPV (7.0 - 9.0 fL) 9.4 H Neut % (Auto) (56.0 - 77.0 %) 87.4 H Lymph % (Auto) (14.0 - 32.0 %) 6.8 L [place] % (Auto) (4.8 - 9.0 %) 5.4 Eos % (Auto) (0.3 - 3.7 %) 0.0 L Baso % (Auto) (0.0 - 2.0 %) 0.0 Neut # (Auto) (2.0 - 7.6 x10 3/uL) 11.31 H Lymph # (Auto) (1.0 - 3.8 x10 3/uL) 0.88 L [place] # (Auto) (0.1 - 0.8 x10 3/uL) 0.70 Eos # (Auto) (0.0 - 0.2 x10 3/uL) 0.00 Baso # (Auto) (0.0 - 0.2 x10 3/uL) 0.00 Abs Immat Gran (auto) (0.00 - 0.03 x10 3/uL) 0. 05 H Add Manual Diff NO Immature Gran % (0.0 - 2.0 %) 0.4 Nucleated RBC % (0 - 0 %) 0.0 Nucleated RBCs # (Man) (0.0 - 0.1 x10 3/uL) 0.0 0 Diagnosis, Assessment Plan Free text A P: A/P: Patient is a 36 year old female who presents wit h right tib-fib fracture Past Medical History: Venous thrombus on, protein S deficiency, chronic neck and back pain, right tib-fib fracture Past Surgical History: 06/22/2022-closed reductio n of right proximal tibia and fibula fracture. Application of uniplanar cable tender al fixator Family History: Noncontributory Social History: Positive for alcohol use Allergies: Tramadol Acute pain due to trauma, acute postoperative pa in -Status post right tib-fib fracture -06/22/2022-closed reduction of right proximal ti therese and fibula fracture. Application of uniplanar external fixator -Percocet 10/325 1 tablet p.o. every 4 hours as needed pain scale 4 10 -Morphine 4 mg IV every 4 hours as needed pain s dheeraj 7 out of 10, second line therapy -Motrin 400 mg p.o. every 8 hours (Protonix 40 mg p.o. daily for GI prophylaxis) -manageable Idiopathic neuropathy -Gabapentin 300 mg p.o. twice daily -manageable Disposition: Patient has failed conservative medical therapy. Patient will require monitoring while utilize na rcotic medications for any adverse effects, and will adjust as needed Plan of care discussed with patient and nurse All diagnostics of last 24 hours been reviewed. Risks versus benefits of opioid medications were reviewed to include, but not limited to respiratory depression, accid ental overdose, altered mental status, sudden , constipation which could result in bowel obstruction, seizures, withdrawal, dependency addiction, risk for falls . Case discussed with Dr Gaspar whom agrees. Thank you for the consultation. [place] MEDIA RELATIONS MANAGER: Total Prescriptions 14 Total Private Pay 0 Total Prescribers 2 Total Pharmacies 4 05/26/2022 04/28/2022 2 ACET AMINOPHEN-COD #4 TABLET 90.00 30 [place] Hol [id number] Heb ( [id number]) 1 27.00 MME Comm Ins [place] 04/28/2022 04/28/2022 1 ACET AMINOPHEN-COD #4 TABLET 90.00 30 Ga Hol [id number] Heb ( [id number]) 0 27.00 MME Comm Ins [place] 04/15/2022 04/14/2022 1 ACET AMINOPHEN-COD #4 TABLET 30.00 10 Ga Hol [id number] Uni ([id number]) 0 27.00 MME Other [place] 03/18/2022 11/19/2021 1 ACET AMINOPHEN-COD #4 TABLET 90.00 30 Ga Hol [id number] Uni ([id number]) 1 27.00 MME Other [place] 02/18/2022 11/19/2021 1 ACET AMINOPHEN-COD #4 TABLET 90.00 30 Ga Hol [id number] Uni ([id number]) 0 27.00 MME Other [place] 01/21/2022 11/19/2021 1 ACET AMINOPHEN-COD #4 TABLET 90.00 30 Ga Hol [id number] Uni ([id number]) 1 27.00 MME Other [place] 12/24/2021 11/19/2021 1 ACET AMINOPHEN-COD #4 TABLET 90.00 30 Ga Hol [id number] Uni ([id number]) 0 27.00 MME Other [place] 12/15/2021 12/15/2021 1 PREGABALIN 75 MG CAPSULE 30.00 15 [facility] [id number] H e ( [id number]) 0 1.00 LME Comm Ins [place] 11/26/2021 11/19/2021 1 ACET AMINOPHEN-COD #4 TABLET 90.00 30 Ga Hol [id number] Hen (7709) 0 27.00 MME Comm Ins [place] 10/29/2021 10/27/2021 1 ACET AMINOPHEN-COD #4 TABLET 90.00 30 Ga Hol [id number] Uni ([id number]) 0 27.00 MME Other [place] 10/01/2021 09/23/2021 1 ACET AMINOPHEN-COD #4 TABLET 90.00 30 Ga Hol [id number] Uni ([id number]) 0 27.00 MME Other [place] 09/04/2021 09/01/2021 1 ACET AMINOPHEN-COD #3 TABLET 90.00 30 Ga Hol [id number] Hen (7709) 0 13.50 MME Comm Ins [place] [id number] ([id number]) [address] [place] [id number] [facility] ([id number]) [address] [facility] [place] [address] - [facility] [address] ([phone]) [address] [place] [address] - [facility] ([id number]) [address] [place] [address] Tam Gaspar 06/24/22 1653: Attestations Physician Attestation Agree w/findings plan: The patient was seen and exa mined by Sly Escobar. I personally developed the care plan, which was continued by the mid-level provider. I was immediately available. at 1510 Electronically Signed by Tam Gaspar MD on 2 at 1705 RPT #:[id number] END OF REPORT 2022-06-23 08:45:00-00:00 [facility] ([facility]) Trauma Progress Note REPORT#:[id number] REPORT STATUS: Signed DATE:06/23/22 TIME: 0845 PATIENT: TEODORA SANTANA UNIT #: [id number] ROOM/BED: [place] [id number] : 83 AGE: 36 SEX: F ATTEND: Scott Britt DO ADM AUTHOR: Sofi Cordoba APRNNP * ALL edits or amendments must be made on the [employer]/computer document * Sofi Cordoba 06/23/22 0845: Subjective Chief complaint: RLE pain, fracture s/p fall HPI: No acute events overnight. s /p RLE ex-fix placement with ortho (Dr. Glover) on , definitive repair likely next week. Pain controlled, tolerating PO intake. On Heparin gtt. Review of Systems Constitutional: Denies: fever. Respiratory: Denies: MUIR (dyspnea on exertion), SOB. Cardiovascular: Denies: chest pain. GI: Reports: nausea (mild). Denies: abdominal pain, vomiting. Musculoskeletal: Extremity pain: Reports: right lower (pain controlled). Neuro: Denies: change in LOC. All systems rev neg: except as marked Objective Physical Exam VS/I O: Vital Signs: Date Time Temp Pulse Resp B/P B/P Pulse O2 O2 F low FiO2 Mean Ox Delivery Rate 06/23 1128 36.5 81 18 108/69 82.2 98 06/23 0758 36.7 71 18 104/67 79.1 99 06/23 0434 36.6 75 16 105/67 79.5 96 Room air 06/22 2314 36.8 74 14 108/66 80.0 97 Room air 06/22 2002 36.9 88 15 102/66 77.7 96 Room air 06/22 1640 36.9 91 20 132/75 93.7 94 Room air 06/22 1537 36.7 90 18 134/72 92.4 95 Room air 24 hour I O ending at 0700: 06/23 0700 06/22 1900 Intake Total 1250 1055.00 Output Total 900 Balance 350 1055.00 Intake, IV 200.00 Intake, Oral 1250 855 Number 0 Bowel Movements Number Voids 1 Output, Urine 900 Patient 90.7 kg Weight Weight Stated/Reported Measurement Method PATIENT WEIGHT: Weight (lb): 199 Weight (oz): 15.35 Weight (kg): 90.700 Medications: Active Meds + DC'd Last 24 Hrs Ketorolac Tromethamine (TORADOL) 15 MG ONCE ONE IV (DC) Oxycodone HCl (OxyCONTIN) 20 MG Q12HR PO Ferric Sodium Gluconate Complex (FERRLECIT) 125 MG DAILY IV Sodium Chloride (SODIUM CHLORIDE 0.9%) 100 ML Pantoprazole (PROTONIX) 40 MG DAILY@0600 PO Ibuprofen (IBUPROFEN) 400 MG Q8HR PO Carboxymethylcellulose Sodium (REFRESH TEARS) 1 DROP TID EACH EYE (CAN) Morphine Sulfate (morphine SULFATE) 4 MG Q4H PRN PRN IV Oxycodone/Acetaminophen (PERCOCET 5/325MG TAB) 2 TAB Q4H PRN PRN PO Trazodone HCl (DESYREL) 100 MG BEDTIME PRN PRN P O Cefazolin Sodium (KEFZOL OR ANCEF) 2 GM Q8H IV ( DC) Fentanyl Citrate (SUBLIMAZE) 100 MCG PACU Q10MIN PRN PRN IV (DC) Fentanyl Citrate (SUBLIMAZE) 50 MCG PACU Q10MIN PRN PRN IV (DC) Hydralazine HCl (APRESOLINE) 5 MG PACU Q10MIN HI N PRN IV (DC) Hydrocodone Bitart/Acetaminophen (NORCO 5/325) 1 TAB PACU ONCE PO (DC) Hydromorphone HCl (DILAUDID) 1 MG PACU Q10MIN HI N PRN IV (DC) Hydromorphone HCl (DILAUDID) 0.5 MG PACU Q5MIN P RN PRN IV (DC) Insulin Human Lispro (HUMALOG) 0 PACU ONCE PRN S UBQ (DC) Labetalol HCl (LABETALOL HCL) 5 MG PACU Q10MIN P RN PRN IV (DC) Meperidine HCl (DEMEROL 50MG/ML) 12.5 MG PACU ON CE PRN IV (DC) Morphine Sulfate (morphine SULFATE) 2 MG PACU Q1 0MIN PRN PRN IV (DC) Ondansetron HCl (ZOFRAN) 4 MG PACU ONCE PRN IV ( DC) Promethazine HCl (PHENERGAN) 25 MG PACU ONCE PRN PO (DC) Ropivacaine (NAROPIN 0.5% 150 MG/30mL) 150 MG DIR PRN LOCAL (DC) Polyethylene Glycol (MIRALAX) 17 GM DAILY PO Acetaminophen (TYLENOL EXTRA STRENGTH) 1,000 MG PREOP ONCALL PO (CKD) Gabapentin (NEURONTIN) 200 MG PREOP ONCALL PO (C KD) Lactated Ringer's (LACTATED RINGERS) 1,000 ML HI EOP ONCALL IV Lidocaine HCl (LIDOCAINE HCL/PF) 2 ML PREOP ONCA LL LOCAL Lidocaine HCl (LIDOCAINE HCL/PF) 2 ML PREOP ONCA LL LOCAL Sodium Chloride (SODIUM CHLORIDE 0.9%) 500 ML HI EOP ONCALL IV Sodium Chloride (SODIUM CHLORIDE 0.9%) 500 ML HI EOP ONCALL IV Sodium Chloride (SODIUM CHLORIDE 0.9%) 1,000 ML PREOP ONCALL IV Sodium Chloride (SODIUM CHLORIDE) 5 ML ASDIR PRN IV Sodium Chloride (SODIUM CHLORIDE) 10 ML ASDIR HI N IV Sodium Chloride (SODIUM CHLORIDE 0.9%) 250 ML DIR PRN IV Cefazolin Sodium (KEFZOL OR ANCEF) 2 GM PREOP MEDICAL ASSEMBLY IV (DC) Sodium Chloride (SODIUM CHLORIDE) 20 ML ASDIR IV Gabapentin (NEURONTIN) 300 MG BID PO Oxycodone HCl (ROXICODONE) 5 MG Q4H PRN PRN PO ( DC) Morphine Sulfate (morphine SULFATE) 6 MG Q4H PRN PRN IV (DC) Heparin Sodium (HEPARIN 5000 UNITS/ML) 0 ASDIR P RN IV Heparin Sodium (Porcine) (HEPARIN 25,000 UNITS/ 1/2NS 500ML) 500 ML ASDIR IV (CKD) Acetaminophen (TYLENOL EXTRA STRENGTH) 1,000 MG Q6H PO (DC) Ondansetron HCl (ZOFRAN) 4 MG Q4H PRN PRN IV Oxycodone HCl (ROXICODONE) 10 MG Q6H PRN PRN PO (DC) Results Findings/Data: Laboratory Tests 06/23 06/23 06/22 1045 0330 2100 Coagulation PTT ([place]) (25.0 - 39.5 Seconds) 97.5 H 39.0 65 .2 H Laboratory Tests 06/23 0330 Hematology WBC (4.5 - 11.0 x10 3/uL) 12.9 H RBC (3.54 - 5.02 x10 6/uL) 3.05 L Hgb (11.0 - 15.0 g/dL) 7.8 L Hct (33.0 - 45.0 %) 24.9 L MCV (81.0 - 99.0 fL) 81.6 MCH (27.0 - 33.0 pg) 25.6 L MCHC (33.0 - 37.0 g/dL) 31.3 L RDW (11.5 - 14.5 %) 14.0 Plt Count (150 - 400 x10 3/uL) 282 MPV (7.0 - 9.0 fL) 9.4 H Neut % (Auto) (56.0 - 77.0 %) 87.4 H Lymph % (Auto) (14.0 - 32.0 %) 6.8 L [place] % (Auto) (4.8 - 9.0 %) 5.4 Eos % (Auto) (0.3 - 3.7 %) 0.0 L Baso % (Auto) (0.0 - 2.0 %) 0.0 Neut # (Auto) (2.0 - 7.6 x10 3/uL) 11.31 H Lymph # (Auto) (1.0 - 3.8 x10 3/uL) 0.88 L [place] # (Auto) (0.1 - 0.8 x10 3/uL) 0.70 Eos # (Auto) (0.0 - 0.2 x10 3/uL) 0.00 Baso # (Auto) (0.0 - 0.2 x10 3/uL) 0.00 Abs Immat Gran (auto) (0.00 - 0.03 x10 3/uL) 0. 05 H Add Manual Diff NO Immature Gran % (0.0 - 2.0 %) 0.4 Nucleated RBC % (0 - 0 %) 0.0 Nucleated RBCs # (Man) (0.0 - 0.1 x10 3/uL) 0.0 0 Results: labs reviewed, vital signs reviewed, vi ruth signs stable, current med profile rev'd Free Text Obj Notes Free Text Obj Notes: Constitutional: GCS 15, patient awake, alert, no acute distress, HR, BP, O2 saturation reviewed in records Eyes: pupils equal, round, reactive to light, EO IA HENT: normal cephalic, atraumatic, no facial ten derness or crepitus, normal external inspection of ears/nose, no septal emile grisel Neck: trachea midline, no crepitus, thyroid with out mass CV: regular rate, rhythm, bi lateral radial pulses 2+, no cyanosis, no edema, no pulsatile abdominal mass Respiratory: lungs clear bilaterally, respiratio ns even and unlabored, no tenderness to palpation, normal inspection of ch est, no crepitus Abdomen: soft, non-tender, non-distended, no mas ses, no hernia noted : normal external genitalia, pelvis stable Lymph nodes: no cervical or supraclavicular mass es noted Musculoskeletal: -Left upper extremity without focal tenderness, without deformity, with ROM intact -Right upper extremity without focal tenderness, without deformity, with ROM intact -Left lower extremity without focal tenderness, without deformity, with ROM intact -Right lower extremity with ONEAL wrap and ex-fix, some pin site shadowing noted, area marked, NV intact distally -no cervical spine tenderness with full ROM -no thoracic/lumbar spine tenderness or step-off Skin: skin warm to palpation. Psychiatric: normal mood and affect, memory inta ct Neurologic: face symmetrical. Bilateral upper an d lower extremity sensation intact Diagnosis, Assessment Plan Hospital course to date: 06/21: Patient has extensive chronic pain history we have consulted pain management for closer management. Given patient's complex history we have also added a hematology oncology consult related to h er clotting deficiencies and began a heparin drip for DVT prophylaxis as we discontinue the Eliquis and await further recommendations from hematology. Dr. Headley with orthopedics planning for surgery or Friday 06/22: RLE ex-fix placed (Dr. Glover). Definitive repair likely next week, approx. Saturday 06/23: No acute events overnight. Pain controlled , tolerating PO intake. On Heparin gtt. Waiting for definitive repair. Free Text A P: Mechanism: Trip and Fall Injuries: Tibal Plat Fx Active Problems: Pain Protein S deficiency Resolved Problems: Incidental findings: Chronic Medical Problems: Protein S deficency (o n Eliquis), IA, Blood clots, Depression, Anxiety, PTSD, T hrombectomy, Wrist sx, Pre-cancer ovarian, + smoking , social alcohol, Cocaine Hx, Meth Hx DVT prophylaxis: SCDs, Heparin gtt GI prophylaxis: diet Lines/[place]/ETT: PIV Consultants: Ortho, [facility], [facility], [facility] Procedures: 06/22: RLE ex-fix (Adalberto) Plan: Tibal Plat Fx * Ortho following * [facility] PULMONOLOGY PHYSICIAN * Multimodal Pain control with IV and PO narcotic and non-narcotic medications * pain management following * Tertiary trauma survey completed * Elevate * PT/OT eval/treat, NWB RLE * plan for definitive repair next week (likely w ) History of Protein S deficency * Hematology following * on Heparin gtt Diet: Regular Labs: AM PT/OT recs: eval/treat, NWB RLE DME: recs pending Code status: Full code Medical Decision Making: In the event the patient is incapacitated and not able to make their own medical decisions, the y have elected [facility], contact number [phone], to make medical decisions f or them. Dispo: Admit; will continue to monitor f or ICU needs or any further changes to level of care Anticipated Date of Discharge/Trauma Clearance: TBD Quality: Trauma Gen Surg Advanced Care Plan 65 or Older Discussed with: patient Current Medications Current medication review: I attest that the foregoing medication list in t he medical record is true, accurate, and complete to the best of my knowled ge. VTE Prophylaxis - General VTE prophylaxis initiated: yes (Heparin gtt) Brian Britt 06/23/22 1718: Attestations Attestation needed: supervising physician Physician Attestation Agree w/findings plan: I was present with the APC during the hi story and examination. I discussed the case with the APC and agree with the findings and plan as documented in the APC' s note. Patient seen, Ex-Fix in place. Pain appears to b e controlled. GCS 15. She is neurologically neurovascular intact thro ughout. No significant oozing from her Ex-Fix site. Heparin drip continued. Plan: Continue heparin, OR next week with Ortho Once status post repair, will restart Eliquis. Labs reviewed. Pertinent imaging personally kody jackson. Discussed plan with other members of the [facility] are team. Electronically Signed by Sofi Cordoba o n 06/23/22 at 1517 Electronically Signed by Brian Britt DO on 0 06/23/22 at 5996 RPT #:[id number] END OF REPORT 2022-06-22 18:01:00-00:00 [facility] ([facility]) Emile/Oncology Progress Note REPORT#:[id number] REPORT STATUS: Signed DATE:06/22/22 TIME: 1800 PATIENT: TEODORA SANTANA UNIT #: [id number] ROOM/BED: [place] [id number] : 83 AGE: 36 SEX: F ATTEND: Scott Britt DO ADM AUTHOR: Adrian Cortez MD * ALL edits or amendments must be made on the el ectronic/computer document * Subjective Chief Complaint: Status post close reduction and uniplanar cable tender al fixation by orthopedic surgery today. Objective Physical Exam VS: Vital Signs Date Temp Pulse Resp B/P B/P Mean Pulse Ox FiO2 06/21-06/22 36.4-37.9 81-106 12-27 104-137/57-84 82.5-93.7 94-100 Last Documented: Result Date Time Pulse Ox 94 06/22 1640 B/P 132/75 06/22 1640 B/P Mean 93.7 06/22 1640 O2 Delivery Room air 06/22 1640 Temp 36.9 06/22 1640 Pulse 91 06/22 1640 Resp 20 06/22 1640 O2 Flow Rate 2 06/22 1230 General appearance: alert, awake HEENT: atraumatic, normocephalic Neck: full range of motion, non-tender, supple/n o meningismus, no JVD, no lymphadenopathy Cardiovascular: regular rate and rhythm Respiratory: clear to auscultation Abdomen: non-tender, normal bowel sounds , soft, no distention, no guarding, no mass/organomegaly, no rebound Extremities: moves all, normal capillary refill, no edema Musculoskeletal: full range of motion, normal in spection Neuro/CONTRACT MANAGER: alert, oriented X 3 Results Findings/Data: Laboratory Tests 06/22/22 0510: [Embedded Image Not Available] Laboratory Tests 06/22 06/22 0510 0510 Chemistry Iron (35 - 150 mcg/dL) 14 L TIBC (260 - 445 mcg/dL) 331 % Saturation (14 - 34 %) 4.2 L Unsat Iron Binding (mcg/dL) 317 Ferritin (11.0 - 306.8 ng/mL) 16.9 Lactate Dehydrogenase (84 - 246 IUnits/L) 277 H Vitamin B12 (193 - 986 pg/mL) 426 Folate (3.1 - 17.5 ng/mL) 23.4 H Serum , Qual (NEGATIVE) SERUM NEGATIVE Laboratory Tests 06/22 06/22 1255 0330 Coagulation PTT ([place]) (25.0 - 39.5 Seconds) 95.9 H 158.2 H Laboratory Tests 06/22 06/22 0510 0510 Hematology WBC (4.5 - 11.0 x10 3/uL) 7.6 RBC (3.54 - 5.02 x10 6/uL) 3.12 L Hgb (11.0 - 15.0 g/dL) 8.0 L Hct (33.0 - 45.0 %) 25.4 L MCV (81.0 - 99.0 fL) 81.4 MCH (27.0 - 33.0 pg) 25.6 L MCHC (33.0 - 37.0 g/dL) 31.5 L RDW (11.5 - 14.5 %) 14.2 Plt Count (150 - 400 x10 3/uL) 281 MPV (7.0 - 9.0 fL) 9.6 H Neut % (Auto) (56.0 - 77.0 %) 63.7 Lymph % (Auto) (14.0 - 32.0 %) 27.6 [place] % (Auto) (4.8 - 9.0 %) 7.6 Eos % (Auto) (0.3 - 3.7 %) 0.4 Baso % (Auto) (0.0 - 2.0 %) 0.3 Neut # (Auto) (2.0 - 7.6 x10 3/uL) 4.84 Lymph # (Auto) (1.0 - 3.8 x10 3/uL) 2.10 [place] # (Auto) (0.1 - 0.8 x10 3/uL) 0.58 Eos # (Auto) (0.0 - 0.2 x10 3/uL) 0.03 Baso # (Auto) (0.0 - 0.2 x10 3/uL) 0.02 Abs Immat Gran (auto) (0.00 - 0.03 x10 3/uL) 0. 03 Add Manual Diff NO Immature Gran % (0.0 - 2.0 %) 0.4 Nucleated RBC % (0 - 0 %) 0.0 Nucleated RBCs # (Man) (0.0 - 0.1 x10 3/uL) 0.0 0 Retic Count (auto) (0.3 - 2.3 %) 1.8 Radiology data: Current Medications Sig/Maricruz Start time Last Medication Dose Route Stop Time Status Admin Trazodone HCl 100 MG BEDTIME PRN PRN 06/22 1800 AC PO 07/22 1759 Cefazolin Sodium 2 GM Q8H 06/22 1730 AC 06/22 IV 06/23 0131 1749 Fentanyl Citrate 100 MCG PACU Q10MIN PRN PRN 1200 AC 06/22 IV 06/22 2151 1218 Fentanyl Citrate 50 MCG PACU Q10MIN PRN PRN 06/09 4 1200 AC IV 06/22 2151 Hydralazine HCl 5 MG PACU Q10MIN PRN PRN 06/22 1 200 AC IV 06/22 2151 Hydrocodone Bitart/ 1 TAB PACU ONCE 06/22 1200 C KD Acetaminophen PO 06/22 2151 Hydromorphone HCl 1 MG PACU Q10MIN PRN PRN 06/22 1200 AC 06/22 IV 06/22 2151 1314 Hydromorphone HCl 0.5 MG PACU Q5MIN PRN PRN 06/09 4 1200 AC IV 06/22 2151 Insulin Human Lispro 0 PACU ONCE PRN 06/22 1200 AC SUBQ 06/22 2151 Labetalol HCl 5 MG PACU Q10MIN PRN PRN 06/22 120 0 AC IV 06/22 2151 Meperidine HCl 12.5 MG PACU ONCE PRN 06/22 1200 AC IV 06/22 2151 Morphine Sulfate 2 MG PACU Q10MIN PRN PRN 06/22 1200 AC IV 06/22 2151 Ondansetron HCl 4 MG PACU ONCE PRN 06/22 1200 AC 06/22 IV 06/22 2151 1206 Promethazine HCl 25 MG PACU ONCE PRN 06/22 1200 AC PO 06/22 2151 Ropivacaine 150 MG ASDIR PRN 06/22 1200 AC LOCAL 06/22 2151 Fentanyl Citrate 0 .STK-MED ONE 06/22 1107 DC .ROUTE Dexamethasone Sodium 0 .STK-MED ONE 06/22 1104 D C Phosphate .ROUTE Ondansetron HCl 0 .STK-MED ONE 06/22 1104 DC .ROUTE Fentanyl Citrate 0 .STK-MED ONE 06/22 1023 DC .ROUTE Lidocaine HCl 0 .STK-MED ONE 06/22 1023 DC .ROUTE Midazolam HCl 0 .STK-MED ONE 06/22 1023 DC .ROUTE Propofol 20 ML .STK-MED ONE 06/22 1023 DC IV Cefazolin Sodium 0 .STK-MED ONE 06/22 0911 DC .ROUTE Acetaminophen 0 .STK-MED ONE 06/22 0910 DC .ROUTE Gabapentin 0 .STK-MED ONE 06/22 0909 DC .ROUTE Polyethylene Glycol 17 GM DAILY 06/22 0900 AC PO 07/22 0859 Acetaminophen 1,000 MG PREOP ONCALL 06/22 0730 C KD 06/22 PO 07/22 2359 0913 Gabapentin 200 MG PREOP ONCALL 06/22 0730 CKD PO 07/22 2359 Lactated Ringer's 1,000 ML PREOP ONCALL 06/22 07 30 AC IV 07/22 2359 Lidocaine HCl 2 ML PREOP ONCALL 06/22 0730 AC LOCAL 07/22 2359 Lidocaine HCl 2 ML PREOP ONCALL 06/22 0730 AC LOCAL 07/22 2359 Sodium Chloride 500 ML PREOP ONCALL 06/22 0730 A C IV 07/22 2359 Sodium Chloride 500 ML PREOP ONCALL 06/22 0730 A C IV 07/22 2359 Sodium Chloride 1,000 ML PREOP ONCALL 06/22 0730 AC IV 07/22 2359 Sodium Chloride 5 ML ASDIR PRN 06/22 0730 AC IV 07/22 0729 Sodium Chloride 10 ML ASDIR PRN 06/22 0730 AC IV 07/22 0729 Sodium Chloride 250 ML ASDIR PRN 06/22 0730 AC IV 07/22 0729 Cefazolin Sodium 2 GM PREOP ONCALL 06/22 0500 CK D IV 06/22 2359 Sodium Chloride 20 ML ASDIR 06/21 2245 AC 06/22 IV 07/21 2244 1750 Gabapentin 300 MG BID 06/21 2100 AC 06/22 PO 07/21 2059 0914 Oxycodone HCl 5 MG Q4H PRN PRN 06/21 1730 AC PO 06/26 1729 Morphine Sulfate 6 MG Q4H PRN PRN 06/21 1630 AC 06/22 IV 06/26 1629 1450 Heparin Sodium 0 ASDIR PRN 06/21 1145 AC IV 07/21 1144 Heparin Sodium 500 ML ASDIR 06/21 1145 CKD 06/22 (Porcine) IV 07/21 1144 1415 Acetaminophen 1,000 MG Q6H 06/21 1130 AC 06/22 PO 07/21 1129 1749 Ondansetron HCl 4 MG Q4H PRN PRN 06/21 1130 AC IV 07/21 1129 Oxycodone HCl 10 MG Q6H PRN PRN 06/21 1130 AC PO 06/26 1129 1315 Recent Impressions: RADIOLOGY - XR FLUOROSCOPY 0-60 MIN 06/22 1144 Report Impression - Status: SIGNED Entered: 06/22/2022 1206 IMPRESSION: Fluoroscopy dosage documentation. See also separ ate procedure notes. Impression By: RennyPKVito Monzon Results: labs reviewed, vital signs stable Diagnosis, Assessment Plan Free Text DxA P Notes Free Text DxA P Notes: ASSESSMENT: * Trauma status post fall resulting in a right t ibial plateau fracture. 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 Patient had been on anticoagulation with Eliquis . * Normocytic, hypochromic anemia, associ ated with iron deficiency with patient having history of heavy menstrual cycles for the past few years. PLAN: * Agree with IV heparin for anticoagulation for thromboembolic prophylaxis especially with patient having right lower extre mity fracture and needing multiple surgeries. * Status post closed reduction and uniplanar ext ernal fixation by orthopedic surgery today. * He does have marked iron deficiency anemia. We will go ahead and started on parenteral iron. * I will continue to follow. Electronically Signed by Adrian Cortez MD on at 1802 [facility] #:[id number] END OF REPORT 2022-06-22 17:33:00-00:00 [id number] [address] PATIENT NAME: TEODORA SANTANA ADMIT DATE: 06/21/22 ACCOUNT NO: [id number] ROOM NO: G.653 AGE: 36 REPORT TYPE: OPERATIVE REPORT SEX: F ADMITTING PHYSICIAN:Brian Britt DO ATTENDING PHYSICIAN:Brian Britt DO OPERATION DATE: 06/22/2022 PREOPERATIVE DIAGNOSES: 1. Right closed proximal tibia fracture (S82.101 A). 2. Right closed proximal fibula fracture (S82.40 1A). POSTOPERATIVE DIAGNOSES: 1. Right closed proximal tibia fracture (S82.101 A). 2. Right closed proximal fibula fracture (S82.40 1A). PROCEDURES: 1. Right tibia and fibula closed reduction with manipulation (90039, 09727). 2. Right knee spanning external fixation device (92516). FINDINGS: Consistent with above diagnosis. SURGEON: Jonathan Glover MD, PhD BUSINESS INTELLIGENCE DIRECTOR: None. ANESTHESIA: General. ESTIMATED BLOOD LOSS: Minimal. INTRAVENOUS FLUIDS: Please see anesthesia record s. TOURNIQUET TIME: Not applicable. SPECIMENS REMOVED: None. IMPLANTS PLACED: Beggs Rory external fixat ion system with 2 bars, 5 clamps, and four 5-mm pins. COMPLICATIONS: None. INDICATIONS FOR PROCEDURE: This is a 36- year-old female who [place]20[place] when she got her leg stuck in a hole and twisted. She noted a pop and felt immediate pain and swelling in th e right lower extremity. Of note, the patient does have a history of protein S deficiency and is on Eliquis for this. She was originally taken to an outside hospital where she was transferred to our center for definitive care. CT scan and x-rays demonstrated a metadiaphyseal tibia fract ure, a proximal fibular shaft fracture, as well as a split with joint depression of the lateral tibial plateau. Of note, the patient PATIENT NAME: TEODORA SANTANA 8 was quite swollen however, with low concern for compartment syndrome. We discussed possible treatment options. The patien t had been in a posterior splint, which we could leave her in for definiti ve care. However, this would likely lead to pain, deformity, and difficulty w ith mobilization. Operative fixation, given the swelling, would best be perf ormed in a staged manner. We first performed the external fixation to day followed by monitoring of the soft tissues until she was ready for definitive inter nal fixation. This does obviously expose the patient to the risks of burton cosme, which include pain, bleeding, infection, nonunion/malunion, need for repeat surgery, damage to surrounding structures, risks of anesthe jorge luis, DVT/PE up to and including . We also discussed the possibility of a compartme nt syndrome and possible need for fasciotomies should she develop symptoms con sistent with this. Because of this, we did not perform a block before or after her procedure. The patient agreed to proceed. Informed consent was obtained. All questions were answered. PROCEDURE IN DETAIL: The patient was identified in the preoperative holding area. The right lower extremity was pema ed appropriately. The patient was then brought back to the operatin g room and placed supine on a radiolucent operating room table after undergoing general anesthesia. All bony prominences were padded. No tourniquet was used. The right lower extremity was prepped and draped in the usual sterile fashion. The patient received Ancef perioperatively for antibiotics. A formal timeout was conducted prior to incision. I began my external fixator by placing the two femoral pins first. I placed one pin, one handsbreadth above the superior pole of the fletcher lla with second pin one handsbreadth above that at the anterolat eral aspect of the femur. I predrilled for both of these pins and t twyla placed two 200 x 5 mm pins. I checked the depth under fluoroscopy, which was appropriate. I then turned my attention to the tibial pin. On the medial face, I predri lled for a tibial pin one handsbreadth above the ankle joint. I also checked this under fluoroscopy to ensure there was appropriate depth, which it was. I then marina ched one bar to both of the femoral pins as well as one bar to the t ibial pin. I then connected these with a clamp in the middle. I the n pulled traction and in the appropriate alignment. I then tightened all clamps. I then pari cked my reduction under fluoroscopy. I felt that I did establish the appropriat e length in the appropriate alignment. Therefore, I then added one further pin in the t ibia. Off of the gavin, I inserted further pin roughly one handsbreadth proximal to my first tibial pin on the medial face of the tibia. I predrilled for t his as well. I also checked there was appropriate depth. I then tigh tened the clamp that was holding it in place. I then did a final tightening of all clam ps. Once this was complete, I washed and dried the leg and applied Xeroform to the pin sites. I placed a long posterior leg splint and wrapped it loosely with Oneal wrap. The patient was awoken from anesthesia, extu bated, and taken to the postoperative recovery area. All counts were correct. There were no complica tions. I was present for the entirety of the procedure. POSTOPERATIVE PLAN: This is the first part of a staged procedure. We will continue to monitor the soft tissues to ensure t hat the swelling and edema decrease as appropriate for an open reduction with internal fixation. This will likely occur in 1 weeks' time. Until then, the p atient will be on DVT prophylaxis, especially given her protein S defi ciency. She is currently on a heparin drip. She will receive Ancef for 24 hours postoperatively. She will be nonweightbearing on the right lower extremity. I will continue to monitor her prior to the second part of the staged procedure . PATIENT NAME: TEODORA SANTANA 8 Dictated By: Flavia Kirby WT: OP:AZALIA/ANDREW/ROBBY Conf#: [id number]/DID#: [id number] Authenticated by Jonathan Glover MD,PhD On 06/24 03:20:07 PM at 0320 PATIENT NAME: TEODORA SANTANA 8 2022-06-22 14:12:00-00:00 [facility] Trauma Progress Note REPORT#:[id number] REPORT STATUS: Signed DATE:06/22/22 TIME: 1411 PATIENT: TEODORA SANTANA UNIT #: [id number] ROOM/BED: [place] [address] : 83 AGE: 36 SEX: F ATTEND: Scott Britt DO ADM AUTHOR: Sofi Cordoba * ALL edits or amendments must be made on the [employer]/computer document * Sofi Cordoba 06/22/22 1412: Subjective Chief complaint: RLE pain, fracture s/p fall HPI: No acute events overnight. Evaluated pos t-operatively today, underwent RLE ex- fix placement with ortho (Dr. Glover), de finitive repair likely next week. Pain controlled, tolerating PO intake. On Heparin gtt . Tertiary trauma survey performed, no new traumatic injuries identified, no new complaints from patient. Review of Systems Constitutional: Denies: fever. Respiratory: Denies: MUIR (dyspnea on exertion), SOB. Cardiovascular: Denies: chest pain. GI: Denies: abdominal pain, nausea, vomiting. Musculoskeletal: Extremity pain: Reports: right lower (pain controlled). Neuro: Denies: change in LOC. All systems rev neg: except as marked Objective Physical Exam VS/I O: Vital Signs: Date Time Temp Pulse Resp B/P B/P Pulse O2 O2 F low FiO2 Mean Ox Delivery Rate 06/22 1315 99 22 135/82 100 Room air 06/22 1300 105 22 120/61 99 Room air 06/22 1245 81 18 127/84 100 Room air 06/22 1230 92 20 137/79 100 Nasal 2 cannula 06/22 1215 86 14 131/78 100 Nasal 2 cannula 06/22 1205 91 13 122/72 100 Nasal 2 cannula 06/22 1200 92 16 126/77 100 Nasal 2 cannula 06/22 1155 95 20 128/60 100 Simple 7 mask 06/22 1150 Simple 7 mask 06/22 1150 90 19 134/79 100 Simple 7 mask 06/22 1145 93 16 135/81 100 Venti mask 7 06/22 1143 36.6 96 15 130/83 100 Simple 7 mask 06/22 0937 36.5 85 18 115/59 98 Room air 06/22 0342 37.5 98 18 112/68 82.5 95 Room air 06/21 2227 37.5 84 18 124/79 93.7 97 Room air 06/21 2055 97 112/69 83.6 96 06/21 1929 37.9 106 18 122/79 93.4 97 Room air 06/21 1543 37.2 86 18 103/60 74.7 97 06/21 1445 85 18 117/63 81 97 24 hour I O ending at 0700: 06/22 0700 06/21 1900 Intake Total Output Total Balance Patient 90.7 kg Weight Weight Bed scale Measurement Method PATIENT WEIGHT: Weight (kg): 90.700 Medications: Active Meds + DC'd Last 24 Hrs Cefazolin Sodium (KEFZOL OR ANCEF) 2 GM Q8H IV Fentanyl Citrate (SUBLIMAZE) 100 MCG PACU Q10MIN PRN PRN IV Fentanyl Citrate (SUBLIMAZE) 50 MCG PACU Q10MIN PRN PRN IV Hydralazine HCl (APRESOLINE) 5 MG PACU Q10MIN HI N PRN IV Hydrocodone Bitart/Acetaminophen (NORCO 5/325) 1 TAB PACU ONCE PO (CKD) Hydromorphone HCl (DILAUDID) 1 MG PACU Q10MIN HI N PRN IV Hydromorphone HCl (DILAUDID) 0.5 MG PACU Q5MIN P RN PRN IV Insulin Human Lispro (HUMALOG) 0 PACU ONCE PRN S UBQ Labetalol HCl (LABETALOL HCL) 5 MG PACU Q10MIN P RN PRN IV Meperidine HCl (DEMEROL 50MG/ML) 12.5 MG PACU ON CE PRN IV Morphine Sulfate (morphine SULFATE) 2 MG PACU Q1 0MIN PRN PRN IV Ondansetron HCl (ZOFRAN) 4 MG PACU ONCE PRN IV Promethazine HCl (PHENERGAN) 25 MG PACU ONCE PRN PO Ropivacaine (NAROPIN 0.5% 150 MG/30mL) 150 MG DIR PRN LOCAL Fentanyl Citrate (SUBLIMAZE) 0 .STK-MED ONE .ROU TE (DC) Dexamethasone Sodium Phosphate (DECADRON) 0 .STK -MED ONE .ROUTE (DC) Ondansetron HCl (ZOFRAN) 0 .STK-MED ONE .ROUTE ( DC) Fentanyl Citrate (SUBLIMAZE) 0 .STK-MED ONE .ROU TE (DC) Lidocaine HCl (XYLOCAINE) 0 .STK-MED ONE .ROUTE (DC) Midazolam HCl (VERSED) 0 .STK-MED ONE .ROUTE (D C) Propofol (DIPRIVAN 200MG/20ML INJECTION) 20 ML . STK-MED ONE IV (DC) Cefazolin Sodium (KEFZOL OR ANCEF) 0 .STK-MED ON E .ROUTE (DC) Acetaminophen (TYLENOL EXTRA STRENGTH) 0 .STK-ME D ONE .ROUTE (DC) Gabapentin (NEURONTIN) 0 .STK-MED ONE .ROUTE (DC ) Polyethylene Glycol (MIRALAX) 17 GM DAILY PO Acetaminophen (TYLENOL EXTRA STRENGTH) 1,000 MG PREOP ONCALL PO (CKD) Gabapentin (NEURONTIN) 200 MG PREOP ONCALL PO (C KD) Lactated Ringer's (LACTATED RINGERS) 1,000 ML HI EOP ONCALL IV Lidocaine HCl (LIDOCAINE HCL/PF) 2 ML PREOP ONCA LL LOCAL Lidocaine HCl (LIDOCAINE HCL/PF) 2 ML PREOP ONCA LL LOCAL Sodium Chloride (SODIUM CHLORIDE 0.9%) 500 ML HI EOP ONCALL IV Sodium Chloride (SODIUM CHLORIDE 0.9%) 500 ML HI EOP ONCALL IV Sodium Chloride (SODIUM CHLORIDE 0.9%) 1,000 ML PREOP ONCALL IV Sodium Chloride (SODIUM CHLORIDE) 5 ML ASDIR PRN IV Sodium Chloride (SODIUM CHLORIDE) 10 ML ASDIR HI N IV Sodium Chloride (SODIUM CHLORIDE 0.9%) 250 ML DIR PRN IV Cefazolin Sodium (KEFZOL OR ANCEF) 2 GM PREOP MEDICAL ASSEMBLY IV (CKD) Sodium Chloride (SODIUM CHLORIDE) 20 ML ASDIR IV Gabapentin (NEURONTIN) 300 MG BID PO Oxycodone HCl (ROXICODONE) 5 MG Q4H PRN PRN PO Morphine Sulfate (morphine SULFATE) 6 MG Q4H PRN PRN IV Fentanyl Citrate (SUBLIMAZE) 50 MCG ONCE ONE IV (DC) Heparin Sodium (HEPARIN 5000 UNITS/ML) 0 ASDIR P RN IV Heparin Sodium (Porcine) (HEPARIN 25,000 UNITS/ 1/2NS 500ML) 500 ML ASDIR IV (CKD) Acetaminophen (TYLENOL EXTRA STRENGTH) 1,000 MG Q6H PO Ondansetron HCl (ZOFRAN) 4 MG Q4H PRN PRN IV Oxycodone HCl (ROXICODONE) 10 MG Q6H PRN PRN PO Results Findings/Data: Laboratory Tests 06/22 06/22 0510 0510 Chemistry Iron (35 - 150 mcg/dL) 14 L TIBC (260 - 445 mcg/dL) 331 % Saturation (14 - 34 %) 4.2 L Unsat Iron Binding (mcg/dL) 317 Ferritin (11.0 - 306.8 ng/mL) 16.9 Lactate Dehydrogenase (84 - 246 IUnits/L) 277 H Vitamin B12 (193 - 986 pg/mL) 426 Folate (3.1 - 17.5 ng/mL) 23.4 H Serum , Qual (NEGATIVE) SERUM NEGATIVE Laboratory Tests 06/22 06/22 1255 0330 Coagulation PTT (Marissa) (25.0 - 39.5 Seconds) 95.9 H 158.2 H Laboratory Tests 06/22 06/22 0510 0510 Hematology WBC (4.5 - 11.0 x10 3/uL) 7.6 RBC (3.54 - 5.02 x10 6/uL) 3.12 L Hgb (11.0 - 15.0 g/dL) 8.0 L Hct (33.0 - 45.0 %) 25.4 L MCV (81.0 - 99.0 fL) 81.4 MCH (27.0 - 33.0 pg) 25.6 L MCHC (33.0 - 37.0 g/dL) 31.5 L RDW (11.5 - 14.5 %) 14.2 Plt Count (150 - 400 x10 3/uL) 281 MPV (7.0 - 9.0 fL) 9.6 H Neut % (Auto) (56.0 - 77.0 %) 63.7 Lymph % (Auto) (14.0 - 32.0 %) 27.6 [place] % (Auto) (4.8 - 9.0 %) 7.6 Eos % (Auto) (0.3 - 3.7 %) 0.4 Baso % (Auto) (0.0 - 2.0 %) 0.3 Neut # (Auto) (2.0 - 7.6 x10 3/uL) 4.84 Lymph # (Auto) (1.0 - 3.8 x10 3/uL) 2.10 [place] # (Auto) (0.1 - 0.8 x10 3/uL) 0.58 Eos # (Auto) (0.0 - 0.2 x10 3/uL) 0.03 Baso # (Auto) (0.0 - 0.2 x10 3/uL) 0.02 Abs Immat Gran (auto) (0.00 - 0.03 x10 3/uL) 0. 03 Add Manual Diff NO Immature Gran % (0.0 - 2.0 %) 0.4 Nucleated RBC % (0 - 0 %) 0.0 Nucleated RBCs # (Man) (0.0 - 0.1 x10 3/uL) 0.0 0 Retic Count (auto) (0.3 - 2.3 %) 1.8 Radiology data: Recent Impressions: RADIOLOGY - XR FLUOROSCOPY 0-60 MIN 06/22 1144 Report Impression - Status: SIGNED Entered: 06/22/2022 1206 IMPRESSION: Fluoroscopy dosage documentation. See also separ ate procedure notes. Impression By: [email or web address] Vito Baltazar Results: labs reviewed, vital signs reviewed, vi ruth signs stable, current med profile rev'd Free Text Obj Notes Free Text Obj Notes: Constitutional: GCS 15, patient awake, alert, no acute distress, HR, BP, O2 saturation reviewed in records Eyes: pupils equal, round, reactive to light, EO IA HENT: normal cephalic, atraumatic, no facial ten derness or crepitus, normal external inspection of ears/nose, no septal emile grisel Neck: trachea midline, no crepitus, thyroid with out mass CV: regular rate, rhythm, bi lateral radial pulses 2+, no cyanosis, no edema, no pulsatile abdominal mass Respiratory: lungs clear bilaterally, respiratio ns even and unlabored, no tenderness to palpation, normal inspection of ch est, no crepitus Abdomen: soft, non-tender, non-distended, no mas ses, no hernia noted : normal external genitalia, pelvis stable Lymph nodes: no cervical or supraclavicular mass es noted Musculoskeletal: -Left upper extremity without focal tenderness, without deformity, with ROM intact -Right upper extremity without focal tenderness, without deformity, with ROM intact -Left lower extremity without focal tenderness, without deformity, with ROM intact -Right lower extremity with ONEAL wrap and ex-fix, some pin site shadowing noted, area marked, NV intact distally -no cervical spine tenderness with full ROM -no thoracic/lumbar spine tenderness or step-off Skin: skin warm to palpation. Psychiatric: normal mood and affect, memory inta ct Neurologic: face symmetrical. Bilateral upper an d lower extremity sensation intact Diagnosis, Assessment Plan Hospital course to date: 06/21: Patient has extensive chronic pain history we have consulted pain management for closer management. Given patient's complex history we have also added a hematology oncology consult related to h er clotting deficiencies and began a heparin drip for DVT prophylaxis as we discontinue the Eliquis and await further recommendations from hematology. Dr. Headley with orthopedics planning for surgery or Friday 06/22: RLE ex-fix placed (Dr. Glover). Definitive repair likely next week, approx. Monday Free Text A P: Mechanism: Trip and Fall Injuries: Tibal Plat Fx Active Problems: Pain Protein S deficiency Resolved Problems: Incidental findings: Chronic Medical Problems: Protein S deficency (o n Eliquis), IA, Blood clots, Depression, Anxiety, PTSD, T hrombectomy, Wrist sx, Pre-cancer ovarian, + smoking , social alcohol, Cocaine Hx, Meth Hx DVT prophylaxis: SCDs, Heparin gtt GI prophylaxis: diet Lines/Quezada/ETT: PIV Consultants: Ortho, [facility], [facility], Dana Procedures: 06/22: RLE ex-fix (Adalberto) Plan: Tibal Plat Fx * Ortho following * Splinted PULMONOLOGY PHYSICIAN * Multimodal Pain control with IV and PO narcotic and non-narcotic medications * pain management following * Tertiary trauma survey completed * Elevate * PT/OT eval/treat, NWB RLE * plan for definitive repair next week (likely w ) History of Protein S deficency * Hematology following * on Heparin gtt Diet: Regular Labs: AM PT/OT recs: eval/treat, NWB RLE DME: recs pending Code status: Full code Medical Decision Making: In the event the patient is incapacitated and not able to make their own medical decisions, the y have elected [facility], contact number [phone], to make medical decisions f or them. Dispo: Admit; will continue to monitor f or ICU needs or any further changes to level of care Anticipated Date of Discharge/Trauma Clearance: TBD Quality: Trauma Gen Surg Advanced Care Plan 65 or Older Discussed with: patient Current Medications Current medication review: I attest that the foregoing medication list in t he medical record is true, accurate, and complete to the best of my knowled ge. VTE Prophylaxis - General VTE prophylaxis initiated: yes (Heparin gtt) Brian Britt 06/22/221: Attestations Attestation needed: supervising physician Physician Attestation Agree w/findings plan: I was present with the APC during the hi story and examination. I discussed the case with the APC and agree with the findings and plan as documented in the APC' s note. The patient was seen examined at bedside. Imer hernandez's right lower extremity Ex- Fix is in place. She is neurologically neurovasc ular intact. Pain appears to be moderately controlled this evening. Toleratin g diet. Plan: Plan for finalization of repair next week Continue pain control as needed Labs reviewed. Pertinent imaging personally kody jackson. Discussed plan with other members of the [facility] are team. Electronically Signed by Sofi Cordoba n 06/22/22 at 1757 Electronically Signed by Brian Britt DO on 0 06/22/22 at 1819 RPT #:[id number] END OF REPORT 2022-06-22 11:41:00-00:00 [facility] Brief Op Note REPORT#:[id number] REPORT STATUS: Signed DATE:06/22/22 TIME: 1141 PATIENT: TEODORA SANTANA UNIT #: [id number] ROOM/BED: [place] [address] : 83 AGE: 36 SEX: F ATTEND: Scott Britt DO ADM AUTHOR: Jonathan Glover [facility] * ALL edits or amendments must be made on the [employer]/computer document * Op/Inv Proc Note - Brief Pre-procedure diagnosis: Right closed proximal tibia and fibula fractures Post-procedure diagnosis: same as pre procedure dx Procedures performed: 1. Right proximal tibia closed reduction with ma nipulation 2. Right proximal fibula closed reduction with m anipulation 3. Application uniplanar external fixation Primary Surgeon: Jonathan Glover MD PhD Grain Blender(s): none Findings: Consistent with above diagnosis. Notable edema o f the right lower leg. Compartments full but compressible. Complications: none Estimated blood loss in ml's: Minimal Specimens removed/altered: none Wound class: clean Disposition: return to floor at 1143 RPT #:[id number] END OF REPORT 2022-06-22 09:02:00-00:00 [facility] ([facility]) Pain Management Consult Note REPORT#:[id number] REPORT STATUS: Signed DATE:06/22/22 TIME: 901 PATIENT: TEODORA SANTANA UNIT #: [id number] ROOM/BED: 653-1 : 83 AGE: 36 SEX: F ATTEND: Scott Britt DO ADM AUTHOR: Sly Escobar PA * ALL edits or amendments must be made on the [employer]/computer document * Sly Escobar 06/22/22 0902: History of Present Illness Primary Care Physician: No PCP HPI: Patient 36-year-old female seen in ER holding The patient was running [place] yesterday when she got her right leg stuck in a hole. She felt a twist and a pop. She noted immediate pain with an inability to ambulate. She was taken to [facility] who transferred her to [facility] given the complexity of the injury as well as her medical history. Review of Systems Additional notes: 12 point ROS unremarkable except as noted History Past History Past Medical History: Reports: Venous thromboembolism. Medications: Home Medications: Medication Dose/Rte/Freq Days Qty Entered Last Max Daily Dose Reviewed GABAPENTIN (NEURONTIN) 400 MG PO TID 06/21/22 0 06/21/22 Strength: 400 MG CAP 1509 1512 traZODone (DESYREL) 100 MG PO BEDTIME 06/21/22 06/21/22 Strength: 100 MG TAB 1509 1512 ACETAMINOPHEN/CODEINE 1 TAB PO 06/21/22 (TYLENOL WITH CODEINE Q4H PRN PRN ACUTE 1510 15 12 #4 300/60 MG) PAIN Strength: 300 MG-60 MG TAB APIXABAN (ELIQUIS) 5 MG PO BID 06/21/22 Strength: 5 MG TAB 1511 1512 Current Hospital Medications: Anti-Infective Agents Sig/Maricruz Start time Last Medication Dose Route Stop Time Status Admin Cefazolin Sodium 2 GM PREOP ONCALL 06/22 0500 C KD (KEFZOL OR ANCEF) IV 06/22 2359 Blood Formation,Coagulation Sig/Maricruz Start time Last Medication Dose Route Stop Time Status Admin Heparin Sodium 0 ASDIR PRN 06/21 1145 AC (HEPARIN 5000 UNITS/ IV 07/21 1144 ML) Heparin Sodium 500 ML ASDIR 06/21 1145 CKD 06/09 3 (Porcine) IV 07/21 1144 2112 (HEPARIN 25,000 UNITS/ 1/2NS 500ML) Cardiovascular Drugs Sig/Maricruz Start time Last Medication Dose Route Stop Time Status Admin Lidocaine HCl 2 ML PREOP ONCALL 06/22 0730 AC (LIDOCAINE HCL/PF) LOCAL 07/22 2359 Lidocaine HCl 2 ML PREOP ONCALL 06/22 0730 AC (LIDOCAINE HCL/PF) LOCAL 07/22 2359 Central Nervous System Agents Sig/Maricruz Start time Last Medication Dose Route Stop Time Status Admin Acetaminophen 1,000 MG PREOP ONCALL 06/22 0730 CKD (TYLENOL EXTRA PO 07/22 2359 STRENGTH) Gabapentin 200 MG PREOP ONCALL 06/22 07 CKD (NEURONTIN) PO 07/22 235 Gabapentin 300 MG BID 06/21 2100 AC 06/21 (NEURONTIN) PO 07/21 2059 2048 Oxycodone HCl 5 MG Q4H PRN PRN 06/21 1730 AC (ROXICODONE) PO 06/26 1729 Morphine Sulfate 6 MG Q4H PRN PRN 06/21 1630 AC 06/22 (morphine SULFATE) IV 06/26 1629 0722 Fentanyl Citrate 50 MCG ONCE ONE 06/21 1415 DC 06/21 (SUBLIMAZE) IV 06/21 1416 1439 Acetaminophen 1,000 MG Q6H 06/21 1130 AC 06/21 (TYLENOL EXTRA PO 07/21 1129 1208 STRENGTH) Oxycodone HCl 10 MG Q6H PRN PRN 06/21 1130 AC 0 06/22 (ROXICODONE) PO 06/26 1129 0432 Hydromorphone HCl 1 MG X1ED STA 06/21 1042 DC 0 06/21 (DILAUDID) IV 06/21 1043 1111 Electrolytic, Caloric, And Evelina Sig/Maricruz Start time Last Medication Dose Route Stop Time Status Admin Lactated Ringer's 1,000 ML PREOP ONCALL 06/22 0 730 AC (LACTATED RINGERS) IV 07/22 235 Sodium Chloride 500 ML PREOP ONCALL 06/22 0730 AC (SODIUM CHLORIDE IV 07/22 2359 0.9%) Sodium Chloride 500 ML PREOP ONCALL 06/22 0730 AC (SODIUM CHLORIDE IV 07/22 2359 0.9%) Sodium Chloride 1,000 ML PREOP ONCALL 06/22 073 0 AC (SODIUM CHLORIDE IV 07/22 2359 0.9%) Sodium Chloride 5 ML ASDIR PRN 06/22 730 AC (SODIUM CHLORIDE) IV 07/22 729 Sodium Chloride 10 ML ASDIR PRN 06/22 730 AC (SODIUM CHLORIDE) IV 07/22 07 Sodium Chloride 250 ML ASDIR PRN 06/22 07 AC (SODIUM CHLORIDE IV 07/22 729 0.9%) Sodium Chloride 20 ML ASDIR 06/21 224 AC (SODIUM CHLORIDE) IV 07/21 224 Gastrointestinal Drugs Sig/Maricruz Start time Last Medication Dose Route Stop Time Status Admin Polyethylene Glycol 17 GM DAILY 06/22 0900 AC (MIRALAX) PO 07/22 0859 Ondansetron HCl 4 MG Q4H PRN PRN 06/21 1130 AC (ZOFRAN) IV 07/21 1129 Allergies: Coded Allergies: tramadol (Mild, PALPITATIONS 06/22/22) Uncoded Allergies: MUSCLE RELAXERS (Mild, PALPITATIONS 06/21/22) Objective Physical Exam VS/I O: Last Documented: Result Date Time Pulse Ox 95 06/22 342 B/P 112/68 06/22 342 B/P Mean 82.5 06/22 342 O2 Delivery Room air 06/22 342 Temp 37.5 06/22 342 Pulse 98 06/22 034 Resp 18 06/22 034 24 hour I O ending at 0700: 06/22 0700 06/21 1900 Intake Total Output Total Balance Patient 90.7 kg Weight Weight Bed scale Measurement Method PATIENT WEIGHT: Weight (lb): Weight (oz): Weight (kg): 90.700 General appearance: alert, awake, oriented Head/eyes: atraumatic, EOMI, normocephalic, norm al conjunctiva/sclera, PERRLA Cardiovascular: regular rate rhythm Abdomen: soft, non-tender, no distention , active bowel sounds in all quadrant. Extremities: moves all, no edema Neuro/CONTRACT MANAGER: no motor deficits, no sensory deficit s, CNII-XII grossly intact Results Findings/data: Laboratory Tests: 06/22 06/22 0510 0510 Chemistry Iron (35 - 150 mcg/dL) 14 L TIBC (260 - 445 mcg/dL) 331 % Saturation (14 - 34 %) 4.2 L Unsat Iron Binding (mcg/dL) 317 Ferritin (11.0 - 306.8 ng/mL) 16.9 Lactate Dehydrogenase (84 - 246 IUnits/L) 277 H Vitamin B12 (193 - 986 pg/mL) 426 Folate (3.1 - 17.5 ng/mL) 23.4 H Serum , Qual (NEGATIVE) SERUM NEGATIVE Hematology WBC (4.5 - 11.0 x10 3/uL) 7.6 RBC (3.54 - 5.02 x10 6/uL) 3.12 L Hgb (11.0 - 15.0 g/dL) 8.0 L Hct (33.0 - 45.0 %) 25.4 L MCV (81.0 - 99.0 fL) 81.4 MCH (27.0 - 33.0 pg) 25.6 L MCHC (33.0 - 37.0 g/dL) 31.5 L RDW (11.5 - 14.5 %) 14.2 Plt Count (150 - 400 x10 3/uL) 281 MPV (7.0 - 9.0 fL) 9.6 H Neut % (Auto) (56.0 - 77.0 %) 63.7 Lymph % (Auto) (14.0 - 32.0 %) 27.6 [place] % (Auto) (4.8 - 9.0 %) 7.6 Eos % (Auto) (0.3 - 3.7 %) 0.4 Baso % (Auto) (0.0 - 2.0 %) 0.3 Neut # (Auto) (2.0 - 7.6 x10 3/uL) 4.84 Lymph # (Auto) (1.0 - 3.8 x10 3/uL) 2.10 [place] # (Auto) (0.1 - 0.8 x10 3/uL) 0.58 Eos # (Auto) (0.0 - 0.2 x10 3/uL) 0.03 Baso # (Auto) (0.0 - 0.2 x10 3/uL) 0.02 Abs Immat Gran (auto) (0.00 - 0.03 x10 3/uL) 0. 03 Add Manual Diff NO Immature Gran % (0.0 - 2.0 %) 0.4 Nucleated RBC % (0 - 0 %) 0.0 Nucleated RBCs # (Man) (0.0 - 0.1 x10 3/uL) 0.0 0 Retic Count (auto) (0.3 - 2.3 %) 1.8 14 06/21 0330 1050 Chemistry Sodium (134 - 147 mEq/L) 137 Potassium (3.4 - 5.0 mEq/L) 3.9 Chloride (100 - 108 mEq/L) 103 Carbon Dioxide (21 - 33 mEq/l) 26 Anion Gap (0 - 20) 12 BUN (7 - 18 mg/dL) 14 Creatinine (0.6 - 1.3 mg/dL) 0.9 Glomerular Filtr Rate (105 - 110) 70.1 L Glucose (70 - 110 mg/dL) 95 Calcium (8.0 - 10.5 mg/dL) 8.5 Coagulation INR (0.8 - 1.2) 1.3 H PTT ([place]) (25.0 - 39.5 Seconds) 158.2 H 32.7 PT Patient/Control Mix (9.3 - 12.9 SECONDS) 14. 4 H Hematology WBC (4.5 - 11.0 x10 3/uL) 10.3 RBC (3.54 - 5.02 x10 6/uL) 3.61 Hgb (11.0 - 15.0 g/dL) 9.6 L Hct (33.0 - 45.0 %) 29.8 L MCV (81.0 - 99.0 fL) 82.5 MCH (27.0 - 33.0 pg) 26.6 L MCHC (33.0 - 37.0 g/dL) 32.2 L RDW (11.5 - 14.5 %) 14.3 Plt Count (150 - 400 x10 3/uL) 351 MPV (7.0 - 9.0 fL) 9.7 H Neut % (Auto) (56.0 - 77.0 %) 80.2 H Lymph % (Auto) (14.0 - 32.0 %) 12.5 L [place] % (Auto) (4.8 - 9.0 %) 6.8 Eos % (Auto) (0.3 - 3.7 %) 0.1 L Baso % (Auto) (0.0 - 2.0 %) 0.1 Neut # (Auto) (2.0 - 7.6 x10 3/uL) 8.22 H Lymph # (Auto) (1.0 - 3.8 x10 3/uL) 1.28 [place] # (Auto) (0.1 - 0.8 x10 3/uL) 0.70 Eos # (Auto) (0.0 - 0.2 x10 3/uL) 0.01 Baso # (Auto) (0.0 - 0.2 x10 3/uL) 0.01 Abs Immat Gran (auto) (0.00 - 0.03 x10 3/uL) 0 .03 Add Manual Diff NO Immature Gran % (0.0 - 2.0 %) 0.3 Nucleated RBC % (0 - 0 %) 0.0 Nucleated RBCs # (Man) (0.0 - 0.1 x10 3/uL) 0.0 0 Toxicology Ethyl Alcohol (<10 mg/dL) < 3.0 Diagnosis, Assessment Plan Free text A P: A/P: Patient is a 36 year old female who presents wit h right tib-fib fracture Past Medical History: Venous thrombus on, protein S deficiency, chronic neck and back pain, right tib-fib fracture Past Surgical History: 06/22/2022-closed reductio n of right proximal tibia and fibula fracture. Application of uniplanar cable tender al fixator Family History: Noncontributory Social History: Positive for alcohol use Allergies: Tramadol Acute pain due to trauma, acute postoperative pa in -Status post right tib-fib fracture -06/22/2022-closed reduction of right proximal ti therese and fibula fracture. Application of uniplanar external fixator -Percocet 10/325 1 tablet p.o. every 4 hours as needed pain scale 4 10 -Morphine 4 mg IV every 4 hours as needed pain s dheeraj 7 out of 10, second line therapy -Motrin 400 mg p.o. every 8 hours (Protonix 40 mg p.o. daily for GI prophylaxis) - Idiopathic neuropathy -Gabapentin 300 mg p.o. twice daily - Patient has failed conservative medical therapy. Patient will require monitoring while utilize na rcotic medications for any adverse effects, and will adjust as needed Plan of care discussed with patient and nurse All diagnostics of last 24 hours been reviewed. Risks versus benefits of opioid medications were reviewed to include, but not limited to respiratory depression, accid ental overdose, altered mental status, sudden , constipation which could result in bowel obstruction, seizures, withdrawal, dependency addiction, risk for falls . Case discussed with Dr Gaspar whom agrees. Thank you for the consultation. [place] MEDIA RELATIONS MANAGER: Total Prescriptions 14 Total Private Pay 0 Total Prescribers 2 Total Pharmacies 4 05/26/2022 04/28/2022 2 ACET AMINOPHEN-COD #4 TABLET 90.00 30 Ga Hol [id number] Heb ( 5115) 1 27.00 MME Comm Ins [place] 04/28/2022 04/28/2022 1 ACET AMINOPHEN-COD #4 TABLET 90.00 30 Ga Hol [id number] Heb ( 5115) 0 27.00 MME Comm Ins [place] 04/15/2022 04/14/2022 1 ACET AMINOPHEN-COD #4 TABLET 30.00 10 Ga Hol [id number] Uni (9378) 0 27.00 MME Other [place] 03/18/2022 11/19/2021 1 ACET AMINOPHEN-COD #4 TABLET 90.00 30 Ga Hol [id number] Uni (9378) 1 27.00 MME Other [place] 02/18/2022 11/19/2021 1 ACET AMINOPHEN-COD #4 TABLET 90.00 30 Ga Hol [id number] Uni (9378) 0 27.00 MME Other [place] 01/21/2022 11/19/2021 1 ACET AMINOPHEN-COD #4 TABLET 90.00 30 Ga Hol [id number] Uni (9378) 1 27.00 MME Other [place] 12/24/2021 11/19/2021 1 ACET AMINOPHEN-COD #4 TABLET 90.00 30 Ga Hol [id number] Uni (9378) 0 27.00 MME Other [place] 12/15/2021 12/15/2021 1 PREGABALIN 75 MG CAPSULE 30.00 15 Swe [id number] H e ( 3043) 0 1.00 LME Comm Ins [place] 11/26/2021 11/19/2021 1 ACET AMINOPHEN-COD #4 TABLET 90.00 30 Ga Hol [id number] Hen (1563) 0 27.00 MME Comm Ins [place] 10/29/2021 10/27/2021 1 ACET AMINOPHEN-COD #4 TABLET 90.00 30 Ga Hol [id number] Uni (9378) 0 27.00 MME Other [place] 10/01/2021 09/23/2021 1 ACET AMINOPHEN-COD #4 TABLET 90.00 30 Ga Hol [id number] Uni (4478) 0 27.00 MME Other [place] 09/04/2021 09/01/2021 1 ACET AMINOPHEN-COD #3 TABLET 90.00 30 Ga Hol [id number] Hen (7709) 0 13.50 MME Comm Ins [facility] #[id number] [phone] [place] [address] [facility] [phone]) [phone] [place] [address] - [facility] [address] [phone]) [phone] [place] [address] - [facility]024 [phone] [place] [address] Tam Gaspar 06/22/22 1730: Attestations Physician Attestation Agree w/findings plan: The patient was seen and exa mined by Sly Escobar. I personally developed the care plan, which was continued by the mid-level provider. I was immediately available. at 1838 Electronically Signed by Tam Gaspar MD on 2 at 0634 RPT #:[id number] END OF REPORT 2022-06-22 08:25:00-00:00 [facility] Clinical Note REPORT#:[id number] REPORT STATUS: Signed DATE:06/22/22 TIME: 824 PATIENT: TEODORA SANTANA UNIT #: [id number] ROOM/BED: [place] [address] : 83 AGE: 36 SEX: F ATTEND: Sapna Britt DO ADM AUTHOR: Ian Elmore MD * ALL edits or amendments must be made on the el ectronic/computer document * Clinical Note Note: I discussed the plan with th e patient this morning. She is aware that Dr. Glover will be taking her to the OR today for external fixation. Electronically Signed by Ian Elmore MD on at 0825 RPT #:[id number] END OF REPORT 2022-06-22 06:15:00-00:00 [facility] ([facility]) Orthopaedic Progress Note REPORT#:[id number] REPORT STATUS: Signed DATE:06/22/22 TIME: 614 PATIENT: TEODORA SANTANA UNIT #: [id number] ROOM/BED: [place] [address] : 83 AGE: 36 SEX: F ATTEND: Scott Britt DO ADM AUTHOR: Jonathan Glover [facility] * ALL edits or amendments must be made on the [employer]ribute/computer document * Subjective HPI: Teodora Santana is a 36-year-old female with a histo ry of Protein S deficiency on Eliqu transferred to [facility] for evaluation and treatment of displaced closed right proximal tibia and fibula fractures . The patient was running on the beach yesterday when she got her right leg s tuck in a hole. She felt a twist and a pop. She noted immediate pain with a n inability to ambulate. She was taken to [facility] who t ransferred her to [facility] given the complexity of the injury as well as her medi hayden history. Currently, the patient is resting comfortably in bed. She has been started on multimodal pain control, and says her pain right now is a 4/10. She is in a long-leg splint that is heav kyle padded. She denies any paresthesias or numbness in the right lower extremity. She has not noted any focal motor weakness. She denies any fevers, chills, nausea, or vomiting. She denies any open wounds or lacerations. Review of Systems Free Text ROS Notes Free Text ROS Notes: Constitutional: Denies fever, chills, fatigue Skin: Denies abrasions, bruising, diaphoresis, i tching HEENT: Denies diplopia, headache, photophobia, t hroat swelling Respiratory: Denies dyspnea on exertion, hemopty sis, pleuritic pain, cough, shortness of breath CV: Denies chest pain, edema, palpitations GI: Denies abdominal pain, dysphagia, nausea/vom iting Musculoskeletal: Endorses right lower extremity pain and swelling around the knee Heme: Denies adenopathy, bleeding, petechia Neuro: Denies bowel or bladd er dysfunction, dizziness, focal weakness, numbness/ tingling Psychiatric: Denies confusion, agitation, halluc inations Objective VS: Last Documented: Result Date Time Pulse Ox 95 06/22 342 B/P 112/68 06/22 342 B/P Mean 82.5 06/22 342 O2 Delivery Room air 06/22 342 Temp 37.5 06/22 342 Pulse 98 06/22 342 Resp 18 06/22 342 PATIENT WEIGHT: Weight (lb): Weight (oz): Weight (kg): 90.700 Results Findings/data: Laboratory Tests 06/21 1050 Chemistry Sodium (134 - 147 mEq/L) 137 Potassium (3.4 - 5.0 mEq/L) 3.9 Chloride (100 - 108 mEq/L) 103 Carbon Dioxide (21 - 33 mEq/l) 26 Anion Gap (0 - 20) 12 BUN (7 - 18 mg/dL) 14 Creatinine (0.6 - 1.3 mg/dL) 0.9 Glomerular Filtr Rate (105 - 110) 70.1 L Glucose (70 - 110 mg/dL) 95 Calcium (8.0 - 10.5 mg/dL) 8.5 Laboratory Tests 06/22 06/21 0330 1050 Coagulation INR (0.8 - 1.2) 1.3 H PTT (Marissa) (25.0 - 39.5 Seconds) 158.2 H 32.7 PT Patient/Control Mix (9.3 - 12.9 SECONDS) 14. 4 H Laboratory Tests 06/22 06/22 06/21 0510 0510 1050 Hematology WBC (4.5 - 11.0 x10 3/uL) 7.6 10.3 RBC (3.54 - 5.02 x10 6/uL) 3.12 L 3.61 Hgb (11.0 - 15.0 g/dL) 8.0 L 9.6 L Hct (33.0 - 45.0 %) 25.4 L 29.8 L MCV (81.0 - 99.0 fL) 81.4 82.5 MCH (27.0 - 33.0 pg) 25.6 L 26.6 L MCHC (33.0 - 37.0 g/dL) 31.5 L 32.2 L RDW (11.5 - 14.5 %) 14.2 14.3 Plt Count (150 - 400 x10 3/uL) 281 351 MPV (7.0 - 9.0 fL) 9.6 H 9.7 H Neut % (Auto) (56.0 - 77.0 %) 63.7 80.2 H Lymph % (Auto) (14.0 - 32.0 %) 27.6 12.5 L [place] % (Auto) (4.8 - 9.0 %) 7.6 6.8 Eos % (Auto) (0.3 - 3.7 %) 0.4 0.1 L Baso % (Auto) (0.0 - 2.0 %) 0.3 0.1 Neut # (Auto) (2.0 - 7.6 x10 3/uL) 4.84 8.22 H Lymph # (Auto) (1.0 - 3.8 x10 3/uL) 2.10 1.28 [place] # (Auto) (0.1 - 0.8 x10 3/uL) 0.58 0.70 Eos # (Auto) (0.0 - 0.2 x10 3/uL) 0.03 0.01 Baso # (Auto) (0.0 - 0.2 x10 3/uL) 0.02 0.01 Abs Immat Gran (auto) (0.00 - 0.03 x10 3/uL) 0. 03 0.03 Add Manual Diff NO NO Immature Gran % (0.0 - 2.0 %) 0.4 0.3 Nucleated RBC % (0 - 0 %) 0.0 0.0 Nucleated RBCs # (Man) (0.0 - 0.1 x10 3/uL) 0.0 0 0.00 Retic Count (auto) (0.3 - 2.3 %) 1.8 Laboratory Tests 06/21 1050 Toxicology Ethyl Alcohol (<10 mg/dL) < 3.0 X-ray interpretation: I reviewed x-rays of the right knee, right tibia and fibula, as well as a CT scan of the same. It demonst rates a complex right proximal tibia fracture which includes a metadiaphyseal fracture, late ral split, and a lateral depression as well as a proximal fibular shaft fracture. The k nee is reduced. Free Text Obj Notes Free Text Obj Notes: The patient is alert and oriented. All 4 extremities are warm and well-perfused. The patient is taking bilateral equal breath eff orts. No petechiae, rashes, or adenopathy. Right lower extremity: The patient is in a very bul ky posterior splint at this time. She does not want me to remove it for the examination at t his time. I will undertake this in the operating room. There is 3/5 motor strength in EHL/FHL. Sensation is intact to light touch in the S/S/SP /DP/T distribution. Toes are warm and well-perfused with brisk capil marlee refill. Homans' sign is negative Diagnosis, Assessment Plan Free text A P: Teodora Santana is a 36-year-old female with a histo ry of Protein S deficiency on [facility] transferred to [facility] for evaluation and treatment of displaced closed right proximal tibia and fibula fractures . We discussed nonoperative versus operative care. Nonoperative care would involve immobilization and limited weightbearing for period of several weeks. This would likely result in pain, deformity, pos sible nonunion. Operative fixation could proceed with external fixation, ring external fixation, and open reduction with internal fixation. Given the inst ability on the fracture, I would like to proceed in a staged manner. Today, we will perform external fixation (knee spanning) of the right lower extr emity. This will allow us to monitor the soft tissues. When these are ready f or ORIF, we will proceed with removal of the external fixa tion and ORIF. This would expose the patient to the risk of surgery, which include pain, bleeding, i nfection, nonunion/malunion, need for repeat surgery, dem onstrated structures, risk of anesthesia, DVT/PE, up to include . The patient agreed to proceed. Therefore, my recommendations are as follows: -Plan for OR today for right knee-spanning exter nal fixation -NPO now -This is the first part of a staged procedure. T he second stage will occur whenever the soft tissues are amenable, likely n ext week Monday. Would recommend patient remain inpatient for soft tiss ue evaluation. -PT/OT postop -OK to continue heparin gtt vs LMWH. Will need a nticoagulation plan in place prior to next week's procedure. -No further imaging needed at this time -NWB RLE in posterior splint -Further care per primary at 0823 RPT #:[id number] END OF REPORT 2022-06-21 22:37:00-00:00 [facility]) Orthopaedic Consult Note REPORT#:[id number] REPORT STATUS: Signed DATE:06/21/22 TIME: 2236 PATIENT: TEODORA SANTANA UNIT #: [id number] ROOM/BED: [place] [address] : 83 AGE: 36 SEX: F ATTEND: Scott Britt DO ADM AUTHOR: Ian Elmore MD * ALL edits or amendments must be made on the [employer]/computer document * History of Present Illness Requesting clinician: Trauma Reason for consult: fracture closed Chief complaint: Right tibia fracture HPI: 36 y/o female on [facility] who tripped [place] [facility] [place] . She was seen at an outside ER and transferred here for higher level of care. She complains of sharp pain in the right k nee and leg that is non- radiating. It is worse with ROM and bett er with rest. She has been placed in a splint. She is unable to bear weight. Sh e denies previous injury to the leg in the past. History - Adult longitudinal Past medical history: Reports: Venous thromboembolism. Additional medical history: Protein S deficiency (DVT/PE), chronic neck and back pain Alcohol use: Alcohol use Smoking status: Smoking status for patients 13 years old or old er: Never Smoker Medications: Home Medications: Medication Dose/Rte/Freq Days Qty Entered Last Max Daily Dose Reviewed GABAPENTIN (NEURONTIN) 400 MG PO TID 06/21/22 0 06/21/22 Strength: 400 MG CAP 1509 1512 traZODone (DESYREL) 100 MG PO BEDTIME 06/21/22 06/21/22 Strength: 100 MG TAB 1509 1512 ACETAMINOPHEN/CODEINE 1 TAB PO 06/21/22 2 (TYLENOL WITH CODEINE Q4H PRN PRN ACUTE 1510 15 12 #4 300/60 MG) PAIN Strength: 300 MG-60 MG TAB APIXABAN (ELIQUIS) 5 MG PO BID 06/21/22 Strength: 5 MG TAB 1511 1512 Current Hospital Medications: Anti-Infective Agents Sig/Maricruz Start time Last Medication Dose Route Stop Time Status Admin Cefazolin Sodium 2 GM PREOP ONCALL 06/22 0500 U NV (KEFZOL OR ANCEF) IV 06/22 2359 Blood Formation,Coagulation Sig/Maricruz Start time Last Medication Dose Route Stop Time Status Admin Heparin Sodium 0 ASDIR PRN 06/21 1145 AC (HEPARIN 5000 UNITS/ IV 07/21 1144 ML) Heparin Sodium 500 ML ASDIR 06/21 1145 CKD 06/09 3 (Porcine) IV 07/21 1144 2112 (HEPARIN 25,000 UNITS/ 1/2NS 500ML) Central Nervous System Agents Sig/Maricruz Start time Last Medication Dose Route Stop Time Status Admin Gabapentin 300 MG BID 06/21 2100 AC 06/21 (NEURONTIN) PO 07/21 2059 2048 Oxycodone HCl 5 MG Q4H PRN PRN 06/21 1730 AC (ROXICODONE) PO 06/26 1729 Morphine Sulfate 6 MG Q4H PRN PRN 06/21 1630 AC 06/21 (morphine SULFATE) IV 06/26 1629 2049 Fentanyl Citrate 50 MCG ONCE ONE 06/21 1415 DC 06/21 (SUBLIMAZE) IV 06/21 1416 1439 Acetaminophen 1,000 MG Q6H 06/21 1130 AC 06/21 (TYLENOL EXTRA PO 07/21 1129 1208 STRENGTH) Oxycodone HCl 10 MG Q6H PRN PRN 06/21 1130 AC 0 06/21 (ROXICODONE) PO 06/26 1129 1852 Hydromorphone HCl 1 MG X1ED STA 06/21 1042 DC 0 06/21 (DILAUDID) IV 06/21 1043 1111 Electrolytic, Caloric, And Evelina Sig/Maricruz Start time Last Medication Dose Route Stop Time Status Admin Sodium Chloride 20 ML ASDIR 06/21 2245 UNV (SODIUM CHLORIDE) IV 07/21 2244 Gastrointestinal Drugs Sig/Maricruz Start time Last Medication Dose Route Stop Time Status Admin Polyethylene Glycol 17 GM DAILY 06/22 0900 AC (MIRALAX) PO 07/22 0859 Ondansetron HCl 4 MG Q4H PRN PRN 06/21 1130 AC (ZOFRAN) IV 07/21 1129 Allergies: Coded Allergies: tramadol (Mild, PALPITATIONS 06/21/22) Uncoded Allergies: MUSCLE RELAXERS (Mild, PALPITATIONS 06/21/22) Occupation: "going back to school" Review of Systems Musculoskeletal: extremity pain, extremity swelling, joint pain, joint swelling. Heme: other (clotting disorder/DVT). All systems rev neg: except as marked Objective VS: Last Documented: Result Date Time Pulse Ox 97 06/21 2227 B/P 124/79 06/21 2227 B/P Mean 93.7 06/21 2227 O2 Delivery Room air 06/21 2227 Temp 37.5 06/21 2227 Pulse 84 06/21 2227 Resp 18 06/21 2227 PATIENT WEIGHT: Weight (lb): Weight (oz): Weight (kg): 90.700 Physical Exam General appearance: alert, awake, oriented Knee-right: joint effusion, swelling, tender, ne urovascular intact HEENT: atraumatic Neck: non-tender Cardiovascular: pedal pulses present Respiratory: no distress Abdomen: non-tender Genitourinary: no urinary catheter Neuro/CONTRACT MANAGER: alert Skin: dry, intact Lymphatics: no lymphadenopathy Psychiatry: normal affect Results Findings/data: Laboratory Tests 06/21 1050 Chemistry Sodium (134 - 147 mEq/L) 137 Potassium (3.4 - 5.0 mEq/L) 3.9 Chloride (100 - 108 mEq/L) 103 Carbon Dioxide (21 - 33 mEq/l) 26 Anion Gap (0 - 20) 12 BUN (7 - 18 mg/dL) 14 Creatinine (0.6 - 1.3 mg/dL) 0.9 Glomerular Filtr Rate (105 - 110) 70.1 L Glucose (70 - 110 mg/dL) 95 Calcium (8.0 - 10.5 mg/dL) 8.5 Laboratory Tests 06/21 1050 Coagulation INR (0.8 - 1.2) 1.3 H PTT (Marissa) (25.0 - 39.5 Seconds) 32.7 PT Patient/Control Mix (9.3 - 12.9 SECONDS) 14 .4 H Laboratory Tests 06/21 1050 Hematology WBC (4.5 - 11.0 x10 3/uL) 10.3 RBC (3.54 - 5.02 x10 6/uL) 3.61 Hgb (11.0 - 15.0 g/dL) 9.6 L Hct (33.0 - 45.0 %) 29.8 L MCV (81.0 - 99.0 fL) 82.5 MCH (27.0 - 33.0 pg) 26.6 L MCHC (33.0 - 37.0 g/dL) 32.2 L RDW (11.5 - 14.5 %) 14.3 Plt Count (150 - 400 x10 3/uL) 351 MPV (7.0 - 9.0 fL) 9.7 H Neut % (Auto) (56.0 - 77.0 %) 80.2 H Lymph % (Auto) (14.0 - 32.0 %) 12.5 L [place] % (Auto) (4.8 - 9.0 %) 6.8 Eos % (Auto) (0.3 - 3.7 %) 0.1 L Baso % (Auto) (0.0 - 2.0 %) 0.1 Neut # (Auto) (2.0 - 7.6 x10 3/uL) 8.22 H Lymph # (Auto) (1.0 - 3.8 x10 3/uL) 1.28 [place] # (Auto) (0.1 - 0.8 x10 3/uL) 0.70 Eos # (Auto) (0.0 - 0.2 x10 3/uL) 0.01 Baso # (Auto) (0.0 - 0.2 x10 3/uL) 0.01 Abs Immat Gran (auto) (0.00 - 0.03 x10 3/uL) 0. 03 Add Manual Diff NO Immature Gran % (0.0 - 2.0 %) 0.3 Nucleated RBC % (0 - 0 %) 0.0 Nucleated RBCs # (Man) (0.0 - 0.1 x10 3/uL) 0.0 0 Laboratory Tests 06/21 1050 Toxicology Ethyl Alcohol (<10 mg/dL) < 3.0 Radiology data: Outside images (CT and XRAYs) reveal a complex p roximal tibia fracture with a lateral plateau depression and a comminuted meta physeal fracture Results: labs reviewed, vital signs reviewed, CT results reviewed, x-ray personally reviewed Diagnosis, Assessment Plan Problem List/A P: 1. Fracture of right tibial plateau Free Text A P: Right proximal 1/3 tibial shaft fracture with depressed lateral tibial plateau fracture At the time of my discussion with the pa robin richard today, the outside CT was not available for review. We discussed definitive fixation in a few days pending the soft tissues. Upon revie w of the CT, there is a substantial lateral plateau fracture that will require eventual ORIF. I have discussed the case with Dr Jonathan Glover, who has subspecialty training and a specific interest in this area. He plans a 2 stage approach and wi ll place an external fixator tomorrow. Quality: Ortho Advanced Care Plan 65 or Older Discussed with: patient Electronically Signed by Ian Elmore MD on at 2248 RPT #:[id number] END OF REPORT 2022-06-21 21:32:00-00:00 [facility] ([facility]) Emile/Oncology Consult Note REPORT#:[id number] REPORT STATUS: Signed DATE:06/21/22 TIME: 2131 PATIENT: TEODORA SANTANA UNIT #: [id number] ROOM/BED: [place] [address] : 83 AGE: 36 SEX: F ATTEND: Sapna Britt DO ADM AUTHOR: Adrian Cortez MD * ALL edits or amendments must be made on the el ectronic/computer document * History of Present Illness Requesting clinician: DO Dustin Flores APRNNP Reason for consult: Protein S deficiency, need for DVT prophylaxis. Chief complaint: [place] HPI: This is a 36-year-old woman with past me dical history remarkable for protein S deficiency came to the hospital after tripping a nd falling while running on a beach trying to celebrate a rheumatic evening wi th her . She complains of severe acute pain in her right lower extremit y and had second severe difficulty with ambulation. Apparently she had developed a right tibial plateau fracture. She was transferred to [facility] from an outside emergency room for evaluation by trauma surgeon. Patient has been evaluated by orthopedic surgery and there are plans to perfor m surgery on her in the next couple of days. Patient who is originally fr om [facility] but recently moved to [place]. She tells me that when she was 17 years of age, she had developed blood clots involving the arteries in her left arm. She requ ired surgery. She was at that time treated with a course of Coumadin. 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 In 2020, she had developed p ulmonary embolism involving her left lung after she had developed left-sided chest wall pain. At wood t time she was seen by audio director in [facility] and there was diag nosed to have protein S deficiency based on work-up performed. Subsequen she was started on anticoagulation with Eliquis which she continues . Patient was seen by trauma team in here in the h ospital and was started on IV heparin. At the time seen, patient de nies having any chest pain, shortness of breath but does complain of pain in the right lower extremi ty. Her mother apparently had pulmonary embolism and at the age of 41. Her grandfather also had thromboembolic disease at a fairly young age. Her siblings have not been checked for a ny thrombophilia but also have not had any thromboembolic phenomenon. She does smoke about 6 cigar ettes on a daily basis and has been smoking for the last few years. She also has a history of alcoho l abuse but recently has not been drinking any alcohol. History - Adult longitudinal Past medical history: Reports: Venous thromboembolism. Additional medical history: Protein S deficiency (DVT/PE), chronic neck and back pain Alcohol use: Alcohol use Smoking status: Smoking status for patients 13 years old or old er: Never Smoker Medications: Home Medications: Medication Dose/Rte/Freq Days Qty Entered Last Max Daily Dose Reviewed GABAPENTIN (NEURONTIN) 400 MG PO TID 06/21/22 0 06/21/22 Strength: 400 MG CAP 1509 1512 traZODone (DESYREL) 100 MG PO BEDTIME 06/21/22 06/21/22 Strength: 100 MG TAB 1509 1512 ACETAMINOPHEN/CODEINE 1 TAB PO 06/21/22 2 (TYLENOL WITH CODEINE Q4H PRN PRN ACUTE 1510 15 12 #4 300/60 MG) PAIN Strength: 300 MG-60 MG TAB APIXABAN (ELIQUIS) 5 MG PO BID 06/21/22 Strength: 5 MG TAB 1511 1512 Current Hospital Medications: Blood Formation,Coagulation Sig/Maricruz Start time Last Medication Dose Route Stop Time Status Admin Heparin Sodium 0 ASDIR PRN 06/21 1145 AC (HEPARIN 5000 UNITS/ IV 07/21 1144 ML) Heparin Sodium 500 ML ASDIR 06/21 1145 CKD 06/09 3 (Porcine) IV 07/21 1144 2112 (HEPARIN 25,000 UNITS/ 1/2NS 500ML) Central Nervous System Agents Sig/Maricruz Start time Last Medication Dose Route Stop Time Status Admin Gabapentin 300 MG BID 06/21 2100 AC 06/21 (NEURONTIN) PO 07/21 Oxycodone HCl 5 MG Q4H PRN PRN 06/21 1730 AC (ROXICODONE) PO 06/26 1729 Morphine Sulfate 6 MG Q4H PRN PRN 06/21 1630 AC 06/21 (morphine SULFATE) IV 06/26 1629 2049 Fentanyl Citrate 50 MCG ONCE ONE 06/21 1415 DC 06/21 (SUBLIMAZE) IV 06/21 1416 1439 Acetaminophen 1,000 MG Q6H 06/21 1130 AC 06/21 (TYLENOL EXTRA PO 07/21 1129 1208 STRENGTH) Oxycodone HCl 10 MG Q6H PRN PRN 06/21 1130 AC 0 06/21 (ROXICODONE) PO 06/26 1129 1852 Hydromorphone HCl 1 MG X1ED STA 06/21 1042 DC 0 06/21 (DILAUDID) IV 06/21 1043 1111 Gastrointestinal Drugs Sig/Maricruz Start time Last Medication Dose Route Stop Time Status Admin Polyethylene Glycol 17 GM DAILY 06/22 0900 AC (MIRALAX) PO 07/22 0859 Ondansetron HCl 4 MG Q4H PRN PRN 06/21 1130 AC (ZOFRAN) IV 07/21 1129 Allergies: Coded Allergies: tramadol (Mild, PALPITATIONS 06/21/22) Uncoded Allergies: MUSCLE RELAXERS (Mild, PALPITATIONS 06/21/22) Objective Physical Exam VS: Vital Signs Date Temp Pulse Resp B/P B/P Mean Pulse Ox FiO2 06/21 36.9-37.9 85-106 103-128/55-80 74-9 6 96-99 Last Documented: Result Date Time Pulse Ox 96 06/21 2055 B/P 112/69 06/21 2055 B/P Mean 83.6 06/21 2055 Pulse 97 06/21 2055 O2 Delivery Room air 06/21 1929 Temp 37.9 06/21 1929 Resp 18 06/21 1929 PATIENT WEIGHT: Weight (lb): Weight (oz): Weight (kg): 90.700 General appearance: alert, awake HEENT: normocephalic Neck: full range of motion, non-tender, supple/n o meningismus, no JVD, no lymphadenopathy Cardiovascular: regular rate and rhythm Respiratory: clear to auscultation, no distress Abdomen: non-tender, normal bowel sounds , soft, no distention, no guarding, no mass/organomegaly, no rebound Extremities: moves all, normal capillary refill, no edema Musculoskeletal: full range of motion, normal in spection Neuro/CONTRACT MANAGER: alert, oriented X 3 Results Findings/Data: Current Medications Sig/Maricruz Start time Last Medication Dose Route Stop Time Status Admin Polyethylene Glycol 17 GM DAILY 06/22 0900 AC PO 07/22 0859 Gabapentin 300 MG BID 06/21 2100 AC 06/21 PO 07/21 2059 204 Oxycodone HCl 5 MG Q4H PRN PRN 06/21 1730 AC PO 06/26 1729 Morphine Sulfate 6 MG Q4H PRN PRN 06/21 1630 AC 06/21 IV 06/26 1629 2049 Fentanyl Citrate 50 MCG ONCE ONE 06/21 1415 DC 06/21 IV 06/21 1416 1439 Heparin Sodium 0 ASDIR PRN 06/21 1145 AC IV 07/21 1144 Heparin Sodium 500 ML ASDIR 06/21 1145 CKD 06/09 3 (Porcine) IV 07/21 1144 2112 Acetaminophen 1,000 MG Q6H 06/21 1130 AC 06/21 PO 07/21 1129 1208 Ondansetron HCl 4 MG Q4H PRN PRN 06/21 1130 AC IV 07/21 1129 Oxycodone HCl 10 MG Q6H PRN PRN 06/21 1130 AC 0 06/21 PO 06/26 1129 1852 Hydromorphone HCl 1 MG X1ED STA 06/21 1042 DC 0 06/21 IV 06/21 1043 1111 Laboratory Tests 06/21/22 1050: [Embedded Image Not Available] Laboratory Tests 06/21 1050 Chemistry Sodium (134 - 147 mEq/L) 137 Potassium (3.4 - 5.0 mEq/L) 3.9 Chloride (100 - 108 mEq/L) 103 Carbon Dioxide (21 - 33 mEq/l) 26 Anion Gap (0 - 20) 12 BUN (7 - 18 mg/dL) 14 Creatinine (0.6 - 1.3 mg/dL) 0.9 Glomerular Filtr Rate (105 - 110) 70.1 L Glucose (70 - 110 mg/dL) 95 Calcium (8.0 - 10.5 mg/dL) 8.5 Laboratory Tests 06/21 1050 Coagulation INR (0.8 - 1.2) 1.3 H PTT (Marissa) (25.0 - 39.5 Seconds) 32.7 PT Patient/Control Mix (9.3 - 12.9 SECONDS) 14. 4 H Laboratory Tests 06/21 1050 Hematology WBC (4.5 - 11.0 x10 3/uL) 10.3 RBC (3.54 - 5.02 x10 6/uL) 3.61 Hgb (11.0 - 15.0 g/dL) 9.6 L Hct (33.0 - 45.0 %) 29.8 L MCV (81.0 - 99.0 fL) 82.5 MCH (27.0 - 33.0 pg) 26.6 L MCHC (33.0 - 37.0 g/dL) 32.2 L RDW (11.5 - 14.5 %) 14.3 Plt Count (150 - 400 x10 3/uL) 351 MPV (7.0 - 9.0 fL) 9.7 H Neut % (Auto) (56.0 - 77.0 %) 80.2 H Lymph % (Auto) (14.0 - 32.0 %) 12.5 L [place] % (Auto) (4.8 - 9.0 %) 6.8 Eos % (Auto) (0.3 - 3.7 %) 0.1 L Baso % (Auto) (0.0 - 2.0 %) 0.1 Neut # (Auto) (2.0 - 7.6 x10 3/uL) 8.22 H Lymph # (Auto) (1.0 - 3.8 x10 3/uL) 1.28 [place] # (Auto) (0.1 - 0.8 x10 3/uL) 0.70 Eos # (Auto) (0.0 - 0.2 x10 3/uL) 0.01 Baso # (Auto) (0.0 - 0.2 x10 3/uL) 0.01 Abs Immat Gran (auto) (0.00 - 0.03 x10 3/uL) 0. 03 Add Manual Diff NO Immature Gran % (0.0 - 2.0 %) 0.3 Nucleated RBC % (0 - 0 %) 0.0 Nucleated RBCs # (Man) (0.0 - 0.1 x10 3/uL) 0.0 0 Laboratory Tests 06/21 1050 Toxicology Ethyl Alcohol (<10 mg/dL) < 3.0 Results: labs reviewed, vital signs reviewed Diagnosis, Assessment Plan Free Text A P: ASSESSMENT: * Trauma status post fall resulting in a right t ibial plateau fracture. 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 Patient had been on anticoagulation with Eliquis . * Normocytic, hypochromic anemia, likely seconda ry to iron deficiency with patient having history of heavy menstrual cycles for the past few years. PLAN: * Agree with IV heparin for anticoagulation for thromboembolic prophylaxis especially with patient having right lower extre mity fracture and needing surgery. * Based on orthopedic recommendations, h er IV heparin will be on hold prior to surgery and then can be resumed postsurgery as l lloyd as there are no bleeding issues. Subsequently she can be converted back t o Eliquis. I have advised her that she needs to continue with anticoagulation on a lifelong basis. * I will investigate anemia by performing work-up including reticulocyte count, iron, TIBC, ferritin, B12, serum folate, serum p rotein electrophoresis. * I will continue to follow. * Discussed with patient's nurse, she mentioned that the patient had a rude behavior upon arrival to the observation unit fr om the ER and did not allow establishment of IV line to start her IV heparin . Did discuss this with the patient and she tells me that she will comply wi nursing instructions. * I will continue to follow. * Thank you very much for this consultation. Electronically Signed by Adrian Cortez MD on at 2140 RPT #:[id number] END OF REPORT 2022-06-21 11:20:00-00:00 [facility] ([facility]) EMERGENCY PROVIDER REPORT REPORT#:[id number] REPORT STATUS: Signed DATE:06/21/22 TIME: 1120 PATIENT: TEODORA SANTANA UNIT #: [id number] ROOM/BED: [place] [id number] AGE: 36 SEX: F PCP PHYS: No Primary or Family Ph ysician SERVICE AUTHOR: Yohan Graham MD * ALL edits or amendments must be made on the [employer]/computer document * HPI-Knee Prob/Inj General Confirmed Patient Yes Initial Greet Date/Time 06/21/22 1016 Transferred From Outlying facility Presentation Chief Complaint Leg injury R, Leg pain R Hx Obtained From Patient, Prior medical records Onset Occurred Hours ago Context of Onset EtOH use Caused by Fall on ground Timing of Trauma Date of Trauma 06/21/22 Time of Trauma 0300 Severity: Onset Severe Severity: Current Severe Associated with Reports: Painful extremity, Unable to walk. Valentino es: Numbness. Free Text HPI Notes Free Text HPI Notes 36-year-old female transferred for evaluation of a right tibial plateau fracture. Patient [place] and injured her right leg. Previous facility has tyron erin her in a Ortho-Glass posterior mold. Patient states her pain is sever e still at this time. She is able to wiggle her toes. Patient is taking Eliqu is secondary to a protein S deficiency with history of multiple DVTs and PEs . Review of Systems Focused Review of Systems Musculoskeletal Reports: Back pain, Extremity pain, Neck pain. Skin Denies: Laceration. Neurologic Reports: Problem walking. Denies: Numbness. Past Medical History - Adult Stated Complaint TIB/FIB FRACTURE OF RIGHT LEG Allergies Coded Allergies: tramadol (Mild, PALPITATIONS 06/21/22) Uncoded Allergies: MUSCLE RELAXERS (Mild, PALPITATIONS 06/21/22) Past Medical History: Reports: Venous thromboembolism. Additional Medical History Protein S deficiency (DVT/PE), chronic neck and back pain Alcohol Use Alcohol use Smoking status for patients 13 years old or olde r: Never Smoker Physical Exam Vital Signs Vital Signs First Documented: Result Date Time Pulse Ox 99 06/21 1023 B/P 128/80 06/21 1023 B/P Mean 96 06/21 1023 O2 Delivery Room air 06/21 1023 Temp 98.4 06/21 1023 Pulse 94 06/21 1023 Resp 17 06/21 1023 Last Documented: Result Date Time Pulse Ox 99 06/21 1023 B/P 128/80 06/21 1023 B/P Mean 96 06/21 1023 O2 Delivery Room air 06/21 1023 Temp 98.4 06/21 1023 Pulse 94 06/21 1023 Resp 06/21 1023 Review of Vital Signs Reviewed Focused PE General/Const General/Const Awake, Alert, Well developed MS Lower Extrem Text/Dict Notes Right leg has a Ortho-Glass posterior mo ld in place. Patient is able to wiggle her toes and her sensation is intact in her toes . Neurologic Neurologic Oriented X3, No motor deficits Interpretation Diagnostics Lab Results Interpretation Considerations Reviewed prior records Results Laboratory Tests 06/21/22 1050: [Embedded Image Not Available] Laboratory Tests: 06/21 105 Chemistry Sodium (134 - 147 mEq/L) 137 Potassium (3.4 - 5.0 mEq/L) 3.9 Chloride (100 - 108 mEq/L) 103 Carbon Dioxide (21 - 33 mEq/l) 26 Anion Gap (0 - 20) 12 BUN (7 - 18 mg/dL) 14 Creatinine (0.6 - 1.3 mg/dL) 0.9 Glomerular Filtr Rate (105 - 110) 70.1 L Glucose (70 - 110 mg/dL) 95 Calcium (8.0 - 10.5 mg/dL) 8.5 Coagulation INR (0.8 - 1.2) 1.3 H PTT ([place]) (25.0 - 39.5 Seconds) 32.7 PT Patient/Control Mix (9.3 - 12.9 SECONDS) 14. 4 H Hematology WBC (4.5 - 11.0 x10 3/uL) 10.3 RBC (3.54 - 5.02 x10 6/uL) 3.61 Hgb (11.0 - 15.0 g/dL) 9.6 L Hct (33.0 - 45.0 %) 29.8 L MCV (81.0 - 99.0 fL) 82.5 MCH (27.0 - 33.0 pg) 26.6 L MCHC (33.0 - 37.0 g/dL) 32.2 L RDW (11.5 - 14.5 %) 14.3 Plt Count (150 - 400 x10 3/uL) 351 MPV (7.0 - 9.0 fL) 9.7 H Neut % (Auto) (56.0 - 77.0 %) 80.2 H Lymph % (Auto) (14.0 - 32.0 %) 12.5 L [place] % (Auto) (4.8 - 9.0 %) 6.8 Eos % (Auto) (0.3 - 3.7 %) 0.1 L Baso % (Auto) (0.0 - 2.0 %) 0.1 Neut # (Auto) (2.0 - 7.6 x10 3/uL) 8.22 H Lymph # (Auto) (1.0 - 3.8 x10 3/uL) 1.28 [place] # (Auto) (0.1 - 0.8 x10 3/uL) 0.70 Eos # (Auto) (0.0 - 0.2 x10 3/uL) 0.01 Baso # (Auto) (0.0 - 0.2 x10 3/uL) 0.01 Abs Immat Gran (auto) (0.00 - 0.03 x10 3/uL) 0. 03 Add Manual Diff NO Immature Gran % (0.0 - 2.0 %) 0.3 Nucleated RBC % (0 - 0 %) 0.0 Nucleated RBCs # (Man) (0.0 - 0.1 x10 3/uL) 0.0 0 Toxicology Ethyl Alcohol (<10 mg/dL) < 3.0 Re-Evaluation MDM ED Course Medication(s) Ordered Medication(s) Ordered: Central Nervous System Agents Sig/Maricruz Start time Last Medication Dose Route Stop Time Status Admin Acetaminophen 1,000 MG Q6H 06/21 1130 AC 06/21 PO 07/21 1129 1208 Oxycodone HCl 10 MG Q6H PRN PRN 06/21 1130 AC PO 06/26 1129 Hydromorphone HCl 1 MG X1ED STA 06/21 1042 DC 0 06/21 IV 06/21 1043 1111 Gastrointestinal Drugs Sig/Maricruz Start time Last Medication Dose Route Stop Time Status Admin Polyethylene Glycol 17 GM DAILY 06/22 0900 AC PO 07/22 0859 Ondansetron HCl 4 MG Q4H PRN PRN 06/21 1130 AC IV 07/21 1129 Consultation Consultation Referral/Consult Name Brian Britt DO Tissue Packer Called Trauma surgeon Call Returned Time 1044 Call Returned Date 06/21/22 Tissue Packer Will see patient Patient Discharge Departure Vital Signs/Condition Vital Signs First Documented: Result Date Time Pulse Ox 99 06/21 1023 B/P 128/80 06/21 1023 B/P Mean 96 06/21 1023 O2 Delivery Room air 06/21 1023 Temp 98.4 06/21 1023 Pulse 94 06/21 1023 Resp 17 06/21 1023 Last Documented: Result Date Time Pulse Ox 99 06/21 1023 B/P 128/80 06/21 1023 B/P Mean 96 06/21 1023 O2 Delivery Room air 06/21 1023 Temp 98.4 06/21 1023 Pulse 94 06/21 1023 Resp 17 06/21 1023 All vital signs available at the time of this en try have been reviewed. Condition Stable Clinical Impression Clinical Impression Primary Impression: Fracture of right tibial tyron teau Disposition Decision Admit Admit Physician Name Brian Britt DO Admit Physician Trauma Surgeon )( Admission Accepts Yes )( Accepted Time 1127 )( Accepted Date 06/21/22 Electronically Signed by Yohan Graham MD on 06/21 at 1229 RPT #:[id number] END OF REPORT 2022-06-21 11:04:00-00:00 [facility] ([facility]) Trauma - History Physical REPORT#:[id number] REPORT STATUS: Signed DATE:06/21/22 TIME: 1104 PATIENT: TEODORA SANTANA UNIT #: [id number] ROOM/BED: [place] [address] : [birth year] AGE: 36 SEX: F ATTEND: Scott Britt DO ADM AUTHOR: Dustin PeraltaP * ALL edits or amendments must be made on the [employer]/computer document * Dustin Peralta 06/21/22 1104: History of Present Illness Time At Bedside )( Time at bedside: 1115 Free Text HPI Notes Free Text HPI Notes: The patient was seen in the ED at the request of Dr Graham. CC: Trip and Fall HPI: 36-year-old female presents to the hospital from outside facility after running on the beach with a trip and fall. Patient reports no head neck or back pain reports localized right knee discomfort. No venkat extensive medical history as noted below. She is compliant with her Eliqui s she presents with long-leg splint to the right lower extremity with neurova scular status intact. A- Airway patent, conversational B- Equal chest rise and fall, no distress C- 2+ pulses distally to all 4 extremities D- Neuro status intact distally to all 4 extremi ties E- Exposed, warm blankets applied no gross abnor malities Past medical history: Protein S deficency, IA, Blood clots, Depression , Anxiety, PTSD, Past surgical history: Thrombectomy, Wrist, Pre cancer ovarian, Allergies: Tramadol Muscle Relaxers Social history: + smoking, Social alcohol, Cocaine Hx, Meth Hx Family history: + bleeding problems, No problems with anesthesia Medications: Eliquis Additional Req Pending History Smoking status: Smoking status for patients 13 years old or old er: Never Smoker Review of Systems Constitutional: Denies: fever. Respiratory: Denies: SOB. Cardiovascular: Denies: chest pain. All systems rev neg: except as marked Physical Exam VS/I O Last Documented: Result Date Time Pulse Ox 99 06/21 1023 B/P 128/80 06/21 1023 B/P Mean 96 06/21 1023 O2 Delivery Room air 06/21 1023 Temp 36.9 06/21 1023 Pulse 94 06/21 1023 Resp 17 06/21 1023 PATIENT WEIGHT: Weight (lb): Weight (oz): Weight (kg): 90.700 Results Findings/Data: Laboratory Tests: 06/21 1050 Hematology WBC (4.5 - 11.0 x10 3/uL) 10.3 RBC (3.54 - 5.02 x10 6/uL) 3.61 Hgb (11.0 - 15.0 g/dL) 9.6 L Hct (33.0 - 45.0 %) 29.8 L MCV (81.0 - 99.0 fL) 82.5 MCH (27.0 - 33.0 pg) 26.6 L MCHC (33.0 - 37.0 g/dL) 32.2 L RDW (11.5 - 14.5 %) 14.3 Plt Count (150 - 400 x10 3/uL) 351 MPV (7.0 - 9.0 fL) 9.7 H Neut % (Auto) (56.0 - 77.0 %) 80.2 H Lymph % (Auto) (14.0 - 32.0 %) 12.5 L [place] % (Auto) (4.8 - 9.0 %) 6.8 Eos % (Auto) (0.3 - 3.7 %) 0.1 L Baso % (Auto) (0.0 - 2.0 %) 0.1 Neut # (Auto) (2.0 - 7.6 x10 3/uL) 8.22 H Lymph # (Auto) (1.0 - 3.8 x10 3/uL) 1.28 [place] # (Auto) (0.1 - 0.8 x10 3/uL) 0.70 Eos # (Auto) (0.0 - 0.2 x10 3/uL) 0.01 Baso # (Auto) (0.0 - 0.2 x10 3/uL) 0.01 Abs Immat Gran (auto) (0.00 - 0.03 x10 3/uL) 0. 03 Add Manual Diff NO Immature Gran % (0.0 - 2.0 %) 0.3 Nucleated RBC % (0 - 0 %) 0.0 Nucleated RBCs # (Man) (0.0 - 0.1 x10 3/uL) 0.0 0 Results: labs reviewed, vital signs reviewed, vi ruth signs stable, current med profile rev'd Free Text Obj Notes Free Text Obj Notes: Constitutional: GCS 15 Patie nt appears awake, alert, no acute distress, HR, BP, Saturation reviewed in records. Eyes: pupils equal, round, reactive to light, EO IA HENT: normal cephalic, atraumatic, no facial ten derness or crepitus, normal external inspection of ears/nose, no septal emile grisel. Neck: trachea midline, no crepitus, thyroid with out mass CV: regular rate, rhythm, bi lateral radial pulses 2+, no cyanosis, no edema, no pulsatile abdominal mass Respiratory: lungs clear bilaterally, respiratio ns even and unlabored, no tenderness to palpation, normal inspection of ch est, no crepitus Abdomen: soft, non-tender, no masses, no hernia noted : normal external genitalia, pelvis stable Lymph nodes: no cervical or supraclavicular mass es noted Musculoskeletal: -Left upper extremity without focal tenderness, without deformity, with ROM intact -Right upper extremity without focal tenderness, without deformity, with ROM intact -Left lower extremity without focal tenderness, without deformity, with ROM intact -Right lower extremitysplinted posterior long le g, NV intact distally -no cervical spine tenderness with full ROM -no thoracic/lumbar spine tenderness or step-off . Skin: skin warm to palpation. Psychiatric: normal mood and affect, memory inta ct. Neurologic: face symmetrical. Bilateral upper an d lower extremity sensation intact Diagnosis, Assessment Plan Free Text DxA P Notes Free Text DxA P Notes: 06/21: Patient has extensive chronic pain history we have consulted pain management for closer management. Given patient's complex history we have also added a hematology oncology consult related to h er clotting deficiencies and began a heparin drip for DVT prophylaxis as we discontinue the Eliquis and await further recommendations from hematology. Dr. Headley with orthopedics planning for surgery or Monday Labs and images also reviewed personally. Mechanism: Trip and Fall Injuries: Tibal Plat Fx Active Problems: Resolved Problems: n/a Incidental findings: n/a Chronic Medical Problems: Noted DVT prophylaxis: SCDs, Lovenox GI prophylaxis: diet Lines/[place]/ETT: PIV Consultants: Luz Elmore, Procedures: Plan: Pt was seen and evaluated with Dr Britt, who d etermined the POC As a result of this trauma consultation, pt will be admitted to [facility] Tibar Plat Fx * Dr. Elmore consulted * Splinted PULMONOLOGY PHYSICIAN * Multimodal Pain control with Iv and PO narcotic and non-narcotic medications * PM consulted * Tertiary in AM * Elevate * Bedrest Diet: REg Labs: AM PT/OT recs: pending DME: recs pending Code status: Full code Medical Decision Making: In the event the patient is incapacitated and not able to make their own medical de cisions, they have elected [], contact number [], to make medical decisions for them. Dispo: Admit; will continue to monitor f or ICU needs or any further changes to level of care Anticipated Date of Discharge/Trauma Clearance: TBD Quality: Trauma Gen Surg Advanced Care Plan 65 or Older Discussed with: patient Current Medications Current medication review: I attest that the foregoing medication list in t he medical record is true, accurate, and complete to the best of my knowled ge. VTE Prophylaxis - General VTE prophylaxis initiated: yes Brian Britt 06/22/22 1102: History Medication/Allergy-Vaccine Hx Allergies: Coded Allergies: tramadol (Mild, PALPITATIONS 06/22/22) Uncoded Allergies: MUSCLE RELAXERS (Mild, PALPITATIONS 06/21/22) Attestations Attestation needed: supervising physician Physician Attestation Agree w/findings plan: I was present with the APC during the hi story and examination. I discussed the case with the APC and agree with the findings and plan as documented in the APC' s note. Patient was seen examined in the ER. Right lower extremity splint in place. Pain appears to be better co ntrolled. Patient has a significant medical history including protein S deficiency with significant clotting history needing multiple embolectomies, also having multiple pul monary embolisms. Patient GCS 15, on Eliquis for history of PE and protein S d eficiency Plan: Orthopedic surgery consulted, Dr. Elmore. [place] for diet, plan for possible OR tomorrow wit h Dr. Glover Hematology evaluation Hold Eliquis, start heparin drip for procedure Medicine consult Labs reviewed. Pertinent imaging personally revi ewed. Discussed plan with other members of the [facility] are team. at 1555 Electronically Signed by Brian Britt DO on 0 06/22/22 at 1106 RPT #:[id number] END OF REPORT
[2023-02-23] MEDS ORDERED: MORPHINE 4 MG/ML SYR ONE (21:22)
--- NOTE | 2023-02-23 22:55 | RAD REPORT ---
EXAM DESCRIPTION: RAD - Tib Fib Right - 02/23/2023 9:53 pm CLINICAL HISTORY: PAIN COMPARISON: Tib Fib Right dated 06/21/2022; Knee Right Wo Cont dated 06/21/2022 TECHNIQUE: Right tibia and fibula, 2 views. FINDINGS: No fracture is identified. Fixation hardware along the proximal tibia, without evidence of complications. There is no dislocation or periosteal reaction noted. No acute or suspicious bony fin ding. No foreign body or other soft tissue abnormality. IMPRESSION: No acute osseous abnormality of the right tibia fibula.
--- NOTE | 2023-02-23 22:56 | RAD REPORT ---
EXAM DESCRIPTION: RAD - Femur Right - 02/23/2023 9:53 pm CLINICAL HISTORY: PAIN COMPARISON: Femur Right dated 06/21/2022 TECHNIQUE: Right femur, 2 views. FINDINGS: No fracture is identified. There is no dislocation or periosteal reaction noted. No acute or suspicious bony finding. Moderate knee joint effusion. IMPRESSION: Moderate knee joint effusion.
[2023-02-24] MEDS ORDERED: MORPHINE 4 MG/ML SYR ONE (00:24)
[2023-02-24] MEDS ORDERED: KETOROLAC 30 MG/ML INJ ONE (00:24)
--- NOTE | 2023-02-24 01:48 | EDPHYS ---
Physician Documentation [facility] Name: Teodora Mas Age: 37 yrs Sex: Female : 1985 Arrival Date: 02/23/2023 Time: 20:24 Bed 10 Private MD: ED Physician Blanco Blandon HPI: 02/23 21:20 This 37 yrs old Female presents to ER via Wheelchair with complaints of Leg Injury, cp Fall Injury. 21:20 The patient presents with an injury, pain, swelling, tenderness. The complaints affect cp the right knee. Context: resulted from the patient falling, while walking, the patient is not able to bear weight, must have assistance, Problem is a result from a previous injury: Yes. tibia fracture that required surgical hardware placement. Patient presents to ED with c/o right knee injury sustained from fall today while outside. Patient reports knee twisted when she lost her balance and she fell landing on right knee. HX of right tibia fracture with surgical repair in 2021. Historical: - Allergies: 20:57 No Known Allergies; kl - Home Meds: 20:57 Eliquis 5 mg oral tablet 1 tab 2 times per day [Active]; hydrocodone-acetaminophen kl 10-325 mg/15 mL(15 mL) Oral solution 4 times per day [Active]; gabapentin 400 mg oral capsule 2 times per day [Active]; - PMHx: 20:57 Myocardial infarction; protein S deficiency; kl - PSHx: 20:57 tib fib repair; vascular surgery left arm; kl - Immunization history:: Adult Immunizations not up to date. - Social history:: Smoking status: Patient denies any tobacco usage or history of. ROS: 21:25 MS/extremity: Positive for decreased range of motion, pain, swelling, tenderness, of cp the right knee, Negative for paresthesias. 21:25 Constitutional: Negative for body aches, chills, fever, poor PO intake. cp 21:25 Neck: Negative for pain with movement, pain at rest, stiffness. 21:25 Cardiovascular: Negative for chest pain. 21:25 Respiratory: Negative for cough, shortness of breath, wheezing. 21:25 Abdomen/GI: Negative for abdominal pain, nausea, vomiting, and diarrhea. 21:25 Back: Negative for pain at rest, pain with movement. 21:25 All other systems are negative. Exam: 21:30 Constitutional: The patient appears in no acute distress, alert, awake, non-toxic, well cp developed, well nourished, in obvious pain, uncomfortable. 21:30 Head/Face: Normocephalic, atraumatic. cp 21:30 Neck: ROM/movement: is normal, is supple, without pain, no range of motions limitations. 21:30 Chest/axilla: Inspection: normal. 21:30 Cardiovascular: Rate: normal. 21:30 Respiratory: the patient does not display signs of respiratory distress, Respirations: normal, no use of accessory muscles, no retractions, labored breathing, is not present. 21:30 Abdomen/GI: Exam negative for discomfort, distension, guarding, Inspection: abdomen appears normal. 21:30 Back: pain, is absent, ROM is normal. 21:30 Musculoskeletal/extremity: Extremities: noted in the right knee: tenderness, marked swelling, pain with passive ROM, joint line tenderness, Perfusion: the extremity is normally perfused throughout. 21:30 Neuro: Orientation: to person, place \T\ time. Mentation: is normal. Vital Signs: 20:55 BP 126 / 95; Pulse 88; Resp 18; Temp 98.3(O); Pulse Ox 98% on R/A; Weight 74.84 kg (R); kl Height 5 ft. 5 in. ; Pain 7/10; 02/24 00:23 BP 132 / 77; Pulse 82; Resp 18; Pulse Ox 99% on R/A; kl 02:31 BP 101 / 66; Pulse 68; Resp 18; Temp 97(TE); Pulse Ox 99% on R/A; kl 02/23 20:55 Body Mass Index 27.46 (74.84 kg, 165.1 cm) kl 02/23 20:55 Pain Scale: Adult kl Procedures: 02:00 Splinting: Splint applied to right knee using knee immobilizer, applied by nurse. cp Examined by me, post splint application: neurovascular intact, Patient tolerated well. MDM: 02/23 20:52 Patient medically screened. cp 02/24 01:47 Data reviewed: vital signs, nurses notes, radiologic studies, CT scan, plain films. cp 01:47 Differential diagnosis: dislocation, closed fracture, contusion, tendon rupture. cp Consideration of Admission/Observation Escalation of care including admission/observation considered. I considered the following discharge prescriptions or medication management in the emergency department Medications were administered in the Emergency Department. See MAR. Counseling: I had a detailed discussion with the patient and/or guardian regarding: the historical points, exam findings, and any diagnostic results supporting the discharge/admit diagnosis, radiology results, the need for outpatient follow up, a orthopedic surgeon, to return to the emergency department if symptoms worsen or persist or if there are any questions or concerns that arise at home. Response to treatment: the patient's symptoms have markedly improved after treatment, and as a result, I will discharge patient. ED course: Pain improved with meds. Discussed results of radiology studies that were negative for acute fracture. Knee placed in immobilizer. Will discharge to home. Patient has prescribed pain meds. Recommend f/u with orthopedist who performed previous surgery. 02/23 21:11 Order name: XRAY Tib Fib RIGHT; Complete Time: 01:09 cp 02/24 01:10 Interpretation: Report reviewed. cp 02/23 21:11 Order name: XRAY Femur RIGHT; Complete Time: 01:09 cp 02/24 01:10 Interpretation: Report reviewed. cp 02/23 23:50 Order name: Lower Ext Wo Con W/ Mpr EDMS 02/24 01:09 Order name: Knee Immobilizer; Complete Time: 02:30 cp 02/24 01:48 Order name: Crutches; Complete Time: 02:30 cp Administered Medications: 02/23 21:23 Drug: morphine IM 4 mg Route: IM; Site: right ventrogluteal; kl 22:51 Follow up: Response: No adverse reaction; Pain is decreased kl 02/24 00:21 Drug: morphine IM 4 mg Route: IM; Site: right ventrogluteal; kl 02:31 Follow up: Response: No adverse reaction; Marked relief of symptoms kl 00:21 Drug: Ketorolac IM 30 mg Route: IM; Site: right ventrogluteal; kl 02:30 Follow up: Response: No adverse reaction; Marked relief of symptoms kl Disposition Summary: 02/24/23 01:47 Discharge Ordered Location: Home cp Problem: new cp Symptoms: have improved cp Condition: Stable cp Diagnosis - Effusion, right knee cp - Pain in right knee cp Followup: cp - With: Private Physician - When: 2 - 3 days - Reason: Recheck today's complaints Discharge Instructions: - Discharge Summary Sheet cp - Knee Effusion cp - How to Use a Knee Immobilizer cp Forms: - Medication Reconciliation Form cp - Thank You Letter cp - Antibiotic Education cp - Prescription Opioid Use cp Prescriptions: - Diclofenac Sodium 75 mg Oral Tablet Sustained Release - take 1 tablet by ORAL route 2 times per day; 30 tablet; Refills: 0, Product cp Selection Permitted Signatures: Dispatcher [employer] EDEvelyn Rodgers RN RN Fam Christensen PA PA cp Corrections: (The following items were deleted from the chart) 02/23 23:05 22:47 Knee Right W Cont ordered. EDMS EDMS 23:05 22:47 Tib Fib Right W Cont ordered. EDMS EDMS 23:07 22:47 Femur Right W Con ordered. EDMS EDMS 23:54 23:08 Lower Extremity W/ Cont ordered. EDMS EDMS 02/24 00:45 02/23 22:40 Knee Immobilizer ordered. cp kl 02/24 23:38 02/23 21:20 Patient presents to ED with c/o right knee injury sustained from fall today cp while . cp
--- NOTE | 2023-02-24 01:48 | ER ---
Nurse's Notes [facility] Name: Teodora Mas Age: 37 yrs Sex: Female : 1985 Arrival Date: 02/23/2023 Time: 20:24 Bed 10 Private MD: Diagnosis: Effusion, right knee;Pain in right knee Presentation: 02/23 20:55 Chief complaint: Patient states: fell and twisted right knee s/p TIB fib fracture and kl repair jun 2022. Coronavirus screen: Vaccine status: Patient reports being unvaccinated. Ebola Screen: Patient negative for fever greater than or equal to 101.5 degrees Fahrenheit, and additional compatible Ebola Virus Disease symptoms. Initial Sepsis Screen: Does the patient meet any 2 criteria? No. Patient's initial sepsis screen is negative. Does the patient have a suspected source of infection? No. Patient's initial sepsis screen is negative. Risk Assessment: Do you want to hurt yourself or someone else? Patient reports no desire to harm self or others. Onset of symptoms was February 23, 2023 at 20:15. 20:55 Method Of Arrival: Wheelchair 20:55 Acuity: ANDRE 4 kl Triage Assessment: 20:59 General: Appears uncomfortable, Behavior is calm, cooperative. Pain: Complains of pain kl in lateral aspect of right knee, posterior aspect of right knee and right knee Pain currently is 7 out of 10 on a pain scale. at worst was 10 out of 10 on a pain scale. Pain began 30 min ago. Musculoskeletal: Swelling present in right knee. Injury Description: Bruise. Historical: - Allergies: 20:57 No Known Allergies; kl - Home Meds: 20:57 Eliquis 5 mg oral tablet 1 tab 2 times per day [Active]; hydrocodone-acetaminophen kl 10-325 mg/15 mL(15 mL) Oral solution 4 times per day [Active]; gabapentin 400 mg oral capsule 2 times per day [Active]; - PMHx: 20:57 Myocardial infarction; protein S deficiency; kl - PSHx: 20:57 tib fib repair; vascular surgery left arm; kl - Immunization history:: Adult Immunizations not up to date. - Social history:: Smoking status: Patient denies any tobacco usage or history of. Screenin:52 [facility] ED Fall Risk Assessment (Adult) History of falling in the last 3 months, kl including since admission Yes- fall prone (multiple falls) (3 pts) Confusion or Disorientation No (0 pts) Intoxicated or Sedated No (0 pts) Impaired Gait Yes (1 pt) Mobility Assist Device Used No (0 pt) Altered Elimination No (0 pt) Score/Fall Risk Level 3 or more points = High Risk Oriented to surroundings, Maintained a safe environment, Educated pt \T\ family on fall prevention, incl call for assistance when getting out of bed, Used ambulatory aids as needed (educated on \T\ assisted with). Abuse screen: Denies threats or abuse. Nutritional screening: No deficits noted. Tuberculosis screening: No symptoms or risk factors identified. Assessment: 22:51 Reassessment: Patient appears in no apparent distress at this time. Patient and/or kl family updated on plan of care and expected duration. Pain level reassessed. Patient is alert, oriented x 3, equal unlabored respirations, skin warm/dry/pink. Patient states feeling better. Patient states symptoms have improved. 02/24 00:23 Reassessment: Patient and/or family updated on plan of care and expected duration. Pain kl level reassessed. Patient is alert, oriented x 3, equal unlabored respirations, skin warm/dry/pink. Vital Signs: 02/23 20:55 BP 126 / 95; Pulse 88; Resp 18; Temp 98.3(O); Pulse Ox 98% on R/A; Weight 74.84 kg (R); kl Height 5 ft. 5 in. ; Pain 7/10; 02/24 00:23 BP 132 / 77; Pulse 82; Resp 18; Pulse Ox 99% on R/A; kl 02:31 BP 101 / 66; Pulse 68; Resp 18; Temp 97(TE); Pulse Ox 99% on R/A; kl 02/23 20:55 Body Mass Index 27.46 (74.84 kg, 165.1 cm) 02/23 20:55 Pain Scale: Adult ED Course: 02/23 20:25 Patient arrived in ED. [id number] 20:41 Fam Ortiz PA is PHCP. cp 20:41 Blanco Blandon MD is Attending Physician. cp 20:57 Triage completed. kl 21:55 XRAY Tib Fib RIGHT In Process Unspecified. EDMS 21:55 XRAY Femur RIGHT In Process Unspecified. EDMS 22:00 Patient has correct armband on for positive identification. Bed in low position. Call kl light in reach. Side rails up X2. 02/24 00:55 Lower Ext Wo Con W/ Mpr In Process Unspecified. EDMS 02:31 Arm band placed on. kl 02:31 No provider procedures requiring assistance completed. Patient did not have IV access kl during this emergency room visit. Administered Medications: 02/23 21:23 Drug: morphine IM 4 mg Route: IM; Site: right ventrogluteal; kl 22:51 Follow up: Response: No adverse reaction; Pain is decreased kl 02/24 00:21 Drug: morphine IM 4 mg Route: IM; Site: right ventrogluteal; kl 02:31 Follow up: Response: No adverse reaction; Marked relief of symptoms kl 00:21 Drug: Ketorolac IM 30 mg Route: IM; Site: right ventrogluteal; kl 02:30 Follow up: Response: No adverse reaction; Marked relief of symptoms kl Medication: 02:32 VIS not applicable for this client. Outcome: 01:47 Discharge ordered by . cp 02:31 Discharged to home with crutches. kl 02:31 Condition: improved 02:31 Discharge instructions given to patient, Instructed on discharge instructions, follow up and referral plans. medication usage, Demonstrated understanding of instructions, follow-up care, medications, Prescriptions given X 1. 02:32 Patient left the ED. Signatures: Dispatcher [employer] Evelyn Khan RN RN Fam Christensen PA PA cp Jeffries, Jennifer [id number]
[2023-02-24 02:41] VITALS: O2SAT 99
[2023-02-24 02:42] VITALS: BP 101/66; TEMP 97
--- NOTE | 2023-02-24 14:43 | RAD REPORT ---
EXAM DESCRIPTION: CT - Lower Ext Wo Con W/ Mpr - 02/24/2023 1:52 am CLINICAL HISTORY: Right leg pain, previous hardware TECHNIQUE: Axial computed tomography images of the right lower extremity without intravenous contrast. Sagitta l and coronal reformatted images were created and reviewed. This CT exam was performed using one or more of the following dose reduction techniques: automated exposure control, adjustment of the mA and/or kV according to patient size, and/or use of iterative reconstruction technique. COMPARISON: Right femur and lower leg radiographs dated 02/23/2023, Right knee CT dated 06/21/2022 FINDINGS: Bones/joints: Medial and lateral plate and screw fixation of the remote tibial plateau a nd proximal metadiaphyseal fracture. No residual fracture lucency. Mild residual depression along the lateral tibial plateau. Obliquely oriented proximal tibial diaphyseal fracture with incomplete bridging at its mid to distal aspect. No acute fracture. No focal hardware complication. Peria rticular osteopenia the level of the knee. Small knee joint effusion. No dislocation. Soft tissues: Unremarkable. IMPRESSION: 1. Remote proximal tibial fracture ORIF. No hardware complication. 2. Remote proximal fibular fracture with incomplete union. Electronically signed by: Simon Farnsworth MD 02/24/2023 1:28 AM CDT Due to temporary technical issues with the PACS/Fluency reporting system, reports are being signed by the in house radiologists without review as a courtesy to insure prompt reporting. The interpreting radiologist is fully responsible for the content of the report.
== END 2023-02-24 02:32 | disposition home or self-care (01) ==
LOC: ER 20:24
DX: M25.461 Effusion, right knee (principal)
CPT/HCPCS: 73700; 76377; 96372; 99284

== ENCOUNTER 2023-07-24 09:29 | Emergency (ER) | payer OTHER ==
--- OUTSIDE RECORDS SUMMARY | 2023-07-24 09:34 | XMS REPORT | Continuity of Care Document ---
:1985 Author Organization [facility] t Address [address] [place] [address] [address] [place] [address] Care Team Providers Name Role Phone CHUCK OLIVEIRA Attending Clinician Unavailable Brian Britt Attending Clinician Unavailable Brian Britt Admitting Clinician Unavailable Payers Payer Name Policy Type Policy Number Effective Date Expiration Date S gage [id number] 2021 00:00:00 () [id number] 2021 00:00:00 Problems Condition Condition Condition Status Onset Resolution Last Treating Co mments Source Name Details Category Date Date Treatment Clinician Date Left Left Problem Active [facility] subclavian Subclavian 3-29 Fa rachel vein [...] Type Date Date Clinician cycloben DA Active [facility] A zaprine 9- Clear 00:00: Constantino 00 [facility] tramadol DA Active [facility] A 9-14 Clear 00:00: Constantino 00 [facility] tramadol DA Active [facility] A 06-21 Clear 00:00: [facility] MUSCLE DA Active [facility] 06-21 Clear 00:00: [facility] Cycloben Allergy Active [facility] zaprine to Family substanc Practic e e Meloxica Allergy Active [facility] m to Family substanc Practic e e Methocar Allergy Active [facility] bamol to Family substanc Practic e e Social History Smoking Status Start Date Stop Date Source Current Every Day Smoker [facility] Practice Medications Ordered Filled Start Stop Current Ordering Indication Dosage Frequency Signature Comments Components Source Medication Medication Date Date Medication? Clinician (SIG) Name Name acetaminoph acetaminoph No acetaminop [facility] en 300 en 300 hen 300 Family mg-codeine mg-codeine mg-codeine Practic 60 mg 60 [...] Eliquis 5 No 1 BID Eliquis 5 [facility] mg tablet mg tablet mg tablet Family Take 1 Take 1 Take 1 Practic tablet tablet tablet e twice a day twice a day twice a by oral by oral day by route. route. oral route. gabapentin gabapentin gabapentin [facility] 300 mg 300 mg 300 mg Family capsule capsule capsule Practi c TAKE ONE TAKE ONE TAKE ONE e (1) (1) (1) CAPSULE(S) CAPSULE(S) CAPSULE(S) BY MOUTH BY MOUTH BY MOUTH TWICE A TWICE A TWICE A DAY. DAY. DAY. meloxicam meloxicam meloxicam [facility] 15 mg 15 mg 15 mg Family tablet TAKE tablet TAKE tablet Practic ONE (1) ONE (1) TAKE ONE e TABLET(S) TABLET(S) (1) BY MOUTH BY MOUTH TABLET(S) ONCE A DAY. ONCE A DAY. BY MOUTH ONCE A DAY. methocarbam methocarbam methocarba [facility] ol 750 mg ol 750 mg mol 750 mg Family tablet TAKE tablet TAKE tablet Practic ONE (1) ONE (1) TAKE ONE e TABLET(S) TABLET(S) (1) BY MOUTH BY MOUTH TABLET(S) EVERY EIGHT EVERY EIGHT BY MOUTH HOURS HOURS EVERY NEEDED. NEEDED. EIGHT HOURS NEEDED. morphine ER morphine ER No morphine [facility] 15 mg 15 mg ER 15 [...] BY 1 NOSTRIL INTRANASAL INTRANASAL BY ROUTE; MAY ROUTE; MAY INTRANASAL REPEAT DOSE REPEAT DOSE ROUTE; MAY EVERY 2-3 EVERY 2-3 REPEAT MINUTES MINUTES [...] BREAKTHROU GH PAIN. sulfamethox sulfamethox No sulfametho [facility] azole 800 azole 800 xazole 800 Family mg-trimetho mg-trimetho mg-trimeth Practic prim 160 mg prim 160 mg oprim 160 e tablet TAKE tablet TAKE mg tablet ONE (1) ONE (1) TAKE ONE TABLET(S) TABLET(S) (1) BY MOUTH BY MOUTH TABLET(S) TWICE A TWICE A BY MOUTH DAY. DAY. TWICE A DAY. trazodone trazodone No trazodone [facility] 50 mg 50 mg 50 mg Family tablet TAKE tablet TAKE tablet Practic ONE (1) OR ONE (1) OR TAKE ONE e TWO (2) TWO (2) (1) OR TWO TABLET(S) TABLET(S) (2) BY MOUTH BY MOUTH TABLET(S) EVERY NIGHT EVERY NIGHT BY MOUTH NEEDED NEEDED EVERY FOR FOR NIGHT INSOMNIA. INSOMNIA. NEEDED FOR INSOMNIA. Eliquis 5 Eliquis 5 No 1 BID Eliquis 5 [place] mg tablet mg tablet mg tablet Family Take 1 Take 1 Take 1 Practic tablet tablet tablet e twice a day twice a day twice a by oral by oral day by route. route. oral route. gabapentin gabapentin No 1capsul BID gabapentin [facility] 300 mg 300 mg e(s) 300 mg Family capsule capsule capsule Practi c Take 1 Take 1 Take 1 e capsule capsule capsule twice a day twice a day twice a by oral by oral day by route. route. oral route. De Pere 10 De Pere 10 No 1 Q6H [place] 10 Terry waylon mg-325 mg mg-325 mg mg-325 mg Family tablet Take tablet Take tablet Practic 1 tablet 1 tablet Take 1 e every 6 every 6 tablet hours by hours by every 6 oral route oral route hours by for 7 days. for 7 days. oral route for 7 days. trazodone trazodone No 1 Q1D trazodone [facility] 50 mg 50 mg 50 mg Family tablet Take tablet Take tablet Practic 1 tablet 1 tablet Take 1 e every day every day tablet by oral by oral every day route. route. by oral route. Vital Signs Vital Name Observation Time Observation Value Comments Source BP Diastolic 2023-05-09 00:00:00 63 mm[Hg] [facility] Height 2023-05-09 00:00:00 65 [in_i] [facility] BMI (Body Mass 2023-05-09 00:00:00 [facility] BP Systolic 2023-05-09 00:00:00 101 mm[Hg] [facility] Body Weight 2023-05-09 00:00:00 156 [lb_av] [facility] BP Diastolic 2023-01-04 00:00:00 79 mm[Hg] [facility] Height 2023-01-04 00:00:00 65 [in_i] [facility] BMI (Body Mass 2023-01-04 00:00:00 28 [facility] BP Systolic 2023-01-04 00:00:00 116 mm[Hg] [facility] Body Weight 2023-01-04 00:00:00 168 [lb_av] [facility] Procedures Procedure Date / Time Performed Performing Clinician Rolando gresham [id number] 2022-06-29 00:00:00 ANDREW TEE [facility] [id number] 2022-06-29 00:00:00 ANDREW TEE Clear [facility] [id number] 2022-06-22 00:00:00 ANDREW TEE Clear [facility] [id number] 2022-06-22 00:00:00 ANDREW TEE Clear [facility] [id number] 2022-06-22 00:00:00 ANDREW TEE Clear [facility] [id number] 2022-06-22 00:00:00 ANDREW [facility] Removal of Ovarian [place] Famil y Cyst(s) Practice Removal of Pilonidal [facility] kyle Cyst Practice Caesarean Section [facility] Removal of Rib [facility] Internal Fixation of [facility] Altaf wright [place] Practice Internal Fixation of [facility] kyle Fracture Practice Plan of Care Planned Activity Planned Date Details Comments Source Diagnostic Test 2023-01-04 CMP, serum or [facility] Altaf kyle Pending 00:00:00 plasma [code = Practice CMP, serum or plasma] Diagnostic Test 2023-01-04 CBC w/ auto diff [facility] Pending 00:00:00 [code = CBC w/ Practice auto diff] Diagnostic Test 2023-01-04 lipid panel, serum [facility] Pending 00:00:00 [code = lipid Practice panel, serum] Diagnostic Test 2023-01-04 vitamin D, [facility] Altafi ly Pending 00:00:00 25-hydroxy, total, Practice serum [code = vitamin D, 25-hydroxy, total, serum] Diagnostic Test 2023-01-04 TSH, serum or [facility] Altaf kyle Pending 00:00:00 plasma [code = Practice TSH, serum or plasma] Diagnostic Test 2023-01-04 T4, free, serum [facility] Anjelica farias Pending 00:00:00 [code = T4, free, Practice serum] Diagnostic Test 2023-01-04 PT/PTT, plasma [facility] rachel Pending 00:00:00 [code = PT/PTT, Practice plasma] Future Appointment 2023-11-10 Nader Almanzar [facility] 15:40:[address], [place] [address] Encounters Start End Encounter Admission Attending Care Care Encounter Source Date/Time Date/Time Type Type Clinicians Facility Department ID 2023-04-25 Outpatient [facility] [id number] [place] 13:07:47 [id number] [facility] 2023-02-23 Outpatient [facility] [id number] [place] 13:07:44 [id number] [facility] 2023-01-31 Outpatient [facility] [id number] [place] 11:43:39 [id number] [facility] 2023-01-19 Outpatient [facility] [id number] [place] 10:13:31 [id number] [facility] 2023-01-18 Outpatient [facility] [id number] [place] 15:24:43 [id number] [facility] 2023-07-14 2023-07-14 Outpatient VFP VFP [id number] [facility] 00:00:00 00:00:00 [id number] Family Practic e 2023-06-10 2023-06-10 Outpatient VFP VFP [id number] [facility] 00:00:00 00:00:00 [id number] Family Practic e 2023-05-09 2023-05-09 Outpatient VFP VFP [id number] [facility] 00:00:00 00:00:00 [id number] Family Practic e 2023-05-09 2023-05-09 Outpatient VFP VFP [id number] [facility] 00:00:00 00:00:00 [id number] Family Practic e 2023-05-09 2023-05-09 Tirso Elmer VFP [place] - [id number] [facility] 00:00:00 00:00:[address] [facility] Fami yolanda GONZALEZ: [address], [address] [address], [place] [address] , Ph. 2023-05-08 2023-05-08 Outpatient VFP VFP [id number] [facility] 00:00:00 00:00:00 [id number] Family Practic e 2023-03-09 2023-03-09 Outpatient [facility] [id number] [place] 14:00:00 14:00:00 [facility] 2023-03-01 2023-03-01 Outpatient VFP VFP [id number] - [facility] 00:00:00 00:00:00 [id number] Family Practic e 2023-01-11 2023-01-11 Outpatient VFP VFP [id number] [facility] 00:00:00 00:00:00 [id number] Family Practic e 2023-01-04 2023-01-04 Outpatient VFP VFP [id number] - [facility] 00:00:00 00:00:00 [id number] Family Practic e 2023-01-04 2023-01-04 Outpatient VFP VFP [id number] [facility] 00:00:00 00:00:00 [id number] Family Practic e 2023-01-04 2023-01-04 Tirso Elmer VFP [place] - [id number] [facility] 00:00:00 00:00:00 [facility] P[facility] MD: [address] [place] - e , [address] [address], [place] [address] , Ph. 2023-01-03 2023-01-03 Outpatient VFP VFP [id number] - [facility] 00:00:00 00:00:00 [id number] Family Practic e 2022-06-21 2022-07-01 Inpatient [facility], [facility].01 [id number] [facility] 11:27:00 16:44:[address] Results Test Description Test Time Test Comments Results Result Comments Source Free T4 and TSH panel - Serum or Plasma 2023-01-06 00:00:00 Test Item Value Reference Range Interpretation Comme nts Thyrotropin [Units/volume] in Serum or Plasma by 2.350 uIU/mL 0.450 -4.500 Detection limit <= 0.005 mIU/L (test code = 53262-6) Thyroxine (T4) free [Mass/volume] in Serum or Plasma 1.26 NG/dL 0 .82-1.77 (test code = 3024-7) [facility] Family PracticeComprehensive metabolic 2000 panel - Serum or Plasma [...] Creatinine-based formula (CKD-EPI 2020) (test code = 94009-4) Urea nitrogen/Creatinine [Mass 16 9-23 Ratio] in Serum or Plasma (test code = 3097-3) Sodium [Moles/volume] in Serum 140 mmol/L 134-144 or Plasma (test code = 2951-2) Potassium [Moles/volume] in comment Serum or Plasma (test code = 2823-3) Chloride [Moles/volume] in 99 mmol/L 96-106 Serum or Plasma (test code = 5-0) Carbon dioxide, total 19 mmol/L 20-29 L [Moles/volume] in Serum or Plasma (test code = 2027-9) Calcium [Mass/volume] in Serum 9.5 mg/dL 8.7-10.2 or Plasma (test code = 25749-1) Protein [Mass/volume] in Serum 6.9 g/dL 6.0-8.5 or Plasma (test code = 2885-2) Albumin [Mass/volume] in Serum 4.6 g/dL 3.8-4.8 or Plasma (test code = 1751-7) Globulin [Mass/volume] in 2.3 g/dL 1.5-4.5 Serum by calculation (test code = 97584-7) Albumin/Globulin [Mass Ratio] 2.0 1.2-2.2 in Serum or Plasma (test code = 1759-0) Bilirubin.total [Mass/volume] <0.2 0.0-1.2 in Serum or Plasma (test code = 1974-2) Alkaline phosphatase 97 IU/L 44-121 [Enzymatic activity/volume] in Serum or Plasma (test code = 6768-6) Aspartate aminotransferase 31 IU/L 0-40 [Enzymatic activity/volume] in Serum or Plasma (test code = 1920-8) Alanine aminotransferase 41 IU/L 0-32 H [Enzymatic activity/volume] in Serum or Plasma (test code = 1742-6) [facility] - [facility] or [id number] 00:00:00 Test Item Value Reference Range Interpretation [...] or Plasma by calculation (test code = 56574-0) Cholesterol in LDL [Mass/volume] in 82 mg/dL 0-99 Serum or Plasma by calculation (test code = 59731-7) [facility] CenterVynrzuhu38-Gzyiwjvdqkyivx D3+25-Hydroxyvitamin D2 [Mass/volume] in Serum or [id number] 00:00:00 Test Item Value Reference Range Interpretation Comments 25-Hydroxyvitamin 33.9 NG/mL 30.0-100.0 D3+25-Hydroxyvitamin D2 [Mass/volume] in Serum or Plasma (test code = 61095-1) [facility] Auto Differential panel - [id number] 00:00:00 Test Item Value Reference Range Interpretation [...] Blood by Automated count (test code = 48976-6) Immature granulocytes 0.0 x10e3/uL 0.0-0.1 [#/volume] in Blood by Automated count (test code = 38304-8) [facility] - Platelet poor plasma by Coagulation [id number] 00:00:00 Test Item Value Reference Range Interpretation Comments INR in Platelet poor plasma by 1.0 0.9-1.2 Coagulation assay (test code = 6301-6) Prothrombin time (PT) (test code = 10.0 sec 9.1-12.0 5902-2) aPTT in Platelet poor plasma by 27 sec 24-33 Coagulation assay (test code = 40605-5) [facility] METABOLIC [id number] 09:23:00 Test Item Value Reference Range Interpretation [...] 8.4 mg/dL 8.0-10.5 N CA) CBC W/AUTO [id number] 07:26:00 Test Item Value Reference Range Interpretation [...] (test code NO = MDIFF) THROMBOPLASTIN TIME [id number] 12:07:00 Test Item Value Reference Range Interpretation Comments THROMBOPLASTIN TIME 38.5 Seconds 25.0-39.5 Therape utic Range: PARTIAL (test code = 50.4 - 88.3 Seconds PTT) Effective 01/22/2019 THROMBOPLASTIN TIME [id number] 04:47:00 Test Item Value Reference Range Interpretation Comments THROMBOPLASTIN TIME 88.0 Seconds 25.0-39.5 H Therape utic Range: PARTIAL (test code = 50.4 - 88.3 Seconds PTT) Effective 01/22/2019 - XR FLUOROSCOPY 0-60 [id number] 00:00:00 [facility] 1985 Sex: F FAX: Brian Britt DO [phone] [place]: St: ADM FAX: Jonathan Copeland [facility] [phone] Name: PRAFUL SANTANAHA [facility] : 1985 Age/S: 36/F [address] [place] [address] Unit #: [id number] Loc: G.653 [place] [address] Phys: Jonathan Glover [facility] Acct: [id number] Dis Date: Status: ADM IN PHONE #: [phone] Exam D ate: 06/29/2022 1026 FAX #: [phone] Reason: RIGHT PROXIMAL TIBIA FRACTURE EXAMS: CPT CODE: [id number] XR FLUOROSCOPY 0-60 MIN 77265 PROCEDURE INFORMATION: Exam: FL Fluoroscopy, Up to 1 Hour Physician Time; Radiologist Not Present For Fluoroscopy Exam date and time: 06/29/2022 7:08 AM Age: 36 yearsold Clinical indication: Device placement; Patient HX: Orif RT tibia; Additional info: Right proximal tibia fracture TECHNIQUE: Imaging protocol: Fluoroscopy , up to 1 hour physician or other qualifiedhealth direct care professional time. This radiologist did not supervise this procedure. [facility] personnel. Report for radiation dosage reporting and [...] M.D. CC: Brian Britt DO; Jonathan Dejesus [facility] Technologist: RT Sharan(Cris) Trnscrd Date/Time/By: 06/29/2022 (3680) : By: [email or web address] Orig Print D/T: S: 06/29/2022 (9068) PAGE 1 Signed Report- XR TIBIA/FIBULA 2 V [id number] 00:00:00 [facility] : 1985 Sex: F FAX: Brian Britt DO [phone] [place]: St: ADM FAX: Y Jonathan Glover [facility] [phone] Name: MALIK SANTANA [facility] : 1985 Age/S: 36/F [address] [place] [address] Unit #: [id number] Loc: G.[address] [place] [address] Phys: Jonathan Glover [facility] Acct: [id number] Dis Date: Status: ADM IN PHONE #: [phone] Exam D ate: 06/29/2022 1530 FAX #: [phone] Reason: Postop EXAMS: CPT CODE: [id number] XR TIBIA/[place] [id number] PROCEDURE INFORMATION: Exam: XR Right Tibia and [...] patella are intact. Soft tissues: Postoperative changes in regional soft tissues with mottled gas. No unanticipated radiopaque foreign material. Notes: Further interpretation may be made by the operating physician. IMPRESSION: Post ORIF comminuted fracture proximal tibia. at 1541 Reported and signed by: Umberto Smith M.D. CC: Brian Britt DO; Jonathan Dejesus [facility] Adalberto Technologist: RT Martha(Cris) Trnscrd Date/Time/By: 06/29/2022 (2221) : By: Jennifer Orig Print D/T: S: 06/29/2022 (1578) PAGE 1 Signed Report- XR KNEE 1 OR 2 V RT 2022-06-29 00:00:00 [facility] : 1985 Sex: F FAX: Brian Britt DO [phone] [place]: St: ADM FAX: Jonathan Copeland [facility] [phone] Name: MALIK SANTANA [facility] : 1985 Age/S: 36/F [address] [place] [address] Unit #: [id number] Loc: [address] [address]Uzep: Jonathan Glover [facility] Acct: [id number] Dis Date: Status: ADM IN PHONE #: [phone] Exam Date: 06/29/2022 1530 FAX #: [phone] Reason: Postop EXAMS: CPT CODE: [id number] XR KNEE 1 OR 2 [place] [id number] PROCEDURE INFORMATION: Exam: XR Right Knee Exam [...] M.D. CC: Brian Britt DO; Jonathan Dejesus [facility] Technologist: RT Martha(R) Trnscrd Date/Time/By: 06/29/2022 (5481) : By: Jennifer Orig Print D/T: S: 06/29/2022 (6195) PAGE 1 Signed ReportTHROMBOPLASTIN TIME [id number] 01:48:00 Test Item Value Reference Range Interpretation Comments THROMBOPLASTIN TIME 62.1 Seconds 25.0-39.5 H Therape utic Range: PARTIAL (test code = 50.4 - 88.3 Seconds PTT) Effective 01/22/2019 CBC W/AUTO [id number] 01:39:00 Test Item Value Reference Range Interpretation [...] MDIFF) COMMENTS: Daily while on HeparinTHROMBOPLASTIN TIME [id number] 18:54:00 Test Item Value Reference Range Interpretation Comments THROMBOPLASTIN TIME 80.3 Seconds 25.0-39.5 H Therape utic Range: PARTIAL (test code = 50.4 - 88.3 Seconds PTT) Effective 01/22/2019 THROMBOPLASTIN TIME [id number] 17:31:00 Test Item Value Reference Range Interpretation Comments THROMBOPLASTIN TIME 37.8 Seconds 25.0-39.5 Therape utic Range: PARTIAL (test code = 50.4 - 88.3 Seconds PTT) Effective 01/22/2019 THROMBOPLASTIN TIME [id number] 10:16:00 Test Item Value Reference Range Interpretation Comments THROMBOPLASTIN TIME 87.3 Seconds 25.0-39.5 H Therape utic Range: PARTIAL (test code = 50.4 - 88.3 Seconds PTT) Effective 01/22/2019 THROMBOPLASTIN TIME [id number] 02:16:00 Test Item Value Reference Range Interpretation Comments THROMBOPLASTIN TIME 57.9 Seconds 25.0-39.5 H Therape utic Range: PARTIAL (test code = 50.4 - 88.3 Seconds PTT) Effective 01/22/2019 CBC W/AUTO [id number] 02:06:00 Test Item Value Reference Range Interpretation [...] MDIFF) COMMENTS: Daily while on HeparinTHROMBOPLASTIN TIME [id number] 16:09:00 Test Item Value Reference Range Interpretation Comments THROMBOPLASTIN TIME 76.0 Seconds 25.0-39.5 H Therape utic Range: PARTIAL (test code = 50.4 - 88.3 Seconds PTT) Effective 01/22/2019 COMMENTS: REDRAWTHROMBOPLASTIN TIME [id number] 15:01:00 Test Item Value Reference Range Interpretation Comments THROMBOPLASTIN TIME 41.6 Seconds 25.0-39.5 H Therape utic Range: PARTIAL (test code = 50.4 - 88.3 Seconds PTT) Effective 01/22/2019 CBC W/AUTO [id number] 07:31:00 Test Item Value Reference Range Interpretation [...] MDIFF) COMMENTS: Daily while on HeparinTHROMBOPLASTIN TIME [id number] 06:58:00 Test Item Value Reference Range Interpretation Comments THROMBOPLASTIN TIME 57.5 Seconds 25.0-39.5 H Therape utic Range: PARTIAL (test code = 50.4 - 88.3 Seconds PTT) Effective 01/22/2019 THROMBOPLASTIN TIME [id number] 17:24:00 Test Item Value Reference Range Interpretation Comments THROMBOPLASTIN TIME 62.3 Seconds 25.0-39.5 H Therape utic Range: PARTIAL (test code = 50.4 - 88.3 Seconds PTT) Effective 01/22/2019 THROMBOPLASTIN TIME [id number] 10:36:00 Test Item Value Reference Range Interpretation Comments THROMBOPLASTIN TIME 62.4 Seconds 25.0-39.5 H Therape utic Range: PARTIAL (test code = 50.4 - 88.3 Seconds PTT) Effective 01/22/2019 THROMBOPLASTIN TIME [id number] 02:22:00 Test Item Value Reference Range Interpretation Comments THROMBOPLASTIN TIME 112.9 Seconds 25.0-39.5 H Therap eutic PARTIAL (test code = Range: 50.4 - 88.3 PTT) Seconds Effective 01/22/2019 CBC W/AUTO [id number] 02:04:00 Test Item Value Reference Range Interpretation [...] MDIFF) COMMENTS: Daily while on HeparinTHROMBOPLASTIN TIME [id number] 18:54:00 Test Item Value Reference Range Interpretation Comments THROMBOPLASTIN TIME 43.3 Seconds 25.0-39.5 H Therape utic Range: PARTIAL (test code = 50.4 - 88.3 Seconds PTT) Effective 01/22/2019 PROTEIN ELECTROPHORESIS [id number] 17:08:00 Test Item Value Reference Range Interpretation Comments TOTAL PROTEIN 6.0 g/dL 6.0-8.5 (test code = PROTE) ALBUMIN (test 3.3 g/dL 2.9-4.4 code = ALBE) [id number] 0.3 g/dL 0.0-0.4 (test code = A1G) [id number]-2-[id number] 0.8 g/dL 0.4-1.0 (test code = A2G) [...] is not apparent.Perfor med At: HD [facility] [address] [place] , [place] [id number] Ramón Elizabeth MD Ph:[phone] rform ed At: DA [facility] [address] [place], [place] [id number] gwen LANDRY MD Ph:[phone] [Automated mess age] The system [employer] generated this result transmit anali reference range : (). The reference r natacha was not used to interpret this result as normal/abnormal . LACTIC DEHYDROGENASE(LDH)2022-06-24 17:08:00 Test Item Value Reference Range Interpretation Comments LACTIC DEHYDROGENASE(LDH) (test 277 IUnits/L 84-246 H code = LDH) TOTAL IRON BINDING [id number] 17:08:00 Test Item Value Reference Range Interpretation Comments SERUM IRON (test code = IRON) 14 mcg/dL 35-150 L TOTAL IRON BINDING CAPACITY (test 331 mcg/dL 260-445 N code = TIBC) UIBC (test code = UIBC) 317 mcg/dL IRON SATURATION (test code = 4.2 % 14-34 L FESAT) VITAMIN [id number] 17:08:00 Test Item Value Reference Range Interpretation Comments VITAMIN B12 (test code = VITB12) 426 pg/mL 193-986 N FOLIC [id number] 17:08:00 Test Item Value Reference Range Interpretation Comments FOLIC ACID (test code = FOL) 23.4 ng/mL 3.1-17.5 H [id number] 17:08:00 Test Item Value Reference Range Interpretation Comments FERRITIN (test code = DEVIN) 16.9 ng/mL 11.0-306.8 N HGB [id number] 16:39:00 Test Item Value Reference Range Interpretation Comments HEMOGLOBIN (test code = HGB) 7.4 g/dL 11.0-15.0 L HEMATOCRIT (test code = HCT) 23.8 % 33.0-45.0 L THROMBOPLASTIN TIME [id number] 09:33:00 Test Item Value Reference Range Interpretation Comments THROMBOPLASTIN TIME 70.7 Seconds 25.0-39.5 H Therape utic Range: PARTIAL (test code = 50.4 - 88.3 Seconds PTT) Effective 01/22/2019 THROMBOPLASTIN TIME [id number] 01:48:00 Test Item Value Reference Range Interpretation Comments THROMBOPLASTIN TIME 49.6 Seconds 25.0-39.5 H Therape utic Range: PARTIAL (test code = 50.4 - 88.3 Seconds PTT) Effective 01/22/2019 CBC W/AUTO [id number] 01:38:00 Test Item Value Reference Range Interpretation [...] MDIFF) COMMENTS: Daily while on HeparinTHROMBOPLASTIN TIME [id number] 18:02:00 Test Item Value Reference Range Interpretation Comments THROMBOPLASTIN TIME 116.7 Seconds 25.0-39.5 H Therap eutic PARTIAL (test code = Range: 50.4 - 88.3 PTT) Seconds Effective 01/22/2019 [id number] 14:11:00 Test Item Value Reference Range Interpretation Comments HAPTOGLOBIN (test code 129 mg/dL 33-278 Perfo rmed At: DA = HAPT) [facility] [address] [place], [place] [id number] h GRIS GONZALEZ Ph:[phone] THROMBOPLASTIN TIME [id number] 11:12:00 Test Item Value Reference Range Interpretation Comments THROMBOPLASTIN TIME 97.5 Seconds 25.0-39.5 H Therape utic Range: PARTIAL (test code = 50.4 - 88.3 Seconds PTT) Effective 01/22/2019 THROMBOPLASTIN TIME [id number] 03:49:00 Test Item Value Reference Range Interpretation Comments THROMBOPLASTIN TIME 39.0 Seconds 25.0-39.5 Therape utic Range: PARTIAL (test code = 50.4 - 88.3 Seconds PTT) Effective 01/22/2019 CBC W/AUTO [id number] 03:46:00 Test Item Value Reference Range Interpretation [...] MDIFF) COMMENTS: Daily while on HeparinTHROMBOPLASTIN TIME [id number] 21:22:00 Test Item Value Reference Range Interpretation Comments THROMBOPLASTIN TIME 65.2 Seconds 25.0-39.5 H Therape utic Range: PARTIAL (test code = 50.4 - 88.3 Seconds PTT) Effective 01/22/2019 THROMBOPLASTIN TIME [id number] 13:31:00 Test Item Value Reference Range Interpretation Comments THROMBOPLASTIN TIME 95.9 Seconds 25.0-39.5 H Therape utic Range: PARTIAL (test code = 50.4 - 88.3 Seconds PTT) Effective 01/22/2019 HCG SERUM [id number] 08:07:00 Test Item Value Reference Range Interpretation Comments HCG SERUM QUAL (test code = SERUM NEGATIVE NEGATIVE HCGQL) CBC W/AUTO [id number] 06:31:00 Test Item Value Reference Range Interpretation [...] 1.8 % 0.3-2.3 N RETICA) THROMBOPLASTIN TIME [id number] 04:17:00 Test Item Value Reference Range Interpretation Comments THROMBOPLASTIN TIME 158.2 Seconds 25.0-39.5 H Therap eutic PARTIAL (test code = Range: 50.4 - 88.3 PTT) Seconds Effective 01/22/2019 COMMENTS: DRAW PTT 6 HOURS AFTER INITIATION OF HEPARIN- XR FLUOROSCOPY 0-60 MIN 2022-06-22 00:00:00 [facility] 1985 Sex: F FAX: Brian Britt DO [phone] [place]: St: ADM FAX: Jonathan Copeland [facility] [phone] Name: PRAFUL SANTANAHA [facility] : 1985 Age/S: 36/F [address] [place] [address] Unit #: [id number] Loc: [place] [address] Phys: Jonathan Glover [facility] Acct: [id number] Dis Date: Status: ADM IN PHONE #: [phone] Exam Date: 06/22/2022 1144 FAX #: [phone] Reason: LEFT TIBIA/FIBULA FRACTURE EXAMS: CPT CODE: [id number] XR FLUOROSCOPY 0-60 MIN 31429 PROCEDURE INFORMATION: Exam: FL Fluoroscopy, Up to 1 Hour Physician Time; Radiologist Not Present For Fluoroscopy Exam date and time: 06/22/2022 11:09 AM Age: 36 years old Clinical indication: Device placement; Additional info: Left tibia/fibula fracture TECHNIQUE: Imaging protocol: Fluoroscopy , up to 1 hour physician or other qualified health direct care professional time. This radiologist did not supervise this procedure. Exam supervised by facility personnel. Report for radiation dosage reporting and documentation only. COMPARISON: No [...] signed by: Kimberly Santiago M.D. CC: Brian Glover Technologist: SAI Tsang) Trnscrd Date/Time/By: 06/22/2022 (1206) : By: [email or web address] Orig Print D/T: S: 06/22/2022 (1336) PAGE 1 Signed ReportTHROMBOPLASTIN TIME [id number] 12:17:00 Test Item Value Reference Range Interpretation Comments THROMBOPLASTIN TIME 32.7 Seconds 25.0-39.5 N Therape utic Range: PARTIAL (test code = 50.4 - 88.3 Seconds PTT) Effective 01/22/2019 COMMENTS: IF NOT ALREADY DONE WITHIN THE LAST 24 HOURSPROTHROMBIN [id number] 12:17:00 Test Item Value Reference Range Interpretation [...] code = 8.5 mg/dL 8.0-10.5 N CA) [id number] 12:03:00 Test Item Value Reference Range Interpretation Comments ALCOHOL (test < 3.0 mg/dL <10 N Ethyl Alcohol code = ALC) Interpretation: 100 mg/dL - Legally Intox icated 300-400 mg/dL - Severely Intoxicated &g t;400 mg/dL - Potenti ally LethalThe pharm acological response to blo od alcohol levels mayvary from individual to i ndividual. Signs of intoxi cationcan be observed at levels of 50-100 mg/dL. R esults are for Medical pur poses only, and not f or Legal orEmployment ev aluation purposes. CBC W/AUTO [id number] 11:20:00 Test Item Value Reference Range Interpretation [...]
[2023-07-24] MEDS ORDERED: LORazepam 2 MG/ML VIAL ONE (10:10)
[2023-07-24 10:22] LABS: Absolute Lymphocytes (CBC) 1.5 K/uL (0.7-4.9); Hematocrit 36.4 % (36.0-45.0); Lymphocytes % 13.6 % (15.3-44.8); MCV 80.3 fL (80-100); MPV 7.2 fL (7.6-11.3); Platelets 406 thou/uL (152-406); RBC Red Blood Cell Count 4.53 M/uL (3.86-4.86)
[2023-07-24 10:29] LABS: Barbiturates NEGATIVE (NEGATIVE); Benzodiazepines NEGATIVE (NEGATIVE); Cocaine NEGATIVE (NEGATIVE); METHAMPHETAM POSITIVE (NEGATIVE); Methadone ND (NEGATIVE); Opiates NEGATIVE (NEGATIVE); Phencyclidine NEGATIVE (NEGATIVE); THC Cannibis NEGATIVE (NEGATIVE)
[2023-07-24 10:31] LABS: Protime INR 1.35
[2023-07-24 10:54] LABS: ALT/SGPT 38 U/L (13-56); AST/SGOT 22 U/L (15-37); Alkaline Phosphatase 77 U/L (45-117); BUN Blood Urea Nitrogen 8 mg/dL (7-18); Bicarbonate 20 mEq/L (21-32); Bilirubin Direct < 0.1 mg/dL (0-0.2); Bilirubin Indirect, Calculated ND mg/dL (0.2-0.8); Bilirubin Total 0.4 mg/dL (0.2-1.0); Glomerular Filtration Rate 95 ml/min (=/>90); Glucose Level 96 mg/dL (74-106); Potassium 3.6 mEq/L (3.5-5.1); Protein, Total 8.1 g/dL (6.4-8.2); Sodium Level 136 mEq/L (136-145)
--- NOTE | 2023-07-24 14:48 | ER ---
Nurse's Notes [facility] Name: Teodora Mas Age: 37 yrs Sex: Female : 1985 Arrival Date: 07/24/2023 Time: 09:29 Bed 6 Private MD: Diagnosis: Methamphetamine use, anxiety Presentation: 07/24 09:31 Chief complaint: Patient states: "Did a lot of meth last night, now I have chest pain". wy1 09:31 Coronavirus screen: Vaccine status: Patient reports being unvaccinated. Ebola Screen: nj1 Patient denies travel to an Ebola-affected area in the 21 days before illness onset. Initial Sepsis Screen: Does the patient meet any 2 criteria? HR > 90 bpm. No. Patient's initial sepsis screen is negative. Does the patient have a suspected source of infection? No. Patient's initial sepsis screen is negative. Risk Assessment: Do you want to hurt yourself or someone else? Patient reports no desire to harm self or others. Onset of symptoms was July 23, 2023. 09:31 Method Of Arrival: Ambulatory [facility] 09:31 Acuity: ANDRE 2 nj1 Historical: - Allergies: 09:40 No Known Allergies; nj1 - Home Meds: 09:40 Eliquis 5 mg Oral tablet 1 tab 2 times per day [Active]; gabapentin Oral [Active]; nj1 [place] Oral [Active]; Trazodone Oral [Active]; - PMHx: 09:40 Myocardial infarction; protein S deficiency; Hypertensive disorder; Insomnia; nj1 - PSHx: 09:40 tib fib repair; vascular surgery left arm; nj1 - Immunization history:: Client reports having NOT received the Covid vaccine. - Social history:: Smoking status: Patient reports the use of cigarette tobacco products, smokes one pack cigarettes per day. Screenin:24 [facility] ED Fall Risk Assessment (Adult) History of falling in the last 3 months, ld1 including since admission No falls in past 3 months (0 pts). Abuse screen: Denies threats or abuse. Denies injuries from another. Nutritional screening: No deficits noted. Tuberculosis screening: No symptoms or risk factors identified. Assessment: 10:24 General: Appears in no apparent distress. comfortable, Behavior is cooperative, ld1 anxious. Pain: Denies pain. Neuro: Level of Consciousness is awake, alert, obeys commands, Oriented to person, place, time, situation. Cardiovascular: Capillary refill < 3 seconds Patient's skin is warm and dry. Rhythm is sinus tachycardia. Respiratory: Airway is patent Respiratory effort is even, unlabored. GI: Abdomen is flat, non-distended. : No signs and/or symptoms were reported regarding the genitourinary system. EENT: No signs and/or symptoms were reported regarding the EENT system. Derm: No signs and/or symptoms reported regarding the dermatologic system. Musculoskeletal: No signs and/or symptoms reported regarding the musculoskeletal system. 11:21 Reassessment: Patient appears in no apparent distress at this time. Patient and/or iw family updated on plan of care and expected duration. Pain level reassessed. Patient is alert, oriented x 3, equal unlabored respirations, skin warm/dry/pink. 14:32 Reassessment: pt screaming, came out and said "she's saying her leg is iw hurting", pt screaming that her right leg is cramping, pt grabbing at her leg, states the rods are moving inside. Dr. Blandon came to bedside, gave verbal reassurance to pt. Pt states she needs anxiety medicine for home. Pt educated that it is not safe to prescribe anxiety medication when pt has done meth this morning. Pt reassured that she will be safe at home after 2nd lab draw is negative. Pt able to calm down, speaking softly HR came down to 88 bpm, pt asking to speak to a counselor. Pt advised that we do not have one on staff but we can give her resources for outpt care . Pt is calm, seems to understand d/c plan , is thankful for resources. Overdose: 15:09 [place] Suicide Severity Screening: "In the past month, have you actually had any [facility] thoughts of killing yourself?" Patient responds "yes." Based off client's responses, additional C-SSRS screening questions required. Vital Signs: 09:31 BP 136 / 80; Pulse 124; Resp 18; Temp 98.3(O); Pulse Ox 100% on R/A; Weight 72.57 kg; nj1 Height 5 ft. 5 in. ; Pain 5/10; 10:24 BP 136 / 84; Pulse 95; Resp 18; Pulse Ox 100% on R/A; Pain 0/10; ld1 11:26 Pulse 74; Resp 15; Pulse Ox 100% on R/A; ld1 12:30 BP 129 / 76; Pulse 76; Resp 16; Pulse Ox 100% on R/A; ld1 14:01 BP 134 / 82; Pulse 79; Resp 18; Pulse Ox 100% on R/A; ld1 09:31 Body Mass Index 26.63 (72.57 kg, 165.1 cm) nj1 09:31 Pain Scale: Adult nj1 10:24 Pain Scale: Adult ld1 ED Course: 09:30 Patient arrived in ED. rg4 09:32 Arm band placed on Patient placed in an exam room, on a stretcher. ll1 09:33 Blanco Blandon MD is Attending Physician. sp3 09:40 Triage completed. nj1 10:23 Nanci Pugh, RN is Primary Nurse. ld1 10:24 Patient has correct armband on for positive identification. Placed in gown. Bed in low ld1 position. Call light in reach. Side rails up X2. drawstring knotter on. Pulse ox on. NIBP on. Door closed. Noise minimized. Warm blanket given. 10:24 No provider procedures requiring assistance completed. Inserted saline lock: 24 gauge ld1 in right antecubital area, using aseptic technique. Blood collected. 10:25 Urine Drug Screen Sent. ld1 15:00 IV discontinued, intact, bleeding controlled. nj1 Administered Medications: 10:23 Drug: Ativan IVP 2 mg IVP once Route: IVP; Site: right antecubital; ld1 Medication: 10:24 VIS not applicable for this client. ld1 Outcome: 14:48 Discharge ordered by . sp3 15:00 Discharged to home via wheelchair, with significant other, nj1 15:00 Condition: stable 15:00 Discharge instructions given to patient, Instructed on discharge instructions, follow up and referral plans. Demonstrated understanding of instructions, follow-up care, 15:10 Patient left the ED. nj1 Signatures: Cathie Johnson, RN Barbi Ricketts rg4 Marian Arriaga RN RN ll1 Nanci Pugh RN RN ld1 Blanco Blandon MD MD sp3 Pamela Rivera RN RN nj
--- NOTE | 2023-07-24 14:48 | EDPHYS ---
Physician Documentation [facility] Name: Teodora Mas Age: 37 yrs Sex: Female : 1985 Arrival Date: 07/24/2023 Time: 09:29 Bed 6 Private MD: ED Physician Blanco Blandon HPI: 07/24 10:36 This 37 yrs old Female presents to ER via Ambulatory with complaints of Tachycardia and sp3 chest pain due to methamphetamine use. 10:37 37-year-old female with history of hypertension, protein S deficiency currently on sp3 Eliquis, prior methamphetamine induced RI presents with chief complaint tachycardia, anxiety and mild chest pain due to taking up methamphetamine yesterday evening. She denies any other drug use, shortness of breath, fever, known sick contacts, abdominal pain, nausea, vomiting, diarrhea, syncope, near syncope, or any other neurological complaint at this time. ROS is otherwise negative.. Historical: - Allergies: 09:40 No Known Allergies; nj1 - Home Meds: 09:40 Eliquis 5 mg Oral tablet 1 tab 2 times per day [Active]; gabapentin Oral [Active]; nj1 [place] Oral [Active]; Trazodone Oral [Active]; - PMHx: 09:40 Myocardial infarction; protein S deficiency; Hypertensive disorder; Insomnia; nj1 - PSHx: 09:40 tib fib repair; vascular surgery left arm; nj1 - Immunization history:: Client reports having NOT received the Covid vaccine. - Social history:: Smoking status: Patient reports the use of cigarette tobacco products, smokes one pack cigarettes per day. ROS: 10:40 Constitutional: Negative for fever, chills, and weight loss, Eyes: Negative for injury, sp3 pain, redness, and discharge, ENT: Negative for injury, pain, and discharge, Neck: Negative for injury, pain, and swelling, Respiratory: Negative for shortness of breath, cough, wheezing, and pleuritic chest pain, Abdomen/GI: Negative for abdominal pain, nausea, vomiting, diarrhea, and constipation, Back: Negative for injury and pain, MS/Extremity: Negative for injury and deformity, Skin: Negative for injury, rash, and discoloration, Neuro: Negative for headache, weakness, numbness, tingling, and seizure, Psych: Negative for depression, anxiety, suicide ideation, homicidal ideation, and hallucinations, Allergy/Immunology: Negative for hives, rash, and allergies, Endocrine: Negative for neck swelling, polydipsia, polyuria, polyphagia, and marked weight changes, Exam: 10:40 Constitutional: This is a well developed, well nourished patient who is awake, alert, sp3 and in no acute distress. Head/Face: Normocephalic, atraumatic. Eyes: Pupils equal round and reactive to light, extra-ocular motions intact. Lids and lashes normal. Conjunctiva and sclera are non-icteric and not injected. Cornea within normal limits. Periorbital areas with no swelling, redness, or edema. ENT: Nares patent. No nasal discharge, no septal abnormalities noted. External auditory canals are clear. Oropharynx with no redness, swelling, or masses, exudates, or evidence of obstruction, uvula midline. Mucous membranes moist. Neck: Trachea midline, no thyromegaly or masses palpated, and no cervical lymphadenopathy. Supple, full range of motion without nuchal rigidity, or vertebral point tenderness. No Meningismus. Chest/axilla: Normal chest wall appearance and motion. Nontender with no deformity. No lesions are appreciated. Respiratory: Lungs have equal breath sounds bilaterally, clear to auscultation and percussion. No rales, rhonchi or wheezes noted. No increased work of breathing, no retractions or nasal flaring. Abdomen/GI: Soft, non-tender, with normal bowel sounds. No distension or tympany. No guarding or rebound. No evidence of tenderness throughout. Back: No spinal tenderness. No costovertebral tenderness. Full range of motion. Skin: Warm, dry with normal turgor. Normal color with no rashes, no lesions, and no evidence of cellulitis. MS/ Extremity: Pulses equal, no cyanosis. Neurovascular intact. Full, normal range of motion. Neuro: Awake and alert, GCS 15, oriented to person, place, time, and situation. Cranial nerves II-XII grossly intact. Motor strength 5/5 in all extremities. Sensory grossly intact. Cerebellar exam normal. Normal gait. Psych: Awake, alert, with orientation to person, place and time. Behavior, mood, and affect are within normal limits. 10:40 Cardiovascular: Tachycardia otherwise normal exam, 10:40 ECG was reviewed by the Attending Physician. Sinus tachycardia at 104 bpm with normal intervals, normal QRS, normal axis ST segments without evidence of acute ischemia. Vital Signs: 09:31 BP 136 / 80; Pulse 124; Resp 18; Temp 98.3(O); Pulse Ox 100% on R/A; Weight 72.57 kg; nj1 Height 5 ft. 5 in. ; Pain 5/10; 10:24 BP 136 / 84; Pulse 95; Resp 18; Pulse Ox 100% on R/A; Pain 0/10; ld1 11:26 Pulse 74; Resp 15; Pulse Ox 100% on R/A; ld1 12:30 BP 129 / 76; Pulse 76; Resp 16; Pulse Ox 100% on R/A; ld1 14:01 BP 134 / 82; Pulse 79; Resp 18; Pulse Ox 100% on R/A; ld1 09:31 Body Mass Index 26.63 (72.57 kg, 165.1 cm) nj1 09:31 Pain Scale: Adult nj1 10:24 Pain Scale: Adult ld1 MDM: 09:33 Patient medically screened. sp3 10:41 Data reviewed: vital signs, nurses notes. ED course: 37-year-old female with sp3 methamphetamine use induced tachycardia and chest pain. Will obtain 2 sets of troponins and administer Ativan 2 mg IV to start for symptomatic control. EKG demonstrates no acute cardiac injury. Remainder of work-up Prometax standpoint is pending. Patient is not suicidal or homicidal or psychotic. If work-up is negative, we will safely discharge patient home. I have counseled her on recreational drug use and other health concerns.. 14:32 ED course: Patient became agitated and started screaming saying that "the rods in her sp3 feet are moving around" and that she needed medication to calm down. Heart rate elevated into the 120s and then came back down to 80 within 1 minute after we told her that no further intervention was necessary. Her second troponin is pending and if negative we will discharge her home. Patient was unprofessional and unreasonable towards nursing staff and was told to kindly stop behaving in that manner.. 07/24 09:54 Order name: Acetaminophen; Complete Time: 11:25 sp3 07/24 09:54 Order name: Basic Metabolic Panel; Complete Time: 11:25 sp3 07/24 09:54 Order name: CBC with Diff; Complete Time: 11:25 sp3 07/24 09:54 Order name: ETOH Level; Complete Time: 11:25 sp3 07/24 09:54 Order name: Hepatic Function; Complete Time: 11:25 sp3 07/24 09:54 Order name: PT-INR; Complete Time: 11:25 sp3 07/24 09:54 Order name: Ptt, Activated; Complete Time: 11:25 sp3 07/24 09:54 Order name: Salicylate; Complete Time: 11:25 sp3 07/24 09:54 Order name: Urine Drug Screen; Complete Time: 11:25 sp3 07/24 10:01 Order name: Troponin High Sensitivity; Complete Time: 11:25 sp3 07/24 10:43 Order name: Troponin High Sensitivity: Draw 4 hours after first; Complete Time: 14:37 sp3 07/24 09:54 Order name: EKG; Complete Time: 09:55 sp3 07/24 09:54 Order name: EKG - Nurse/Tech; Complete Time: 09:55 sp3 07/24 09:54 Order name: IV Saline Lock; Complete Time: 10:17 sp3 07/24 09:54 Order name: Labs collected and sent; Complete Time: 10:18 sp3 07/24 09:54 Order name: Suicide Screening ([place]); Complete Time: 10:21 sp3 Administered Medications: 10:23 Drug: Ativan IVP 2 mg IVP once Route: IVP; Site: right antecubital; ld1 Disposition Summary: 07/24/23 14:48 Discharge Ordered Notes: Location: Home sp3 Condition: Stable sp3 Diagnosis - Methamphetamine use, anxiety sp3 Followup: sp3 - With: Private Physician - When: Upon discharge from the Emergency Department - Reason: Continuance of care Discharge Instructions: - Discharge Summary Sheet sp3 - Methamphetamines Use Disorder sp3 Forms: - Medication Reconciliation Form sp3 - Thank You Letter sp3 - Antibiotic Education sp3 - Prescription Opioid Use sp3 - Patient Portal Instructions sp3 - Leadership Thank You Letter sp3 Signatures: Dispatcher [employer] Nanci Blanco RN RN ld1 Blanco Blandon MD MD sp3 Pamela Rivera RN RN nj1
[2023-07-24 15:17] VITALS: TEMP 98.3; O2SAT 100
[2023-07-24 15:22] VITALS: BP 134/82
--- NOTE | 2023-07-24 17:02 | EKG ---
Test Date: 2023-07-24 Test Time: 09:43:13 Clerk Analyst: JULES MEASUREMENT RESULTS: Intervals: Rate: 104 HI: 140 QRSD: 74 QT: 360 QTc: 473 Liberal: P: 45 HI: 140 QRS: 103 T: 31 INTERPRETIVE STATEMENTS: Sinus tachycardia Rightward axis Borderline ECG Compared to ECG 12/01/2022 20:49:52 Right-axis deviation now present Sinus rhythm no longer present Myocardial infarct finding no longer present Electronically Signed On 07-24-23 17:01:13 CDT by Bowen White
== END 2023-07-24 15:10 | disposition home or self-care (01) ==
LOC: ER 09:29
DX: F15.90 Other stimulant use, unspecified, uncomplicated (principal); I10 Essential (primary) hypertension; I25.2 Old myocardial infarction; D68.59 Other primary thrombophilia; F17.210 Nicotine dependence, cigarettes, uncomplicated; Z79.01 Long term (current) use of anticoagulants
CPT/HCPCS: 36415; 80048; 80076; 80143; 80179; 80307; 82077; 84484; 85025; 85610; 85730; 93005; 96374; 99285